=== PATIENT | female | born 1935 | race Caucasian/White ===

== ENCOUNTER → 2017-06-14 11:31 | Outpatient (CLI) | payer MEDICARE, OTHER, SELFPAY ==
[2017-06-14 12:36] LABS: Absolute Lymphocyte Count 1.45 X10^3/ul (0.83-4.51); Basophil# 0.02 X10^3/uL; Basophil% 0.3 % (0-1); Eosinophil# 0.11 X10^3/uL; Eosinophils% 1.7 % (0-5); Hematocrit 37.7 % (37-47); Hemoglobin 11.7 g/dl (12.0-15.0); Lymphocyte # 1.45 X10^3/ul (4.0); Lymphocyte % 22.9 % (19-41); Mean Corpuscular Volume 96.7 fL (81-99); Mean Platelet Vol. 11.6 fl (6.2-12.0); Monocyte# 0.71 X10^3/uL; Monocyte% 11.2 % (0-10); Neutrophil # 4.03 X10^3/uL (2.7-7.7); Neutrophil % 63.7 % (47-70); Platelet Count 213 K/mm3 (150-450); RBC Distribution Width SD 47.2 fl (35.1-43.9); White Blood Count 6.3 K/mm3 (4.4-11.0)
[2017-06-14 12:41] LABS: POSITIVE COUNT NO; POSITIVE DIFFERENTIAL NO; POSITIVE MORPHOLOGY NO
[2017-06-14 13:00] LABS: ALB/GLOB Ratio 1.2 RATIO (0.9-2.4); AST(SGOT) 12 U/L (15-37); Alanine Aminotransfer ALT/SGPT 14 U/L (13-56); Albumin, Serum 3.8 g/dL (3.2-5.0); Alkaline Phosphatase 102 U/L (45-117); Anion Gap 8 (5-15); BUN 27 mg/dL (7-18); BUN/Creat Ratio 27.4 RATIO (10-20); Calcium,Total 9.1 mg/dL (8.5-10.1); Chloride 104 mmol/L (98-107); Creatinine, Serum 0.98 mg/dL (0.55-1.02); EST Glomerular Filtration Rate 58 mL/min (>60); Est Glom Filt Rate - Afr Amer 70 mL/min (>60); Globulin 3.3 g/dL (2.2-4.2); Glucose 85 mg/dL (70-110); Potassium 4.3 mmol/L (3.5-5.1); Protein, Total 7.1 g/dL (6.4-8.2); Sodium Level 140 mmol/L (136-145); Thyroid Stim Hormone (TSH) 0.76 uIU/mL (0.358-3.74)
== END ==
PROVIDERS: Family Provider Family Medicine Geriatric Medicine; PCP Family Medicine Geriatric Medicine; Visit Provider Family Medicine Geriatric Medicine
DX: E55.9 Vitamin D deficiency, unspecified (principal); R53.83 Other fatigue
CPT/HCPCS: 36415; 80053; 82306; 84443; 85025

== ENCOUNTER → 2017-10-13 16:01 | Outpatient (CLI) | payer MEDICARE, OTHER, SELFPAY ==
[2017-10-28 10:00] LABS: Lyme IgG P18 Ab Absent (.); Lyme IgG P23 Ab Absent (.); Lyme IgG P28 Ab Absent (.); Lyme IgG P30 Ab Absent (.); Lyme IgG P39 Ab Absent (.); Lyme IgG P41 Ab Absent (.); Lyme IgG P45 Ab Absent (.); Lyme IgG P58 Ab Absent (.); Lyme IgG P66 Ab Absent (.); Lyme IgG P93 Ab Absent (.); Lyme IgM P23 Ab Absent (.); Lyme IgM P39 Ab Absent (.); Lyme IgM P41 Ab Absent (.)
[2017-10-28 11:01] LABS: Lyme IgG WB Interpretation Negative (.); Lyme IgM WB Interpretation Negative (.)
== END ==
PROVIDERS: Family Provider Family Medicine Geriatric Medicine; PCP Family Medicine Geriatric Medicine; Visit Provider Family Medicine Geriatric Medicine
DX: A69.20 Lyme disease, unspecified (principal)
CPT/HCPCS: 36415; 86617

== ENCOUNTER → 2017-12-07 11:55 | Outpatient (CLI) | payer MEDICARE, OTHER, SELFPAY ==
[2017-12-07 12:46] LABS: Absolute Lymphocyte Count 1.49 X10^3/ul (0.83-4.51); Absolute Neutrophil Count 4.9 X10^3/uL (2.0-7.7); Basophil# 0.04 X10^3/uL; Basophil% 0.5 % (0-1); Eosinophils% 1.4 % (0-5); Hematocrit 37.3 % (37-47); Hemoglobin 11.7 g/dl (12.0-15.0); Lymphocyte # 1.49 X10^3/ul (4.0); Lymphocyte % 20.3 % (19-41); Mean Corp Hgb Conc 31.4 g/gl (32-36); Mean Corpuscular Volume 98.7 fL (81-99); Mean Platelet Vol. 11.5 fl (6.2-12.0); Monocyte# 0.78 X10^3/uL; Monocyte% 10.6 % (0-10); Neutrophil # 4.93 X10^3/uL (2.7-7.7); Neutrophil % 67.2 % (47-70); Platelet Count 212 K/mm3 (150-450); RBC Distribution Width CV 13.8 % (11.6-14.6); RBC Distribution Width SD 48.2 fl (35.1-43.9); Red Blood Count 3.78 M/mm3 (4.2-5.4); White Blood Count 7.3 K/mm3 (4.4-11.0)
[2017-12-07 12:47] LABS: POSITIVE COUNT NO; POSITIVE DIFFERENTIAL NO; POSITIVE MORPHOLOGY NO
[2017-12-07 13:07] LABS: ALB/GLOB Ratio 1.1 RATIO (0.9-2.4); AST(SGOT) 16 U/L (15-37); Alanine Aminotransfer ALT/SGPT 15 U/L (13-56); Albumin, Serum 3.8 g/dL (3.2-5.0); Alkaline Phosphatase 84 U/L (45-117); Anion Gap 6 (5-15); BUN 26 mg/dL (7-18); BUN/Creat Ratio 26.7 RATIO (10-20); Calcium,Total 9.4 mg/dL (8.5-10.1); Chloride 104 mmol/L (98-107); Creatinine, Serum 0.98 mg/dL (0.55-1.02); EST Glomerular Filtration Rate 58 mL/min (>60); Est Glom Filt Rate - Afr Amer 71 mL/min (>60); Globulin 3.5 g/dL (2.2-4.2); Glucose 89 mg/dL (74-106); Potassium 3.8 mmol/L (3.5-5.1); Protein, Total 7.3 g/dL (6.4-8.2); Sodium Level 140 mmol/L (136-145); Thyroid Stim Hormone (TSH) 0.78 uIU/mL (0.358-3.74)
[2017-12-08 08:29] LABS: Vitamin D,25 Hydroxy 28.2 ng/mL (29.95-100.01)
== END ==
PROVIDERS: Family Provider Family Medicine Geriatric Medicine; PCP Family Medicine Geriatric Medicine; Visit Provider Family Medicine Geriatric Medicine
DX: E55.9 Vitamin D deficiency, unspecified (principal); I10 Essential (primary) hypertension
CPT/HCPCS: 36415; 80053; 82306; 84443; 85025

== ENCOUNTER → 2017-12-21 13:14 | Outpatient (CLI) | payer MEDICARE, OTHER, SELFPAY ==
--- NOTE | 2017-12-21 13:25 | RAD_ITS ---
STUDY: X-RAY - THORACIC SPINE REASON FOR EXAM: Female, 82 years old. back pain TECHNIQUE: 2 view(s) of the thoracic spine were obtained. COMPARISON: None. FINDINGS: There is an increase in the normal thoracic kyphosis. There is multi-level endplate spondylosis. There is multi-level degenerative disc disease with multilevel disc space narrowing. The soft tissue structures are unremarkable. RAD/Thoracic Spine 2 Views IMPRESSION: No demonstrated fractures. Moderate degenerative changes. Electronically Signed: Luigi Hines MD at 11:09 EDT Tel , Service support ,
== END ==
PROVIDERS: Family Provider Family Medicine Geriatric Medicine; PCP Family Medicine Geriatric Medicine; Visit Provider Anesthesiology Pain Medicine
DX: M47.894 Other spondylosis, thoracic region (principal); M51.34 Other intervertebral disc degeneration, thoracic region; M48.04 Spinal stenosis, thoracic region
CPT/HCPCS: 72070

== ENCOUNTER → 2018-03-10 11:52 | Outpatient (CLI) | payer MEDICARE, OTHER, SELFPAY ==
[2018-03-10 13:53] LABS: Absolute Lymphocyte Count 1.33 X10^3/ul (0.83-4.51); Absolute Neutrophil Count 3.8 X10^3/uL (2.0-7.7); Basophil# 0.01 X10^3/uL; Basophil% 0.2 % (0-1); Eosinophils% 1.7 % (0-5); Hematocrit 35.9 % (37-47); Lymphocyte # 1.33 X10^3/ul (4.0); Lymphocyte % 22.6 % (19-41); Mean Corp Hgb Conc 30.6 g/gl (32-36); Mean Corpuscular Volume 97.8 fL (81-99); Monocyte# 0.66 X10^3/uL; Monocyte% 11.2 % (0-10); Neutrophil # 3.78 X10^3/uL (2.7-7.7); Neutrophil % 64.3 % (47-70); Platelet Count 225 K/mm3 (150-450); RBC Distribution Width CV 13.8 % (11.6-14.6); RBC Distribution Width SD 49.3 fl (35.1-43.9); Red Blood Count 3.67 M/mm3 (4.2-5.4); White Blood Count 5.9 K/mm3 (4.4-11.0)
[2018-03-10 13:54] LABS: POSITIVE COUNT NO; POSITIVE DIFFERENTIAL NO; POSITIVE MORPHOLOGY NO
[2018-03-10 14:12] LABS: Vitamin D,25 Hydroxy 33.8 ng/mL (29.95-100.01)
[2018-03-10 14:17] LABS: ALB/GLOB Ratio 1.1 RATIO (0.9-2.4); AST(SGOT) 13 U/L (15-37); Alanine Aminotransfer ALT/SGPT 11 U/L (13-56); Albumin, Serum 3.5 g/dL (3.2-5.0); Alkaline Phosphatase 85 U/L (45-117); Anion Gap 10 (5-15); BUN 16 mg/dL (7-18); BUN/Creat Ratio 17.8 RATIO (10-20); Calcium,Total 9.1 mg/dL (8.5-10.1); Chloride 104 mmol/L (98-107); EST Glomerular Filtration Rate 64 mL/min (>60); Est Glom Filt Rate - Afr Amer 77 mL/min (>60); Globulin 3.2 g/dL (2.2-4.2); Glucose 89 mg/dL (74-106); Potassium 4.2 mmol/L (3.5-5.1); Protein, Total 6.7 g/dL (6.4-8.2); Sodium Level 141 mmol/L (136-145); Thyroid Stim Hormone (TSH) 0.76 uIU/mL (0.358-3.74)
== END ==
PROVIDERS: Family Provider Family Medicine Geriatric Medicine; PCP Family Medicine Geriatric Medicine; Visit Provider Family Medicine Geriatric Medicine
DX: E55.9 Vitamin D deficiency, unspecified (principal); I10 Essential (primary) hypertension; N39.0 Urinary tract infection, site not specified
CPT/HCPCS: 36415; 80053; 82306; 84443; 85025; 87086; 87088

== ENCOUNTER → 2018-04-28 14:24 | Outpatient (CLI) | payer MEDICARE, OTHER, SELFPAY ==
[2018-05-04 12:08] LABS: Lyme IgG P18 Ab Absent (.); Lyme IgG P23 Ab Absent (.); Lyme IgG P28 Ab Absent (.); Lyme IgG P30 Ab Absent (.); Lyme IgG P39 Ab Absent (.); Lyme IgG P41 Ab Absent (.); Lyme IgG P45 Ab Absent (.); Lyme IgG P58 Ab Absent (.); Lyme IgG P66 Ab Absent (.); Lyme IgG P93 Ab Absent (.); Lyme IgM P23 Ab Absent (.); Lyme IgM P39 Ab Absent (.); Lyme IgM P41 Ab Absent (.)
[2018-05-04 13:05] LABS: Lyme IgG WB Interpretation Negative (.); Lyme IgM WB Interpretation Negative (.)
--- OUTSIDE RECORDS SUMMARY | 2018-06-14 11:38 | XMS RPT_ITS ---
:1935 Author Organization OHIP Care Team Providers Name Role Phone JONAH GIBBS Attending Unavailable JANIE CARVALHO (NS) Attending Unavailable JONAH GIBBS Attending Unavailable JONAH GIBBS Referring Unavailable SAMIRA BARRIENTOS Attending Unavailable JANIE CARVALHO HEEL SEAT FILLER Admitting Unavailable JANIE CARVALHO HEEL SEAT FILLER Attending Unavailable JANIE CARVALHO HEEL SEAT FILLER Primary Care Unavailable GURMEET MAIN MD Consulting Unavailable PROVIDER, UNKNOWN Consulting Unavailable PROVIDER, UNKNOWN Consulting Unavailable Stevie, Gurmeet Chi Attending Unavailable Stevie, Gurmeet Chi Primary Care Unavailable Trisha Kumar Attending Unavailable Trisha Kumar Referring Unavailable Stevie, Gurmeet Chi Primary Care Unavailable Stevie, Gurmeet Chi Attending Unavailable Stevie, Gurmeet Chi Primary Care Unavailable Stevie, Gurmeet Chi Attending Unavailable Stevie, Gurmeet Chi Primary Care Unavailable Stevie, Gurmeet Chi Attending Unavailable Stevie, Gurmeet Chi Primary Care Unavailable Basali, Ayman Attending Unavailable Basali, Ayman Referring Unavailable Stevie, Gurmeet Chi Primary Care Unavailable Basali, Ayman Attending Unavailable Basali, Ayman Referring Unavailable Stevie, Gurmeet Chi Primary Care Unavailable Stevie, Gurmete Chi Attending Unavailable Stevie, Gurmeet Chi Primary Care Unavailable PROBLEMS PROBLEMS DATE TYPE CONDITION / CODE ATTENDING STATUS SOURCE 03/10/2018 Unknown E55.9 - Vitamin D Stevie, Gurmeet Chi Active [place] deficiency, Community unspecified / Hospital E55.9(ICD-10) Repository 03/10/2018 Unknown I10 - Essential Stevie, Gurmeet Chi Active [place] (primary) Community hypertension / Hospital I10(ICD-10) Repository 02/08/2018 Admitting Parkinson's disease JANIE CARVALHO Active [facility] Diagnosis / G20(ICD-10) [facility] Repository 02/08/2018 Principle Parkinson's disease JANIE CARVALHO Active [facility] Diagnosis / G20(ICD-10) [facility] Repository 02/08/2018 Secondary Unspecified WADEJANIE Active [facility] Diagnosis abnormalities of [facility] gait and mobility / Hospital R269(ICD-10) Repository 06/14/2017 Unknown R53.83 - Other Stevie, Gurmeet Chi Active [place] fatigue / Community R53.83(ICD-10) Hospital Repository PROCEDURES PROCEDURES No Procedure Records FoundRESULTS RESULTS CNCO Observed: 06/07/2018 Status: COMPLETED Source: [place] 12:00 AM [facility] REPOSITORY Letter Text Samira Barrientos MD [facility] [address] [place] [address] Tiffanie Moody June 07, 2018 Tiffanie Moody [id number] [id number] Dear Tiffanie Moody: Due to a change in your provider's schedule, it has become necessary to cancel the following appointment: Samira Barrientos MD Date: 12/05/18 Time: 4:10pm We apologize for any inconvenience to you, however your provider would still like to see you. Please call us at [phone] to reschedule your appointment. 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 Noting tremors for more than 5 years that are present with rest, action, posture. Also elements of parkinsonism with hyposmia, hypophonia, mild rigidity, freezing and hesitation on tests of upper extremity agility. Gait is parkinsonian. She notes improvement with Sinemet. Discussed diagnosis of ET/PD is clinical. Most bothersome symptoms today are constipation and insomnia. - constipation: already tried multiple remedies. Discussed increased water intake. Gave prune juice cocktail recipe. Advised to avoid daily use of laxatives. Consider referral to GI specialist if constipation does not improve. - insomnia: has failed trazodone and melatonin. Side effects with Ambien. Recommend trial of Remeron. - continue current Sinemet regimen. Continue Requip for RLS. In the future consider increasing Sinemet dose, trial of primidone. ---> Follow-up: 6 months Last Visit: 01/31/2018 with Kavitha Monroy Hx: Tremors for at least 3 years. Diagnosed with ET in [place] almost 5 years ago. Handwriting is shaky and smaller. Tremors at rest, action, posture. Dexterity is limited. Doesn't have the strength. Can still knit and dangelo. Leg tremors when reading or knitting. Mother had tremors as well, never told she had PD. Started in her head. Tremors with action in hands. Speech a little slurred. Primidone sounds familiar. +anosmia. voice has been soft. No hypomimia noticed. Most bothersome symptoms: constipation and not sleeping. Current PD meds: Sinemet 25/100 1 tab BID AM and 2PM Sinemet CR 50/200 1 tab QHS Thinks Sinemet helps her. Time to onset of action after taking medication: no Wearing off: no Dyskinesia: no Other side effects: Nausea,vomiting: no Hallucination: no Falls/Imbalance: feet stick to the floor. Few falls. Lives in [facility] house.gait is slower. Did PT and worked on walking big. Stooped posture and shuffling. Sometimes runs into wall to stop herself. Sleep problems/RBD/RLS: never slept well. Takes Requip and drinks quinine for RLS. Happy with RLS control generally but still not sleeping. Sometimes trouble sleeping due to RLS, worry. Moans in her sleep. No moving. Not fallen out of bed. Melatonin didn't work at 20 mg. Multiple family members don't sleep. RLS is long-standing. Takes MOM daily. Tried trazodone and didn't help. Impaired memory/Cognition/Driving: no. Memory is good. Per daughter she is sharp. No driving for 2 years. Not sure if she was safe. Nothing happened. Issues with mobility once she gets out of the car. Bowel/Bladder: UTI currently. Normally she is fine with no incontinence. Constipation. Takes MOM. Miralax didn't help. High fiber, prunes, prune juice. Orthostasis: little. Has to stand and get her bearings- more balance than dizzy. Sialorrhea: yes Swallowing difficulty: no Depress mood/Anxiety: up and down like always. Rehab/exercise: Last PT session 12 weeks in March PMH: PAST MEDICAL HISTORY Diagnosis Date - Hypertension - Hypothyroidism New Health Issues: No SOC: Social History Marital status: Spouse name: Years of education: Number of children: Social History Main Topics Smoking status: Former Smoker Packs/day: 0.00 Years: 0.00 Smokeless tobacco: Never Used FMH: FAMILY HISTORY Problem Relation Age of Onset - other (tremors) Mother - other (PD paternal uncle) Other MEDS: Current Outpatient Prescriptions: cephALEXin (KEFLEX) 250 mg capsule Take 250 mg by mouth four times daily. rOPINIRole (REQUIP) 0.5 mg tablet Take 0.5 mg by mouth daily at bedtime. Fosinopril Sodium (MONOPRIL) 20 mg tablet Take 20 mg by mouth once daily. hydroCHLOROthiazide (HYDRODIURIL, ESIDRIX) 12.5 mg tablet Take 12.5 mg by mouth once daily. carbidopa-levodopa (SINEMET 25-100) 25-100 mg per tablet Take 1 tablet by mouth three times daily. aspirin, enteric coated (ASPIRIN, ENTERIC COATED) 81 mg EC tablet Take 81 mg by mouth once daily. Levothyroxine 75 mcg cap Take by mouth. MAGNESIUM HYDROXIDE (MILK OF MAGNESIA ORAL) Take by mouth. DOCUSATE CALCIUM (STOOL SOFTENER ORAL) Take by mouth. carbidopa-levodopa CR (SINEMET CR) 50-200 mg per tablet Take 1 tablet by mouth daily at bedtime. clonazePAM (KLONOPIN) 0.5 mg tablet Take one-half at bedtime for 2 weeks, if needed increase to a full tablet (Patient not taking: Reported on 06/06/2018 ) atorvastatin (LIPITOR) 40 mg tablet Take 40 mg by mouth once daily. traZODone (DESYREL) 50 mg tablet Take 1 tablet by mouth daily at bedtime. (Patient not taking: Reported on 06/06/2018 ) indapamide (LOZOL) 1.25 mg tablet Take 1.25 mg by mouth once daily. CALCIUM CARBONATE/VITAMIN D3 (VITAMIN D-3 ORAL) Take by mouth. lutein 20 mg tab Take by mouth. cyanocobalamin (VITAMIN B-12) 1,000 mcg tab Take 1,000 mcg by mouth once daily. No current facility-administered medications for this visit. REVIEW OF SYSTEMS: Review of system : unchanged from the previous visit or as per HPI (sleep patterns, mood, energy, appetite, stress, exercising). Physical Examination: Pulse 79 Ht 162.6 cm (5' 4) Wt 86.2 kg (190 lb) SpO2 99% BMI 32.61 kg/m? unable to measure BP due to tremors GEN: Alert. NAD. Normal affect. Cooperative. HEENT: No rhinorrhea, lacrimation or conjunctival injection. Normal mucosa. NECK/BACK: Supple EXT: No cyanosis. No edema. No erythema. NEUROLOGICAL: MENTAL STATUS: A+O x 3. Attentive. Thought process and content unremarkable. Follows commands appropriately. Speech fluent. CN: II: PERRLA. III, IV, : EOMI. No ptosis present. VII: Face symmetric. VIII:No nystagmus. XI: Symmetric shoulder shrug. MOTOR: Movement disorders examination: To quantify parkinsonism, Part III of the MDS-Unified Parkinson?s Disease Rating Scale was performed and detailed in the succeeding sections in this report. Please see the neurological health status section or the next paragraph for details. Each item is scored from 0 to 4. In general, a score of 0 means normal; 1 means mild; 2 means moderate; 3 means moderate to severe; 4 means severe. Motor UPDRS SPEECH ON 2 FACIAL EXPRESSION ON 0 REST TREMOR - CRANIAL ON 1 REST TREMOR - HANDS RT ON 2 REST TREMOR - HANDS LT ON 2 REST TREMOR - FEET RT ON 1 REST TREMOR - FEET LT ON 1 ACTION TREMOR - RT ON 2 ACTION TREMOR - LT ON 2 RIGIDITY - NECK ON 0 RIGIDITY - UE - RT ON 1 RIGIDITY - UE - LT ON 1 RIGIDITY - LE - RT ON 0 RIGIDITY - LE - LT ON 0 FINGER TAPS - RT ON 1 FINGER TAPS - LT ON 2 HAND SEARCH LEAD - RT ON 2 HAND SEARCH LEAD - LT ON 2 PRONATE/SUPINATE - RT ON 2 PRONATE/SUPINATE - LT ON 1 LEG AGILITY - RT ON 1 LEG AGILITY - LT ON 1 ARISE FROM CHAIR ON 0 POSTURE ON 2 GAIT ON 1 BODY BRADYKINESIA ON 1 CEREBELLAR: No ataxia or nystagmus. GAIT: Stable primary gait. Samira Barrientos M.D. [facility] [place] Department [facility] Total time in minutes spent with patient: 45 with more than 50% of the time spent in patient education/counselling/coordinating care with the patient and /or family. 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 Noting tremors for more than 5 years that are present with rest, action, posture. Also elements of parkinsonism with hyposmia, hypophonia, mild rigidity, freezing and hesitation on tests of upper extremity agility. Gait is parkinsonian. She notes improvement with Sinemet. Discussed diagnosis of ET/PD is clinical. Most bothersome symptoms today are constipation and insomnia. - constipation: already tried multiple remedies. Discussed increased water intake. Gave prune juice cocktail recipe. Advised to avoid daily use of laxatives. Consider referral to GI specialist if constipation does not improve. - insomnia: has failed trazodone and melatonin. Side effects with Ambien. Recommend trial of Remeron. - continue current Sinemet regimen. Continue Requip for RLS. In the future consider increasing Sinemet dose, trial of primidone. ---> Follow-up: 6 months Last Visit: 01/31/2018 with Kavitha Monroy Hx: Tremors for at least 3 years. Diagnosed with ET in [place] almost 5 years ago. Handwriting is shaky and smaller. Tremors at rest, action, posture. Dexterity is limited. Doesn't have the strength. Can still knit and dangelo. Leg tremors when reading or knitting. Mother had tremors as well, never told she had PD. Started in her head. Tremors with action in hands. Speech a little slurred. Primidone sounds familiar. +anosmia. voice has been soft. No hypomimia noticed. Most bothersome symptoms: constipation and not sleeping. Current PD meds: Sinemet 25/100 1 tab BID AM and 2PM Sinemet CR 50/200 1 tab QHS Thinks Sinemet helps her. Time to onset of action after taking medication: no Wearing off: no Dyskinesia: no Other side effects: Nausea,vomiting: no Hallucination: no Falls/Imbalance: feet stick to the floor. Few falls. Lives in house.gait is slower. Did PT and worked on walking big. Stooped posture and shuffling. Sometimes runs into wall to stop herself. Sleep problems/RBD/RLS: never slept well. Takes Requip and drinks quinine for RLS. Happy with RLS control generally but still not sleeping. Sometimes trouble sleeping due to RLS, worry. Moans in her sleep. No moving. Not fallen out of bed. Melatonin didn't work at 20 mg. Multiple family members don't sleep. RLS is long-standing. Takes MOM daily. Tried trazodone and didn't help. Impaired memory/Cognition/Driving: no. Memory is good. Per daughter she is sharp. No driving for 2 years. Not sure if she was safe. Nothing happened. Issues with mobility once she gets out of the car. Bowel/Bladder: UTI currently. Normally she is fine with no incontinence. Constipation. Takes MOM. Miralax didn't help. High fiber, prunes, prune juice. Orthostasis: little. Has to stand and get her bearings- more balance than dizzy. Sialorrhea: yes Swallowing difficulty: no Depress mood/Anxiety: up and down like always. Rehab/exercise: Last PT session 12 weeks in March PMH: PAST MEDICAL HISTORY Diagnosis Date - Hypertension - Hypothyroidism New Health Issues: No SOC: Social History Marital status: Spouse name: Years of education: Number of children: Social History Main Topics Smoking status: Former Smoker Packs/day: 0.00 Years: 0.00 Smokeless tobacco: Never Used FMH: FAMILY HISTORY Problem Relation Age of Onset - other (tremors) Mother - other (PD paternal uncle) Other MEDS: Current Outpatient Prescriptions: cephALEXin (KEFLEX) 250 mg capsule Take 250 mg by mouth four times daily. rOPINIRole (REQUIP) 0.5 mg tablet Take 0.5 mg by mouth daily at bedtime. Fosinopril Sodium (MONOPRIL) 20 mg tablet Take 20 mg by mouth once daily. hydroCHLOROthiazide (HYDRODIURIL, ESIDRIX) 12.5 mg tablet Take 12.5 mg by mouth once daily. carbidopa-levodopa (SINEMET 25-100) 25-100 mg per tablet Take 1 tablet by mouth three times daily. aspirin, enteric coated (ASPIRIN, ENTERIC COATED) 81 mg EC tablet Take 81 mg by mouth once daily. Levothyroxine 75 mcg cap Take by mouth. MAGNESIUM HYDROXIDE (MILK OF MAGNESIA ORAL) Take by mouth. DOCUSATE CALCIUM (STOOL SOFTENER ORAL) Take by mouth. carbidopa-levodopa CR (SINEMET CR) 50-200 mg per tablet Take 1 tablet by mouth daily at bedtime. clonazePAM (KLONOPIN) 0.5 mg tablet Take one-half at bedtime for 2 weeks, if needed increase to a full tablet (Patient not taking: Reported on 06/06/2018 ) atorvastatin (LIPITOR) 40 mg tablet Take 40 mg by mouth once daily. traZODone (DESYREL) 50 mg tablet Take 1 tablet by mouth daily at bedtime. (Patient not taking: Reported on 06/06/2018 ) indapamide (LOZOL) 1.25 mg tablet Take 1.25 mg by mouth once daily. CALCIUM CARBONATE/VITAMIN D3 (VITAMIN D-3 ORAL) Take by mouth. lutein 20 mg tab Take by mouth. cyanocobalamin (VITAMIN B-12) 1,000 mcg tab Take 1,000 mcg by mouth once daily. No current facility-administered medications for this visit. REVIEW OF SYSTEMS: Review of system : unchanged from the previous visit or as per HPI (sleep patterns, mood, energy, appetite, stress, exercising). Physical Examination: Pulse 79 Ht 162.6 cm (5' 4) Wt 86.2 kg (190 lb) SpO2 99% BMI 32.61 kg/m? unable to measure BP due to tremors GEN: Alert. NAD. Normal affect. Cooperative. HEENT: No rhinorrhea, lacrimation or conjunctival injection. Normal mucosa. NECK/BACK: Supple EXT: No cyanosis. No edema. No erythema. NEUROLOGICAL: MENTAL STATUS: A+O x 3. Attentive. Thought process and content unremarkable. Follows commands appropriately. Speech fluent. CN: II: PERRLA. III, IV, : EOMI. No ptosis present. VII: Face symmetric. VIII:No nystagmus. XI: Symmetric shoulder shrug. MOTOR: Movement disorders examination: To quantify parkinsonism, Part III of the MDS-Unified Parkinson?s Disease Rating Scale was performed and detailed in the succeeding sections in this report. Please see the neurological health status section or the next paragraph for details. Each item is scored from 0 to 4. In general, a score of 0 means normal; 1 means mild; 2 means moderate; 3 means moderate to severe; 4 means severe. Motor UPDRS SPEECH ON 2 FACIAL EXPRESSION ON 0 REST TREMOR - CRANIAL ON 1 REST TREMOR - HANDS RT ON 2 REST TREMOR - HANDS LT ON 2 REST TREMOR - FEET RT ON 1 REST TREMOR - FEET LT ON 1 ACTION TREMOR - RT ON 2 ACTION TREMOR - LT ON 2 RIGIDITY - NECK ON 0 RIGIDITY - UE - RT ON 1 RIGIDITY - UE - LT ON 1 RIGIDITY - LE - RT ON 0 RIGIDITY - LE - LT ON 0 FINGER TAPS - RT ON 1 FINGER TAPS - LT ON 2 HAND SEARCH LEAD - RT ON 2 HAND SEARCH LEAD - LT ON 2 PRONATE/SUPINATE - RT ON 2 PRONATE/SUPINATE - LT ON 1 LEG AGILITY - RT ON 1 LEG AGILITY - LT ON 1 ARISE FROM CHAIR ON 0 POSTURE ON 2 GAIT ON 1 BODY BRADYKINESIA ON 1 CEREBELLAR: No ataxia or nystagmus. GAIT: Stable primary gait. Samira Barrientos M.D. [facility] [place] Department of [facility] Total time in minutes spent with patient: 45 with more than 50% of the time spent in patient education/counselling/coordinating care with the patient and /or family. cc: SELF Gurmeet Main MD [id number] [address] Samira Barrientos MD 06/06/2018 10:03 AM Signed Prune Juice Cocktail for constipation: Mix together: 1/2 cup applesauce 2 tablespoons wheat bran (patricio's bran) 4-6 oz prune juice Store in refrigerator. Take a tablespoonful per day at first, gradually increasing until you find the amount that works best. Try to increase your water intake to at least 40 ounces per day Try not take laxatives every. 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 LEVOTHYROXINE 75 MCG CAPSULE Take by mouth. MILK OF MAGNESIA ORAL Take by mouth. STOOL SOFTENER ORAL Take by mouth. MIRTAZAPINE 15 MG TABLET Take 0.5 tablets by mouth demi* CARBIDOPA ER 50 MG-LEVODOPA 2* Take 1 tablet by mouth daily * INDAPAMIDE 1.25 MG TABLET Take 1.25 mg by mouth once da* Problem List As Of Date 06/06/2018 Noted Resolved Chronic midline low back pain with left-sided s*INVALID FOR* Parkinson's disease (HCC) [G20] INVALID FOR* Essential tremor [G25.0] INVALID FOR* Memory loss [R41.3] INVALID FOR* Other instructions from your clinician: Prune Juice Cocktail for constipation: Mix together: 1/2 cup applesauce 2 tablespoons wheat bran (patricio's bran) 4-6 oz prune juice Store in refrigerator. Take a tablespoonful per day at first, gradually increasing until you find the amount that works best. Try to increase your water intake to at least 40 ounces per day Try not take laxatives every. Prescriptions ordered this encounter Disp Refills Start End MIRTAZAPINE 15 MG TABLET 15 t* 11 06/06/2018 06/06/2019 Route: ORAL Sig: Take 0.5 tablets by mouth daily at bedtime. Medications Discontinued During This Encounter atorvastatin (LIPITOR) 40 mg tablet 06/06/2018 Class: Historical Med Route: ORAL Sig: Take 40 mg by mouth once daily. Disc: Reason for discontinue is not on file. clonazePAM (KLONOPIN) 0.5 mg tablet 30 t* 1 01/31/2018 06/06/2018 Class: Print RX Sig: Take one-half at bedtime for 2 weeks, if needed increase to a full tablet Patient not taking: Reported on 06/06/2018 Disc: Reason for discontinue is not on file. cyanocobalamin (VITAMIN B-12) 1,000 * 06/06/2018 Class: Historical Med Route: ORAL Sig: Take 1,000 mcg by mouth once daily. Disc: Reason for discontinue is not on file. lutein 20 mg tab 06/06/2018 Class: Historical Med Route: ORAL Sig: Take by mouth. Disc: Reason for discontinue is not on file. traZODone (DESYREL) 50 mg tablet 90 t* 0 12/29/2016 06/06/2018 Route: ORAL Sig: Take 1 tablet by mouth daily at bedtime. Patient not taking: Reported on 06/06/2018 Disc: Reason for discontinue is not on file. Disposition: Return in about 3 months (around 09/04/2018). Follow-up and Disposition History Recorded Questionnaire: UPDRS - MOTOR EXAMINATION ON SPEECH ON -> 2 FACIAL EXPRESSION ON -> 0 REST TREMOR - CRANIAL ON -> 1 REST TREMOR - HANDS RT ON -> 2 REST TREMOR - HANDS LT ON -> 2 REST TREMOR - FEET RT ON -> 1 REST TREMOR - FEET LT ON -> 1 ACTION TREMOR - RT ON -> 2 ACTION TREMOR - LT ON -> 2 RIGIDITY - NECK ON -> 0 RIGIDITY - UE - RT ON -> 1 RIGIDITY - UE - LT ON -> 1 RIGIDITY - LE - RT ON -> 0 RIGIDITY - LE - LT ON -> 0 FINGER TAPS - RT ON -> 1 FINGER TAPS - LT ON -> 2 HAND SEARCH LEAD - RT ON -> 2 HAND SEARCH LEAD - LT ON -> 2 PRONATE/SUPINATE - RT ON -> 2 PRONATE/SUPINATE - LT ON -> 1 LEG AGILITY - RT ON -> 1 LEG AGILITY - LT ON -> 1 ARISE FROM CHAIR ON -> 0 POSTURE ON -> 2 GAIT ON -> 1 BODY BRADYKINESIA ON -> 1 Encounter Status:Closed by SAMIRA BARRIENTOS MD on 06/06/18 PROGRESS Observed: 06/02/2018 Status: COMPLETED Source: [place] 11:55 AM [facility] [place] REPOSITORY HNO ID: [id number] Author: Jonah Gibbs Service: (none) Author Type: Physician Type: Progress Notes Filed: 06/02/2018 11:58 AM Note Text: Subjective: Patient presents to clinic c/o painful toenails. They state that the nails are especially painful with shoe gear and pressure. Patient states that nails 1-5 b/l are painful. Patient admits to painful callus of b/l feet. Patient denies being diabetic. No other pedal complaints at this time. Patient states no change in medications or medical history since last visit. Objective: Patient presents to clinic ambulating in [facility] Vasc: DP and PT pulses are palpable bilateral. CFT is less than 5 seconds bilateral. Skin temperature is warm to cool proximal to distal bilateral. There is mild edema or varicosities noted. Neuro: Protective sensation is intact to the foot and toes when tested with the 5.07 SWM bilateral. The hallux is downgoing bilateral. Derm: Nails 1-5 b/l are thick with minimal elongation. Skin is dry b/l. . There are callus to b/l 1st metatarsal. No ulcerations, scars, verruca or other lesions noted. Ortho: Muscle strength is 5/5 for all pedal groups tested. Ankle joint DF is full with the knee extended with no pain or crepitus noted. 1st MPJ ROM is decreased bilateral. There are hammertoes to b/l feet Assessment: (B35.1) Onychomycosis (primary encounter diagnosis) (M79.675) Pain in toe of left foot (M79.674) Pain in toe of right foot (L85.9) Hyperkeratosis (M20.41, M20.42) Hammer toes of both feet Plan: Patient was seen and evaluated. Toenails were reduced in thickness with dremmel. They were not very long so will perform this as courtesy. Callus reduced with sanding disk and 15 blade. Recommend use of lotion to feet daily. Continue with wider shoes for hammertoes F/u in 3 months Jonah Gibbs DPM PROGRESS Observed: 06/02/2018 Status: COMPLETED Source: [place] 10:52 AM [facility] REPOSITORY HNO ID: [id number] Author: Brittny Ralph Ma Service: (none) Author Type: (none) Type: Progress Notes Filed: 06/02/2018 11:58 AM Note Text: AMB ROOMING INTAKE FLOWSHEET DATA Risk Screening Do you have concerns about personal safety or safety in the home?: No Pain Pain Score: 2/10 (2-10/10) Pain Location: Foot-Right (Left Foot) Description: Stabbing Duration Amount of Time: 15 Duration Units: Years Frequency: Continuous Intervention: Relaxation, Heat Patient here for nail care. States she has a pain in her foot that's been lasting 15 years. CNOV Observed: 06/02/2018 Status: COMPLETED Source: [place] 10:40 AM [facility] REPOSITORY Office Visit (PODIWS) TIFFANIE MOODY ([id number]) 1935 F Date Time Provider Department 06/02/18 10:40 AM JONAH GIBBS PODIWS During your visit today, we recorded the following information about you: Brittny Ralph Ma 06/02/2018 11:58 AM Signed AMB ROOMING INTAKE FLOWSHEET DATA Risk Screening Do you have concerns about personal safety or safety in the home?: No Pain Pain Score: 2/10 (2-10/10) Pain Location: Foot-Right (Left Foot) Description: Stabbing Duration Amount of Time: 15 Duration Units: Years Frequency: Continuous Intervention: Relaxation, Heat Patient here for nail care. States she has a pain in her foot that's been lasting 15 years. Jonah Gibbs DPM 06/02/2018 11:58 AM Signed Subjective: Patient presents to clinic c/o painful toenails. They state that the nails are especially painful with shoe gear and pressure. Patient states that nails 1-5 b/l are painful. Patient admits to painful callus of b/l feet. Patient denies being diabetic. No other pedal complaints at this time. Patient states no change in medications or medical history since last visit. Objective: Patient presents to clinic ambulating in [facility] Vasc: DP and PT pulses are palpable bilateral. CFT is less than 5 seconds bilateral. Skin temperature is warm to cool proximal to distal bilateral. There is mild edema or varicosities noted. Neuro: Protective sensation is intact to the foot and toes when tested with the 5.07 SWM bilateral. The hallux is downgoing bilateral. Derm: Nails 1-5 b/l are thick with minimal elongation. Skin is dry b/l. . There are callus to b/l 1st metatarsal. No ulcerations, scars, verruca or other lesions noted. Ortho: Muscle strength is 5/5 for all pedal groups tested. Ankle joint DF is full with the knee extended with no pain or crepitus noted. 1st MPJ ROM is decreased bilateral. There are hammertoes to b/l feet Assessment: (B35.1) Onychomycosis (primary encounter diagnosis) (M79.675) Pain in toe of left foot (M79.674) Pain in toe of right foot (L85.9) Hyperkeratosis (M20.41, M20.42) Hammer toes of both feet Plan: Patient was seen and evaluated. Toenails were reduced in thickness with dremmel. They were not very long so will perform this as courtesy. Callus reduced with sanding disk and 15 blade. Recommend use of lotion to feet daily. Continue with wider shoes for hammertoes F/u in 3 months Jonah Gibbs DPM Referring Provider: JONAH GIBBS [[id number]] Allergies As of Date: 06/02/2018 Noted Allergy Reaction MORPHINE 08/25/2016 1 - Mental Status Change PENICILLINS 06/02/2016 2 - Rash SULFA (SULFONAMIDE ANTIBIOTICS) 06/02/2016 2 - Rash Date Reviewed: 06/02/2018 Reviewed by: Brittny Ralph Ma - Fully Assessed Reason for Visit: Established Patient [175] Primary Visit Diagnosis:Onychomycosis [B35.1] Other Visit Diagnoses:Pain in toe of left foot [M79.675] Pain in toe of right foot [M79.674] Hyperkeratosis [L85.9] Hammer toes of both feet [M20.41, M20.42] Prescriptions as of 06/02/2018 Sig: CARBIDOPA ER 50 MG-LEVODOPA 2* Take 1 tablet by mouth daily * ROPINIROLE 0.5 MG TABLET Take 0.5 mg by mouth daily at* HYDROCHLOROTHIAZIDE 12.5 MG T* Take 12.5 mg by mouth once da* CARBIDOPA 25 MG-LEVODOPA 100 * Take 1 tablet by mouth three * ASPIRIN 81 MG TABLET,DELAYED * Take 81 mg by mouth once kenzie* VITAMIN D-3 ORAL Take by mouth. LEVOTHYROXINE 75 MCG CAPSULE Take by mouth. MILK OF MAGNESIA ORAL Take by mouth. STOOL SOFTENER ORAL Take by mouth. FOSINOPRIL 20 MG TABLET Take 20 mg by mouth once kenzie* CLONAZEPAM 0.5 MG TABLET Take one-half at bedtime for * ATORVASTATIN 40 MG TABLET Take 40 mg by mouth once kenzie* TRAZODONE 50 MG TABLET Take 1 tablet by mouth daily * Patient not taking: Reported on 06/02/2018 INDAPAMIDE 1.25 MG TABLET Take 1.25 mg by mouth once da* LUTEIN 20 MG TABLET Take by mouth. CYANOCOBALAMIN (VIT B-12) 1,0* Take 1,000 mcg by mouth once * Problem List As Of Date 06/02/2018 Noted Resolved Chronic midline low back pain with left-sided s*INVALID FOR* Parkinson's disease (HCC) [G20] INVALID FOR* Essential tremor [G25.0] INVALID FOR* Memory loss [R41.3] INVALID FOR* Disposition: Return in about 3 months (around 08/31/2018) for nail care. Follow-up and Disposition History Recorded Encounter Status:Closed by JONAH GIBBS DPM on 06/02/18 HIP, UNI W/ PELVIS Observed: 05/25/2018 Status: F Source: [place] 2-3 VIEWS [facility] PM [facility] Imaging Services [address] [place] [address] HIP, UNI W/ Pelvis 2-3 Views MR#: [id number] Acct: [id number] Name: TIFFANIE MOODY Rep #: [id number] : 1935 F 82 From: Sandeep Patel MD PCP: Stevie KELLY,Gurmeet Prieto Status: REG CLI Study: HIP, UNI W/ Pelvis 2-3 Views Date of Exam: 05/25/18 Exam# [id number] Ordering Dr: Jenny Matthews MD STUDY: X-RAY - LEFT HIP REASON FOR EXAM: Female, 82 years old. Chronic left hip pain TECHNIQUE: Frontal pelvis, frontal and frog-leg lateral left hip. COMPARISON: None. FINDINGS: Low lumbar degenerative disc disease L3-L4, L4-L5, L5-S1. Moderate degenerative features of the right SI joint. Mild degenerative features of the right hip joint, mild joint margin osteophytic lipping. Mild degenerative features of the left hip joint, mild joint margin osteophytic lipping, no significant joint space narrowing, normal appearance of the articular surfaces. Particular soft tissues unremarkable. Pubic rami, iliac crests unremarkable. No acute intrapelvic process is evident. 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 No acute abnormality. Electronically Signed: Sandeep Patel MD at 16:07 EST Tel , Service support , CC: Jenny Matthews MD; Gurmeet Main MD Senior Nuclear Medicine Technologist: Signed KIDNEY AND BLADDER Observed: 05/20/2018 Status: F Source: [place] 2:12 PM [facility] REPOSITORY [facility] Imaging Services [address] [place] [address] Kidney and Bladder MR#: [id number] Acct: [id number] Name: TIFFANIE MOODY Rep #: [id number] : 1935 F 82 From: Osvaldo Hamm DO PCP: Stevie KELLY,[employer] Status: REG CLI Study: Kidney and Bladder Date of Exam: 05/20/18 Exam# [id number] Ordering Dr: Trisha Kumar MD STUDY: RENAL ULTRASOUND - COMPLETE REASON FOR EXAM: Female, 82 years old. Recurrent UTI. TECHNIQUE: Ultrasound evaluation of the kidneys was performed with real-time and static gutierres-scale imaging. COMPARISON: None. FINDINGS: RIGHT KIDNEY: Normal location of the right kidney, which is normal in size. The right kidney measures 11.1 cm. There is a normal cortex of the right kidney. The renal cortex measures 1.4 cm. There is a 1.6 x 2.9 x 2.8 cm parapelvic cyst versus dilated calyx in the mid right kidney. There are no right renal calculi. DISTAL RIGHT URETER: There is non-visualization of the distal right ureter. There is no demonstrated right ureterovesical junction calculus. There is a visualized right ureteral jet. LEFT KIDNEY: Normal location of the left kidney, which is normal in size. The left kidney measures 10.6 cm. There is a normal cortex of the left kidney. The renal cortex measures 1.6 cm. There is no left renal mass or cyst. There are no left renal calculi. There is no left hydronephrosis. DISTAL LEFT URETER: There is non-visualization of the distal left ureter. There is no demonstrated left ureterovesical junction calculus. There is a visualized left ureteral jet. BLADDER: The distended urinary bladder has a volume of 47 ml. There is a normal wall thickness of the distended urinary bladder. There is no demonstrated mass within the urinary bladder. There are no demonstrated bladder calculi. US/Kidney and Bladder IMPRESSION: Right parapelvic cyst versus dilated calyx. The study is otherwise unremarkable. Electronically Signed: Osvaldo Hamm DO at 16:08 EST Tel [phone], Service support , CC: Trisha Kumar MD; Gurmeet Main MD Senior Nuclear Medicine Technologist: Signed LYME ANTIBODIES,W BLOT Collected: 04/28/2018 Status: F Source: [place] 2:26 PM [facility] REPOSITORY TYPE CODE TESTS RESULT OUT OF RANGE REFERENCE UNITS LAB L7000.5920 . Normal P93 Ab Absent LAB L7000.5940 . Normal P66 Ab Absent LAB L7000.5960 . Normal P58 Ab Absent LAB L7000.5980 . Normal P45 Ab Absent LAB L7000.6000 . Normal P41 Ab Absent LAB L7000.6020 . Normal P39 Ab Absent LAB L7000.6040 . Normal P30 Ab Absent LAB L7000.6060 . Normal P28 Ab Absent LAB L7000.6080 . Normal P23 Ab Absent LAB L7000.6100 . Normal P18 Ab Absent LAB L7000.6200 . Normal LYME IgG Negative INTERP Result Comment: Positive: 5 of the following Borrelia-specific bands: 18,23,28,30,39,41,45,58, 66, and 93. Negative: No bands or banding patterns which do not meet positive criteria. LAB L7000.6320 . Normal P41 Ab Absent LAB L7000.6340 . Normal P39 Ab Absent LAB L7000.6360 . Normal P23 Ab Absent LAB L7000.6400 . Normal LYME IgM Negative INTERP Result Comment: Note: An equivocal or positive EIA result followed by a negative Western Blot result is considered NEGATIVE. An equivocal or positive EIA result followed by a positive Western Blot is considered POSITIVE by the CDC. Positive: 2 of the following bands: 23,39 or 41 Negative: No bands or banding patterns which do not meet positive criteria. Criteria for positivity are those recommended by CDC/ASTPHLD. p23=Osp C, v67=erjpedqbx Note: Sera from individuals with the following may cross react in the Lyme Western Blot assays: other spirochetal diseases (periodontal disease, leptospirosis, relapsing fever, yaws, and pinta); connective autoimmune (Rheumatoid Arthritis and Systemic Lupus Erythematosus and also individuals with Antinuclear Antibody); other infections (Kemp Spotted Fever; Monica-Owens Virus, and Cytomegalovirus). Performed at: - [facility] [address] [id number] Entrepreneurial Finance Professor: Deirdre Cervantes MD, Phone: [phone] Performed By: #### L7000.5800 #### [facility] (refer to report for specific site) refer to report for address and phone number CBC W/DIFF, AUTOMATED Collected: 03/10/2018 Status: F Source: [place] 11:54 AM [facility] REPOSITORY TYPE CODE TESTS RESULT OUT OF RANGE REFERENCE UNITS LAB L100.1000 4.4-11.0 K/mm3 Normal WBC 5.9 LAB L100.1200 4.2-5.4 M/mm3 Low RBC 3.67 LAB L100.1300 12.0-15.0 g/dl Low HGB 11.0 LAB L100.1400 37-47 % Low HCT 35.9 LAB L100.1500 81-99 fL Normal MCV 97.8 LAB L100.1600 27.0-32.0 pg Normal MCH 30.0 LAB L100.1700 32-36 g/gl Low MCHC 30.6 LAB L100.1810 11.6-14.6 % Normal RDW CV 13.8 LAB L100.1820 35.1-43.9 fl High RDW SD 49.3 LAB L100.1900 150-450 K/mm3 Normal PLT 225 LAB L100.2000 6.2-12.0 fl Normal MPV 11.0 LAB L100.2100 47-70 % Normal NEUT% 64.3 LAB L100.2200 19-41 % Normal LY% 22.6 LAB L100.2300 0-10 % High MONO% 11.2 LAB L100.2400 0-5 % Normal EO% 1.7 LAB L100.2500 0-1 % Normal BASO% 0.2 LAB L100.2550 0.0-0.9 % Normal IM GRAN % 0.000 Result Comment: IG% - Immature Granulocytes (promyelocytes, myelocytes and metamyelocytes) > 1% indicates that a LEFT SHIFT is Present. LAB L100.2620 2.0-7.7 X10 3/uL Normal Absolute Neut 3.8 LAB L100.2720 0.83-4.51 X10 3/ul Normal Absolute Lymph 1.33 Performed By: #### L100.0100 #### [facility] [address] [place], [address] VITAMIN D,25 HYDROXY Collected: 03/10/2018 Status: F Source: [place] 11:54 AM [facility] REPOSITORY TYPE CODE TESTS RESULT OUT OF RANGE REFERENCE UNITS LAB L506.1000 29.95-100.01 ng/mL Normal Vitamin D 33.8 25-OH Result Comment: Vitamin D 25(OH) Status Range Deficiency <20 ng/mL (50nmol/L) Insuffciency 20 - 30 ng/mL (50 - 75 nmol/L) Sufficiency 30 - 100 ng/mL (75 - 250 nmol/L) Toxicity >100 ng/mL (>250 nmol/L) Performed By: #### L506.1000 #### [facility] [address] [place], [address] COMPREHENSIVE METABOLIC Collected: 03/10/2018 Status: F Source: [facility] 11:54 AM [facility] REPOSITORY TYPE CODE TESTS RESULT OUT OF RANGE REFERENCE UNITS LAB L501.0100 74-106 mg/dL Normal GLU 89 Result Comment: Please note revised GLUCOSE reference range effective 2017. LAB L501.1000 7-18 mg/dL Normal BUN 16 LAB L501.1100 0.55-1.02 mg/dL Normal CREAT,SERUM 0.90 Result Comment: The validity of the calculated GFR AND GFRAA in patients over 70 years has not been determined. Clinical correlation is essential. LAB L501.1110 >60 mL/min Normal EST GFR 64 Result Comment: Non- GFR Calc LAB L501.1115 >60 mL/min Normal EST GFR - AA 77 Result Comment: GFR Calc LAB L501.1300 10-20 RATIO Normal BUN/CRE 17.8 LAB L501.1500 6.4-8.2 g/dL T Normal PROT 6.7 LAB L501.1800 3.2-5.0 g/dL Normal ALB 3.5 LAB L501.1950 2.2-4.2 g/dL Normal GLOB 3.2 LAB L501.2000 0.9-2.4 RATIO Normal A/G 1.1 LAB L501.2200 8.5-10.1 mg/dL CA Normal 9.1 LAB L501.4100 15-37 U/L Low AST 13 LAB L501.4305 45-117 U/L Normal ALK P 85 LAB L501.4405 13-56 U/L Low ALT 11 LAB L501.4600 0.20-1.00 mg/dL T Normal BILI 0.40 LAB L501.5300 136-145 mmol/L NA Normal 141 LAB L501.5600 3.5-5.1 mmol/L K Normal 4.2 LAB L501.5900 98-107 mmol/L CL Normal 104 LAB L501.6100 21.0-32.0 mmol/L Normal CO2 27.0 LAB L501.6200 5-15 Normal GAP 10 Performed By: #### L500.4050, L501.9520 #### [facility] [address] [place], [address] THYROID STIM HORMONE Collected: 03/10/2018 Status: F Source: [place] ([place]) 11:54 AM [facility] REPOSITORY TYPE CODE TESTS RESULT OUT OF RANGE REFERENCE UNITS LAB L501.9520 0.358-3.74 uIU/mL Normal TSH 0.76 Performed By: #### L500.4050, L501.9520 #### [facility] [address] [place], [address] Observed: 03/10/2018 Status: F Source: [place] CULTURE, URINE 11:54 AM [facility] REPOSITORY Urine Culture Below infection level. ORGANISM 1: Mixed Gram Positive Organisms Forest Count 1000-10,000 Performed By: #### M100.0650 #### [facility] [address] [place], [address] PROGRESS Observed: 01/31/2018 Status: COMPLETED Source: [place] 3:17 PM [facility] REPOSITORY HNO ID: [id number] Author: Janie Carvalho (Ns) Service: (none) Author Type: Nurse Specialist Type: Progress Notes Filed: 02/02/2018 12:56 PM Note Text: January 31, 2018 Gurmeet Main MD [address] [place] [address] SELF Phone: N/A Fax: RE: Tiffanie Moody : 1935 MEDICAL NOTE: History of Present Illness: Tiffanie Moody is a 82 year old year old right-handed woman who returns today for evaluation of tremors. The patient is seen along with Her significant other, Don.. HPI: She comes for evaluation and diagnosis of tremors. She noticed tremors first three years ago. Her mother had tremors. She was not diagnosed with anything. Patient's tremors started in her hands, 3 years ago, in last 6 months the legs started to tremor. So the tremors are worse at rest. But there is tremor when she is doing things. She has gait freezing. She has slowness and imbalance, she feels as though she will fall forward. She thinks she has some difficulty with her memory. Two doctors have prescribed meds for her: Requip 0.5 mg is at bedtimes for RLS Carbidopa/Levodopa 25/100, 1 twice during the day Carbidopa/Levodopa 50/200 CR at bedtime Review of Symptoms: Sleep problems/RBD/RLS: yes, does not sleep at all. Falls asleep at 930P or a little later and awakens at 12AM and then is awake for the rest of the night. She has tried Ambien CR, balance worsened. She has tried Melatonin 20 mg, She did not try it for at least 2 weeks. She tried other prescriptions but nothing worked. Impaired memory/Cognition/Driving: yes and she quit driving Bowels/Constipation: yes Urinary problems: yes freezing Sialorrhea: yes Swallowing difficulty: yes now uses a straw to drink liquids with due to difficulty swallowing liquids Depress mood/Anxiety: yes depression Rehab/exercise: yes walking and stretching She thinks she has RLS, she takes Quinine In addition, the following symptoms typically related to PD were asked: Cognitive difficulties - No Hallucinations - Yes, saw a mountain lion, saw her son doing a jig at her house but he was not at her house Impulse control disorder - No weight management issues Apathy - No Weight loss: No [place]/oily scalp: No Loss of taste/appetite: Yes loss of appetite Nausea/vomiting: No Loss of smell: Yes Leg edema/rash: No Excessive sweating: No General symptoms: Fever: No Visual Problems: yes Hearing problems: No Shortness of breath: No Back pain: Yes Motor Symptoms: Unsure how long med kicks in Does not notice improvement in symptoms about an hour after the C/L is taken + tremors at rest and action 0 N/V + L/D + slowness + Gait freezing + occasional falls, no serious injuries Past Medical History: PAST MEDICAL HISTORY Diagnosis Date - Hypertension - Hypothyroidism Past Family History: Mother had tremors, no diagnosis, but Sinemet Paternal uncle with tremors and Parkinson's disease Allergies: ALLERGIES Allergen Reactions - Morphine Mental Status Change - Penicillins Rash - Sulfa (Sulfonamide * Rash Current Medications: Current Outpatient Prescriptions: carbidopa-levodopa CR (SINEMET CR) 50-200 mg per tablet Take 1 tablet by mouth daily at bedtime. Disp: Rfl: rOPINIRole (REQUIP) 0.5 mg tablet Take 0.5 mg by mouth daily at bedtime. Disp: Rfl: Fosinopril Sodium (MONOPRIL) 20 mg tablet Take 20 mg by mouth once daily. Disp: Rfl: hydroCHLOROthiazide (HYDRODIURIL, ESIDRIX) 12.5 mg tablet Take 12.5 mg by mouth once daily. Disp: Rfl: carbidopa-levodopa (SINEMET 25-100) 25-100 mg per tablet Take 1 tablet by mouth three times daily. Disp: Rfl: aspirin, enteric coated (ASPIRIN, ENTERIC COATED) 81 mg EC tablet Take 81 mg by mouth once daily. Disp: Rfl: indapamide (LOZOL) 1.25 mg tablet Take 1.25 mg by mouth once daily. Disp: Rfl: CALCIUM CARBONATE/VITAMIN D3 (VITAMIN D-3 ORAL) Take by mouth. Disp: Rfl: Levothyroxine 75 mcg cap Take by mouth. Disp: Rfl: MAGNESIUM HYDROXIDE (MILK OF MAGNESIA ORAL) Take by mouth. Disp: Rfl: DOCUSATE CALCIUM (STOOL SOFTENER ORAL) Take by mouth. Disp: Rfl: atorvastatin (LIPITOR) 40 mg tablet Take 40 mg by mouth once daily. Disp: Rfl: traZODone (DESYREL) 50 mg tablet Take 1 tablet by mouth daily at bedtime. (Patient not taking: Reported on 01/10/2018 ) Disp: 90 tablet Rfl: 0 lutein 20 mg tab Take by mouth. Disp: Rfl: cyanocobalamin (VITAMIN B-12) 1,000 mcg tab Take 1,000 mcg by mouth once daily. Disp: Rfl: No current facility-administered medications for this visit. PHYSICAL EXAMINATION: BP 122/74 Pulse 80 Ht 162.6 cm (5' 4) Wt 85.5 kg (188 lb 9.6 oz) SpO2 96% BMI 32.37 kg/m? General Description of Patient: Well appearing, comfortable Head: NCAT Extremities: Leg edema absent FOCUSED NEUROLOGIC EXAMINATION: Mental Status: Alert and Oriented to person, place, and date, Normal attention and concentration, Normal memory, Normal fund of knowledge, Normal Language function Pleasant, cooperative Well-nourished Exam Rt Lt Resting tremor 2 3 Postural tremor (straight) 1 2 Postural tremor (wing position) 1 1 Finger to nose 1 2 Drink from a cup Not tested Not tested UPDRS Motor (Meds/Stimulation): Last dose: 9:30A, exam at 3:52 PM See below 50/108 Assessment: Tiffanie Moody is a 82 year old year old woman with idiopathic Parkinson's disease and essential tremor who presents today for diagnosis and treatment Of tremors. 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 Concerns: Impaired gait Imbalance Poor sleep and RLS continues despite low dose Requip Plan: 1. Start exercising routinely 2. Increase the Carbidopa/Levodopa 25/100, 1 at 6A, 10A, 2P and the CR 50/100 at 10P 3. Start Physical Therapy as soon as possible 4. Take Clonazepam 0.5 mg, 1/2 tab at bedtime for 2 weeks and then 1 full tab if still needed for RLS and sleep 5. Drink plenty of fluids, 1/2 gallon per day 6. Try to lose weight Counseling: Re the diagnosis, symptoms, progression, rationale for and plan , answered multiple questions. Follow Up: Tiffanie Moody will follow up in 3 months for an office visit. Medical decision making was high complexity due to patient's high complexity due to patient's, multiple symptoms, newly diagnosed Neurologic disease and counseling about prison implications, complex treatment regimen, multiple medications and risk of side effects Time: 3:15 PM to 4:15 PM with greater than 50% spent in counseling. Janie Carvalho RN EXTRA GANG SUPERVISOR.[facility] CNOV Observed: 01/31/2018 Status: COMPLETED Source: [place] 2:10 PM [facility] REPOSITORY Office Visit (NEURMM) TIFFANIE MOODY ([id number]) 1935 F Date Time Provider Department 01/31/18 2:10 PM JANIE CARVALHO (EFRAIN) NEURMM During your visit today, we recorded the following information about you: Pulse Blood pressure Weight Height 80/minute 122/74 85.5 kg 1.626 m Janie Carvalho RN EXTRA GANG SUPERVISOR.HEEL SEAT FILLER 02/02/2018 12:56 PM Signed January 31, 2018 Gurmeet Main MD [id number] [address] SELF Phone: N/A Fax: RE: Tiffanie Moody : 1935 MEDICAL NOTE: History of Present Illness: Tiffanie Moody is a 82 year old year old right-handed woman who returns today for evaluation of tremors. The patient is seen along with Her significant other, Izabela.. HPI: She comes for evaluation and diagnosis of tremors. She noticed tremors first three years ago. Her mother had tremors. She was not diagnosed with anything. Patient's tremors started in her hands, 3 years ago, in last 6 months the legs started to tremor. So the tremors are worse at rest. But there is tremor when she is doing things. She has gait freezing. She has slowness and imbalance, she feels as though she will fall forward. She thinks she has some difficulty with her memory. Two doctors have prescribed meds for her: Requip 0.5 mg is at bedtimes for RLS Carbidopa/Levodopa 25/100, 1 twice during the day Carbidopa/Levodopa 50/200 CR at bedtime Review of Symptoms: Sleep problems/RBD/RLS: yes, does not sleep at all. Falls asleep at 930P or a little later and awakens at 12AM and then is awake for the rest of the night. She has tried Ambien CR, balance worsened. She has tried Melatonin 20 mg, She did not try it for at least 2 weeks. She tried other prescriptions but nothing worked. Impaired memory/Cognition/Driving: yes and she quit driving Bowels/Constipation: yes Urinary problems: yes freezing Sialorrhea: yes Swallowing difficulty: yes now uses a straw to drink liquids with due to difficulty swallowing liquids Depress mood/Anxiety: yes depression Rehab/exercise: yes walking and stretching She thinks she has RLS, she takes Quinine In addition, the following symptoms typically related to PD were asked: Cognitive difficulties - No Hallucinations - Yes, saw a mountain lion, saw her son doing a jig at her house but he was not at her house Impulse control disorder - No weight management issues Apathy - No Weight loss: No [place]/oily scalp: No Loss of taste/appetite: Yes loss of appetite Nausea/vomiting: No Loss of smell: Yes Leg edema/rash: No Excessive sweating: No General symptoms: Fever: No Visual Problems: yes Hearing problems: No Shortness of breath: No Back pain: Yes Motor Symptoms: Unsure how long med kicks in Does not notice improvement in symptoms about an hour after the C/L is taken + tremors at rest and action 0 N/V + L/D + slowness + Gait freezing + occasional falls, no serious injuries Past Medical History: PAST MEDICAL HISTORY Diagnosis Date - Hypertension - Hypothyroidism Past Family History: Mother had tremors, no diagnosis, but Sinemet Paternal uncle with tremors and Parkinson's disease Allergies: ALLERGIES Allergen Reactions - Morphine Mental Status Change - Penicillins Rash - Sulfa (Sulfonamide * Rash Current Medications: Current Outpatient Prescriptions: carbidopa-levodopa CR (SINEMET CR) 50-200 mg per tablet Take 1 tablet by mouth daily at bedtime. Disp: Rfl: rOPINIRole (REQUIP) 0.5 mg tablet Take 0.5 mg by mouth daily at bedtime. Disp: Rfl: Fosinopril Sodium (MONOPRIL) 20 mg tablet Take 20 mg by mouth once daily. Disp: Rfl: hydroCHLOROthiazide (HYDRODIURIL, ESIDRIX) 12.5 mg tablet Take 12.5 mg by mouth once daily. Disp: Rfl: carbidopa-levodopa (SINEMET 25-100) 25-100 mg per tablet Take 1 tablet by mouth three times daily. Disp: Rfl: aspirin, enteric coated (ASPIRIN, ENTERIC COATED) 81 mg EC tablet Take 81 mg by mouth once daily. Disp: Rfl: indapamide (LOZOL) 1.25 mg tablet Take 1.25 mg by mouth once daily. Disp: Rfl: CALCIUM CARBONATE/VITAMIN D3 (VITAMIN D-3 ORAL) Take by mouth. Disp: Rfl: Levothyroxine 75 mcg cap Take by mouth. Disp: Rfl: MAGNESIUM HYDROXIDE (MILK OF MAGNESIA ORAL) Take by mouth. Disp: Rfl: DOCUSATE CALCIUM (STOOL SOFTENER ORAL) Take by mouth. Disp: Rfl: atorvastatin (LIPITOR) 40 mg tablet Take 40 mg by mouth once daily. Disp: Rfl: traZODone (DESYREL) 50 mg tablet Take 1 tablet by mouth daily at bedtime. (Patient not taking: Reported on 01/10/2018 ) Disp: 90 tablet Rfl: 0 lutein 20 mg tab Take by mouth. Disp: Rfl: cyanocobalamin (VITAMIN B-12) 1,000 mcg tab Take 1,000 mcg by mouth once daily. Disp: Rfl: No current facility-administered medications for this visit. PHYSICAL EXAMINATION: BP 122/74 Pulse 80 Ht 162.6 cm (5' 4) Wt 85.5 kg (188 lb 9.6 oz) SpO2 96% BMI 32.37 kg/m? General Description of Patient: Well appearing, comfortable Head: NCAT Extremities: Leg edema absent FOCUSED NEUROLOGIC EXAMINATION: Mental Status: Alert and Oriented to person, place, and date, Normal attention and concentration, Normal memory, Normal fund of knowledge, Normal Language function Pleasant, cooperative Well-nourished Exam Rt Lt Resting tremor 2 3 Postural tremor (straight) 1 2 Postural tremor (wing position) 1 1 Finger to nose 1 2 Drink from a cup Not tested Not tested UPDRS Motor (Meds/Stimulation): Last dose: 9:30A, exam at 3:52 PM See below 50/108 Assessment: Tiffanie Moody is a 82 year old year old woman with idiopathic Parkinson's disease and essential tremor who presents today for diagnosis and treatment Of tremors. 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 Concerns: Impaired gait Imbalance Poor sleep and RLS continues despite low dose Requip Plan: 1. Start exercising routinely 2. Increase the Carbidopa/Levodopa 25/100, 1 at 6A, 10A, 2P and the CR 50/100 at 10P 3. Start Physical Therapy as soon as possible 4. Take Clonazepam 0.5 mg, 1/2 tab at bedtime for 2 weeks and then 1 full tab if still needed for RLS and sleep 5. Drink plenty of fluids, 1/2 gallon per day 6. Try to lose weight Counseling: Re the diagnosis, symptoms, progression, rationale for and plan , answered multiple questions. Follow Up: Tiffanie Moody will follow up in 3 months for an office visit. Medical decision making was high complexity due to patient's high complexity due to patient's, multiple symptoms, newly diagnosed Neurologic disease and counseling about prison implications, complex treatment regimen, multiple medications and risk of side effects Time: 3:15 PM to 4:15 PM with greater than 50% spent in counseling. Janie aCrvalho RN EXTRA GANG SUPERVISOR.HEEL SEAT FILLER [facility] Janie Carvalho RN EXTRA GANG SUPERVISOR.HEEL SEAT FILLER 01/31/2018 4:18 PM Signed 1. Start exercising routinely 2. Increase the Carbidopa/Levodopa 25/100, 1 at 6A, 10A, 2P and the CR 50/100 at 10P 3. Start Physical Therapy as soon as possible 4. Take Clonazepam 0.5 mg, 1/2 tab at bedtime for 2 weeks and then 1 full tab if still needed for RLS and sleep 5. Drink plenty of fluids, 1/2 gallon per day 6. Try to lose weight Referring Provider: SELF [200] Allergies As of Date: 01/31/2018 Noted Allergy Reaction MORPHINE 08/25/2016 1 - Mental Status Change PENICILLINS 06/02/2016 2 - Rash SULFA (SULFONAMIDE ANTIBIOTICS) 06/02/2016 2 - Rash Date Reviewed: 01/31/2018 Reviewed by: Janae Arteaga - Fully Assessed Reason for Visit: New Patient Evaluation [154] Primary Visit Diagnosis:Parkinson's disease (HCC) [G20] Other Visit Diagnoses:Abnormality of gait [R26.9] Memory loss [R41.3] RLS (restless legs syndrome) [G25.81] Sleep disturbance [G47.9] Essential tremor [G25.0] Order(s):CONSULT TO PHYSICAL THERAPY [3043] Order #: [id number]: 1 clonazePAM (KLONOPIN) 0.5 mg tabletTake one-half at bedtime for 2 weeks, if needed increase to a full tabletDisp: 30 tabletRfl: 1 Prescriptions as of 01/31/2018 Sig: CARBIDOPA ER 50 MG-LEVODOPA 2* Take 1 tablet by mouth daily * ROPINIROLE 0.5 MG TABLET Take 0.5 mg by mouth daily at* FOSINOPRIL 20 MG TABLET Take 20 mg by mouth once kenzie* HYDROCHLOROTHIAZIDE 12.5 MG T* Take 12.5 mg by mouth once da* ATORVASTATIN 40 MG TABLET Take 40 mg by mouth once kenzie* CARBIDOPA 25 MG-LEVODOPA 100 * Take 1 tablet by mouth three * TRAZODONE 50 MG TABLET Take 1 tablet by mouth daily * ASPIRIN 81 MG TABLET,DELAYED * Take 81 mg by mouth once kenzie* INDAPAMIDE 1.25 MG TABLET Take 1.25 mg by mouth once da* VITAMIN D-3 ORAL Take by mouth. LUTEIN 20 MG TABLET Take by mouth. LEVOTHYROXINE 75 MCG CAPSULE Take by mouth. MILK OF MAGNESIA ORAL Take by mouth. STOOL SOFTENER ORAL Take by mouth. CYANOCOBALAMIN (VIT B-12) 1,0* Take 1,000 mcg by mouth once * CLONAZEPAM 0.5 MG TABLET Take one-half at bedtime for * Problem List As Of Date 01/31/2018 Noted Resolved Chronic midline low back pain with left-sided s*INVALID FOR* Other instructions from your clinician: 1. Start exercising routinely 2. Increase the Carbidopa/Levodopa 25/100, 1 at 6A, 10A, 2P and the CR 50/100 at 10P 3. Start Physical Therapy as soon as possible 4. Take Clonazepam 0.5 mg, 1/2 tab at bedtime for 2 weeks and then 1 full tab if still needed for RLS and sleep 5. Drink plenty of fluids, 1/2 gallon per day 6. Try to lose weight Prescriptions ordered this encounter Disp Refills Start End CLONAZEPAM 0.5 MG TABLET 30 t* 1 01/31/2018 04/02/2018 Class: Print RX Sig: Take one-half at bedtime for 2 weeks, if needed increase to a full tablet Questionnaire: MDS UPDRS MEDICATION OFF/ON -> OFF Time UPDRS -> 3:52 PM Time of Last Medication -> 0930 SPEECH -> 1 SLIGHT Loss modulation/diction/volume, all words easy to understand FACIAL EXPRESSION -> 2 MILD <eye-blink, masked facies lower face, fewer movements mouth, less smiling, lips not parted RIGIDITY NECK -> 0 NORMAL No rigidity RIGIDITY RUE -> 0 NORMAL No rigidity RIGIDITY LUE -> 2 MILD Rigid w/o activation maneuver, full ROM easy RIGIDITY RLE -> 0 NORMAL No rigidity RIGIDITY LLE -> 2.5 FINGER TAPS RT -> 1 SLIGHT Reg rhythm broken w 1-2 hesitations of tapping/sl slow/<amp near end 10 taps FINGER TAPS LT -> 2 MILD 3-5 interruptions during tapping/mild slowing/<amp midway 10 taps sequence HAND MOVES RT -> 1 SLIGHT Reg rhythm broken w 1-2 hesitations of movement/sl slow/<amp near task end HAND MOVES LT -> 2 MILD 3-5 interruptions during movement/mild slowing/<amp midway task PRONATE/SUPINATE RT -> 2 MILD 3-5 interruptions during movement/mild slowing/<amp midway sequence PRONATE/SUPINATE LT -> 1 SLIGHT Reg rhythm broken w 1-2 hesitations of movement/sl slow/<amp near sequence end TOE TAPS RT -> 2 MILD 3-5 interruptions during tapping/mild slowing/<amp midway 10 taps TOE TAPS LT -> 2 MILD 3-5 interruptions during tapping/mild slowing/<amp midway 10 taps LEG AGILITY RT -> 1 SLIGHT Reg rhythm broken w 1-2 hesitations of movement/sl slow/<amp near task end LEG AGILITY LT -> 1.5 ARISE FR CHAIR -> 0 NORMAL No problems. Able to arise quickly wo hesitation GAIT -> 3 MODERATE Needs assistive device for safe walking but not person GAIT FREEZE -> 0 NORMAL No freezes POSTURE STABILITY -> 3 MODERATE Stand safely, no posture response, falls wo aid from examiner POSTURE -> 0 NORMAL No problems BODY BRADYKINESIA -> 2 MILD Global slowness + poverty of spontaneous movements POSTURAL TREMOR HAND RT -> 1 SLIGHT Tremor present < 1 cm amp POSTURAL TREMOR HAND LT -> 1 SLIGHT Tremor present < 1 cm amp KINETIC TREMOR RT -> 1 SLIGHT Tremor present < 1cm amp KINETIC TREMOR LT -> 2 MILD Tremor at least 1- <3cm amp REST TREMOR AMP RUE -> 2 MILD >1 <3 cm maximal amp REST TREMOR AMP LUE -> 3 MODERATE 3-10 cm maximal amp REST TREMOR AMP RLE -> 1 SLIGHT <1 cm maximal amp REST TREMOR AMP LLE -> 2 MILD >1 <3 cm maximal amp REST TREMOR AMP LIP/JAW -> 2 MILD >1 <3 cm maximal amp Cmt: with activation REST TREMOR CONSTANT -> 4 SEVERE >75% entire exam period Encounter Status:Closed by JANIE STARKEY on 02/02/18 PROGRESS Observed: 01/10/2018 Status: COMPLETED Source: [place] 10:19 AM [facility] REPOSITORY O ID: [id number] Author: Jonah Gibbs Service: (none) Author Type: Physician Type: Progress Notes Filed: 01/10/2018 12:08 PM Note Text: ? Jonah Gibbs DPM Department of Podiatry [facility] [address] [facility] [address] Dept: [phone] Dept 01/10/2018 Initial Podiatric Office Visit: HPI: Tiffanie Moody is a 82 year old female. Patient presents with:left foot pain for the past several years. Patient states it feels like there is a marble on the bottom of her foot when she walks. Pain is rated at 8/10. She is wearing a metatarsal pad on the bottom of her sandal and she states it helps with her pain. She also c/o fungal toenails. She states she has tried different topical treatments and nothing has helped. She complains of pain. PCP: Gurmeet Main MD PAST MEDICAL HISTORY Diagnosis Date - Hypertension - Hypothyroidism Current Outpatient Prescriptions: atorvastatin (LIPITOR) 40 mg tablet Take 40 mg by mouth once daily. carbidopa-levodopa (SINEMET 25-100) 25-100 mg per tablet Take 1 tablet by mouth three times daily. aspirin, enteric coated (ASPIRIN, ENTERIC COATED) 81 mg EC tablet Take 81 mg by mouth once daily. CALCIUM CARBONATE/VITAMIN D3 (VITAMIN D-3 ORAL) Take by mouth. lutein 20 mg tab Take by mouth. Levothyroxine 75 mcg cap Take by mouth. MAGNESIUM HYDROXIDE (MILK OF MAGNESIA ORAL) Take by mouth. DOCUSATE CALCIUM (STOOL SOFTENER ORAL) Take by mouth. cyanocobalamin (VITAMIN B-12) 1,000 mcg tab Take 1,000 mcg by mouth once daily. traZODone (DESYREL) 50 mg tablet Take 1 tablet by mouth daily at bedtime. (Patient not taking: Reported on 01/10/2018 ) indapamide (LOZOL) 1.25 mg tablet Take 1.25 mg by mouth once daily. No current facility-administered medications for this visit. ALLERGIES Allergen Reactions - Morphine Mental Status Change - Penicillins Rash - Sulfa (Sulfonamide * Rash PAST SURGICAL HISTORY Procedure Laterality Date - HYSTERECTOMY HX - TOTAL KNEE REPLACEMENT No family history on file. Social History Marital status: Spouse name: Years of education: Number of children: Social History Main Topics Smoking status: Former Smoker Packs/day: 0.00 Years: 0.00 Smokeless tobacco: Never Used REVIEW OF SYSTEMS: CONSTITUTIONAL: No fevers, chills, nightsweats, unintended weight loss HEENT: Denies frequent or severe heaches, nasal congestion/sinus symptoms, problematic allergy problems. EYES: No diplopia or blurry vision. CARDIOVASCULAR: No chest pain, dyspnea, palpitations, orthopnea, PND, ankle edema. PULM: No dyspnea, unexplained cough. GI: No dysphagia/odynophagia, problematic reflux, constipation, diarrhea, changes in stool habits, hematochezia, melena. : No new urinary complaints, including dysuria, gross hematuria or pyuria. NEURO: No new balance problems, peripheral weakness/paresthesias or numbness of concern. MUSC-SKEL: Positive foot pain, left foot PSY: No concerns regarding depression, anxiety or panic. INTEGUMENTARY: No new skin changes (rash, new or changing mole, new growth) Physical Exam: Constitutional: Pt is a well developed 82 year old female who is alert, oriented and cooperative Eyes: Following during examination. No redness or drainage. Respiratory: RR normal and nonlabored. Even breathing. No evidence of distress or shortness of breath. Psychology: Patient is engaged during conversation. Normal affect and mood. Does not appear depressed or anxious during encounter. Vascular: Dorsalis pedis and posterior tibial pulses palpable as b/l Capillary Fill time < 5 seconds to digits 1-5 b/l Skin temperature warm to warm proximal to distal b/l Hair growth present to digits Neurological: intact light touch/epicritic sensation Dermatological: Nails 1-5 b/l appear thick, discolored, painful. Webspaces clean and dry 1-4 b/l. Skin appears well hydrated and supple. good color, texture, turgor. Callosities present to distal aspect of 2nd and 3rd toe left foot and to left hallux. Open lesions absent. Wound: Not present. Musculoskeletal/Orthopaedic: Patient has pain to palpation of left 2nd interspace Foot type is neutral structurally AJ ROM is full with knee extended and flexed 1st MPJ is ful when loaded and no pain or crepitus are noted with ROM. MTJ, STJ are full and free of pain and crepitus. +5/5 muscle strength dorsiflexion, plantarflexion, inversion, eversion b/l Moderate bunion of left foot is noted. 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 History and physical examination performed. 2. Discussed pain of left foot. Discussed pain related to neuroma vs hammertoe. Discussed continued use of metatarsal padding. Offered steroid injection of left 2nd interspace but she declined. Offered xray of left foot but she declined. 3. Callus of left foot filed with sanding disk as courtesy 4. Toenails 1-5 b/l debrided in length and thickness 5. F/u in 3 months for nail care. CNOV Observed: 01/10/2018 Status: COMPLETED Source: [place] 10:10 AM [facility] Office Visit (PODIWS) TIFFANIE MOODY ([id number]) 1935 F Date Time Provider Department 01/10/18 10:10 AM JONAH GIBBS During your visit today, we recorded the following information about you: Jonah Gibbs DPM 01/10/2018 12:08 PM Signed ? Jonah Gibbs DPM Department of Podiatry [address] [facility] [address] Dept: [phone] Dept 01/10/2018 Initial Podiatric Office Visit: HPI: Tiffanie Moody is a 82 year old female. Patient presents with:left foot pain for the past several years. Patient states it feels like there is a marble on the bottom of her foot when she walks. Pain is rated at 8/10. She is wearing a metatarsal pad on the bottom of her sandal and she states it helps with her pain. She also c/o fungal toenails. She states she has tried different topical treatments and nothing has helped. She complains of pain. PCP: Gurmeet Main MD PAST MEDICAL HISTORY Diagnosis Date - Hypertension - Hypothyroidism Current Outpatient Prescriptions: atorvastatin (LIPITOR) 40 mg tablet Take 40 mg by mouth once daily. carbidopa-levodopa (SINEMET 25-100) 25-100 mg per tablet Take 1 tablet by mouth three times daily. aspirin, enteric coated (ASPIRIN, ENTERIC COATED) 81 mg EC tablet Take 81 mg by mouth once daily. CALCIUM CARBONATE/VITAMIN D3 (VITAMIN D-3 ORAL) Take by mouth. lutein 20 mg tab Take by mouth. Levothyroxine 75 mcg cap Take by mouth. MAGNESIUM HYDROXIDE (MILK OF MAGNESIA ORAL) Take by mouth. DOCUSATE CALCIUM (STOOL SOFTENER ORAL) Take by mouth. cyanocobalamin (VITAMIN B-12) 1,000 mcg tab Take 1,000 mcg by mouth once daily. traZODone (DESYREL) 50 mg tablet Take 1 tablet by mouth daily at bedtime. (Patient not taking: Reported on 01/10/2018 ) indapamide (LOZOL) 1.25 mg tablet Take 1.25 mg by mouth once daily. No current facility-administered medications for this visit. ALLERGIES Allergen Reactions - Morphine Mental Status Change - Penicillins Rash - Sulfa (Sulfonamide * Rash PAST SURGICAL HISTORY Procedure Laterality Date - HYSTERECTOMY HX - TOTAL KNEE REPLACEMENT No family history on file. Social History Marital status: Spouse name: Years of education: Number of children: Social History Main Topics Smoking status: Former Smoker Packs/day: 0.00 Years: 0.00 Smokeless tobacco: Never Used REVIEW OF SYSTEMS: CONSTITUTIONAL: No fevers, chills, nightsweats, unintended weight loss HEENT: Denies frequent or severe heaches, nasal congestion/sinus symptoms, problematic allergy problems. EYES: No diplopia or blurry vision. CARDIOVASCULAR: No chest pain, dyspnea, palpitations, orthopnea, PND, ankle edema. PULM: No dyspnea, unexplained cough. GI: No dysphagia/odynophagia, problematic reflux, constipation, diarrhea, changes in stool habits, hematochezia, melena. : No new urinary complaints, including dysuria, gross hematuria or pyuria. NEURO: No new balance problems, peripheral weakness/paresthesias or numbness of concern. MUSC-SKEL: Positive foot pain, left foot PSY: No concerns regarding depression, anxiety or panic. INTEGUMENTARY: No new skin changes (rash, new or changing mole, new growth) Physical Exam: Constitutional: Pt is a well developed 82 year old female who is alert, oriented and cooperative Eyes: Following during examination. No redness or drainage. Respiratory: RR normal and nonlabored. Even breathing. No evidence of distress or shortness of breath. Psychology: Patient is engaged during conversation. Normal affect and mood. Does not appear depressed or anxious during encounter. Vascular: Dorsalis pedis and posterior tibial pulses palpable as b/l Capillary Fill time < 5 seconds to digits 1-5 b/l Skin temperature warm to warm proximal to distal b/l Hair growth present to digits Neurological: intact light touch/epicritic sensation Dermatological: Nails 1-5 b/l appear thick, discolored, painful. Webspaces clean and dry 1-4 b/l. Skin appears well hydrated and supple. good color, texture, turgor. Callosities present to distal aspect of 2nd and 3rd toe left foot and to left hallux. Open lesions absent. Wound: Not present. Musculoskeletal/Orthopaedic: Patient has pain to palpation of left 2nd interspace Foot type is neutral structurally AJ ROM is full with knee extended and flexed 1st MPJ is ful when loaded and no pain or crepitus are noted with ROM. MTJ, STJ are full and free of pain and crepitus. +5/5 muscle strength dorsiflexion, plantarflexion, inversion, eversion b/l Moderate bunion of left foot is noted. 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 History and physical examination performed. 2. Discussed pain of left foot. Discussed pain related to neuroma vs hammertoe. Discussed continued use of metatarsal padding. Offered steroid injection of left 2nd interspace but she declined. Offered xray of left foot but she declined. 3. Callus of left foot filed with sanding disk as courtesy 4. Toenails 1-5 b/l debrided in length and thickness 5. F/u in 3 months for nail care. Referring Provider: SELF [200] Allergies As of Date: 01/10/2018 Noted Allergy Reaction MORPHINE 08/25/2016 1 - Mental Status Change PENICILLINS 06/02/2016 2 - Rash SULFA (SULFONAMIDE ANTIBIOTICS) 06/02/2016 2 - Rash Date Reviewed: 01/10/2018 Reviewed by: Homa Steve RN - Fully Assessed Reason for Visit: New Patient [172] Primary Visit Diagnosis:Neuroma [D36.10] Other Visit Diagnoses:Onychomycosis [B35.1] Pain in toe of left foot [M79.675] Pain in toe of right foot [M79.674] Hammer toes of both feet [M20.41, M20.42] Hyperkeratosis [L85.9] Prescriptions as of 01/10/2018 Sig: ATORVASTATIN 40 MG TABLET Take 40 mg by mouth once kenzie* CARBIDOPA 25 MG-LEVODOPA 100 * Take 1 tablet by mouth three * ASPIRIN 81 MG TABLET,DELAYED * Take 81 mg by mouth once kenzie* VITAMIN D-3 ORAL Take by mouth. LUTEIN 20 MG TABLET Take by mouth. LEVOTHYROXINE 75 MCG CAPSULE Take by mouth. MILK OF MAGNESIA ORAL Take by mouth. STOOL SOFTENER ORAL Take by mouth. CYANOCOBALAMIN (VIT B-12) 1,0* Take 1,000 mcg by mouth once * TRAZODONE 50 MG TABLET Take 1 tablet by mouth daily * Patient not taking: Reported on 01/10/2018 INDAPAMIDE 1.25 MG TABLET Take 1.25 mg by mouth once da* Problem List As Of Date 01/10/2018 Noted Resolved Chronic midline low back pain with left-sided s*INVALID FOR* Disposition: Return in about 3 months (around 04/12/2018) for nail care. Follow-up and Disposition History Recorded Encounter Status:Closed by JONAH GIBBS DPM on 01/10/18 THORACIC SPINE 2 Observed: 12/21/2017 Status: F Source: [place] VIEWS 1:19 PM [facility] REPOSITORY [facility] Imaging Services [address] [place] [address] Thoracic Spine 2 Views MR#: [id number] Acct: [id number] Name: TIFFANIE MOODY Rep #: [id number] : 1935 F 82 From: Luigi Hines PCP: Stevie KELLY,[facility] Status: REG CLI Study: Thoracic Spine 2 Views Date of Exam: 12/21/17 Exam# [id number] Ordering Dr: Jenny Matthews MD STUDY: X-RAY - THORACIC SPINE REASON FOR EXAM: Female, 82 years old. back pain TECHNIQUE: 2 view(s) of the thoracic spine were obtained. COMPARISON: None. FINDINGS: There is an increase in the normal thoracic kyphosis. There is multi-level endplate spondylosis. There is multi-level degenerative disc disease with multilevel disc space narrowing. The soft tissue structures are unremarkable. RAD/Thoracic Spine 2 Views IMPRESSION: No demonstrated fractures. Moderate degenerative changes. Electronically Signed: Luigi Hines MD at 11:09 EDT Tel , Service support , CC: Jenny Matthews MD; Gurmeet Main MD Senior Nuclear Medicine Technologist: Signed CBC W/DIFF, AUTOMATED Collected: 12/07/2017 Status: F Source: [place] 11:57 AM [facility] REPOSITORY TYPE CODE TESTS RESULT OUT OF RANGE REFERENCE UNITS LAB L100.1000 4.4-11.0 K/mm3 Normal WBC 7.3 LAB L100.1200 4.2-5.4 M/mm3 Low RBC 3.78 LAB L100.1300 12.0-15.0 g/dl Low HGB 11.7 LAB L100.1400 37-47 % Normal HCT 37.3 LAB L100.1500 81-99 fL Normal MCV 98.7 LAB L100.1600 27.0-32.0 pg Normal MCH 31.0 LAB L100.1700 32-36 g/gl Low MCHC 31.4 LAB L100.1810 11.6-14.6 % Normal RDW CV 13.8 LAB L100.1820 35.1-43.9 fl High RDW SD 48.2 LAB L100.1900 150-450 K/mm3 Normal PLT 212 LAB L100.2000 6.2-12.0 fl Normal MPV 11.5 LAB L100.2100 47-70 % Normal NEUT% 67.2 LAB L100.2200 19-41 % Normal LY% 20.3 LAB L100.2300 0-10 % High MONO% 10.6 LAB L100.2400 0-5 % Normal EO% 1.4 LAB L100.2500 0-1 % Normal BASO% 0.5 LAB L100.2550 0.0-0.9 % Normal IM GRAN % 0.000 Result Comment: IG% - Immature Granulocytes (promyelocytes, myelocytes and metamyelocytes) > 1% indicates that a LEFT SHIFT is Present. LAB L100.2620 2.0-7.7 X10 3/uL Normal Absolute Neut 4.9 LAB L100.2720 0.83-4.51 X10 3/ul Normal Absolute Lymph 1.49 Performed By: #### L100.0100 #### [facility] [address] [place], [address] COMPREHENSIVE METABOLIC Collected: 12/07/2017 Status: F Source: [place] 11:57 AM [facility] REPOSITORY TYPE CODE TESTS RESULT OUT OF RANGE REFERENCE UNITS LAB L501.0100 74-106 mg/dL Normal GLU 89 Result Comment: Please note revised GLUCOSE reference range effective 2017. LAB L501.1000 7-18 mg/dL High BUN 26 LAB L501.1100 0.55-1.02 mg/dL Normal CREAT,SERUM 0.98 Result Comment: The validity of the calculated GFR AND GFRAA in patients over 70 years has not been determined. Clinical correlation is essential. LAB L501.1110 >60 mL/min Low EST GFR 58 Result Comment: Non- GFR Calc LAB L501.1115 >60 mL/min Normal EST GFR - AA 71 Result Comment: GFR Calc LAB L501.1300 10-20 RATIO High BUN/CRE 26.7 LAB L501.1500 6.4-8.2 g/dL T Normal PROT 7.3 LAB L501.1800 3.2-5.0 g/dL Normal ALB 3.8 LAB L501.1950 2.2-4.2 g/dL Normal GLOB 3.5 LAB L501.2000 0.9-2.4 RATIO Normal A/G 1.1 LAB L501.2200 8.5-10.1 mg/dL CA Normal 9.4 LAB L501.4100 15-37 U/L Normal AST 16 LAB L501.4305 45-117 U/L Normal ALK P 84 LAB L501.4405 13-56 U/L Normal ALT 15 LAB L501.4600 0.20-1.00 mg/dL T Normal BILI 0.40 LAB L501.5300 136-145 mmol/L NA Normal 140 LAB L501.5600 3.5-5.1 mmol/L K Normal 3.8 LAB L501.5900 98-107 mmol/L CL Normal 104 LAB L501.6100 21.0-32.0 mmol/L Normal CO2 30.0 LAB L501.6200 5-15 Normal GAP 6 Performed By: #### L500.4050, L501.9520 #### [facility] [address] [facility], [address] THYROID STIM HORMONE Collected: 12/07/2017 Status: F Source: [place] (TSH) 11:57 AM [facility] REPOSITORY TYPE CODE TESTS RESULT OUT OF RANGE REFERENCE UNITS LAB L501.9520 0.358-3.74 uIU/mL Normal TSH 0.78 Performed By: #### L500.4050, L501.9520 #### [facility] [address] [facility] [place] [place], [address] VITAMIN D,25 HYDROXY Collected: 12/07/2017 Status: F Source: [place]AT[place] 11:57 AM [facility] REPOSITORY TYPE CODE TESTS RESULT OUT OF REFERENCE UNITS RANGE LAB L506.1000 29.95-100.01 ng/mL Low Vitamin D 28.2 25-OH Result Comment: Vitamin D 25(OH) Status Range Deficiency <20 ng/mL (50nmol/L) Insuffciency 20 - 30 ng/mL (50 - 75 nmol/L) Sufficiency 30 - 100 ng/mL (75 - 250 nmol/L) Toxicity >100 ng/mL (>250 nmol/L) Performed By: #### L506.1000 #### [facility] [facility] [place], [address] LYME ANTIBODIES,W BLOT Collected: 10/13/2017 Status: F Source: [place]AT[place] 4:02 PM [facility] REPOSITORY TYPE CODE TESTS RESULT OUT OF RANGE REFERENCE UNITS LAB L7000.5920 . Normal P93 Ab Absent LAB L7000.5940 . Normal P66 Ab Absent LAB L7000.5960 . Normal P58 Ab Absent LAB L7000.5980 . Normal P45 Ab Absent LAB L7000.6000 . Normal P41 Ab Absent LAB L7000.6020 . Normal P39 Ab Absent LAB L7000.6040 . Normal P30 Ab Absent LAB L7000.6060 . Normal P28 Ab Absent LAB L7000.6080 . Normal P23 Ab Absent LAB L7000.6100 . Normal P18 Ab Absent LAB L7000.6200 . Normal LYME IgG Negative INTERP Result Comment: Positive: 5 of the following Borrelia-specific bands: 18,23,28,30,39,41,45,58, 66, and 93. Negative: No bands or banding patterns which do not meet positive criteria. LAB L7000.6320 . Normal P41 Ab Absent LAB L7000.6340 . Normal P39 Ab Absent LAB L7000.6360 . Normal P23 Ab Absent LAB L7000.6400 . Normal LYME IgM Negative INTERP Result Comment: Note: An equivocal or positive EIA result followed by a negative Western Blot result is considered NEGATIVE. An equivocal or positive EIA result followed by a positive Western Blot is considered POSITIVE by the CDC. Positive: 2 of the following bands: 23,39 or 41 Negative: No bands or banding patterns which do not meet positive criteria. Criteria for positivity are those recommended by CDC/ASTPHLD. p23=Osp C, b66=qgwjganem Note: Sera from individuals with the following may cross react in the Lyme Western Blot assays: other spirochetal diseases (periodontal disease, leptospirosis, relapsing fever, yaws, and pinta); connective autoimmune (Rheumatoid Arthritis and Systemic Lupus Erythematosus and also individuals with Antinuclear Antibody); other infections (Kemp Spotted Fever; Monica-Owens Virus, and Cytomegalovirus). Performed at: [address] [id number] Entrepreneurial Finance Professor: Tyler Barfield MD, Phone: [phone] Performed By: #### L7000.5800 #### [facility] (refer to report for specific site) refer to report for address and phone number CBC W/DIFF, AUTOMATED Collected: 06/14/2017 Status: F Source: CHATO 11:34 AM [facility] REPOSITORY TYPE CODE TESTS RESULT OUT OF RANGE REFERENCE UNITS LAB L100.1000 4.4-11.0 K/mm3 Normal WBC 6.3 LAB L100.1200 4.2-5.4 M/mm3 Low RBC 3.90 LAB L100.1300 12.0-15.0 g/dl Low HGB 11.7 LAB L100.1400 37-47 % Normal HCT 37.7 LAB L100.1500 81-99 fL Normal MCV 96.7 LAB L100.1600 27.0-32.0 pg Normal MCH 30.0 LAB L100.1700 32-36 g/gl Low MCHC 31.0 LAB L100.1810 11.6-14.6 % Normal RDW CV 14.0 LAB L100.1820 35.1-43.9 fl High RDW SD 47.2 LAB L100.1900 150-450 K/mm3 Normal PLT 213 LAB L100.2000 6.2-12.0 fl Normal MPV 11.6 LAB L100.2100 47-70 % Normal NEUT% 63.7 LAB L100.2200 19-41 % Normal LY% 22.9 LAB L100.2300 0-10 % High MONO% 11.2 LAB L100.2400 0-5 % Normal EO% 1.7 LAB L100.2500 0-1 % Normal BASO% 0.3 LAB L100.2550 0.0-0.9 % Normal IM GRAN % 0.200 Result Comment: IG% - Immature Granulocytes (promyelocytes, myelocytes and metamyelocytes) > 1% indicates that a LEFT SHIFT is Present. LAB L100.2620 2.0-7.7 X10 3/uL Normal Absolute Neut 4.0 LAB L100.2720 0.83-4.51 X10 3/ul Normal Absolute Lymph 1.45 Performed By: #### L100.0100 #### [facility] [address] [place], [address] VITAMIN D,25 HYDROXY Collected: 06/14/2017 Status: F Source: CHATO 11:34 AM [facility] REPOSITORY TYPE CODE TESTS RESULT OUT OF RANGE REFERENCE UNITS LAB L506.1000 19.95-100.01 ng/mL Normal Vitamin D 24.0 25-OH Result Comment: Vitamin D 25(OH) Status Range Deficiency <20 ng/mL (50nmol/L) Insuffciency 20 - 30 ng/mL (50 - 75 nmol/L) Sufficiency 30 - 100 ng/mL (75 - 250 nmol/L) Toxicity >100 ng/mL (>250 nmol/L) Performed By: #### L506.1000 #### [facility] [address] [place], [address] COMPREHENSIVE METABOLIC Collected: 06/14/2017 Status: F Source: CHATO [place] 11:34 AM [facility] REPOSITORY TYPE CODE TESTS RESULT OUT OF RANGE REFERENCE UNITS LAB L501.0100 70-110 mg/dL Normal GLU 85 LAB L501.1000 7-18 mg/dL High BUN 27 LAB L501.1100 0.55-1.02 mg/dL Normal 0.98 CREAT,SERUM Result Comment: The validity of the calculated GFR AND GFRAA in patients over 70 years has not been determined. Clinical correlation is essential. LAB L501.1110 >60 mL/min Low EST GFR 58 Result Comment: Non- GFR Calc LAB L501.1115 >60 mL/min Normal EST GFR - AA 70 Result Comment: GFR Calc LAB L501.1300 10-20 RATIO High BUN/CRE 27.4 LAB L501.1500 6.4-8.2 g/dL T Normal PROT 7.1 LAB L501.1800 3.2-5.0 g/dL Normal ALB 3.8 LAB L501.1950 2.2-4.2 g/dL Normal GLOB 3.3 LAB L501.2000 0.9-2.4 RATIO Normal A/G 1.2 LAB L501.2200 8.5-10.1 mg/dL CA Normal 9.1 LAB L501.4100 15-37 U/L Low AST 12 LAB L501.4305 45-117 U/L Normal ALK P 102 LAB L501.4405 13-56 U/L Normal ALT 14 Result Comment: Please note revised ALT reference range effective 2017. LAB L501.4600 0.20-1.00 mg/dL Normal T BILI 0.40 LAB L501.5300 136-145 mmol/L Normal NA 140 LAB L501.5600 3.5-5.1 mmol/L Normal K 4.3 LAB L501.5900 98-107 mmol/L Normal CL 104 LAB L501.6100 21.0-32.0 mmol/L Normal CO2 28.0 LAB L501.6200 5-15 Normal GAP 8 Performed By: #### L500.4050, L501.9520 #### [facility] [address] [place], [address] THYROID STIM HORMONE Collected: 06/14/2017 Status: F Source: CHATO (TSH) 11:34 AM [facility] REPOSITORY TYPE CODE TESTS RESULT OUT OF RANGE REFERENCE UNITS LAB L501.9520 0.358-3.74 uIU/mL Normal TSH 0.76 Performed By: #### L500.4050, L501.9520 #### [facility] [address] [place], [address] ALLERGIES ALLERGIES DATE TYPE / CODE NAME / CODE REACTION SEVERITY SOURCE 08/25/2016 DRUG MORPHINE Mental Chg [facility] INGREDI/[address] [place] 320294(SNOM Repository ED CT) 06/02/2016 Drug PENICILLINS RASH [facility] Class/89375 [place] 1003(SNOMED Repository CT) 06/02/2016 Drug SULFA (SULFONAMIDE RASH [facility] Class/81273 ANTIBIOTICS) [place] 1003(SNOMED Repository CT) ENCOUNTERS ENCOUNTERS ADMIT/DISCHARGE ACCOUNT ADMITTING ENCOUNTER LOCATION SOURCE NUMBER CLASS 06/06/2018/06/06/19 [id number] Ambulatory [address] [place] Repository 06/02/2018/06/02/19 [id number] Ambulatory [address] Repository 05/25/2018 [id number] [facility] ing:RAD Repository 05/20/2018 [id number] [facility] ing: Repository 04/28/2018 [id number] [facility] ing:POLAB3 Repository 03/10/2018 [id number] [facility] ing:POLAB3 Repository 02/08/2018/04/11/[id number] Repository 01/31/2018/02/04/20 [id number] Ambulatory [address] Repository 01/10/2018/01/14/[id number] Repository 12/21/2017 [id number] [facility] ing:RAD Repository 12/07/2017 [id number] [facility] ing:POLAB3 Repository 10/13/2017 [id number] [facility] ing:POLAB3 Repository 06/14/2017 [id number] [facility] ing:POLAB3 Repository PAYERS PAYERS ENCOUNTER GUARANTOR PAYER SUBSCRIBER SOURCE 05/25/2018 TIFFANIE R Primary TIFFANIE R [place] [id number] TR Insurance:MEDICARE LITTENDOB: [address] PART A [facility] [id number] Hospital [address]Vgg: ([phone]) Number: Repository [phone] (HP) [id number] Date:2018-05-25 05/25/2018 Secondary TIFFANIE R [place] Insurance:MUTUAL OF LITTENDOB: Count includes the [facility] Number: [id number] Hospital [id number] Repository Date:9376-19-04ELFACN [place], [place] [address]TJ: 05/25/2018 Tertiary NOT GIVENUNK [place] Insurance:SELF PAY [facility] [place] Number: Effective Repository Date:2018-05-25 05/20/2018 TIFFANIE R Primary TIFFANIE R [place] [id number] TR Insurance:MEDICARE LITTENDOB: [address] PART A [facility] [id number] Hospital [address]Ihi: (234) Number: Repository [phone] () [id number] Date:2018-05-18 05/20/2018 Secondary TIFFANIE R [place] Insurance:MUTUAL OF LITTENDOB: Count includes the [facility] Number: [id number] Hospital [id number] Repository Date:7480-84-91QLWFUO [place], [place] [address]VO: 05/20/2018 Tertiary NOT GIVENUNK [place] Insurance:SELF PAY [facility] [place] Number: Effective Repository Date:2018-05-18 04/28/2018 Tiffanie Primary TIFFANIE R [place] [id number] Tr Insurance:MEDICARE LITTENDOB: [address] PART [facility] [id number] Hospital [address]Kro: (234) Number: Repository [phone] () [id number] Date:2018-04-28 04/28/2018 Secondary Tiffanie [place] Insurance:MUTUAL OF LittenDOB: Count includes the [facility] Number: [id number] Hospital [id number] Repository Date:4139-71-08CSDUYK [place], [place] [address]OJ: 04/28/2018 Tertiary NOT GIVENUNK [place] Insurance:SELF PAY [facility] [place] Number: Effective Repository Date:2018-04-28 03/10/2018 Tiffanie Primary TIFFANIE R [place] [id number] Tr Insurance:MEDICARE LITTENDOB: [address] PART A [facility] [id number] Hospital [address]Ose: (234) Number: Repository [phone] () [id number] Date:2018-03-10 03/10/2018 Secondary Tiffanie [place] Insurance:MUTUAL OF LittenDOB: Count includes the [facility] Number: [id number] Hospital [id number] Repository Date:7907-55-67FBVXXH OF [place], [place] [address]FG: 03/10/2018 Tertiary NOT GIVENUNK [place] Insurance:SELF PAY [facility] [place] Number: Effective Repository Date:2018-03-10 02/08/2018 TIFFANIE Primary TIFFANIE Cory Pome[place] LITTENDOB: Insurance:MEDICARE LITTENDOB: [facility] [id number] [facility] [id number] Hospital TR [address] [place] [address] Number: 57 [place]ository [place] [address]Zqf: [id number] [address] [place] [address] Date:Plan Name: [id number] () 02/08/2018 Secondary TIFFANIE [place] Insurance:MUTUAL OF LITTENDOB: [facility] [id number] [facility] RECURRINGPolicy 57 TR Repository Number: [address] [place] [address] [id number] Date: 12/21/2017 Tiffanie Primary TIFFANIE R [place] [id number] Tr Insurance:MEDICARE LITTENDOB: [address] PART A [facility] [id number] Hospital [address]Jpa: (234) Number: Repository [phone] () [id number] Date:2017-12-21 12/21/2017 Secondary Tiffnaie [place] Insurance:MUTUAL OF LittenDOB: Count includes the [facility] Number: [id number] Hospital [id number] Repository Date:6029-29-48NFANIW [place], [place] [address]WJ: 12/21/2017 Tertiary NOT GIVENUNK [place] Insurance:SELF PAY [facility] [place] Number: Effective Repository Date:2017-12-21 12/07/2017 Tiffanie Primary TIFFANIE R [place] [id number] Tr Insurance:MEDICARE LITTENDOB: [address] PART A [facility] [id number] Hospital [address]Jxk: (234) Number: Repository [phone] () [id number] Date:2017-12-07 12/07/2017 Secondary Tiffanie [place] Insurance:MUTUAL OF LittenDOB: Count includes the [facility] Number: [id number] Hospital [id number] Repository Date:2331-64-06LJAQWX OF [place], [place] [address]BZ: 12/07/2017 Tertiary NOT GIVENUNK [place] Insurance:SELF PAY [facility] [place] Number: Effective Repository Date:2017-12-07 10/13/2017 Tiffanie Primary TIFFANIE R [place] [id number] Tr Insurance:MEDICARE LITTENDOB: [address] PART A [facility] [id number] Hospital [address]Eah: (234) Number: Repository [phone] () [id number] Date:2017-10-13 10/13/2017 Secondary Tiffanie [place] Insurance:MUTUAL OF LittenDOB: Count includes the [facility] Number: [id number] Hospital [id number] Repository Date:0031-78-38AHQQPE [place] [address]DT: 10/13/2017 Tertiary NOT GIVENUNK [place] Insurance:SELF PAY [facility] [place] Number: Effective Repository Date:2017-10-13 06/14/2017 Tiffanie Primary TIFFANIE R [place] [id number] Tr Insurance:MEDICARE LITTENDOB: [address] PART A olic [id number] Hospital [address]Wmr: (234) Number: Repository [phone] () [id number] Date:2017-06-14 06/14/2017 Secondary Tiffanie [place] Insurance:MUTUAL OF LittenDOB: Count includes the [facility] Number: [id number] Hospital [id number] Repository Date:6928-63-24YNYPHG OF [place], [place] [address]SR: 06/14/2017 Tertiary NOT GIVENUNK [place] Insurance:SELF PAY [facility] [place] Number: Effective Repository Date:2017-06-14
== END ==
PROVIDERS: Family Provider Family Medicine Geriatric Medicine; PCP Family Medicine Geriatric Medicine; Visit Provider Family Medicine Geriatric Medicine
DX: A69.20 Lyme disease, unspecified (principal)
CPT/HCPCS: 36415; 86617

== ENCOUNTER → 2018-05-20 14:08 | Outpatient (CLI) | payer MEDICARE, OTHER, SELFPAY ==
--- NOTE | 2018-05-20 14:12 | US_ITS ---
STUDY: RENAL ULTRASOUND - COMPLETE REASON FOR EXAM: Female, 82 years old. Recurrent UTI. TECHNIQUE: Ultrasound evaluation of the kidneys was performed with real-time and static gutierres-scale imaging. COMPARISON: None. FINDINGS: RIGHT KIDNEY: Normal location of the right kidney, which is normal in size. The right kidney measures 11.1 cm. There is a normal cortex of the right kidney. The renal cortex measures 1.4 cm. There is a 1.6 x 2.9 x 2.8 cm parapelvic cyst versus dilated calyx in the mid right kidney. There are no right renal calculi. DISTAL RIGHT URETER: There is non-visualization of the distal right ureter. There is no demonstrated right ureterovesical junction calculus. There is a visualized right ureteral jet. LEFT KIDNEY: Normal location of the left kidney, which is normal in size. The left kidney measures 10.6 cm. There is a normal cortex of the left kidney. The renal cortex measures 1.6 cm. There is no left renal mass or cyst. There are no left renal calculi. There is no left hydronephrosis. DISTAL LEFT URETER: There is non-visualization of the distal left ureter. There is no demonstrated left ureterovesical junction calculus. There is a visualized left ureteral jet. BLADDER: The distended urinary bladder has a volume of 47 ml. There is a normal wall thickness of the distended urinary bladder. There is no demonstrated mass within the urinary bladder. There are no demonstrated bladder calculi. US/Kidney and Bladder IMPRESSION: Right parapelvic cyst versus dilated calyx. The study is otherwise unremarkable. Electronically Signed: Osvaldo Hamm DO at 16:08 EST Tel [phone], Service support ,
== END ==
PROVIDERS: Family Provider Family Medicine Geriatric Medicine; PCP Family Medicine Geriatric Medicine; Referring Provider Urology; Visit Provider Urology
DX: N39.0 Urinary tract infection, site not specified (principal)
CPT/HCPCS: 76770

== ENCOUNTER → 2018-05-25 15:19 | Outpatient (CLI) | payer MEDICARE, OTHER, SELFPAY ==
--- NOTE | 2018-05-25 15:25 | RAD_ITS ---
STUDY: X-RAY - LEFT HIP REASON FOR EXAM: Female, 82 years old. Chronic left hip pain TECHNIQUE: Frontal pelvis, frontal and frog-leg lateral left hip. COMPARISON: None. FINDINGS: Low lumbar degenerative disc disease L3-L4, L4-L5, L5-S1. Moderate degenerative features of the right SI joint. Mild degenerative features of the right hip joint, mild joint margin osteophytic lipping. Mild degenerative features of the left hip joint, mild joint margin osteophytic lipping, no significant joint space narrowing, normal appearance of the articular surfaces. Particular soft tissues unremarkable. Pubic rami, iliac crests unremarkable. No acute intrapelvic process is evident. 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 No acute abnormality. Electronically Signed: Sandeep Patel MD at 16:07 EST Tel , Service support ,
== END ==
PROVIDERS: Family Provider Family Medicine Geriatric Medicine; PCP Family Medicine Geriatric Medicine; Referring Provider Anesthesiology Pain Medicine; Visit Provider Anesthesiology Pain Medicine
DX: M16.12 Unilateral primary osteoarthritis, left hip (principal)
CPT/HCPCS: 73502

== ENCOUNTER → 2018-06-16 11:24 | Outpatient (CLI) | payer MEDICARE, OTHER, SELFPAY ==
[2018-06-16 13:19] LABS: Hematocrit 34.9 % (37-47); Hemoglobin 10.7 g/dl (12.0-15.0)
[2018-06-16 13:34] LABS: Potassium 3.9 mmol/L (3.5-5.1)
== END ==
PROVIDERS: Family Provider Family Medicine Geriatric Medicine; PCP Family Medicine Geriatric Medicine
DX: Z01.818 Encounter for other preprocedural examination (principal); I10 Essential (primary) hypertension; Z79.899 Other long term (current) drug therapy
CPT/HCPCS: 36415; 84132; 85014; 85018; 93005

== ENCOUNTER 2018-06-29 09:10 | Inpatient (IN) | payer MEDICARE, OTHER, SELFPAY ==
[2018-06-29] VITALS (9 sets, daily range): BP systolic 118–140; BP diastolic 65–93; PULSE 75–95; RESP 16–19; TEMP 36.5–36.8; O2SAT 94–97; BMI 35.5; BMI 31.8
--- NOTE | 2018-06-29 09:30 | RAD_ITS ---
STUDY: X-RAY CHEST REASON FOR EXAM: Female, 83 years old. Chest pain after fall last evening. TECHNIQUE: AP and lateral views of the chest. COMPARISON: Prior comparison studies are not available for review at this time. FINDINGS: Cardiac monitoring leads are present. The lungs are expanded. There appears to be subsegmental atelectasis at both lung bases. There may also be subsegmental atelectasis in the left upper lobe. There is mild elevation of the right hemidiaphragm. There is no demonstrated pleural abnormality. There is borderline cardiomegaly. Normal mediastinum and igor. Normal visualized pulmonary arteries. There is atherosclerotic calcification of the aortic arch with tortuosity. There is demineralization of the osseous structures. There is increased thoracic kyphosis and multilevel thoracic spondylosis. Normal visualized ribs, clavicles, and shoulders. There is no demonstrated abnormality of the visualized soft tissue structures of the upper abdomen. RAD/Chest PA and Lateral IMPRESSION: Bilateral subsegmental atelectasis. Electronically Signed: Moni Ireland MD at 10:26 EST , Service support ,
--- NOTE | 2018-06-29 09:30 | CT_ITS ---
STUDY: CT BRAIN WITHOUT CONTRAST REASON FOR EXAM: Female, 83 years old. Multiple falls 2 weeks ago with general weakness since last evening. RADIATION DOSAGE (If Supplied By Facility): CTDIvol = ( 44.99 ) mGy, DLP = ( 812.98 ) mGycm TECHNIQUE: Transaxial CT imaging of the brain was performed without administration of intravenous contrast material. Multiplanar reformations are submitted for interpretation. Individualized dose optimization techniques were used for this CT. COMPARISON: None. FINDINGS: Normal soft tissue structures. Normal calvarium. There is mild cerebral atrophy with widening of the extra-axial spaces and ventricular dilatation. There are areas of decreased attenuation within the white matter tracts of the supratentorial brain, consistent with microvascular disease changes. Normal basal ganglia and thalami. Normal brainstem. Normal cerebellum. There is no intracranial hemorrhage. There is mild atherosclerotic calcification of the intracranial arteries. Normal visualized paranasal sinuses. CT/Brain/Head without Contrast IMPRESSION: 1. Chronic involutional changes of the brain. 2. No CT evidence of acute intracranial hemorrhage. Electronically Signed: Moni Ireland MD at 10:43 EST , Service support ,
--- NOTE | 2018-06-29 09:30 | EKG12_ITS ---
Test Reason : FALL Blood Pressure : / mmHG Vent. Rate : 071 BPM Atrial Rate : 071 BPM P-R Int : 188 ms QRS Dur : 110 ms QT Int : 418 ms P-R-T Axes : 012 -35 012 degrees QTc Int : 454 ms Sinus rhythm with marked sinus arrhythmia Left axis deviation Abnormal ECG Confirmed by NICA KELLY, PRAVEEN ([id number]), communications editor GLORIA LUIS ([id number]) on 07/05/2018 11:33:27 AM Referred By: OUT DOCTOR Confirmed By:PRAVEEN YOUSIF MD
[2018-06-29 09:46] LABS: Absolute Lymphocyte Count 0.64 X10^3/ul (0.83-4.51); Absolute Neutrophil Count 4.6 X10^3/uL (2.0-7.7); Basophil# 0.02 X10^3/uL; Basophil% 0.3 % (0-1); Eosinophils% 4.7 % (0-5); Hematocrit 36.2 % (37-47); Hemoglobin 11.2 g/dl (12.0-15.0); Lymphocyte # 0.64 X10^3/ul (4.0); Lymphocyte % 9.9 % (19-41); Mean Corp Hgb Conc 30.9 g/gl (32-36); Mean Corpuscular Hgb 29.7 pg (27.0-32.0); Mean Platelet Vol. 10.2 fl (6.2-12.0); Monocyte# 0.84 X10^3/uL; Neutrophil # 4.62 X10^3/uL (2.7-7.7); Neutrophil % 71.6 % (47-70); Platelet Count 203 K/mm3 (150-450); RBC Distribution Width CV 13.6 % (11.6-14.6); RBC Distribution Width SD 45.9 fl (35.1-43.9); Red Blood Count 3.77 M/mm3 (4.2-5.4); White Blood Count 6.5 K/mm3 (4.4-11.0)
[2018-06-29 09:49] LABS: POSITIVE COUNT NO; POSITIVE DIFFERENTIAL NO; POSITIVE MORPHOLOGY NO
[2018-06-29 10:05] LABS: Anion Gap 8 (5-15); BUN 21 mg/dL (7-18); BUN/Creat Ratio 20.6 RATIO (10-20); Calcium,Total 8.5 mg/dL (8.5-10.1); Chloride 100 mmol/L (98-107); Creatinine, Serum 1.02 mg/dL (0.55-1.02); EST Glomerular Filtration Rate 55 mL/min (>60); Est Glom Filt Rate - Afr Amer 67 mL/min (>60); Estimated Creatinine Clearance 37.35 ml/min; Glucose 105 mg/dL (74-106); Potassium 3.4 mmol/L (3.5-5.1); Sodium Level 136 mmol/L (136-145)
--- NOTE | 2018-06-29 10:08 | ED.VISSUMM ---
- ER Visit Summary Date of Service: 06/29/18 Chief Complaint: Frequent falls and generalized weakness History of Present Illness: The patient is a 83 F presenting for evaluation secondary to frequent falls and generalized weakness. Patient reports that over the course last 2 weeks she has fallen at least 4 times. Patient states that the first 3 times were associated with falls of a mechanical nature. Patient states that in those time she either got tied up in her walker or with the dog and suffered falls. Patient states however last night, she suffered a fall where she was getting ready for bed, and then ended up on her hands and knees and did not know how she had gotten there. She does report that she felt like she hit the right side of her head. No numbness or weakness associated with it. No visual changes. Patient does state that she has had some adjustments in her medications recently, and additionally is getting treated for urinary tract infection. Patient additionally reports that last week she had eyelid surgery which is the cause of the bruising on her face. She is not on any sort of anticoagulants. She has an underlying history of hypertension Parkinson's and hypothyroidism. Physical Examination: Vital signs within normal limits. Well-nourished female no acute distress. Patient has raccoon eyes bilaterally with postsurgical changes of the eyelids. TMs are clear. Neck was nontender with full range of motion. Heart regular rate and rhythm with 2 out of 6 systolic murmur noted. Lung sounds clear. Abdomen soft nontender. Extremities atraumatic with active full range of motion x4. Skin normal color. Patient alert and oriented. NIH stroke scale is 0. Test Results: EKG demonstrates sinus arrhythmia with a rhythm of 71. Inferior Q waves of unknown chronicity are noted. CBC shows mild anemia 11 which is chronic, chemistry unremarkable, urinalysis negative. Troponin negative. Chest x-ray shows atelectasis, CT brain shows chronic changes. Emergency Department Course and Treatment: Patient presented secondary to frequent falls, and a fall today that sounded like a potential syncopal episode as the patient does not remember any of the surrounding events. Patient was worked up as noted above, her workup was ultimately found to be negative. I do believe that given the fact that the patient's falls have been increasing in frequency and especially since this most recent fall seems syncopal that she requires admission. Patient will be discussed with the hospitalist and will be admitted for further workup and coordination of care. Disposition: Admission Impression: 1. Syncope 2. Frequent falls This note was generated with Balzo dictation software. It may contain incorrect words, spelling, and punctuation that were not noted in review of the chart prior to signing ED Disposition - Plan for ED Patient: Referrals: Young Hubbard Chi, MD [Primary Care Provider] -
--- NOTE | 2018-06-29 10:12 | ED.DCSUM_ITS ---
- ER Visit Summary Date of Service: 06/29/18 Chief Complaint: Frequent falls and generalized weakness History of Present Illness: The patient is a 83 F presenting for evaluation secondary to frequent falls and generalized weakness. Patient reports that over the course last 2 weeks she has fallen at least 4 times. Patient states that the first 3 times were associated with falls of a mechanical nature. Patient states that in those time she either got tied up in her walker or with the dog and suffered falls. Patient states however last night, she suffered a fall where she was getting ready for bed, and then ended up on her hands and knees and did not know how she had gotten there. She does report that she felt like she hit the right side of her head. No numbness or weakness associated with it. No visual changes. Patient does state that she has had some adjustments in her medications recently, and additionally is getting treated for urinary tract infection. Patient additionally reports that last week she had eyelid surgery which is the cause of the bruising on her face. She is not on any sort of anticoagulants. She has an underlying history of hypertension Parkinson's and hypothyroidism. Physical Examination: Vital signs within normal limits. Well-nourished female no acute distress. Patient has raccoon eyes bilaterally with postsurgical changes of the eyelids. TMs are clear. Neck was nontender with full range of motion. Heart regular rate and rhythm with 2 out of 6 systolic murmur noted. Lung sounds clear. Abdomen soft nontender. Extremities atraumatic with active full range of motion x4. Skin normal color. Patient alert and oriented. NIH s troke scale is 0. Test Results: EKG demonstrates sinus arrhythmia with a rhythm of 71. Inferior Q waves of unknown chronicity are noted. CBC shows mild anemia 11 which is chron ic, chemistry unremarkable, urinalysis negative. Troponin negative. Chest x- ray shows atelectasis, CT brain shows chronic changes. Emergency Department Course and Treatment: Patient presented secondary to frequent falls, and a fall today that sounded like a potential syncopal episode as the patient does not remember any of the surrounding events. Patient was worked up as noted above, her workup was ultimately found to be negative. I do believe that given the fact that the patient's falls have been increasing in frequency and especially since this most recent fall seems syncopal that she requires admission. Patient will be discussed with the hospitalist and will be admitted for further workup and coordination of care. Disposition: Admission Impression: 1. Syncope 2. Frequent falls This note was generated with Pandorama dictation software. It may contain incorrect words, spelling, and punctuation that were not noted in review of the chart prior to signing ED Disposition - Plan for ED Patient: Referrals: Young Hubbard Chi, MD [Primary Care Provider] -
[2018-06-29 11:16] LABS: Color, Urine Yellow (Yellow); Glucose, Dipstick Normal (Normal); Ketone-Dipstick Negative (Negative); Leukocyte Esterase-Dipstick 25 /ul (Negative); Mucous, Urine 0 SEEN /hpf (<or=2+); Nitrite-Dipstick Negative (Negative); Occult Blood-Urine 10 /ul (Negative); Protein-Dipstick Negative (Negative); Red Blood Cells-Urine 0 SEEN /hpf (0-5); Urine Bilirubin Dipstick Negative (Negative); Urine Clarity Sl. Cloudy (Clear); Urine Urobilinogen Normal (Normal); Urine pH 6.5 (5.0 - 8.0)
[2018-06-29 11:22] LABS: Squamous Epithelial Cells - UA 0-5 SEEN /hpf (5-10); White Blood Cells 0-5 SEEN /hpf (0-5)
[2018-06-29 11:23] LABS: Bacteria RARE /hpf (None Seen)
--- NOTE | 2018-06-29 11:57 | NURSING ---
HOSPITALIST FOR DR WOLF
--- NOTE | 2018-06-29 12:04 | PCM.HP.STD ---
Problem List (1) Recurrent falls Status: Acute (2) Syncope and collapse Status: Acute (3) Essential hypertension Status: Chronic (4) Restless legs syndrome (RLS) Status: Chronic (5) Parkinson disease Status: Chronic History of Present Illness Date of Admission: 06/29/18 Chief Complaint: Falls The patient is a 83 year old F with past medical history significant for Parkinson's disease present with recurrent falls. Patient reports having falling 4 times in the past 2 weeks. On the day of admission she did fall but this time she did not recollect the event leading to her falling. Called the squad and patient was brought to the emergency department. In the ED workup was unremarkable patient was however admitted as a case of suspected syncopal episode in addition to adult failure to thrive. Admitted to monitored bed for subsequent management. Past Medical History Past Medical History (Chronic Problems): Chronic Problems Essential hypertension (Chronic) Restless legs syndrome (RLS) (Chronic) Parkinson disease (Chronic) Allergies morphine Adverse Reaction (Verified 06/29/18 09:11) Other Penicillins [PCN] Adverse Reaction (Verified 06/29/18 09:11) Itching Sulfa (Sulfonamide Antibiotics) Adverse Reaction (Verified 06/29/18 09:11) Itching Home Medications: Ambulatory Orders Medication Instructions Recorded Carbidopa/Levodopa [Carbidopa-Levo 1 each PO QHS 06/29/18 ER 50-200 Tab] Carbidopa/Levodopa 1 each PO TID 06/29/18 [Carbidopa-Levodopa 25-100 Tab] Cephalexin [Keflex] 250 mg PO DAILY 06/29/18 Docusate Sodium 100 mg PO DAILY 06/29/18 Fosinopril Sodium 20 mg PO DAILY 06/29/18 Hydrochlorothiazide 12.5 mg PO DAILY 06/29/18 Hydrocodone Bitart/Apap 5-325 1 tablet PO Q6H PRN PRN 06/29/18 [[place] 5MG-325MG] Levothyroxine Sodium 75 mcg PO DAILY 06/29/18 Mirabegron [Myrbetriq] 25 mg PO DAILY 06/29/18 Mirtazapine 7.5 mg PO QHS 06/29/18 Naproxen Sodium [Aleve] 220 mg PO Q12H PRN PRN 06/29/18 Nitrofurantoin Macrocrystal 100 mg PO BID 06/29/18 [Nitrofurantoin] Ropinirole HCl 0.5 mg PO QHS 06/29/18 Smoking Status: Never smoker - *Family History Maternal History Items: Cancer - of ovarian cancer Review of Systems Constitutional: Reports: Weakness, Fatigue HEENT: Denies: Head Aches, Sinus Congestion, Sinus Drainage Cardiovascular: Reports: Syncope. Denies: Chest Pain, Orthopnea, Palpitations, Paroxysmal Noc. Dyspnea Respiratory: Denies: Cough, Shortness of breath at rest, Shortness of breath upon exertion, Sputum production Gastrointestinal: Denies: Abdominal Pain, Hematemesis, Hematochezia, Nausea, Melena, Vomiting Genitourinary: Denies: Dysuria, Frequency, Hematuria, Urgency Musculoskeletal: Denies: Joint Pain, Joint Tenderness Skin: Denies: Rash Neurological: Reports: Balance problems, Tremor. Denies: Focal weakness, Numbness, Tingling Psychiatric: Denies: Homicidal Ideations, Suicidal Ideations Hematologic/ Lymphatic: Denies: Easy Bruising, Easy Bleeding VTE Information - Inpt Only VTE Present on Admission: No VTE Mechan Device Prophylaxis: Knee High SAKINA Hose VTE Pharm Prophylaxis ordered?: Yes Patient Problems: Active and Suspected Problems Recurrent falls (Acute) Syncope and collapse (Acute) Objective: GENERAL: cooperative HEENT: Atraumatic; EYES; periorbital bruising from recent eyelid surgery NECK; supple, normal thyroid, RESPIRATORY: Diminished to auscultation bilaterally, CARDIOVASCULAR: Regular S1 S2, GI: soft, non-tender, normoactive bowel sounds, : No Renal angle tenderness; EXTREMITIES: No edema, no clubbing, no cyanosis. MUSCULOSKELETAL: No Joint Tenderness; NEURO: Awake; no lateralizing signs. SKIN: No Rash PSYCH; Normal affect - Physical Exam Vital Signs Temp Pulse Resp BP Pulse Ox 98.3 F 79 19 H 119/66 94 06/29/18 09:11 06/29/18 09:11 06/29/18 09:11 06/29/18 09:11 06/29/18 09:11 Oxygen Delivery Method Room Air Weight: 94 kg Body Mass Index (BMI) 35.5 Laboratory Tests Past 24 Hrs 06/29/18 06/29/18 06/29/18 07:40 07:40 11:10 WBC 6.5 RBC 3.77 L Hgb 11.2 L Hct 36.2 L MCV 96.0 MCH 29.7 MCHC 30.9 L RDW 13.6 RDW Differential 45.9 H Plt Count 203 MPV 10.2 Immature Gran % (Auto) 0.500 Neut % (Auto) 71.6 H Lymph % (Auto) 9.9 L Atkinson % (Auto) 13.0 H Eos % (Auto) 4.7 Baso % (Auto) 0.3 Absolute Neuts (auto) 4.6 Absolute Lymphs (auto) 0.64 L Total Counted Not Reportable Sodium 136 Potassium 3.4 L Chloride 100 Carbon Dioxide 28.0 Anion Gap 8 BUN 21 H Creatinine 1.02 Estim Creat Clear Calc 37.35 Est GFR (MDRD) Af Amer 67 Est GFR (MDRD) Non-Af 55 L BUN/Creatinine Ratio 20.6 H Glucose 105 Calcium 8.5 Troponin I < 0.015 Urine Color Yellow Urine Clarity Sl. Cloudy Urine pH 6.5 Ur Specific [place] 1.010 Urine Protein Negative Urine Glucose (UA) Normal Urine Ketones Negative Urine Occult Blood 10 H Urine Nitrite Negative Urine Bilirubin Negative Urine Urobilinogen Normal Ur Leukocyte Esterase 25 H Urine RBC 0 SEEN Urine WBC 0-5 SEEN Ur Squamous Epith Cells 0-5 SEEN Urine Bacteria RARE Urine Mucus 0 SEEN Assessment/Plan All Active Problems Recurrent falls (Acute) Syncope and collapse (Acute) Patient is an 83-year-old lady with history of Parkinson's disease presented with recurrent falls with suspected syncopal episode on the day of her admission 1. Syncopal episode patient has been admitted to a monitored bed for continuous telemetry. Requested for case shift orthostatic checks. As part of his management ordered serial cardiac enzymes and a 2D echo 2. Accelerated hypertension patient blood pressure in the ED was markedly elevated with systolic greater than 190 and diastolic greater than 140. Plan is to reconsult patient home with with resumption of her medication and as needed hydralazine for systolic greater than 160 3. Hypothyroidism-patient is on levothyroxine home dose continued 4. Restless leg syndrome; patient is on ropinirole did continue 5. Parkinson's disease patient is on Sinemet continue 6. Hypokalemia corrected per protocol 7. Adult failure to thrive with recurrent falls: Admitted to monitored bed requested for PT OT eval and social welfare research worker to assist with discharge planning 8. DVT prophylaxis SC Lovenox Code Visit OBSV E&M: 31411 Initial observation care L3
--- NOTE | 2018-06-29 12:37 | CM.ED ---
Social Work Assessment Reason for Referral: Resources, HHC Informant: Olya Arteaga RN Information obtained from: Medical record, pt and pt's spouse, Naeem. Pt is sitting upright in bed and is alert and oriented x4 and able to participate in assessment. Living Arrangements: Reports to live with her spouse in a one story handicap accessible home. There are two ramps for entry into the home. Both bathrooms are equipped with elevated toilets, shower chairs and grab bars. The pt does use a rollator to ambulate and has only had it for approximately 1 week, and her son Hermes also got her a wheelchair today. Spouse asks about a hospital bed, and SW assures him this SW will look into it. Stressors: 4 falls in the last 2 weeks, increased weakness in legs. Supports: Spouse, Naeem, and son, Hermes. ASSESSMENT: Met with pt and spouse in ED. Pt reports having 4 falls in the last 2 weeks with her most recent being last night in her bedroom. States she does not remember falling. Does report and increase in weakness over the last 2 weeks and recently obtained a rollator for use and has been using for approximately 1 week. Spouse inquires about hospital bed, and a DME provider as [facility] has closed. Discuss C services and pt and spouse are in agreement for SN, PT/OT and SW. Also educate and discuss palliative care services, and pt and spouse are agreeable to a referral to palliative care as well. Placed call to Sparkle Jain at [facility] who reports that Parkinson's would qualify someone for a hospital bed. Updated pt and spouse regarding the hospital bed. Will not order at this time as pt is being admitted for observation to PCU, but will send initiated information to the assigned case management team. Intervention(s) [facility] quick script form for hospital bed initiated and sent to PCU case management team. [facility] face to face initiated and sent to PCU case management team. Referral for palliative care faxed to [facility]. PLAN: Home with [facility], hospital bed and palliative care referral at discharge. NATE Lipscomb, RODOLFO
--- NOTE | 2018-06-29 13:55 | ECHOD_ITS ---
Reason For Study: Syncope Procedure This was a 2D Doppler, Color Flow transthoracic echocardiogram. Exam performed portable in patient room. Left Ventricle Normal size and thickness. The estimated ejection fraction is 65 %. Stage 1 diastolic dysfunction. No regional wall motion abnormalities noted. Right Ventricle Normal size and thickness. Normal systolic function. Atria Normal left atrium. Normal right atrium. Normal atrial septum. Mitral Valve The mitral valve is structurally normal. No prolapse or stenosis seen. Mild-Moderate (1-2+) mitral valve insufficiency. Tricuspid Valve Normal tricuspid valve. Mild (1+) tricuspid valve insufficiency. Right ventricular systolic pressure estimated to be 26 mmHg. Aortic Valve Trisinus/trileaflet aortic valve. Mild diffuse aortic valve thickening. Mild (1+) aortic valve insufficiency. Pulmonic Valve Normal pulmonic valve. Great Vessels Normal aortic root. Normal arch. Normal inferior vena cava. Pericardium/Pleural No pericardial effusion. MMode/2D Measurements & Calculations LVIDd: 4.2 cm IVSd: 1.1 cm LA dimension: 4.2 cm LVIDs: 3.1 cm LVPWd: 1.2 cm FS: 27.5 % LAV(MOD-sp4): 52.6 ml LVAd ap4: 28.3 cm2 SV(MOD-sp4): 53.5 ml EDV(MOD-sp4): 89.7 ml EDV(sp4-el): 94.0 ml LVAs ap4: 16.0 cm2 ESV(MOD-sp4): 36.2 ml ESV(sp4-el): 35.5 ml EF(MOD-sp4): 59.6 % EF(sp4-el): 62.2 % SV(sp4-el): 58.5 ml LA A4 area: 18.0 cm2 Time Measurements MV dec time: 0.25 sec Doppler Measurements & Calculations MV E max manuel: 43.0 cm/sec Lat Peak E' Manuel: 10.7 cm/sec Med Peak E' Manuel: 3.7 cm/sec MV A max manuel: 82.7 cm/sec E/E' lat: 4.0 E/E' med: 11.5 MV E/A: 0.52 MV V2 max: 92.2 cm/sec MV P1/2t max manuel: 74.4 cm/sec Ao V2 max: 109.4 cm/sec MV max P.4 mmHg MV P1/2t: 68.1 msec Ao max P.8 mmHg MV V2 mean: 49.9 cm/sec Ao V2 mean: 69.4 cm/sec MV mean P.2 mmHg MV dec slope: 319.9 cm/sec2 Ao mean P.3 mmHg MV V2 VTI: 24.1 cm MVA(P1/2t): 3.2 cm2 Ao V2 VTI: 19.5 cm AI max manuel: 407.9 cm/sec LV V1 max: 97.8 cm/sec PA V2 max: 94.4 cm/sec AI max P.6 mmHg LV V1 max P.8 mmHg AI dec slope: 273.0 cm/sec2 LV V1 mean P.8 mmHg AI P1/2t: 437.7 msec LV V1 mean: 62.3 cm/sec LV V1 VTI: 19.2 cm TR max manuel: 228.9 cm/sec TR max P.0 mmHg Interpretation Summary The estimated ejection fraction is 65 %. Stage 1 diastolic dysfunction. Mild-Moderate (1-2+) mitral valve insufficiency. Mild (1+) tricuspid valve insufficiency. Right ventricular systolic pressure estimated to be 26 mmHg. Mild (1+) aortic valve insufficiency. There is no comparison study available. Ordering Physician: Donis Christopher Referring Physician: Young Hubbard Chi Performed By: Aden Rangel RCS
[2018-06-29 14:40] LABS: Magnesium 2.1 mg/dL (1.6-2.6); Thyroid Stim Hormone (TSH) 0.47 uIU/mL (0.358-3.74)
[2018-06-29] MEDS: Magnesium Hydroxide 30 ML UDC PO (17:36)
[2018-06-29] MEDS: Carbidopa/Levodopa 25/100 Tablet PO (17:36)
[2018-06-29] MEDS: Pramipexole Di-HCl 0.25 MG Tablet PO (22:38)
[2018-06-29] MEDS: Mirtazapine 15 MG Tablet 7.5 MG PO (22:39)
[2018-06-29] MEDS: CARBIDOPA/LEVODOPA CR 50/200 Tablet PO (22:40)
[2018-06-30] VITALS (8 sets, daily range): BP systolic 91–116; BP diastolic 62–69; PULSE 69–99; RESP 16–18; TEMP 36.6–36.8; O2SAT 96
[2018-06-30] MEDS: Levothyroxine 75 MCG Tablet PO (05:35)
[2018-06-30] MEDS: Carbidopa/Levodopa 25/100 Tablet PO ×3 (06:55→16:46)
[2018-06-30 07:23] LABS: ALB/GLOB Ratio 0.9 RATIO (0.9-2.4); AST(SGOT) 14 U/L (15-37); Alanine Aminotransfer ALT/SGPT < 6 U/L (13-56); Albumin, Serum 2.9 g/dL (3.2-5.0); Alkaline Phosphatase 89 U/L (45-117); Anion Gap 6 (5-15); BUN 24 mg/dL (7-18); BUN/Creat Ratio 28.8 RATIO (10-20); Calcium,Total 8.2 mg/dL (8.5-10.1); Chloride 104 mmol/L (98-107); Creatinine, Serum 0.83 mg/dL (0.55-1.02); EST Glomerular Filtration Rate 70 mL/min (>60); Est Glom Filt Rate - Afr Amer 85 mL/min (>60); Globulin 3.2 g/dL (2.2-4.2); Glucose 98 mg/dL (74-106); Potassium 4.2 mmol/L (3.5-5.1); Protein, Total 6.1 g/dL (6.4-8.2); Sodium Level 138 mmol/L (136-145)
[2018-06-30] MEDS: Docusate Sodium 100 MG Capsule PO (10:31)
[2018-06-30] MEDS: Bisacodyl 5 MG Tablet 10 MG PO (10:31)
[2018-06-30] MEDS: Enoxaparin 40 MG/0.4 ML Syringe SC (10:31)
[2018-06-30] MEDS: Lisinopril 20 MG Tablet PO (10:31)
[2018-06-30] MEDS: hydroCHLOROthiazide 12.5mg 12.5 MG PO (10:31)
[2018-06-30] MEDS: Mirabegron 25 MG TAB.ER.24H PO (10:31)
--- NOTE | 2018-06-30 10:41 | PN_ITS ---
Patient Problems: Active and Suspected Problems Recurrent falls (Acute) Syncope and collapse (Acute) Subjective: Patient is an 83-year-old lady with history of Parkinson's disease presented with recurrent falls with suspected syncopal episode on the day of her admission patient has been admitted to monitored bed for continuous telemetry. Patient has so far not experienced any pathological arrhythmias. She is scheduled to be evaluated by PT OT Objective: GENERAL: cooperative HEENT: Atraumatic; EYES; periorbital bruising from recent eyelid surgery NECK; supple, normal thyroid, RESPIRATORY: Diminished to auscultation bilaterally, CARDIOVASCULAR: Regular S1 S2, GI: soft, non-tender, normoactive bowel sounds, : No Renal angle tenderness; EXTREMITIES: No edema, no clubbing, no cyanosis. MUSCULOSKELETAL: No Joint Tenderness; NEURO: Awake; no lateralizing signs. SKIN: No Rash PSYCH; Normal affect Vitals/I&O's: Vital Signs Temp Pulse Resp BP Pulse Ox 98.0 F 86 16 102/69 96 06/30/18 08:16 06/30/18 08:16 06/30/18 08:16 06/30/18 08:16 06/30/18 08:16 Oxygen Delivery Method Room Air Weight: 84.1 kg Body Mass Index (BMI) 31.8 Orthostatic Vital Signs Start: 06/29/18 14:10 Freq: q24h Status: Active Protocol: Activity Type Activity Date Activity User E-Sign Co-Sign Detail Recorded Client Recorded Date Recorded By Document 06/29/18 14:10 [facility] [id number] 06/29/18 14:11 [facility] 06/29/18 14:10 Orthostatic Vitals Standing -Extremity Use Left Arm -Pulse Rate (60-100 beats/min) 95 Sitting -Blood Pressure (90/60-120/80 mm Hg) 131/70 H -Extremity Use Left Arm -Pulse Rate (60-100 beats/min) 80 Lying -Blood Pressure (90/60-120/80 mm Hg) 140/74 H -Extremity Use Left Arm -Pulse Rate (60-100 beats/min) 82 Intake and Output for Last 24 Hours 06/28/18 06/29/18 06/30/18 23:59 23:59 23:59 Intake Total 132 / 132 1347 / 1347 Balance 132 / 132 1347 / 1347 Laboratory Results 06/29/18 07:40: Magnesium 2.1, TSH 0.47 06/29/18 11:10: Urine Color Yellow, Urine Clarity Sl. Cloudy, Urine pH 6.5, Ur Specific [place] 1.010, Urine Protein Negative, Urine Glucose (UA) Normal, Urine Ketones Negative, Urine Occult Blood 10 H, Urine Nitrite Negative, Urine Bilirubin Negative, Urine Urobilinogen Normal, Ur Leukocyte Esterase 25 H, Urine RBC 0 SEEN, Urine WBC 0-5 SEEN, Ur Squamous Epith Cells 0-5 SEEN, Urine Bacteria RARE, Urine Mucus 0 SEEN 06/29/18 15:30: Troponin I < 0.015 06/29/18 18:25: Troponin I < 0.015 06/29/18 21:25: Troponin I < 0.015 06/30/18 06:50: Sodium 138, Potassium 4.2, Chloride 104, Carbon Dioxide 28.0, Anion Gap 6, BUN 24 H, Creatinine 0.83, Estim Creat Clear Calc 45.90, Est GFR (MDRD) Af Amer 85, Est GFR (MDRD) Non-Af 70, BUN/Creatinine Ratio 28.8 H, Glucose 98, Calcium 8.2 L, Total Bilirubin 0.40, AST 14 L, ALT < 6 L, Alkaline Phosphatase 89, Total Protein 6.1 L, Albumin 2.9 L, Globulin 3.2, Albumin/Globulin Ratio 0.9 Current Medications Acetaminophen (Tylenol) 650 mg PO Q6H PRN PRN PRN Reason: Mild Pain (scale 0-3)/T>100.7 Hydrocodone Bitart/Acetaminophen ([place] 5mg-325mg) 1 tablet PO Q6H PRN PRN PRN Reason: PAIN Al Hydroxide/Mg Hydroxide (Mylanta Ii) 30 ml PO Q6H PRN PRN PRN Reason: Gastric Burning Bisacodyl (Dulcolax) 10 mg PO DAILY PRN PRN PRN Reason: Constipation Last Admin: 06/30/18 10:31 Dose: 10 mg Carbidopa/Levodopa (Sinemet) 1 tablet PO TIDAC [facility] Last Admin: 06/30/18 06:55 Dose: 1 tablet Carbidopa/Levodopa (Sinemet Cr) 1 tablet PO QHS [facility] Last Admin: 06/29/18 22:40 Dose: 1 tablet Docusate Sodium (Colace) 100 mg PO DAILY [facility] Last Admin: 06/30/18 10:31 Dose: 100 mg Enoxaparin Sodium (Lovenox) 40 mg SC DAILY@1000 [facility] Last Admin: 06/30/18 10:31 Dose: 40 mg Hydrochlorothiazide () 12.5 mg PO DAILY [facility] Last Admin: 06/30/18 10:31 Dose: 12.5 mg Potassium Chloride/Sodium Chloride (Kcl 20meq In 0.45% Ns 1000ml) 1,000 mls @ 100 mls/hr IV .Q10H [facility] Last Admin: 06/30/18 02:27 Dose: 100 mls/hr Levothyroxine Sodium (Synthroid) 75 mcg PO DAILY@0600 [facility] Last Admin: 06/30/18 05:35 Dose: 75 mcg Lisinopril (Zestril) 20 mg PO DAILY [facility] Last Admin: 06/30/18 10:31 Dose: 20 mg Magnesium Hydroxide (Milk Of Magnesia) 30 ml PO DAILY PRN PRN Reason: Constipation Last Admin: 06/29/18 17:36 Dose: 30 ml Mirtazapine (Remeron) 7.5 mg PO QHS [facility] Last Admin: 06/29/18 22:39 Dose: 7.5 mg Naproxen (Naprosyn) 250 mg PO Q12H PRN PRN PRN Reason: PAIN Ondansetron HCl (Zofran) 4 mg IV Q8H PRN PRN PRN Reason: Nausea Pramipexole Dihydrochloride (Mirapex) 0.25 mg PO QHS [facility] Last Admin: 06/29/18 22:38 Dose: 0.25 mg Sodium Chloride () 5 - 15 ml IV UD PRN PRN Reason: SALINE FLUSH Zolpidem Tartrate (Ambien (Generic)) 5 mg PO QHS PRN PRN PRN Reason: INSOMNIA Medical Necessity - Tobacco Use Smoking Status: Former smoker Assessment/Plan All Active Problems Recurrent falls (Acute) Syncope and collapse (Acute) Patient is an 83-year-old lady with history of Parkinson's disease presented with recurrent falls with suspected syncopal episode on the day of her admission 1. Syncopal episode patient has been admitted to a monitored bed for continuous telemetry. Requested for case shift orthostatic checks. As part of his gilbert eugenio ordered serial cardiac enzymes and a 2D echo. Patient has so far not experienced any pathological arrhythmias. 2. Accelerated hypertension patient blood pressure in the ED was markedly eleva kami with systolic greater than 190 and diastolic greater than 140. Plan is to reconsult patient home with with resumption of her medication and as needed hydralazine for systolic greater than 160 3. Hypothyroidism-patient is on levothyroxine home dose continued 4. Restless leg syndrome; patient is on ropinirole did continue 5. Parkinson's disease patient is on Sinemet continue 6. Hypokalemia corrected per protocol 7. Adult failure to thrive with recurrent falls: Admitted to monitored bed requested for PT OT eval and renal social worker to assist with discharge planning 8. DVT prophylaxis SC Lovenox Code Visit OBSV E&M: 38150 Observ/hosp same date L3
--- NOTE | 2018-06-30 14:46 | CASEMGMT ---
Pt/ states they are not interested in hospital bed at this time, but are interested in w/c. Call to Sparkle at [facility] and if pt is ambulatory then w/c will not be covered by [facility] at this time. Pt/ are still interested in [facility] for RN, PT/OT, and SW for resources at this time. Call to Jazmin at [facility] and she states that they are able to take pt at this time. Order placed for above and Jazmin is aware at this time, voices understanding. Pt/ voice understanding of all at this time and voice no further questions/concerns/needs at this time. CM to follow for any further discharge planning/needs. SStaten RN CM
[2018-06-30] MEDS: CARBIDOPA/LEVODOPA CR 50/200 Tablet PO (22:12)
[2018-06-30] MEDS: Mirtazapine 15 MG Tablet 7.5 MG PO (22:12)
[2018-06-30] MEDS: Pramipexole Di-HCl 0.25 MG Tablet PO (22:12)
[2018-07-01] VITALS (7 sets, daily range): BP systolic 105–123; BP diastolic 60–67; PULSE 65–78; RESP 16; TEMP 36.4–36.8; O2SAT 95–100
[2018-07-01] MEDS: Levothyroxine 75 MCG Tablet PO (05:53)
[2018-07-01] MEDS: Carbidopa/Levodopa 25/100 Tablet PO ×2 (05:53→11:20)
[2018-07-01] MEDS: Mirabegron 25 MG TAB.ER.24H PO (09:24)
[2018-07-01] MEDS: Enoxaparin 40 MG/0.4 ML Syringe SC (09:24)
[2018-07-01] MEDS: Docusate Sodium 100 MG Capsule PO (09:25)
--- NOTE | 2018-07-01 10:49 | DCINST_ITS ---
- Discharge Diagnoses Current Active Problems: Current Active and Chronic Problems Recurrent falls (Acute) Syncope and collapse (Acute) Essential hypertension (Chronic) Restless legs syndrome (RLS) (Chronic) Parkinson disease (Chronic) You will use the following diet at home:: No restrictions Allergies/Adverse Reactions: Allergies morphine Adverse Reaction (Verified 06/29/18 09:11) Other Penicillins [PCN] Adverse Reaction (Verified 06/29/18 09:11) Itching Sulfa (Sulfonamide Antibiotics) Adverse Reaction (Verified 06/29/18 09:11) Itching Medications to take at Discharge Carbidopa/Levodopa [Carbidopa-Levo ER 50-200 Tab] 1 each PO QHS 06/29/18 Carbidopa/Levodopa [Carbidopa-Levodopa 25-100 Tab] 1 each PO TID 06/29/18 Docusate Sodium 100 mg PO DAILY 06/29/18 Fosinopril Sodium 20 mg PO DAILY 06/29/18 Hydrochlorothiazide 12.5 mg PO DAILY 06/29/18 Hydrocodone Bitart/Apap 5-325 [[place] 5/325] 1 tablet PO Q6H PRN PRN 06/29/18 Levothyroxine Sodium 75 mcg PO DAILY 06/29/18 Mirabegron [Myrbetriq] 25 mg PO DAILY 06/29/18 Mirtazapine 7.5 mg PO QHS 06/29/18 Naproxen Sodium [Aleve] 220 mg PO Q12H PRN PRN 06/29/18 Ropinirole HCl 0.5 mg PO QHS 06/29/18 Primary Care Physician: Young Hubbard Chi, MD [Primary Care Provider] - Test Results: Test results from this visit will be discussed in further detail at your follow- up appointment, if applicable. Proposed Discharge Date: 07/01/18
--- NOTE | 2018-07-01 10:49 | PCM.DC.SUM ---
Discharge Date and Diagnosis - Problem List Patient Problems: Active and Suspected Problems Recurrent falls (Acute) Syncope and collapse (Acute) Date of Admission: 06/29/18 Date of Discharge: 07/01/18 - Primary Discharge Diagnosis Active and Suspected Problems Recurrent falls (Acute) Syncope and collapse (Acute) - Secondary Discharge Diagnosis Chronic Problems Essential hypertension (Chronic) Restless legs syndrome (RLS) (Chronic) Parkinson disease (Chronic) Hospital Course and Treatment Imaging Results: Clinical Impression(s) from Imaging Studies Brain CT 06/29/18 09:30 IMPRESSION: 1. Chronic involutional changes of the brain. 2. No CT evidence of acute intracranial hemorrhage. Electronically Signed: Moni Ireland MD at 10:43 EST , Service support , Chest X-Ray 06/29/18 09:30 IMPRESSION: Bilateral subsegmental atelectasis. Electronically Signed: Moni Ireland MD at 10:26 EST , Service support , Summary of Care Provided: Patient is an 83-year-old lady with history of Parkinson's disease presented with recurrent falls with suspected syncopal episode on the day of her admission 1. Syncopal episode patient has been admitted to a monitored bed for continuous telemetry. Requested for case shift orthostatic checks. As part of his management ordered serial cardiac enzymes and a 2D echo. Patient did not experience any pathological arrhythmias. 2. Accelerated hypertension patient blood pressure in the ED was markedly elevated with systolic greater than 190 and diastolic greater than 140. Continue with patient home meds. Blood pressure had stabilized at the time of discharge 3. Hypothyroidism-patient is on levothyroxine home dose continued 4. Restless leg syndrome; patient is on ropinirole did continue 5. Parkinson's disease patient is on Sinemet continue 6. Hypokalemia corrected per protocol 7. Adult failure to thrive with recurrent falls: Admitted to monitored bed requested for PT OT eval and school social worker to assist with discharge planning 8. DVT prophylaxis SC Lovenox Patient Problems: Active and Suspected Problems Recurrent falls (Acute) Syncope and collapse (Acute) - Physical Exam General: Alert HEENT: Atraumatic Neck: No JVD Lungs: Clear to auscultation Cardiovascular: Regular rate, Regular Rhythm Neurological: Neuro grossly intact Psych/Mental Status: Normal Affect Vital Signs Temp Pulse Resp BP Pulse Ox 98.3 F 65 16 116/67 100 07/01/18 05:58 07/01/18 05:58 07/01/18 05:58 07/01/18 05:58 07/01/18 05:58 Oxygen Delivery Method Room Air Weight: 84.1 kg Body Mass Index (BMI) 31.8 Orthostatic Vital Signs Start: 06/29/18 14:10 Freq: q24h Status: Active Protocol: Activity Type Activity Date Activity User E-Sign Co-Sign Detail Recorded Client Recorded Date Recorded By Document 06/29/18 14:10 [facility] [id number] 06/29/18 14:11 [facility] 06/29/18 14:10 Orthostatic Vitals Standing -Extremity Use Left Arm -Pulse Rate (60-100) 95 Sitting -Blood Pressure (90/60-120/80) 131/70 H -Extremity Use Left Arm -Pulse Rate (60-100) 80 Lying -Blood Pressure (90/60-120/80) 140/74 H -Extremity Use Left Arm -Pulse Rate (60-100) 82 Intake and Output for Last 24 Hours 06/29/18 06/30/18 07/01/18 23:59 23:59 23:59 Intake Total 132 / 132 1347 / 1347 794 / 794 Balance 132 / 132 1347 / 1347 794 / 794 Discharge Diet: No Restrictions Discharge Activity: Return to Normal Activity Home Medications: Medications to take at Discharge Carbidopa/Levodopa [Carbidopa-Levo ER 50-200 Tab] 1 each PO QHS 06/29/18 Carbidopa/Levodopa [Carbidopa-Levodopa 25-100 Tab] 1 each PO TID 06/29/18 Docusate Sodium 100 mg PO DAILY 06/29/18 Fosinopril Sodium 20 mg PO DAILY 06/29/18 Hydrochlorothiazide 12.5 mg PO DAILY 06/29/18 Hydrocodone Bitart/Apap 5-325 [[place] 5/325] 1 tablet PO Q6H PRN PRN 06/29/18 Levothyroxine Sodium 75 mcg PO DAILY 06/29/18 Mirabegron [Myrbetriq] 25 mg PO DAILY 06/29/18 Mirtazapine 7.5 mg PO QHS 06/29/18 Naproxen Sodium [Aleve] 220 mg PO Q12H PRN PRN 06/29/18 Ropinirole HCl 0.5 mg PO QHS 06/29/18 Primary Care Physician: Young Hubbard Chi, MD [Primary Care Provider] - Disposition: Home with Home Health Minutes spent on discharge:: 45 Patient Condition:: Stable Medical Necessity - Tobacco Use Smoking Status: Former smoker Meaningful Use Info Meaningful Use Diagnoses (Choose all that apply): None applicable Code Visit Inpatient E&M: 63626 Disch Hosp
--- NOTE | 2018-07-01 10:52 | DS.PCM_ITS ---
Discharge Date and Diagnosis - Problem List Patient Problems: Active and Suspected Problems Recurrent falls (Acute) Syncope and collapse (Acute) Date of Admission: 06/29/18 Date of Discharge: 07/01/18 - Primary Discharge Diagnosis Active and Suspected Problems Recurrent falls (Acute) Syncope and collapse (Acute) - Secondary Discharge Diagnosis Chronic Problems Essential hypertension (Chronic) Restless legs syndrome (RLS) (Chronic) Parkinson disease (Chronic) Hospital Course and Treatment Imaging Results: Clinical Impression(s) from Imaging Studies Brain CT 06/29/18 09:30 IMPRESSION: 1. Chronic involutional changes of the brain. 2. No CT evidence of acute intracranial hemorrhage. Electronically Signed: Moni Ireland MD at 10:43 EST , Service support , Chest X-Ray 06/29/18 09:30 IMPRESSION: Bilateral subsegmental atelectasis. Electronically Signed: Moni Ireland MD at 10:26 EST , Service support , Summary of Care Provided: Patient is an 83-year-old lady with history of Parkinson's disease presented with recurrent falls with suspected syncopal episode on the day of her admission 1. Syncopal episode patient has been admitted to a monitored bed for continuous telemetry. Requested for case shift orthostatic checks. As part of his management ordered serial cardiac enzymes and a 2D echo. Patient did not experience any pathological arrhythmias. 2. Accelerated hypertension patient blood pressure in the ED was markedly elevated with systolic greater than 190 and diastolic greater than 140. Continue with patient home meds. Blood pressure had stabilized at the time of discharge 3. Hypothyroidism-patient is on levothyroxine home dose continued 4. Restless leg syndrome; patient is on ropinirole did continue 5. Parkinson's disease patient is on Sinemet continue 6. Hypokalemia corrected per protocol 7. Adult failure to thrive with recurrent falls: Admitted to monitored bed requested for PT OT eval and social service worker to assist with discharge planning 8. DVT prophylaxis SC Lovenox Patient Problems: Active and Suspected Problems Recurrent falls (Acute) Syncope and collapse (Acute) - Physical Exam General: Alert HEENT: Atraumatic Neck: No JVD Lungs: Clear to auscultation Cardiovascular: Regular rate, Regular Rhythm Neurological: Neuro grossly intact Psych/Mental Status: Normal Affect Vital Signs Temp Pulse Resp BP Pulse Ox 98.3 F 65 16 116/67 100 07/01/18 05:58 07/01/18 05:58 07/01/18 05:58 07/01/18 05:58 07/01/18 05:58 Oxygen Delivery Method Room Air Weight: 84.1 kg Body Mass Index (BMI) 31.8 Orthostatic Vital Signs Start: 06/29/18 14:10 Freq: q24h Status: Active Protocol: Activity Type Activity Date Activity User E-Sign Co-Sign Detail Recorded Client Recorded Date Recorded By Document 06/29/18 14:10 [facility] [id number] 06/29/18 14:11 [facility] 06/29/18 14:10 Orthostatic Vitals Standing -Extremity Use Left Arm -Pulse Rate (60-100) 95 Sitting -Blood Pressure (90/60-120/80) 131/70 H -Extremity Use Left Arm -Pulse Rate (60-100) 80 Lying -Blood Pressure (90/60-120/80) 140/74 H -Extremity Use Left Arm -Pulse Rate (60-100) 82 Intake and Output for Last 24 Hours 06/29/18 06/30/18 07/01/18 23:59 23:59 23:59 Intake Total 132 / 132 1347 / 1347 794 / 794 Balance 132 / 132 1347 / 1347 794 / 794 Discharge Diet: No Restrictions Discharge Activity: Return to Normal Activity Home Medications: Medications to take at Discharge Carbidopa/Levodopa [Carbidopa-Levo ER 50-200 Tab] 1 each PO QHS 06/29/18 Carbidopa/Levodopa [Carbidopa-Levodopa 25-100 Tab] 1 each PO TID 06/29/18 Docusate Sodium 100 mg PO DAILY 06/29/18 Fosinopril Sodium 20 mg PO DAILY 06/29/18 Hydrochlorothiazide 12.5 mg PO DAILY 06/29/18 Hydrocodone Bitart/Apap 5-325 [Epps 5/325] 1 tablet PO Q6H PRN PRN 06/29/18 Levothyroxine Sodium 75 mcg PO DAILY 06/29/18 Mirabegron [Myrbetriq] 25 mg PO DAILY 06/29/18 Mirtazapine 7.5 mg PO QHS 06/29/18 Naproxen Sodium [Aleve] 220 mg PO Q12H PRN PRN 06/29/18 Ropinirole HCl 0.5 mg PO QHS 06/29/18 Primary Care Physician: Young Hubbard Chi, MD [Primary Care Provider] - Disposition: Home with Home Health Minutes spent on discharge:: 45 Patient Condition:: Stable Medical Necessity - Tobacco Use Smoking Status: Former smoker Meaningful Use Info Meaningful Use Diagnoses (Choose all that apply): None applicable Code Visit Inpatient E&M: 46088 Disch Hosp
--- NOTE | 2018-07-01 12:17 | CASEMGMT ---
This RN CM to room to speak with pt regarding resources for used medical equipment near her home, pt voices understanding at this time. Pt voices no further questions/concerns/needs at this time. Jazmin from [facility] aware that pt to be discharged today, voices understanding. Chantale SHANNON CM
== END 2018-07-01 12:43 | disposition home or self-care (01) | DRG 312 ==
LOC: ED 09:35 → PCU 12:47
PROVIDERS: Admitting Provider Internal Medicine; Emergency Provider Emergency Medicine; Family Provider Family Medicine Geriatric Medicine; PCP Family Medicine Geriatric Medicine; Visit Provider Internal Medicine
DX: R55 Syncope and collapse (principal); E03.9 Hypothyroidism, unspecified; I10 Essential (primary) hypertension; G25.81 Restless legs syndrome; G20 Parkinson's disease; E87.6 Hypokalemia; R62.7 Adult failure to thrive; Z66 Do not resuscitate; Z68.31 Body mass index [BMI] 31.0-31.9, adult; R29.6 Repeated falls; Z87.891 Personal history of nicotine dependence; Z79.899 Other long term (current) drug therapy
CPT/HCPCS: 36415; 70450; 71046; 80048; 80053; 81001; 83735; 84443; 84484; 85025; 93005; 93306; 97161; 97165; 99285; Q9957; A4216

== ENCOUNTER → 2018-08-23 | Outpatient (CLI) | payer MEDICARE, OTHER, SELFPAY ==
[2018-06-29 14:01] VITALS: BMI 31.8
--- NOTE | 2018-08-23 09:20 | RAD_ITS ---
STUDY: X-RAY - LEFT TIBIA AND FIBULA REASON FOR EXAM: Female, 83 years old. History of multiple falls. Proximal tibial pain. TECHNIQUE: 2 view(s) of the tibia and fibula were obtained. COMPARISON: None. FINDINGS: Normal visualized tibia. Normal visualized fibula. The patient is status post total knee replacement. There is good alignment. Vascular calcification. RAD/Tibia & Fibula 2 Views IMPRESSION: Status post total knee replacement. No acute abnormality is seen. Electronically Signed: Joe Iglesias, at 9:18 EDT , Service support ,
--- NOTE | 2018-08-23 10:31 | RAD_ITS ---
STUDY: X-RAY - LEFT FEMUR REASON FOR STUDY: Female, 83 years old. Pain after multiple falls TECHNIQUE: 4 view(s) of the femur. COMPARISON: None. FINDINGS: There is diffuse demineralization of the femur. Normal visualized soft tissue structure. Replaced left knee joint demonstrates anatomic alignment. Significant left hip arthrosis. RAD/Femur Min 2 Views IMPRESSION: Demineralization of the osseous structures, no demonstrated fracture. Significant left hip arthrosis Replaced left knee joint demonstrates anatomic alignment. No plain film evidence of hardware complication or failure Electronically Signed: Robert Chavez MD at 11:41 EDT , Service support ,
== END | disposition home or self-care (01) ==
PROVIDERS: Family Provider Family Medicine Geriatric Medicine; PCP Family Medicine Geriatric Medicine; Referring Provider Family Medicine Geriatric Medicine; Visit Provider Family Medicine Geriatric Medicine
DX: M79.605 Pain in left leg (principal); W19.XXXA Unspecified fall, initial encounter
CPT/HCPCS: 73552; 73590

== ENCOUNTER → 2018-09-08 15:13 | Outpatient (CLI) | payer MEDICARE, OTHER, SELFPAY ==
[2018-06-29 14:01] VITALS: BMI 31.8
[2018-09-08 15:57] LABS: Absolute Neutrophil Count 5.5 X10^3/uL (2.0-7.7); Basophil# 0.01 X10^3/uL; Basophil% 0.1 % (0-1); Eosinophil# 0.05 X10^3/uL; Eosinophils% 0.6 % (0-5); Hematocrit 34.2 % (37-47); Hemoglobin 10.7 g/dl (12.0-15.0); Lymphocyte % 18.2 % (19-41); Mean Corp Hgb Conc 31.3 g/gl (32-36); Mean Corpuscular Hgb 29.2 pg (27.0-32.0); Mean Corpuscular Volume 93.2 fL (81-99); Mean Platelet Vol. 10.9 fl (6.2-12.0); Monocyte# 0.74 X10^3/uL; Monocyte% 9.6 % (0-10); Neutrophil % 71.4 % (47-70); Platelet Count 251 K/mm3 (150-450); RBC Distribution Width CV 13.8 % (11.6-14.6); RBC Distribution Width SD 45.7 fl (35.1-43.9); Red Blood Count 3.67 M/mm3 (4.2-5.4); White Blood Count 7.7 K/mm3 (4.4-11.0)
[2018-09-08 15:59] LABS: POSITIVE COUNT NO; POSITIVE DIFFERENTIAL NO; POSITIVE MORPHOLOGY NO
[2018-09-08 16:25] LABS: Vitamin D,25 Hydroxy 18.9 ng/mL (29.95-100.01)
[2018-09-08 16:29] LABS: ALB/GLOB Ratio 1.1 RATIO (0.9-2.4); AST(SGOT) 12 U/L (15-37); Alanine Aminotransfer ALT/SGPT 15 U/L (13-56); Albumin, Serum 3.7 g/dL (3.2-5.0); Alkaline Phosphatase 95 U/L (45-117); Anion Gap 6 (5-15); BUN 18 mg/dL (7-18); BUN/Creat Ratio 24.8 RATIO (10-20); Calcium,Total 8.9 mg/dL (8.5-10.1); Chloride 100 mmol/L (98-107); Creatinine, Serum 0.73 mg/dL (0.55-1.02); EST Glomerular Filtration Rate 82 mL/min (>60); Est Glom Filt Rate - Afr Amer 99 mL/min (>60); Globulin 3.3 g/dL (2.2-4.2); Glucose 100 mg/dL (74-106); Potassium 3.9 mmol/L (3.5-5.1); Sodium Level 136 mmol/L (136-145); Thyroid Stim Hormone (TSH) 0.77 uIU/mL (0.358-3.74)
== END ==
PROVIDERS: Family Provider Family Medicine Geriatric Medicine; PCP Family Medicine Geriatric Medicine; Visit Provider Family Medicine Geriatric Medicine
DX: E55.9 Vitamin D deficiency, unspecified (principal); I10 Essential (primary) hypertension
CPT/HCPCS: 36415; 80053; 82306; 84443; 85025

== ENCOUNTER 2018-10-11 11:11 | Inpatient (IN) | payer MEDICARE, OTHER, SELFPAY ==
[2018-06-29 14:01] VITALS: BMI 31.8
[2018-10-11] VITALS (9 sets, daily range): BP systolic 121–169; BP diastolic 76–105; PULSE 75–105; RESP 18–20; TEMP 36.2–37.1; O2SAT 95–99; BMI 29.2; BMI 29.3
--- NOTE | 2018-10-11 12:11 | EKG12_ITS ---
Test Reason : CONFUSION Blood Pressure : / mmHG Vent. Rate : 080 BPM Atrial Rate : 080 BPM P-R Int : 176 ms QRS Dur : 102 ms QT Int : 380 ms P-R-T Axes : 021 -43 002 degrees QTc Int : 438 ms Normal sinus rhythm with sinus arrhythmia Left axis deviation Cannot rule out Anterior infarct , age undetermined Abnormal ECG LAHB Confirmed by VICK ZUNIGA ([id number]), news video editor CHON CERVANTES ([id number]) on 10/13/2018 8:38:36 AM Referred By: Sindy Bustillos Confirmed By:VICK ZUNIGA
--- NOTE | 2018-10-11 12:11 | CT_ITS ---
STUDY: CTA OF THE BRAIN REASON FOR EXAM: Female, 83 years old. Confusion. Headaches. TIA. RADIATION DOSAGE (If Supplied By Facility): CTDIvol = ( 33.29 ) mGy, DLP = ( 1361.70 ) mGycm TECHNIQUE: CT angiography was performed with a multi-detector CT scanner. Data acquisition was obtained from the skull base through the vertex following intravenous administration of 75ML IV Isovue 370. MIP images were reconstructed from the axial data set. Post-processing of the angiographic images was performed, with multiplanar reformation and 3D reconstruction. Individualized dose optimization techniques were used for this CT. COMPARISON: None. FINDINGS: Normal bilateral petrous carotid arteries. There is calcified plaque formation of the right cavernous carotid artery, without a cross-sectional luminal stenosis. There is calcified plaque formation of the left cavernous carotid artery, without a cross-sectional luminal stenosis. Normal right A1 segments of the anterior cerebral artery. Normal left A1 segments of the anterior cerebral artery. Normal intact anterior communicating artery (ACOM). Normal bilateral A2 segments of the anterior cerebral arteries. Normal right M1 and M2 segments of the middle cerebral arteries, with a normal M1 bifurcation. Normal left M1 and M2 segments of the middle cerebral arteries, with a normal M1 bifurcation. Normal right posterior communicating artery (PCOM). Normal left posterior communicating artery (PCOM). Normal bilateral vertebral arteries. Normal basilar artery with a normal basilar bifurcation. The visualized bilateral superior cerebellar (SCA) arteries are normal. Normal bilateral P1, P2 and visualized P3 segments of the posterior cerebral arteries. There is no demonstrated aneurysm of the [place] of [place]. Atherosclerotic calcification of the vertebral arteries. Mild cerebral atrophy. CT/CTA Head W/WO Contrast IMPRESSION: Normal [place] of [place] without a demonstrated aneurysm or hemodynamically significant stenosis. Electronically Signed: Joe Iglesias, at 13:38 EDT , Service support ,
--- NOTE | 2018-10-11 12:11 | RAD_ITS ---
STUDY: X-RAY CHEST REASON FOR EXAM: Female, 83 years old. Confusion. Shortness of breath. TECHNIQUE: Single AP portable view of the chest. COMPARISON: Comparison is made with prior study dated June 29, 2018. FINDINGS: EKG electrodes are seen. There is elevation of the right hemidiaphragm. There is no demonstrated pleural abnormality. There is borderline cardiomegaly. Calcification of the mitral valve annulus. Normal mediastinum and igor. Normal visualized pulmonary arteries. There is atherosclerotic calcification of the aortic arch with tortuosity. There are diffuse degenerative changes of the visualized thoracic spine. Normal visualized ribs, clavicles, and shoulders. There is no demonstrated abnormality of the visualized soft tissue structures of the upper abdomen. RAD/Chest 1 View IMPRESSION: Elevation of the right hemidiaphragm. Borderline cardiomegaly with calcification of the mitral valve annulus. Electronically Signed: Joe Iglesias, at 13:16 EDT , Service support ,
--- NOTE | 2018-10-11 12:11 | CT_ITS ---
STUDY: CTA NECK WITH CONTRAST REASON FOR EXAM: Female, 83 years old. TIA/confusion/headaches. RADIATION DOSAGE (If Supplied By Facility): CTDIvol = ( 33.29 ) mGy, DLP = ( 1361.70 ) mGycm TECHNIQUE: CT angiography with multi-detector data acquisition was performed from the aortic arch to the skull base following intravenous administration of 75ML IV Isovue 370. MIP images were reconstructed from the axial data set. Post-processing of the angiographic images was performed, with multiplanar reformation and 3D reconstruction. Individualized dose optimization techniques were used for this CT. COMPARISON: None. FINDINGS: 5.9 mm hypodensity in the right lobe of the thyroid. AORTIC ARCH: There is atherosclerotic calcific plaque formation of the aortic arch and great vessels arising from the aortic arch, without a hemodynamically significant stenosis. There is a normal origin of the brachiocephalic, left common carotid, and left subclavian arteries. Atherosclerotic plaque formation at the origin of the left common carotid artery and left subclavian artery. RIGHT CAROTID ARTERIES: There is focal atherosclerotic plaque formation of the common carotid artery, but without a hemodynamically significant stenosis. Normal right common carotid bulb. Normal origin of the right internal carotid (ICA) artery without a hemodynamically significant stenosis. Normal visualized cervical portion of the right internal carotid artery. Normal origin of the right external carotid artery (ECA). LEFT CAROTID ARTERIES: Normal left common carotid artery (CCA). Normal left common carotid bulb. There is mild atherosclerotic plaque formation of the origin of the left internal carotid artery with less than 50% cross sectional diameter stenosis. Normal visualized cervical portion of the left internal carotid artery. Normal origin of the left external carotid artery (ECA). VERTEBRAL ARTERIES: Normal bilateral vertebral arteries. CT/CTA Neck W/WO Contrast IMPRESSION: No significant carotid stenosis is seen. Electronically Signed: Joe Iglesias, at 13:40 EDT , Service support ,
[2018-10-11 12:38] LABS: Absolute Lymphocyte Count 0.89 X10^3/ul (0.83-4.51); Absolute Neutrophil Count 4.4 X10^3/uL (2.0-7.7); Basophil# 0.02 X10^3/uL; Basophil% 0.3 % (0-1); Eosinophil# 0.04 X10^3/uL; Eosinophils% 0.7 % (0-5); Hematocrit 34.3 % (37-47); Hemoglobin 10.9 g/dl (12.0-15.0); Lymphocyte # 0.89 X10^3/ul (4.0); Lymphocyte % 14.7 % (19-41); Mean Corp Hgb Conc 31.8 g/gl (32-36); Mean Corpuscular Hgb 29.5 pg (27.0-32.0); Mean Corpuscular Volume 92.7 fL (81-99); Mean Platelet Vol. 10.6 fl (6.2-12.0); Monocyte# 0.71 X10^3/uL; Monocyte% 11.7 % (0-10); Neutrophil # 4.39 X10^3/uL (2.7-7.7); Neutrophil % 72.4 % (47-70); Platelet Count 199 K/mm3 (150-450); RBC Distribution Width CV 14.4 % (11.6-14.6); RBC Distribution Width SD 48.8 fl (35.1-43.9); White Blood Count 6.1 K/mm3 (4.4-11.0)
[2018-10-11 12:44] LABS: POSITIVE COUNT NO; POSITIVE DIFFERENTIAL NO; POSITIVE MORPHOLOGY NO
[2018-10-11] MEDS: 0.9% Normal Saline 1,000 ML 100 ML IV (12:46)
[2018-10-11 12:48] LABS: Anion Gap 6 (5-15); BUN 20 mg/dL (7-18); BUN/Creat Ratio 19.8 RATIO (10-20); Calcium,Total 8.9 mg/dL (8.5-10.1); Chloride 104 mmol/L (98-107); Creatinine, Serum 1.01 mg/dL (0.55-1.02); EST Glomerular Filtration Rate 56 mL/min (>60); Est Glom Filt Rate - Afr Amer 68 mL/min (>60); Estimated Creatinine Clearance 37.72 ml/min; Glucose 105 mg/dL (74-106); Potassium 4.2 mmol/L (3.5-5.1); Sodium Level 136 mmol/L (136-145)
[2018-10-11 12:57] LABS: Prothrombin Time (Protime)PT. 13.1 SECONDS (11.7-14.9)
[2018-10-11 12:58] LABS: Partial Thromboplast Time 27.4 Seconds (24.1-36.2)
--- NOTE | 2018-10-11 14:26 | PCM.HP.STD ---
Problem List (1) TIA (transient ischemic attack) Status: Acute (2) Recurrent falls Status: Chronic (3) Essential hypertension Status: Chronic (4) Restless legs syndrome (RLS) Status: Chronic (5) Parkinson disease Status: Chronic History of Present Illness Date of Admission: 10/11/18 Chief Complaint: Slurred speech - 1 day The patient is a 83 year old F past medical history of Parkinson's disease, restless leg syndrome, who was going [facility] her physical [facility] when she was noted to have slurred speech which lasted for about an hour and a half. She denied any loss of consciousness, no numbness or tingling or weakness in any of her extre, mity. She was recommended to come to the emergency department. At the time of taking the history, patient denied any slurred speech. Vitals in ED showed temp 97.1F, HR 105, BP 121/77, RR 18, Spo2 95%. WBC 6.1, Hb 10.9, Plt 199, INR is 1.0, APTT is 27.4, BMP is unremarkable, troponins x2 is negative, EKG is unremarkable. X-ray shows elevation of the right hemidiaphragm, borderline cardiomegaly with left significative of the mitral valve annulus, CT of the head and neck is negative, MRI of the brain is negative, MRA of the head and neck are negative. Past Medical History Past Medical History (Chronic Problems): Chronic Problems Recurrent falls (Chronic) Essential hypertension (Chronic) Restless legs syndrome (RLS) (Chronic) Parkinson disease (Chronic) Allergies morphine Adverse Reaction (Verified 10/11/18 11:43) Other Penicillins [PCN] Adverse Reaction (Verified 10/11/18 11:43) Itching Sulfa (Sulfonamide Antibiotics) Adverse Reaction (Verified 10/11/18 11:43) Itching Home Medications: Ambulatory Orders Medication Instructions Recorded Carbidopa/Levodopa [Carbidopa-Levo 1 each PO QHS 06/29/18 ER 50-200 Tab] Carbidopa/Levodopa 1 each PO TID 06/29/18 [Carbidopa-Levodopa 25-100 Tab] Docusate Sodium 100 mg PO DAILY 06/29/18 Fosinopril Sodium 20 mg PO DAILY 06/29/18 Levothyroxine Sodium 75 mcg PO DAILY 06/29/18 Mirabegron [Myrbetriq] 25 mg PO DAILY 06/29/18 Naproxen Sodium [Aleve] 220 mg PO Q12H PRN PRN 06/29/18 Ropinirole HCl 1 mg PO QHS 06/29/18 Surgical History: hysterectomy, total knee arthroplasty - bilateral, - - 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 Psychiatric History: No pertinent psych hx HR CLERK History: No pertinent HR CLERK history Lives: Spouse/ Significant Other Smoking Status: Former smoker Tobacco Use: Non-smoker Alcohol: None Drugs: None - *Family History Maternal History Items: Cancer - of ovarian cancer Paternal History Items: Cancer - pancreatic cancer Review of Systems Constitutional: Denies: Anorexia, Chills, Fever, Night Sweats, Malaise, Weakness, Weight Change Eyes: Denies: Blurred vision, Cataracts, Conjunctivae Inflammation, Double vision, Pain, Redness HEENT: Denies: Head Aches, Hearing Changes, Nasal bleeding, Nasal Congestion, Sinus Congestion, Sinus Drainage Cardiovascular: Denies: Chest Pain, Claudication, Orthopnea, Palpitations, Paroxysmal Noc. Dyspnea Respiratory: Denies: Cough, Shortness of Breath, Shortness of breath at rest, Shortness of breath upon exertion, Sputum production Gastrointestinal: Denies: Abdominal Pain, Constipation, Hematemesis, Hematochezia, Nausea, Vomiting Genitourinary: Denies: Dysuria, Incontinence Gynecological: Denies: Vaginal discharge, Vaginal itching Musculoskeletal: Denies: Joint Pain, Joint stiffness, Joint swelling, Joint Tenderness Skin: Denies: Rash, Wounds Neurological: Denies: Numbness, Tingling, Focal weakness Psychiatric: Denies: Anxiety, Depression, Homicidal Ideations, Suicidal Ideations Hematologic/ Lymphatic: Denies: Easy Bruising, Easy Bleeding VTE Information - Inpt Only VTE Present on Admission: No VTE Pharm Prophylaxis ordered?: Yes Patient Problems: Active and Suspected Problems TIA (transient ischemic attack) (Acute) - Physical Exam General: Alert, Oriented x3, Cooperative, No apparent distress HEENT: Atraumatic, PERRLA, EOMI, Normocephalic Oral: Moist Mucosa Neck: Supple, No JVD, Negative Carotid Bruits Lungs: Clear to auscultation, Normal air movement Cardiovascular: Regular rate, Regular Rhythm, Normal S1, Normal S2, No murmurs Abdomen: Bowel Sounds Present, Soft, Non Tender, Non-Distended, No Hepato-splenomegaly Extremities: No edema Skin: No rashes, No breakdown Musculoskeletal: No Tenderness to Palpation of Joints or Extremities Lymphatic: No Cervical, Supraclavicular, or Inguinal Adenopathy Neurological: Cranial nerves II-XII grossly intact, Neuro grossly intact Psych/Mental Status: Normal Affect, Appropriate Vital Signs Temp Pulse Resp BP Pulse Ox 97.1 F L 76 18 146/99 H 99 10/11/18 11:12 10/11/18 13:48 10/11/18 13:48 10/11/18 13:48 10/11/18 13:48 Oxygen Delivery Method Room Air Weight: 79.379 kg Body Mass Index (BMI) 30.0 Finger Stick Blood Glucose 101 Laboratory Tests Past 24 Hrs 10/11/18 10/11/18 10/11/18 12:25 12:25 12:25 WBC 6.1 RBC 3.70 L Hgb 10.9 L Hct 34.3 L MCV 92.7 MCH 29.5 MCHC 31.8 L RDW 14.4 RDW Differential 48.8 H Plt Count 199 MPV 10.6 Immature Gran % (Auto) 0.200 Neut % (Auto) 72.4 H Lymph % (Auto) 14.7 L [place] % (Auto) 11.7 H Eos % (Auto) 0.7 Baso % (Auto) 0.3 Absolute Neuts (auto) 4.4 Absolute Lymphs (auto) 0.89 Total Counted Not Reportable PT 13.1 INR 1.0 APTT 27.4 Sodium 136 Potassium 4.2 Chloride 104 Carbon Dioxide 26.0 Anion Gap 6 BUN 20 H Creatinine 1.01 Estim Creat Clear Calc 37.72 Est GFR (MDRD) Af Amer 68 Est GFR (MDRD) Non-Af 56 L BUN/Creatinine Ratio 19.8 Glucose 105 Calcium 8.9 Troponin I < 0.015 Assessment/Plan All Active Problems Syncope and collapse (Acute) TIA (transient ischemic attack) (Acute) 83 year old F with past medical history of Parkinson's disease, restless leg syndrome, who was going for her physical therapy at [facility] when she was noted to have slurred speech which lasted for about an hour and a half. 1. Probable TIA, history of CVA, symptoms appear to have resolved at time of exam Initial CT of the head was negative, CTA of the head and neck was negative Plan: Admit to PCU, continue to monitor, and 81 mg p.o. daily, MRI of the head, MRA of the head and neck PT, OT and speech therapy to evaluate and treat 2. Parkinson's disease/restless leg syndrome, continue on Sinemet and pramipexole 3. Hypothyroidism,levothyroxine 4. Hypertension, controlled, on lisinopril, continue to monitor vitals 5. DVT PPx- Heparin SC Code Visit OBSV E&M: 10945 Initial observation care L3
--- NOTE | 2018-10-11 14:32 | ED.DCSUM_ITS ---
- ER Visit Summary Date of Service: 10/11/18 Chief Complaint: [Confusion and slurred speech] History of Present Illness: The patient is a 83 F [presents the emergency department with confusion that started around 10 AM. Patient was had a physical therapy when she began slurring her speech and not making much sense. Patient was with her son who stated that she just could not answer questions appropriately things that she would normally know. Symptoms lasted about an hour. Patient symptoms currently resolved. She does describe a little bit of a headache to the right side of her head that she is had for several weeks. Patient denies any chest pain or shortness of breath. Patient was recently on antibiotics for a right ear infection. Patient does have a history of hypertension, falls, Parkinson's, hypothyroidism, and syncope.] Physical Examination: [HEENT-PERRLA, EOMI. Cranial nerves II through XII grossly intact. TMs clear. Mucous membranes moist. No adenopathy. Cardiovascular-regular rate and rhythm without murmur or ectopy Lungs-clear to auscultation, chest wall stable without crepitus or subcu emphysema Abdomen-normoactive bowel sounds, soft, nontender, no rebound or rigidity, no peritoneal signs. Neuro otlj-cngnfi-jfxk and heel beck testing within normal limits, negative Romberg, negative pronator drift, fundi benign. NIH stroke scale was 0. Extremities-intact ?4, normal range of motion, normal pulses, atraumatic] Test Results: [EKG obtained arrival shows sinus rhythm with a ventricular rate of 80 bpm with occasional PACs. CBC with differential obtained showed a white count of 6.1, hemoglobin 10.9, hematocrit 39, platelets 199. Chemistries unremarkable. Troponin is less than 0.015. CTA of the brain and neck were unremarkable.] Emergency Department Course and Treatment: [Patient was started on normal saline. Patient is not a TPA candidate due to symptoms having resolved and on NIH stroke scale of 0.] Treatment Plan: [Admit for further work-up and evaluation of suspected TIA] Disposition: [Admit] Impression: [TIA] This note was generated with [employer] in [employer] software. It may contain incorrect words, spelling, and punctuation that were not noted in review of the chart prior to signing ED Disposition - Plan for ED Patient: Referrals: Young Hubbard Chi, MD [Primary Care Provider] -
--- NOTE | 2018-10-11 16:00 | MRI_ITS ---
STUDY: MRA OF THE HEAD WITHOUT CONTRAST REASON FOR EXAM: Female, 83 years old. CVA and slurred speech TECHNIQUE: 3-D [id number] (TOF) imaging was performed with MIPs. The study was performed unenhanced. COMPARISON: MRI same day FINDINGS: Normal bilateral petrous carotid arteries. Normal right cavernous carotid artery with a normal supraclinoid bifurcation. Normal left cavernous carotid artery with a normal supraclinoid bifurcation. Normal right A1 segments of the anterior cerebral artery. Normal left A1 segments of the anterior cerebral artery. Normal intact anterior communicating artery (ACOM). Normal bilateral A2 segments of the anterior cerebral arteries. Normal right M1 and M2 segments of the middle cerebral arteries, with a normal M1 bifurcation. Normal left M1 and M2 segments of the middle cerebral arteries, with a normal M1 bifurcation. There is a persistent origin of the right posterior cerebral artery with absence of the P1 segment of the right posterior cerebral artery. Normal left posterior communicating artery (PCOM). Normal bilateral vertebral arteries. Normal basilar artery with a normal basilar bifurcation. The visualized bilateral superior cerebellar (SCA) arteries are normal. Normal bilateral P1, P2 and visualized P3 segments of the posterior cerebral arteries. There is no demonstrated aneurysm of the [place] of [place]. There is no major vessel occlusion or hemodynamically significant stenosis. There is no demonstrated abnormality of the visualized brain. MRI/MRA Head ONLY without Contrast IMPRESSION: No MRA evidence of significant intracranial arterial pathology. Electronically Signed: Tyler Duenas MD at 18:21 EDT Tel , Service support ,
--- NOTE | 2018-10-11 16:00 | MRI_ITS ---
STUDY: MRA NECK WITH AND WITHOUT CONTRAST REASON FOR EXAM: Female, 83 years old. CVA, confusion, slurred speech TECHNIQUE: 3-D rtho-gj-mwmjlp (TOF) imaging was performed in an 1.5 T MRI scanner. 15 IV Dotarem was administered for the contrast enhanced images. COMPARISON: CTA same day FINDINGS: RIGHT CAROTID ARTERIES: Normal right common carotid artery (CCA). Normal right common carotid bulb. Normal origin of the right internal carotid (ICA) artery without a hemodynamically significant stenosis. Normal visualized cervical portion of the right internal carotid artery. Normal origin of the right external carotid artery (ECA). LEFT CAROTID ARTERIES: Normal left common carotid artery (CCA). Normal left common carotid bulb. Normal origin of the left internal carotid (ICA) artery without a hemodynamically significant stenosis. Normal visualized cervical portion of the left internal carotid artery. Normal origin of the left external carotid artery (ECA). VERTEBRAL ARTERIES: Normal antegrade flow within the bilateral vertebral artery without a hemodynamically significant stenosis. MRI/MRA Neck WITH and W/O Contrast IMPRESSION: Normal bilateral cervical carotid and vertebral arteries. Electronically Signed: Tyler Duenas MD at 18:58 EDT Tel , Service support ,
--- NOTE | 2018-10-11 16:00 | MRI_ITS ---
STUDY: MRI BRAIN WITHOUT CONTRAST REASON FOR EXAM: Female, 83 years old. CVA, confusion, slurred speech TECHNIQUE: Standardized multiplanar fat and water weighted pulse sequences were obtained. COMPARISON: CTA 10/11/2018 FINDINGS: Normal size of the ventricles and extra-axial spaces for the patient's age. There are a limited number of small white matter hyperintensities, distributed throughout the deep white matter tracts of the cerebral hemispheres, consistent with mild chronic white matter ischemic changes. Normal bilateral basal ganglia. Normal thalami. There is no extra-axial fluid accumulation. Normal flow voids within the major intracranial circulation suggesting patency by spin echo criteria. Normal sella turcica, pituitary gland, infundibular stalk, optic chiasm and hypothalamus. Normal tectal plate and pineal gland. Normal midbrain, ryan and medulla. Normal cerebellum. Normal basal cisterns. Normal bilateral temporal bones. Normal bilateral internal auditory canals. There are bilateral ocular lens implants with otherwise normal intraorbital contents. Normal visualized paranasal sinuses. Normal calvarium and skull base. Normal visualized soft tissue structures. Normal visualized upper cervical spine. MRI/Brain without Contrast IMPRESSION: No evidence of acute infarct or hemorrhage. Electronically Signed: Tyler Duenas MD at 18:44 EDT Tel , Service support ,
--- NOTE | 2018-10-11 16:48 | CASEMGMT ---
RN CM Assessment Introduced role of RN CM to patient and patient son Hermes at bedside.? Patient is alert, oriented and able?to participate in RN CM Assessment. ?Care providers, pharmacy, and demographics verified. Presentation: At PT this morning: Confusion, SOB, reports recent [place]. Admit Dx: TIA Re-Admit: No, Inpt 06/30-07/01/18 for Fall/Syncope Barriers/Issues: None. H/o Parkinson's which she was initially getting Outpt PT for and continued Outpt PT for Hip pain. States her son Hermes comes over every other day and takes her. PCP: Young Hubbard Chi Specialists: Uro- states Dr Ohara in [place] Preferred Pharmacy: [facility] Insurance: [facility] A[facility]B, [place] [place] Rx Benefit:?Yes LNOK: Don Litten LW/HPOA: Yes LW. Aware not on file at [facility]. Not sure if HPOA and would have to look at home, declines information at this time, aware services offered at [facility]. Living Arrangements: Lives with her in home, states it is handicap accessible. 2 steps to enter but has ramps. ? ADL?s: Ambulates with walker, Son assists with house cleaning and transportation needs. Transportation: Son Hermes and same on DC DME: WC, Walker, Glucometer, Shower Chair, Commode, Grab Bars. HHC: Past SNF: None Goal: Home, does not think will have any needs. Denies questions/concerns at this time. DC PLAN: Home with no anticipated needs identified at this time. Renea Yun RNCM
--- NOTE | 2018-10-11 17:16 | CPS ---
SMI PLACED AT BEDSIDE...PT OUT OF ROOM UNABLE TO INSTRUCT
[2018-10-11] MEDS: Pramipexole Di-HCl 0.5 MG Tablet PO (22:20)
[2018-10-11] MEDS: CARBIDOPA/LEVODOPA CR 50/200 Tablet PO (22:20)
[2018-10-11] MEDS: Aspirin 81 MG TAB.CHEW PO (22:20)
[2018-10-11] MEDS: Heparin Injection (Vial) 5,000 UNIT/ML VIAL 5000 UNIT SC (22:20)
[2018-10-12] MEDS: 0.9% Normal Saline 1,000 ML 75 ML IV (00:08)
[2018-10-12 03:00] VITALS: PULSE 70
[2018-10-12 04:20] VITALS: BP 145/71; PULSE 70; RESP 16; TEMP 36.2; O2SAT 97
[2018-10-12] MEDS: Heparin Injection (Vial) 5,000 UNIT/ML VIAL 5000 UNIT SC (05:42)
[2018-10-12] MEDS: Levothyroxine 75 MCG Tablet PO (05:42)
[2018-10-12] MEDS: Carbidopa/Levodopa 25/100 Tablet PO ×2 (05:42→10:58)
[2018-10-12 06:39] LABS: Absolute Lymphocyte Count 1.38 X10^3/ul (0.83-4.51); Absolute Neutrophil Count 3.7 X10^3/uL (2.0-7.7); Basophil# 0.01 X10^3/uL; Basophil% 0.2 % (0-1); Eosinophil# 0.08 X10^3/uL; Eosinophils% 1.4 % (0-5); Hematocrit 35.1 % (37-47); Hemoglobin 11.1 g/dl (12.0-15.0); Lymphocyte # 1.38 X10^3/ul (4.0); Lymphocyte % 23.9 % (19-41); Mean Corp Hgb Conc 31.6 g/gl (32-36); Mean Corpuscular Hgb 29.4 pg (27.0-32.0); Mean Corpuscular Volume 93.1 fL (81-99); Mean Platelet Vol. 10.6 fl (6.2-12.0); Monocyte# 0.58 X10^3/uL; Neutrophil # 3.72 X10^3/uL (2.7-7.7); Neutrophil % 64.3 % (47-70); Platelet Count 193 K/mm3 (150-450); RBC Distribution Width CV 14.2 % (11.6-14.6); RBC Distribution Width SD 46.5 fl (35.1-43.9); Red Blood Count 3.77 M/mm3 (4.2-5.4); White Blood Count 5.8 K/mm3 (4.4-11.0)
[2018-10-12 06:51] LABS: POSITIVE COUNT NO; POSITIVE DIFFERENTIAL NO; POSITIVE MORPHOLOGY NO
[2018-10-12 07:00] VITALS: PULSE 76
[2018-10-12 07:04] LABS: ALB/GLOB Ratio 1.1 RATIO (0.9-2.4); AST(SGOT) 9 U/L (15-37); Alanine Aminotransfer ALT/SGPT < 6 U/L (13-56); Albumin, Serum 3.5 g/dL (3.2-5.0); Alkaline Phosphatase 78 U/L (45-117); Anion Gap 7 (5-15); BUN 14 mg/dL (7-18); BUN/Creat Ratio 20.5 RATIO (10-20); Calcium,Total 8.6 mg/dL (8.5-10.1); Chloride 106 mmol/L (98-107); Cholesterol 222 mg/dL (200); Creatinine, Serum 0.68 mg/dL (0.55-1.02); EST Glomerular Filtration Rate 88 mL/min (>60); Est Glom Filt Rate - Afr Amer 106 mL/min (>60); Globulin 3.2 g/dL (2.2-4.2); Glucose 90 mg/dL (74-106); High Density Lipoprotein 41 mg/dL; Potassium 3.7 mmol/L (3.5-5.1); Protein, Total 6.7 g/dL (6.4-8.2); Sodium Level 138 mmol/L (136-145); Triglycerides 187 mg/dL; Very Low Density Lipoprotein 37 mg/dL (5-40)
[2018-10-12 08:26] LABS: Bedside Glucose 101 mg/dL (70-110)
[2018-10-12 08:47] VITALS: BP 164/98; PULSE 78; RESP 18; TEMP 36.6; O2SAT 98
[2018-10-12] MEDS: Mirabegron 25 MG TAB.ER.24H PO (08:59)
[2018-10-12] MEDS: Docusate Sodium 100 MG Capsule PO (08:59)
[2018-10-12] MEDS: Lisinopril 20 MG Tablet PO (08:59)
[2018-10-12] MEDS: Aspirin 81 MG TAB.CHEW PO (08:59)
[2018-10-12 09:07] VITALS: BMI 29.2
--- NOTE | 2018-10-12 10:27 | DCINST_ITS ---
- Discharge Diagnoses Current Active Problems: Current Active and Chronic Problems TIA (transient ischemic attack) (Acute) You will use the following diet at home:: Cardiac Your food should be the consistency of: Regular Your liquids should be the consistency of: Regular/Thin Discharge Activity: Return to Normal Activity, No Restrictions Call your doctor if you observe: Fever of 101 or Higher, Shortness of breath, D izziness, Fainting spells, Swelling in the ankles, Chest pain, Increased palpitations (irregular heartbeat) Allergies/Adverse Reactions: Allergies morphine Adverse Reaction (Verified 10/11/18 11:43) Other Penicillins [PCN] Adverse Reaction (Verified 10/11/18 11:43) Itching Sulfa (Sulfonamide Antibiotics) Adverse Reaction (Verified 10/11/18 11:43) Itching Medications to take at Discharge Carbidopa/Levodopa [Carbidopa-Levo ER 50-200 Tab] 1 each PO QHS 06/29/18 Carbidopa/Levodopa [Carbidopa-Levodopa 25-100 Tab] 1 each PO TID 06/29/18 Docusate Sodium 100 mg PO DAILY 06/29/18 Fosinopril Sodium 20 mg PO DAILY 06/29/18 Levothyroxine Sodium 75 mcg PO DAILY 06/29/18 Mirabegron [Myrbetriq] 25 mg PO DAILY 06/29/18 Naproxen Sodium [Aleve] 220 mg PO Q12H PRN PRN 06/29/18 Ropinirole HCl 1 mg PO QHS 06/29/18 Aspirin [Aspirin, Baby] 81 mg PO DAILY@0800 #30 tab.chew 10/12/18 Atorvastatin Calcium [Lipitor] 40 mg PO QHS #30 tablet 10/12/18 The following prescriptions were given: Aspirin [Aspirin, Baby] 81 mg PO DAILY@0800 #30 tab.chew Atorvastatin Calcium [Lipitor] 40 mg PO QHS #30 tablet Primary Care Physician: Young Hubbard Chi, MD [Primary Care Provider] - Please follow up with your Primary Care Physician in: 3-5 days Test Results: Test results from this visit will be discussed in further detail at your follow- up appointment, if applicable.
--- NOTE | 2018-10-12 10:27 | PCM.DC.SUM ---
Discharge Date and Diagnosis - Problem List Patient Problems: Active and Suspected Problems TIA (transient ischemic attack) (Acute) Date of Admission: 10/11/18 Date of Discharge: 10/12/18 - Primary Discharge Diagnosis Active and Suspected Problems TIA (transient ischemic attack) (Acute) - Secondary Discharge Diagnosis Chronic Problems Recurrent falls (Chronic) Essential hypertension (Chronic) Restless legs syndrome (RLS) (Chronic) Parkinson disease (Chronic) Hospital Course and Treatment Imaging Results: CXR: IMPRESSION: Elevation of the right hemidiaphragm. Borderline cardiomegaly with calcification of the mitral valve annulus. CTA Head: IMPRESSION: Normal [place] without a demonstrated aneurysm or hemodynamically significant stenosis. CTA Neck: IMPRESSION: No significant carotid stenosis is seen. MRI Brain: IMPRESSION: No evidence of acute infarct or hemorrhage. MRA Head: IMPRESSION: No MRA evidence of significant intracranial arterial pathology. MRA Neck: IMPRESSION: Normal bilateral cervical carotid and vertebral arteries Consults: None Operations: None Procedures: None Summary of Care Provided: Per HPI: The patient is a 83 year old F past medical history of Parkinson's disease, restless leg syndrome, who was going for her physical [facility] when she was noted to have slurred speech which lasted for about an hour and a half. She denied any loss of consciousness, no numbness or tingling or weakness in any of her extre, mity. She was recommended to come to the emergency department. At the time of taking the history, patient denied any slurred speech. Vitals in ED showed temp 97.1F, HR 105, BP 121/77, RR 18, Spo2 95%. WBC 6.1, Hb 10.9, Plt 199, INR is 1.0, APTT is 27.4, BMP is unremarkable, troponins x2 is negative, EKG is unremarkable. X-ray shows elevation of the right hemidiaphragm, borderline cardiomegaly with left significative of the mitral valve annulus, CT of the head and neck is negative, MRI of the brain is negative, MRA of the head and neck are negative. Hospital Course: 1. QIC-40-npmc-old female with a history of Parkinson's disease and restless leg syndrome presented to the ER with a transient episode of slurred speech. Its started on the way to her physical therapist and when she got there she felt she could not get out when she was trying to stay. They recommended that she present to the ER where she had CTAs of the head and neck as well as an MRA of the head and neck MRI of the brain which were all negative. She was not on aspirin when she came in and she was started on aspirin and her lipid panel came back with an elevated LDL and therefore was started on 40 mg of Lipitor on the day of discharge. I do recommend that she follow-up with her primary care doctor in 3 to 5 days and would also recommend a follow-up MRI as there can be a delay in observation of the stroke on MRI. She should continue with physical therapy but at the moment she has no further deficits. She is able to eat and speak plainly and states that she does not have any upper extremity or lower extremity weakness and her only deficit prior to admission was the slurred speech. She improved much faster than anticipated and therefore was discharged home. This plan was discussed with her and she expressed understanding and agreement. 2. HTN-she her blood pressure has been in the 140s however today she had a blood pressure systolics in the 160s, this was prior to her blood pressure medication being given. I recommend that she follow-up with her primary care doctor to see if we can get any better control on her blood pressure without bottoming her out. 3. Her other medical diagnoses were evaluated in her home medications were continued where appropriate. Patient Problems: Active and Suspected Problems TIA (transient ischemic attack) (Acute) - Physical Exam General: Alert, Oriented x3, Cooperative, No apparent distress HEENT: Atraumatic, PERRLA, EOMI, Normocephalic Oral: Moist Mucosa Neck: Supple, No JVD Lungs: Clear to auscultation, Normal air movement, No rhonchi, No wheeze, No rales Cardiovascular: Regular rate, Regular Rhythm, Normal S1, Normal S2, No murmurs Abdomen: Soft, Non Tender, Non-Distended, No Hepato-splenomegaly Skin: No rashes, No breakdown Neurological: Cranial nerves II-XII grossly intact, Deep Tendon Reflexes 2+/4 and Symmetrical, Neuro grossly intact, Motor Exam 5/5 strength throughout, Sensory exam intact to light touch and pain, - - No slurred speech Psych/Mental Status: Normal Affect, Appropriate Vital Signs Temp Pulse Resp BP Pulse Ox 97.8 F 78 18 164/98 H 98 10/12/18 08:47 10/12/18 08:47 10/12/18 08:47 10/12/18 08:47 10/12/18 08:47 Oxygen Delivery Method Room Air Weight: 170 lb 10.205 oz Body Mass Index (BMI) 29.2 Finger Stick Blood Glucose 101 Intake and Output for Last 24 Hours 10/10/18 10/11/18 10/12/18 23:59 23:59 23:59 Intake Total 486 / 486 437 / 437 Balance 486 / 486 437 / 437 Laboratory Tests Past 24 Hrs 10/11/18 10/11/18 10/11/18 12:25 12:25 12:25 WBC 6.1 RBC 3.70 L Hgb 10.9 L Hct 34.3 L MCV 92.7 MCH 29.5 MCHC 31.8 L RDW 14.4 RDW Differential 48.8 H Plt Count 199 MPV 10.6 Immature Gran % (Auto) 0.200 Neut % (Auto) 72.4 H Lymph % (Auto) 14.7 L Burke % (Auto) 11.7 H Eos % (Auto) 0.7 Baso % (Auto) 0.3 Absolute Neuts (auto) 4.4 Absolute Lymphs (auto) 0.89 Total Counted Not Reportable PT 13.1 INR 1.0 APTT 27.4 Sodium 136 Potassium 4.2 Chloride 104 Carbon Dioxide 26.0 Anion Gap 6 BUN 20 H Creatinine 1.01 Estim Creat Clear Calc 37.72 Est GFR (MDRD) Af Amer 68 Est GFR (MDRD) Non-Af 56 L BUN/Creatinine Ratio 19.8 Glucose 105 Calcium 8.9 Total Bilirubin AST ALT Alkaline Phosphatase Troponin I < 0.015 Total Protein Albumin Globulin Albumin/Globulin Ratio Triglycerides Cholesterol LDL Cholesterol VLDL Cholesterol HDL Cholesterol 10/11/18 10/11/18 10/12/18 16:35 19:05 06:05 WBC 5.8 RBC 3.77 L Hgb 11.1 L Hct 35.1 L MCV 93.1 MCH 29.4 MCHC 31.6 L RDW 14.2 RDW Differential 46.5 H Plt Count 193 MPV 10.6 Immature Gran % (Auto) 0.200 Neut % (Auto) 64.3 Lymph % (Auto) 23.9 Burke % (Auto) 10.0 Eos % (Auto) 1.4 Baso % (Auto) 0.2 Absolute Neuts (auto) 3.7 Absolute Lymphs (auto) 1.38 Total Counted Not Reportable PT INR APTT Sodium Potassium Chloride Carbon Dioxide Anion Gap BUN Creatinine Estim Creat Clear Calc Est GFR (MDRD) Af Amer Est GFR (MDRD) Non-Af BUN/Creatinine Ratio Glucose Calcium Total Bilirubin AST ALT Alkaline Phosphatase Troponin I < 0.015 < 0.015 Total Protein Albumin Globulin Albumin/Globulin Ratio Triglycerides Cholesterol LDL Cholesterol VLDL Cholesterol HDL Cholesterol 10/12/18 06:05 WBC RBC Hgb Hct MCV MCH MCHC RDW RDW Differential Plt Count MPV Immature Gran % (Auto) Neut % (Auto) Lymph % (Auto) Burke % (Auto) Eos % (Auto) Baso % (Auto) Absolute Neuts (auto) Absolute Lymphs (auto) Total Counted PT INR APTT Sodium 138 Potassium 3.7 Chloride 106 Carbon Dioxide 25.0 Anion Gap 7 BUN 14 Creatinine 0.68 Estim Creat Clear Calc 38.10 Est GFR (MDRD) Af Amer 106 Est GFR (MDRD) Non-Af 88 BUN/Creatinine Ratio 20.5 H Glucose 90 Calcium 8.6 Total Bilirubin 0.40 AST 9 L ALT < 6 L Alkaline Phosphatase 78 Troponin I Total Protein 6.7 Albumin 3.5 Globulin 3.2 Albumin/Globulin Ratio 1.1 Triglycerides 187 Cholesterol 222 H LDL Cholesterol 144 H VLDL Cholesterol 37 HDL Cholesterol 41 POC Glucose 10/11/18 12:36 POC Glucose 101 Discharge Activity: Return to Normal Activity, No Restrictions Call your doctor if you observe: Fever of 101 or Higher, Shortness of breath, Dizziness, Fainting spells, Swelling in the ankles, Chest pain, Increased palpitations (irregular heartbeat) Home Medications: Medications to take at Discharge Carbidopa/Levodopa [Carbidopa-Levo ER 50-200 Tab] 1 each PO QHS 06/29/18 Carbidopa/Levodopa [Carbidopa-Levodopa 25-100 Tab] 1 each PO TID 06/29/18 Docusate Sodium 100 mg PO DAILY 06/29/18 Fosinopril Sodium 20 mg PO DAILY 06/29/18 Levothyroxine Sodium 75 mcg PO DAILY 06/29/18 Mirabegron [Myrbetriq] 25 mg PO DAILY 06/29/18 Naproxen Sodium [Aleve] 220 mg PO Q12H PRN PRN 06/29/18 Ropinirole HCl 1 mg PO QHS 06/29/18 Aspirin [Aspirin, Baby] 81 mg PO DAILY@0800 #30 tab.chew 10/12/18 Atorvastatin Calcium [Lipitor] 40 mg PO QHS #30 tablet 10/12/18 Following Prescrptions Were Given to Patient: Aspirin [Aspirin, Baby] 81 mg PO DAILY@0800 #30 tab.chew Atorvastatin Calcium [Lipitor] 40 mg PO QHS #30 tablet Primary Care Physician: Young Hubbard Chi, MD [Primary Care Provider] - Please follow up with your Primary Care Physician in: 3-5 days Disposition: Home Minutes spent on discharge:: 35 Patient Condition:: Stable Medical Necessity - Tobacco Use Smoking Status: Former smoker Tobacco Use: Non-smoker Meaningful Use Info Meaningful Use Diagnoses (Choose all that apply): None applicable Code Visit Inpatient E&M: 65557 Disch Hosp
--- NOTE | 2018-10-12 11:23 | PHA.DC.MC ---
Pharmacy Service has performed discharge medication reconciliation and counseling for this patient. The patient's discharge medication list was reviewed for discrepancies and discrepancies were resolved. The patient was counseled on the following discharge medications and changes in medications for homegoing were reviewed. 1. ATORVASTATIN 40MT PO QHS 2. ASPIRIN 81MT PO DAILYCM The Reason for Use, instructions for use, and potential side effects were reviewed for all new medications. The patient's questions regarding all of their medications were answered. The patient was able to verbally demonstrate an understanding of their discharge medications. Home Medications Carbidopa/Levodopa [Carbidopa-Levo ER 50-200 Tab] 1 each PO QHS 06/29/18 Carbidopa/Levodopa [Carbidopa-Levodopa 25-100 Tab] 1 each PO TID 06/29/18 Docusate Sodium 100 mg PO DAILY 06/29/18 Fosinopril Sodium 20 mg PO DAILY 06/29/18 Levothyroxine Sodium 75 mcg PO DAILY 06/29/18 Mirabegron [Myrbetriq] 25 mg PO DAILY 06/29/18 Naproxen Sodium [Aleve] 220 mg PO Q12H PRN PRN 06/29/18 Ropinirole HCl 1 mg PO QHS 06/29/18 Aspirin [Aspirin, Baby] 81 mg PO DAILY@0800 #30 tab.chew 10/12/18 Atorvastatin Calcium [Lipitor] 40 mg PO QHS #30 tablet 10/12/18
[2018-10-12 11:30] VITALS: BP 132/77
== END 2018-10-12 11:44 | disposition home or self-care (01) | DRG 69 ==
LOC: ED 12:40 → PCU 14:43
PROVIDERS: Admitting Provider Internal Medicine; Emergency Provider Emergency Medicine; Family Provider Family Medicine Geriatric Medicine; PCP Family Medicine Geriatric Medicine; Referring Provider Internal Medicine; Visit Provider Family Medicine
DX: G45.9 Transient cerebral ischemic attack, unspecified (principal); R47.81 Slurred speech; R29.700 NIHSS score 0; I10 Essential (primary) hypertension; G20 Parkinson's disease; G25.81 Restless legs syndrome; R29.6 Repeated falls; E03.9 Hypothyroidism, unspecified; Z87.891 Personal history of nicotine dependence; Z79.899 Other long term (current) drug therapy; Z86.73 Personal history of transient ischemic attack (TIA), and cerebral infarction without residual deficits
CPT/HCPCS: 36415; 70496; 70498; 70544; 70549; 70551; 71045; 80048; 80053; 80061; 82962; 84484; 85025; 85610; 85730; 92610; 93005; 99285; A9575; J7030; Q9967; A4216

== ENCOUNTER → 2018-11-14 11:33 | Outpatient (CLI) | payer MEDICARE, OTHER, SELFPAY ==
[2018-11-14 11:23] VITALS: BMI 29.2
--- NOTE | 2018-11-14 11:42 | RAD_ITS ---
STUDY: X-RAY - PELVIS AND RIGHT HIP REASON FOR EXAM: Female, 83 years old. Pain TECHNIQUE: 3 views of the pelvis and hip. COMPARISON: None. FINDINGS: There is a non-specific bowel gas pattern. Normal visualized soft tissue structures. There is diffuse demineralization of the osseous structures. There is narrowing with cortical sclerosis and osteophyte formation of the sacroiliac joint consistent with degenerative osteoarthritic changes. Normal bilateral superior and inferior pubic rami. Normal pubic symphysis. Normal bilateral ischial tuberosities. Normal visualized femoral head. Normal acetabulum. There is moderate articular joint space narrowing of the hip. Severe left hip arthrosis noted with obliteration of the joint space, flattening of the superior aspect of the femoral head and subchondral cyst formation in both the femoral head and acetabulum. These changes are consistent with AVN. 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 Electronically Signed: Robert Chavez MD at 13:19 EDT , Service support ,
[2019-05-01 09:47] VITALS: BMI 26.0
== END ==
PROVIDERS: Family Provider Family Medicine Geriatric Medicine; PCP Family Medicine Geriatric Medicine; Referring Provider Physician Assistant; Visit Provider Physician Assistant
DX: M16.0 Bilateral primary osteoarthritis of hip (principal); G89.29 Other chronic pain; R29.6 Repeated falls
CPT/HCPCS: 73502

== ENCOUNTER → 2019-02-09 12:13 | Outpatient (CLI) | payer MEDICARE, OTHER, SELFPAY ==
[2019-01-23 13:06] VITALS: BMI 29.2
--- NOTE | 2019-02-09 12:16 | RAD_ITS ---
STUDY: X-RAY - LEFT ELBOW REASON FOR EXAM: Female, 83 years old. Pain, no known injury TECHNIQUE: 3 view(s) of the elbow. COMPARISON: None. FINDINGS: There is a tiny enthesophyte in the region of the triceps tendon insertion on the olecranon process. Normal radiocapitellar and ulnotrochlear articulations. The soft tissue structures are unremarkable. RAD/Elbow min 3 Views IMPRESSION: Tiny olecranon process enthesophyte. The study is otherwise unremarkable. Electronically Signed: Guero Dee MD at 17:15 EDT , Service support ,
--- NOTE | 2019-02-09 12:16 | RAD_ITS ---
STUDY: X-RAY - LEFT SHOULDER REASON FOR EXAM: Female, 83 years old. Left shoulder pain. TECHNIQUE: 4 view(s) of the shoulder. COMPARISON: None. FINDINGS: Minimal spur in the left inferior glenoid rim. No abnormal narrowing of the glenohumeral articulation. Normal acromioclavicular joint. Normal acromion. Minimal spur in the left superior lateral humeral head. Normal proximal humerus. The soft tissue structures are unremarkable. Normal visualized pulmonary apex. 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 Electronically Signed: Jayce Acuna MD at 13:14 EDT , Service support ,
== END ==
PROVIDERS: Family Provider Family Medicine Geriatric Medicine; PCP Family Medicine Geriatric Medicine; Referring Provider Family Medicine Geriatric Medicine; Visit Provider Family Medicine Geriatric Medicine
DX: M19.012 Primary osteoarthritis, left shoulder (principal); M25.522 Pain in left elbow
CPT/HCPCS: 73030; 73080

== ENCOUNTER → 2019-03-13 | Outpatient (CLI) | payer MEDICARE, OTHER, SELFPAY ==
[2019-01-23 13:06] VITALS: BMI 29.2
[2019-03-13 12:42] LABS: Absolute Lymphocyte Count 1.18 X10^3/uL (0.83-4.51); Absolute Neutrophil Count 4.8 X10^3/uL (2.0-7.7); Basophil# 0.03 X10^3/uL; Basophil% 0.4 % (0-1); Eosinophil# 0.06 X10^3/uL; Eosinophils% 0.9 % (0-5); Hematocrit 35.2 % (37-47); Lymphocyte # 1.18 X10^3/ul (4.0); Lymphocyte % 17.5 % (19-41); Mean Corp Hgb Conc 31.3 g/dL (32-36); Mean Corpuscular Hgb 31.5 pg (27.0-32.0); Mean Corpuscular Volume 100.9 fL (81-99); Mean Platelet Vol. 11.3 fl (6.2-12.0); Monocyte# 0.68 X10^3/uL; Monocyte% 10.1 % (0-10); NRBC Flagged by Analyzer 0 % (0-5); Neutrophil # 4.77 X10^3/uL (2.7-7.7); Neutrophil % 70.8 % (47-70); Platelet Count 210 K/mm3 (150-450); RBC Distribution Width CV 13.4 % (11.6-14.6); RBC Distribution Width SD 49.7 fl (35.1-43.9); Red Blood Count 3.49 M/mm3 (4.2-5.4); White Blood Count 6.7 K/mm3 (4.4-11.0)
[2019-03-13 13:02] LABS: BUN 17 mg/dL (7-18); Creatinine, Serum 0.66 mg/dL (0.55-1.02); Glucose 102 mg/dL (74-106); Vitamin D,25 Hydroxy 30.7 ng/mL (29.95-100.01)
[2019-03-13 13:03] LABS: ALB/GLOB Ratio 1.2 RATIO (0.9-2.4); AST(SGOT) 12 U/L (15-37); Alanine Aminotransfer ALT/SGPT 10 U/L (13-56); Albumin, Serum 3.5 g/dL (3.2-5.0); Alkaline Phosphatase 112 U/L (45-117); Anion Gap 5 (5-15); BUN/Creat Ratio 25.8 RATIO (10-20); Calcium,Total 9.1 mg/dL (8.5-10.1); Chloride 106 mmol/L (98-107); EST Glomerular Filtration Rate 91 mL/min (>60); Est Glom Filt Rate - Afr Amer 110 mL/min (>60); Globulin 2.9 g/dL (2.2-4.2); Potassium 3.8 mmol/L (3.5-5.1); Protein, Total 6.4 g/dL (6.4-8.2); Sodium Level 140 mmol/L (136-145)
== END | disposition home or self-care (01) ==
LOC: POLAB3 12:14
PROVIDERS: Family Provider Family Medicine Geriatric Medicine; PCP Family Medicine Geriatric Medicine; Visit Provider Family Medicine Geriatric Medicine
DX: E55.9 Vitamin D deficiency, unspecified (principal); I10 Essential (primary) hypertension
CPT/HCPCS: 36415; 80053; 82306; 84443; 85025

== ENCOUNTER 2019-03-24 13:00 | Outpatient (RCR) | payer MEDICARE, OTHER, SELFPAY ==
[2019-01-23 13:06] VITALS: BMI 29.2
--- NOTE | 2019-02-10 13:57 | HP.PTEVAL_ITS ---
Patient's Visit Information TIFFANIE MOODY is a 83 year old F referred to Physical Therapy by Jenny Matthews MD with a diagnosis of BACK PAIN,GAIT AND MOBILITY ABDNORMALITY,LIMP PAIN. Date of Evaluation: 02/10/19 Physical Therapist: Rajiv Dupree, PT, Cert MDT, OCS - Visit Plan Frequency: 2x /Week Duration: 4 Weeks Plan: PLAN FOR THR LEFT IN MARCH. PT INTERVENTION PROGRESSIVE BALANCE AND GAIT PROGRAM WITH FWW,STRENGTHENING BLE ,CORE STRENGTHENING ENDURANCE PROGRAM - Subjective Findings: This 83 y/o female presents to physical therapy with back ,leg and limb pain. Patient has had pain many years in back and leg. Patient major c/o is that unable to ambulate due to weakness and has been falling at home.Patient has difficultly with walking due to falling. Patient has left hip pain that needs replacement of hip,planned in March.. Patient can't have THR due to recent injection. Patient has symmtrical back pain and global shoulder pain . Patient had x-rays of left shoulder whick was -.Denies parathesai/tinglinh. Bowel /bladder -.Coughing /sneezing -.Patient has w/c demetris home and fww. Patient spouse does cooking cleaning. Patient is able to dress and shower. Patient has ramp entrance in house. Patient pain affects ADLS' and housework tasks. Patient had epdidural injection in back. Patient condition affects QOL.COMORBITIES: parkinsons,poliio. SOCIAL: . VOCATION; retired - Pain Left Hip Pain Intensity (Out of 10): 5 Pain Intensity Range: 10 Bilateral Back Pain Intensity (Out of 10): 3 Pain Intensity Range: 10 Left Shoulder Pain Intensity (Out of 10): 5 Pain Intensity Range: 10 - Objective POSTURE: decrease lordosis,foward posture,hips/knees flexed. PALAPTION: unremarkable. GAIT: Ambulated with fww CGA with hip knees /knees flexed 80 x2. BALANCE: fair with fww. NEURO: denies parthesaia/tingling ,reflexes 1/3 L3-4,L4-5,L5-S1,tremors. AROM: shoulder flexion 150 degrees,[id number] degrres,,ER 98. HIP ROM FLEXION 100 degrres,abd 40 degrees IR 5 degrees , ER 15 degrrees with crepitus. MMT: quads/hams 4-/5,hip flexion 4-/5,abd 3+/5 ankle 4/5. LUMBAR ROM: flexion mod loss,extension severe loss. FLEXABLITY: HAMS min/mod TIGHT - Special Tests L/S Slump test left side: Negative L/S Slump test right side: Negative L/S Left Straight Leg Raise: Negative L/S Right Straight Leg Raise: Negative L Hip Scour: Positive L Shoulder Drop Sign - IS Test: Negative L Shoulder Empty Can - SS: Negative L Shoulder Neer - Impingement: Negative L Shoulder Falk Harpal - Impingement: Negative - Balance Scores CATSIB Score (Max score 120 seconds): 20 - Goals Goal 1:: Patient to be Independant with HEP. Goal Time Frame: 4-6 Weeks Goal 2:: Ambulate with fww 150 ' x2 or> with supervsion Goal Time Frame: 4-6 Weeks Goal 3:: Patient to inprove CARSIB by 5 points to decrease risk of falls Goal Time Frame: 4-6 Weeks Goal 4:: Patient to decrease hip left and back pain by 50% or > to inmprove function. Goal Time Frame: 4-6 Weeks Goal 5:: Patient balance fair+ with fww to decrease risk of falls. Goal Time Frame: 4-6 Weeks Goal 6:: Patient to increase LFES score by 5-10 points > to improve QOL and decrease risk of falls Goal Time Frame: 4-6 Weeks - Rehabilitation Potential Physical Therapy Diagnosis: Patient has multiple comorbities to include parkinsons,and left DJD will need THR in Nov. Along with balance deficits with falling,decrease gait pain ,hip and back and decrease strength thus benifit from skilled PT. Rehabilitation Potential: Good - Anticipated Interventions Patient/Client Instruction: Educate patient on: Condition, Plan of Care For the Purpose of:: To decrease pain, To increase ROM, To improve muscle performance and motor function, To improve ability to perform ADL's, To increase tolerance to activity/condition/position, To improve ability of physical actions for home/community/work/leisure, To improve gait and locomotor functions, To increase flexibility/ROM, To improve endurance, To improve balance, To assume or resume ADL's Therapeutic Exercise to Include: Strength training, Endurance training, Balance training, Flexibilty training, Gait and locomotor training, Dynamic Lumbar Stabilization For the Purpose of:: To decrease pain, To increase ROM, To improve muscle performance and motor function, To improve ability to perform ADL's, To improve performance and independence with ADL's, To improve ability of physical actions for home/community/work/leisure, To improve gait and locomotor functions, To improve health of tissue, To decrease soft tissue restriction, To increase flexibility/ROM, To improve endurance, To improve balance, To improve safety wi th gait, To assume or resume ADL's Functional Training to Include: Gait training For the Purpose of:: To improve muscle performance and motor function, To improve gait and locomotor functions, To improve safety with gait Thank you for the opportunity to evaluate your patient. For Medicare and Medicare HMO plans, please review the plan of care and approve it. It will need to be FAXED BACK to us at [phone] for Medicare purposes. For Medicare only, by signing this I certify the plan of care. Please let me know if there are questions or concerns regarding this plan of care. Physician Signature: Date:
--- NOTE | 2019-03-24 13:27 | HP.PTDCSUM ---
HP - PT D/C Summary It has been my pleasure to treat TIFFANIE MOODY under orders from Jenny Matthews MD, for the diagnosis of BACK PAIN,GAIT AND MOBILITY ABDNORMALITY,LIMP PAIN for a total of 9 visit(s). Discharge Date: 03/24/19 Please see the following information for a summary of their discharge status. - Subjective Subjective: Scheduled for hip surgery - Pain Left Hip Pain Intensity (Out of 10): 5 Bilateral Back Pain Intensity (Out of 10): 5 Left Shoulder Pain Intensity (Out of 10): 2 - Overall Improvement % Improvement: 40 - Objective Objective/Function: POSTURE: MILD FOWARD POSTURE. GAIT: 100 FT WITH FWW WITH SBA. MMT: QUADS /HAMS 4/5,HIP FLEXION 4-/5,HIP ABD 3+/5. TRANSFERS : MOD I SIT-STAND/SUPERVSION ,SBA AT NIGHT. BALANCE: FAIR WITH FWW - Goals Goal 1:: Patient to be Independant with HEP. Goal Progress: Goal Met Goal 2:: Ambulate with fww 150 ' x2 or> with supervsion Goal Progress: Progressing Goal 3:: Patient to inprove CARSIB by 5 points to decrease risk of falls Goal Progress: Progressing Goal 4:: Patient to decrease hip left and back pain by 50% or > to inmprove function. Goal Progress: Progressing Goal 5:: Patient balance fair+ with fww to decrease risk of falls. Goal Progress: Progressing Goal 6:: Patient to increase LFES score by 5-10 points > to improve QOL and decrease risk of falls - Plan Plan: D/C - D/C Information Discharge Comments: SCEDULED FOR HIP SURGERY If there are questions or concerns regarding this patient's physical therapy, please feel free to call me at [phone]. Thank you for the referral of this patient. Sincerely, Rajiv Dupree, PT, Cert MDT, OCS
== END 2019-03-24 19:00 | disposition home or self-care (01) ==
LOC: PT 13:00
PROVIDERS: Family Provider Family Medicine Geriatric Medicine; PCP Family Medicine Geriatric Medicine; Referring Provider Anesthesiology Pain Medicine; Visit Provider Anesthesiology Pain Medicine
DX: R26.89 Other abnormalities of gait and mobility (principal); M54.9 Dorsalgia, unspecified; M25.559 Pain in unspecified hip
CPT/HCPCS: 97110; 97162

== ENCOUNTER → 2019-03-24 14:04 | Outpatient (CLI) | payer MEDICARE, OTHER, SELFPAY ==
[2019-03-15 13:13] VITALS: BMI 23.6
--- NOTE | 2019-03-24 14:09 | EKG12_ITS ---
Test Reason : ROUTINE Blood Pressure : / mmHG Vent. Rate : 094 BPM Atrial Rate : 094 BPM P-R Int : 160 ms QRS Dur : 094 ms QT Int : 386 ms P-R-T Axes : -21 -43 -17 degrees QTc Int : 482 ms Normal sinus rhythm Left axis deviation Cannot rule out Inferior infarct , age undetermined Anterolateral infarct (cited on or before 11-OCT-2018) Abnormal ECG Confirmed by NICA KELLY, PRAVEEN ([id number]), medical transcription editor RASHEL FERNANDEZ ([id number]) on 03/28/2019 2:43:24 PM Referred By: Young Hubbard Confirmed By:PRAVEEN YOUSIF MD
== END ==
PROVIDERS: Family Provider Family Medicine Geriatric Medicine; PCP Family Medicine Geriatric Medicine; Referring Provider Family Medicine Geriatric Medicine; Visit Provider Family Medicine Geriatric Medicine
DX: Z01.810 Encounter for preprocedural cardiovascular examination (principal)
CPT/HCPCS: 93005

== ENCOUNTER 2019-04-04 11:50 | Inpatient (IN) | payer MEDICARE, OTHER, SELFPAY ==
[2019-01-23 13:06] VITALS: BMI 29.2
[2019-03-28 15:50] VITALS: BP 147/84; PULSE 82; RESP 18; TEMP 37.1; O2SAT 99; BMI 23.8
[2019-03-28 17:35] LABS: Prothrombin Time (Protime)PT. 13.2 SECONDS (11.7-14.9)
[2019-03-28 17:36] LABS: Partial Thromboplast Time 30.3 Seconds (24.1-36.2)
[2019-03-30 09:25] VITALS: BMI 23.6
--- NOTE | 2019-04-03 13:31 | PCM.HP.BLA ---
History and Physical Date of Admission: 04/04/19 Intake Vital Signs 03/15/19 Height 5 ft 4 in 03/15/19 Weight: 138 lb 03/15/19 Body Mass Index (BMI) 23.6 Intake Visit Reasons: LEFT HIP Is patient in pain?: Yes Allergies morphine Adverse Reaction (Verified 03/15/19 13:15) Other Penicillins [PCN] Adverse Reaction (Verified 03/15/19 13:15) Itching Sulfa (Sulfonamide Antibiotics) Adverse Reaction (Verified 03/15/19 13:15) Itching Medications Carbidopa/Levodopa [Carbidopa-Levo ER 50-200 Tab] 1 ea PO QHS 06/29/18 [History Confirmed 03/15/19] Carbidopa/Levodopa [Carbidopa-Levodopa 25-100 Tab] 1 ea PO TID 06/29/18 [History Confirmed 03/15/19] Docusate Sodium 100 mg PO DAILY 06/29/18 [History Confirmed 03/15/19] Levothyroxine Sodium 75 mcg PO DAILY 06/29/18 [History Confirmed 03/15/19] Naproxen Sodium [Aleve] 220 mg PO Q12H PRN PRN 06/29/18 [History Confirmed 03/15/19] Ropinirole HCl 1 mg PO QHS 06/29/18 [History Confirmed 03/15/19] Aspirin [Aspirin, Baby] 81 mg PO DAILY@0800 #30 tab.chew 10/12/18 [Rx Confirmed 03/15/19] Atorvastatin Calcium [Lipitor] 40 mg PO QHS #30 tab 10/12/18 [Rx Confirmed 03/15/19] acetaminophen 325 mg tablet 325 mg PO Q6H PRN 01/23/19 [History Confirmed 03/15/19] PFSH Social History (Updated 03/15/19 @ 14:52 by Ghulam Villagomez DO) Smoking Status: Former smoker HPI LEFT HIP: Details: Parts of this documentation were recorded by a scribe, this documentation accurately reflects the service provided and the decisions made by me, Ghulam Villagomez DO 03/15/19 0805. TIFFANIE MOODY is a 83 year old F here today for left hip pain. She complains of pain over her entire hip. She has increased pain with ambulation. Patient has popping and clicking with ambulation. Patient notes that she has had injections into her hip which are not painful. Patient had xrays which are here for review. ROS Musc Reports joint pain, Reports limited joint movement, Reports muscle weakness Skin/Breast Reports system reviewed and no additional complaints, except as docu Neuro Yes system reviewed and no additional complaints, except as docu Ortho Exam Left Hip Skin/Wound: No Ecchymosis, No Erythema Hip: Absent eccymosis or erythema Homans Sign: No HIP: External rotation 80 degrees internal rotation 10 degrees with groin pain Neurovascularly intact no gross motor or sensory deficits palpable pedal pulses resting tremor Assessment & Plan Problems 1. Primary osteoarthritis of left hip M16.12 Plan Spoke with the patient about the surgery procedure and recovery. Explained her different options for physical therapy following surgery. Patient will be on blood thinners for 3 weeks following surgery. Spoke with her about hip precautions following surgery. Patient should stop taking her aspirin 1 week prior to surgery. Risks, benefits and alternatives of surgery reviewed including but not limited to bleeding, infection, nerve, artery and/or tissue damage, fracture, VTE, leg length discrepancy, dislocation, need for hip precautions, continued pain and expected post-operative course. Follow up for 2 week post op or sooner if pain, swelling, numbness or associated symptoms, or concerns develop. All questions answered. Patient in agreement of plan. Coding Level of Care Code Off vis,est,level 3 Diagnoses Primary osteoarthritis of left hip M16.12 ??Osteoarthritis type: primary I have re-examined the patient. There are no clinical changes since date of exam
[2019-04-04] VITALS (14 sets, daily range): BP systolic 105–151; BP diastolic 64–110; PULSE 60–78; RESP 14–18; TEMP 35.6–36.9; O2SAT 95–100; BMI 23.8
[2019-04-04] MEDS: Lactated Ringers 1,000 ML 100 ML IV (13:19)
[2019-04-04 13:26] LABS: Bedside Glucose 147 mg/dL (70-110)
[2019-04-04] MEDS: Celecoxib 200 MG Capsule 400 MG PO (13:32)
[2019-04-04] MEDS: Acetaminophen 500 MG Tablet 1000 MG PO ×2 (13:32→22:48)
[2019-04-04] MEDS: Gabapentin 600 MG Tablet PO (13:33)
[2019-04-04] MEDS: Scopolamine 1mg/72hr Patch 1 PATCH TRANSDERM. (13:33)
[2019-04-04] MEDS: Magnesium Sulfate 4gm/100mL 4 GM/100 ML IV.SOLN. IV (13:34)
[2019-04-04] MEDS: Cefazolin 2 GM in 0.9% Normal Saline 100 ML IV (14:03)
[2019-04-04] MEDS: dexAMETHasone 10 MG/ML Vial IV (14:22)
--- NOTE | 2019-04-04 16:01 | RAD_ITS ---
STUDY: X-RAY - PELVIS AND LEFT HIP REASON FOR EXAM: Female, 83 years old. Postop hip replacement TECHNIQUE: 2 views of the pelvis and hip. COMPARISON: 11/14/2018. FINDINGS: Left hip arthroplasty is in normal expected position with no evidence for complications. Normal bilateral iliac wings, sacroiliac joints and visualized sacrum. Normal bilateral superior and inferior pubic rami. Normal pubic symphysis. Normal bilateral ischial tuberosities. RAD/Hip Min 2 Views (Portable) IMPRESSION: Satisfactory appearance of left hip arthroplasty. Electronically Signed: Sonny Aragon MD at 16:49 EST , Service support ,
--- NOTE | 2019-04-04 16:07 | PCM.OPRPT ---
Report of Operation Date of Procedure: 04/04/19 Description of Surgical Findings:: Preoperative diagnosis: DJD left hip Postoperative diagnosis: Same Procedure: Left total hip arthroplasty Implants: Marisela Accolade II stem size 4 132 degree neck angle +5 neck length 54 mm cup with 40 mm cancellous screw 36 mm ceramic head Anesthesia: Spinal EBL: 300 cc Complications: None Condition: Stable to PACU Indication for procedure: This is a 83-year-old female patient who has had long-standing arthrosis of the hip who has failed conservative treatment and wished to undergo total hip arthroplasty. We did discuss operative versus nonoperative intervention including risks of bleeding, infection , nerve artery tissue damage, need for further surgery, fracture, leg length discrepancy dislocation blood clot and need for postoperative physical therapy and postoperative expectations. An informed consent was signed. Procedure: Patient was met in the preoperative holding area once again the operative extremity was identified by both patient and physician and was marked. Patient was met by anesthesia and a spinal was placed. A Field catheter was placed patient was then positioned in the lateral decubitus position on a well-padded pegboard with an axillary roll. All bony prominences were checked and padded. The patient was prepped and draped in the usual sterile fashion. A timeout was called to ensure the proper patient procedure and extremity were being contemplated. Anatomic landmarks were palpated and marked for a standard posterior lateral approach. A 10 blade scalpel was used to make a posterior incision through the skin and subcutaneous tissue. In retractors were used and electrocautery was used to maintain meticulous hemostasis and dissect full-thickness flaps until the gluteal fascia was reached. The gluteal fascia was incised in line with the gluteal fibers. The bursal tissue was then freed from the underside and a Charnley retractor was placed. The fat pad was elevated off of the external rotators with electrocautery and the external rotators were dissected off of the greater trochanter including the piriformis and were tagged with #1 Ethibond for later repair. The joint capsule opened with posterior trapdoor technique. The hip was surgically dislocated. Hohmann was placed around the lesser trochanter. A neck cutting guide was used to paige the neck with a Bovie and an oscillating saw was used complete the femoral neck cut. The femoral head was then removed and sized. We then turned our attention to the acetabulum. A Bovie was used to make a perforation in the anterior joint capsule and a pointed Hohmann was placed this was repeated in the 6 o'clock position a wide mian was placed there. With a long handled knife the labral and pulvinar tissue were removed. We then began sequential reaming until the appropriate size was achieved. We then fit the acetabular shell in place with good stroke program coordinator to the acetabulum. We then proceeded to place a posterior superior screw by drilling first measuring and inserting the screw. We then inserted a trial liner. And turned our attention back to the femur at this point a femoral elevator was used. As well as a pointed wide Hohmann around the lesser trochanter and a Hohmann to help retract the gluteus medius. A box chisel was used to remove excess lateral neck followed by a canal finder and a lateralizing reamer. This was followed by sequential broaches. Attention was made of the version within the canal. Once the final broach was seated we then trialed reduced the hip it was determined that a 132 degree neck angle with a 5 neck length was the appropriate size. We then checked ability with shuck testing as well as flexion and internal rotation. then proceeded with hip extension and checked leg lengths at the knees and heels. At this point trials were removed. A posterior lipped liner was inserted to the cup. The femoral stem was inserted. We re-trialed and then proceeded to impact the femoral head onto the Rudolph taper. We then surgically reduce the hip check stability again and leg lengths and were satisfied. Betadine rinse was allowed to sit for 5 minutes while everyone changed their gloves. Thorough irrigation was performed. Followed by closure of the external rotators with #2 FiberWire followed by closure of gluteal fascia with #1 Ethibond. 0 Vicryl fat stitches and 2-0 Vicryl subcutaneous stitches and delaney in the skin. Dressing was applied Mepilex Ag and an abduction pillow was placed. Patient tolerated the procedure well there was no intraoperative complications all counts were correct and the patient was brought back to the PACU in stable condition
[2019-04-04] MEDS: Cefazolin 1 GM/50 ML BAG IV (16:58)
[2019-04-04] MEDS: Carbidopa/Levodopa 25/100 Tablet PO (16:59)
[2019-04-04] MEDS: Lactated Ringers 1,000 ML 125 ML IV ×2 (16:59→22:53)
[2019-04-04] MEDS: CARBIDOPA/LEVODOPA CR 50/200 Tablet PO (22:48)
[2019-04-04] MEDS: Senna/Docusate Sodium 1 Tablet 2 TABLET PO (22:48)
[2019-04-04] MEDS: Pramipexole Di-HCl 0.5 MG Tablet PO (22:48)
[2019-04-04] MEDS: Atorvastatin Calcium 40 MG Tablet PO (22:48)
[2019-04-05] VITALS (10 sets, daily range): BP systolic 87–152; BP diastolic 50–82; PULSE 76–91; RESP 16–18; TEMP 36.3–36.6; O2SAT 93–99
[2019-04-05] MEDS: oxyCODONE 5 MG Tablet PO ×3 (00:44→22:33)
[2019-04-05] MEDS: Cefazolin 1 GM/50 ML BAG IV ×2 (00:45→08:35)
--- NOTE | 2019-04-05 01:19 | NURSING ---
0118 report given to Kimmy SHANNON from [facility] at this time. made RN aware pt will medicate pt for pain and nausea medication.
[2019-04-05 06:02] LABS: Hematocrit 28.5 % (37-47); Mean Corp Hgb Conc 31.6 g/dL (32-36); Mean Corpuscular Hgb 31.5 pg (27.0-32.0); Mean Corpuscular Volume 99.7 fL (81-99); Mean Platelet Vol. 11.2 fl (6.2-12.0); Platelet Count 195 K/mm3 (150-450); RBC Distribution Width CV 13.3 % (11.6-14.6); RBC Distribution Width SD 49.3 fl (35.1-43.9); Red Blood Count 2.86 M/mm3 (4.2-5.4); White Blood Count 10.3 K/mm3 (4.4-11.0)
[2019-04-05 06:15] LABS: Anion Gap 7 (5-15); BUN 19 mg/dL (7-18); BUN/Creat Ratio 33.3 RATIO (10-20); Calcium,Total 8.3 mg/dL (8.5-10.1); Chloride 107 mmol/L (98-107); Creatinine, Serum 0.57 mg/dL (0.55-1.02); EST Glomerular Filtration Rate 108 mL/min (>60); Est Glom Filt Rate - Afr Amer 130 mL/min (>60); Glucose 122 mg/dL (74-106); Potassium 3.7 mmol/L (3.5-5.1); Sodium Level 140 mmol/L (136-145)
[2019-04-05] MEDS: Acetaminophen 500 MG Tablet 1000 MG PO ×3 (06:16→22:29)
[2019-04-05] MEDS: Carbidopa/Levodopa 25/100 Tablet PO ×3 (06:18→16:44)
[2019-04-05] MEDS: APIXABAN 2.5 MG TABLET PO ×2 (06:21→22:29)
[2019-04-05] MEDS: Lactated Ringers 1,000 ML 125 ML IV (08:30)
[2019-04-05] MEDS: Senna/Docusate Sodium 1 Tablet 2 TABLET PO ×2 (09:34→22:29)
--- NOTE | 2019-04-05 11:30 | CASEMGMT ---
Addendum entered by Debra Luciano 04/05/19 13:58: SW received call from Pinky with [facility] stating [facility] is able to accept pt tomorrow. RN DONAVAN Travis to update pt's family. Plan: [facility] Tomorrow Original Note: Social Work Note Physician updated this worker that pt and pt's family are requesting [facility] at discharge. SW placed a call to referral line and provided referral for [facility]. SW waiting for call back. Plan: [facility] pending acceptance Debra Luciano MANAGER [employer], [employer] OFFICE MANAGER
--- NOTE | 2019-04-05 11:50 | DCINST_ITS ---
Discharge Diet: No Restrictions Discharge Activity: Return to Normal Activity Weight Bearing Status: Weight bearing as tolerated Call your doctor if you observe: Fever of 101 or Higher, Shortness of breath, Chest pain, Increased palpitations (irregular heartbeat) Additional Instructions: Begin daily showering warm water antibacterial soap postop day #3( 72hrs Post- operatively) and then daily. Leave the dressing on for 72 hours postoperatively then may remove prior to first shower and change dressing daily after this until no drainage for 2 consecutive days then may leave open to air. Follow hip precautions as reviewed by hospital physical therapist. Wear compression stockings, may remove at night. Call with any concerns Allergies/Adverse Reactions: Allergies Penicillins [PCN] Allergy (Verified 04/04/19 13:29) Itching Sulfa (Sulfonamide Antibiotics) Allergy (Verified 04/04/19 13:29) Itching morphine Adverse Reaction (Verified 03/15/19 13:15) Other Medications to take at Discharge Carbidopa/Levodopa [Carbidopa-Levo ER 50-200 Tab] 1 ea PO QHS 06/29/18 Carbidopa/Levodopa [Carbidopa-Levodopa 25-100 Tab] 1 ea PO TID 06/29/18 Docusate Sodium 100 mg PO DAILY PRN 06/29/18 Levothyroxine Sodium 75 mcg PO DAILY 06/29/18 Ropinirole HCl 1 mg PO QHS 06/29/18 Aspirin [Aspirin, Baby] 81 mg PO QHS 03/28/19 Atorvastatin Calcium [Lipitor] 40 mg PO QHS 03/28/19 Acetaminophen [Tylenol] 1,000 mg PO Q8 #100 tab 04/05/19 Apixaban [Eliquis] 2.5 mg PO BID #42 tab 04/05/19 Oxycodone [Oxyir] 5 - 10 mg PO Q4H PRN PRN #50 tab 04/05/19 The following prescriptions were given: Apixaban [Eliquis] 2.5 mg PO BID #42 tab Prescription Printed Oxycodone [Oxyir] 5 - 10 mg PO Q4H PRN PRN #50 tab PRN Reason: Pain Score 4-10/10 Prescription Printed Acetaminophen [Tylenol] 1,000 mg PO Q8 #100 tab Prescription Printed Primary Care Physician: Yonug Hubbard Chi, MD [Primary Care Provider] - Test Results: Test results from this visit will be discussed in further detail at your follow- up appointment, if applicable.
--- NOTE | 2019-04-05 11:58 | PCM.PN.ORT ---
Patient Problems: Active and Suspected Problems (Last Reviewed 11/14/18 @ 11:28 by Queenie Hartman) S/P total hip arthroplasty (Acute) Subjective: Doing well pain controlled no fevers chills nausea vomiting shortness of breath or chest pain. Denies lightheadedness or dizziness with standing or sitting - Physical Exam Vitals/I&O's: Vital Signs Temp Pulse Resp BP Pulse Ox 97.6 F L 84 18 101/64 97 04/05/19 08:38 04/05/19 11:38 04/05/19 08:38 04/05/19 11:38 04/05/19 08:38 Oxygen Flow Rate (L/min) 6 Oxygen Delivery Method Room Air Weight: 138 lb 10.732 oz Body Mass Index (BMI) 23.8 Finger Stick Blood Glucose 101 Intake and Output for Last 24 Hours 04/03/19 04/04/19 04/05/19 23:59 23:59 23:59 Intake Total 2012.33 / 1525.0 / 1525.0 Output Total 825 / 1075 1200 / 1200 Balance 1188.33 / 938.33 325.0 / 325.0 General: Alert, Oriented x3, Cooperative, No apparent distress Extremities: - - Dressing clean dry and intact compartment soft neurovascular intact EHL tibialis anterior gastrocsoleus intact sensation to light touch palpable pedal pulses. Laboratory Results 04/04/19 13:10: POC Glucose 147 H 04/05/19 05:36: WBC 10.3, RBC 2.86 L, Hgb 9.0 L, Hct 28.5 L, MCV 99.7 H, MCH 31.5, MCHC 31.6 L, RDW Std Deviation 49.3 H, RDW Coeff of Candy 13.3, Plt Count 195, MPV 11.2 04/05/19 05:36: Sodium 140, Potassium 3.7, Chloride 107, Carbon Dioxide 26.0, Anion Gap 7, BUN 19 H, Creatinine 0.57, Estim Creat Clear Calc 38.10, Est GFR (MDRD) Af Amer 130, Est GFR (MDRD) Non-Af 108, BUN/Creatinine Ratio 33.3 H, Glucose 122 H, Calcium 8.3 L Current Medications Acetaminophen (Tylenol) 1,000 mg PO Q8 [facility] Last Admin: 04/05/19 06:16 Dose: 1,000 mg Documented by: Apixaban (Eliquis) 2.5 mg PO BID [facility] Last Admin: 04/05/19 06:21 Dose: 2.5 mg Documented by: Atorvastatin Calcium (Lipitor) 40 mg PO QHS [facility] Last Admin: 04/04/19 22:48 Dose: 40 mg Documented by: Carbidopa/Levodopa (Sinemet Cr) 1 tablet PO QHS [facility] Last Admin: 04/04/19 22:48 Dose: 1 tablet Documented by: Carbidopa/Levodopa (Sinemet) 1 tablet PO TIDAC [facility] Last Admin: 04/05/19 11:37 Dose: 1 tablet Documented by: Hydromorphone HCl (Dilaudid Inj) 0.5 mg IV Q2H PRN PRN PRN Reason: Pain Score 6-10/10 Lactated Ringer's () 1,000 mls @ 100 mls/hr IV .Q10H [facility] Last Admin: 04/05/19 00:13 Dose: Not Given Documented by: Lactated Ringer's () 1,000 mls @ 125 mls/hr IV .Q8H [facility] Last Admin: 04/05/19 07:06 Dose: Not Given Documented by: Lactated Ringer's () 1,000 mls @ 125 mls/hr IV .Q8H [facility] Last Infusion: 04/05/19 09:05 Dose: 125 mls/hr Documented by: Sodium Chloride () 250 mls @ 15 mls/hr IV .[id number] PRN PRN Reason: Saline Flush Ketorolac Tromethamine (Toradol) 15 mg IV Q6H PRN PRN PRN Reason: Pain Score 1-5/10 Stop: 04/06/19 16:02 Levothyroxine Sodium (Synthroid) 75 mcg PO DAILY@0600 [facility] Last Admin: 04/05/19 06:19 Dose: Not Given Documented by: Ondansetron HCl (Zofran) 4 mg IV Q6H PRN PRN PRN Reason: NAUSEA Oxycodone HCl (Oxyir) 5 - 10 mg PO Q4H PRN PRN PRN Reason: Pain Score 4-10/10 Last Admin: 04/05/19 00:44 Dose: 10 mg Documented by: Pramipexole Dihydrochloride (Mirapex) 0.5 mg PO QHS [facility] Last Admin: 04/04/19 22:48 Dose: 0.5 mg Documented by: Senna/Docusate Sodium (Senokot-S, Holly-Colace) 2 tablet PO BID [facility] Last Admin: 04/05/19 09:34 Dose: 2 tablet Documented by: Sodium Chloride () 10 - 40 ml IV UD PRN PRN Reason: SALINE FLUSH Medical Necessity - Tobacco Use Smoking Status: Former smoker Assessment/Plan All Active Problems (Last Reviewed 11/14/18 @ 11:28 by Queenie Hartman) Syncope and collapse (Acute) TIA (transient ischemic attack) (Acute) S/P total hip arthroplasty (Acute) Postop day #1 left total hip arthroplasty And well pain controlled with minimal narcotic usage Progressing with PT however unsteady secondary to Parkinson's and advanced age DVT prophylaxis SCDs SAKINA Irving Low blood pressure postop asymptomatic we will continue fluids and continue to monitor DC planning for rehab tomorrow. patient has elderly spouse and dogs in house with Parkinson's would benefit from rehab
--- NOTE | 2019-04-05 14:15 | CASEMGMT ---
MIRTHA GO and SEN were updated by Dr. Villagomez that patient is requesting Rehab Unit at discharge. SW called and place referral and they will have a bed available tomorrow for patient. MIRTHA GO Face to Face with patient for initial transition planning/care coordination assessment. MIRTHA GO introduced self and role at [facility]. Patient lying in bed, alert and oriented, at bedside. Patient willing to participate in assessment and is able to answer all questions appropriately. Care providers, pharmacy, and demographics verified. MIRTHA GO confirmed with patient and that their plans is for rehab unit. Patient states she wants to go to Rehab Unit. MIRTHA GO updated patient and that bed is available with discharge planned for tomorrow. Patient states she has no further needs or concerns at this time. PCP: Stevie Specialists: Sy ENT; magdy Villagomez; Cassie, pain. Preferred Pharmacy: [facility] Insurance: [facility] Prescription Benefit: yes Living Will/HPOA: yes, son Hermes Lucas LNOK: Living Arrangements: Patient lives with in single story home with no steps to enter the home. Transportation: DME/HHC: Patient states she has shower chair, raised toilet, cane, walker, rollator, grab bars, and wheelchair at home. Disposition Plan: Patient to discharge to rehab unit Debra PARK, MIRTHA, CM
[2019-04-05] MEDS: Atorvastatin Calcium 40 MG Tablet PO (22:29)
[2019-04-05] MEDS: CARBIDOPA/LEVODOPA CR 50/200 Tablet PO (22:30)
[2019-04-05] MEDS: Pramipexole Di-HCl 0.5 MG Tablet PO (22:33)
[2019-04-06 04:50] VITALS: BP 122/67; PULSE 98; RESP 16; TEMP 36.8; O2SAT 98
[2019-04-06] MEDS: Carbidopa/Levodopa 25/100 Tablet PO ×2 (05:02→10:45)
[2019-04-06] MEDS: Levothyroxine 75 MCG Tablet PO (05:03)
[2019-04-06] MEDS: Acetaminophen 500 MG Tablet 1000 MG PO ×2 (05:03→13:45)
[2019-04-06 07:59] LABS: Hematocrit 26.8 % (37-47); Hemoglobin 8.3 g/dL (12.0-15.0); Mean Platelet Vol. 11.8 fl (6.2-12.0); Platelet Count 167 K/mm3 (150-450); RBC Distribution Width CV 13.3 % (11.6-14.6); RBC Distribution Width SD 49.3 fl (35.1-43.9); Red Blood Count 2.68 M/mm3 (4.2-5.4); White Blood Count 7.4 K/mm3 (4.4-11.0)
[2019-04-06 09:06] VITALS: BP 95/42; PULSE 77; RESP 16; TEMP 36.6; O2SAT 98
--- NOTE | 2019-04-06 10:04 | CASEMGMT ---
Social Work Note SEN spoke with Pinky with [facility] and updated her that pt should be discharged to [facility] today. Pinky states she is able to accept pt on [facility] today. Plan: [facility] today Debra Luciano MSW, PAVER INSTALLER
[2019-04-06] MEDS: Senna/Docusate Sodium 1 Tablet 2 TABLET PO (10:44)
[2019-04-06] MEDS: APIXABAN 2.5 MG TABLET PO (10:44)
[2019-04-06] MEDS: Ketorolac 15 MG/ML Vial IV (10:49)
[2019-04-06] MEDS: 0.9% Saline Lock 10 ML Syringe IV (10:50)
--- NOTE | 2019-04-06 12:26 | PCM.DC.SUM ---
Discharge Date and Diagnosis Date of Admission: 04/04/19 Date of Discharge: 04/06/19 - Primary Discharge Diagnosis Active and Suspected Problems (Last Reviewed 11/14/18 @ 11:28 by Queenie Hartman) S/P total hip arthroplasty (Acute) - Secondary Discharge Diagnosis Chronic Problems (Last Reviewed 11/14/18 @ 11:28 by Queenie Hartman) Recurrent falls (Chronic) Essential hypertension (Chronic) Restless legs syndrome (RLS) (Chronic) Parkinson disease (Chronic) Hospital Course and Treatment Operations: None, total hip replacement Summary of Care Provided: The patient is a 83 year old F with a long history of left hip osteoarthritis who has failed conservative treatments and has elected to undergo left total hip arthroplasty. Patient proceeded with the above surgery on 04-04-19 without any intra-operative complications. Patient received pre- and post-operative antibiotics which were discontinued within 23 hours post-operatively. Patient did receive spinal anesthesia successfully in the operating room. Patient received tranexemic acid and had minimal blood loss intraoperatively. PAtient was initially controlled with IV pain medications and was transitioned to oral medications as tolerated/able. Her HGB and HCT showed some decreased during her time at the same time she did not require any blood transfusions during inpatient time and will continue to monitor numbers while in rehabilitation unit. PAtient did have some lower blood pressure readings 1 day post-op which were overall much improved today (one slightly lower during second vital check of the day). She denies any dizziness, headaches, or visual changes at this time. She was given DVT prophylactic measures that included SCDs, SAKINA hose and anticoagulation therapy with eliquis (2.5mg twice daily) to be continued for 3 weeks post hospital discharge. Patient will follow-up in our office for 2 week post-op check for wound check and staple remove. These can be removed in the hospital at 2 weeks if she is still in rehab here at the hospital Subjective: PAtient states that her pain is very minor at this time and is well controlled. She denies any shortness of breath, chest pain, nausea, vomiting, diarrhea, constipation, calf pains/discomort, or numbness/tingling in the left lower extremity. - Physical Exam Vitals/I&O's: Vital Signs Temp Pulse Resp BP Pulse Ox 97.9 F 77 16 95/42 L 98 04/06/19 09:06 04/06/19 09:06 04/06/19 09:06 04/06/19 09:06 04/06/19 09:06 Oxygen Flow Rate (L/min) 6 Oxygen Delivery Method Room Air Weight: 138 lb 10.732 oz Body Mass Index (BMI) 23.8 Finger Stick Blood Glucose 101 Intake and Output for Last 24 Hours 04/04/19 04/05/19 04/06/19 23:59 23:59 23:59 Intake Total / 2939.58 / 3139.58 725 / 725 Output Total 825 / 1075 2400 / 2600 500 / 500 Balance 1188.33 / 938.33 539.58 / 539.58 225 / 225 General: Alert, Oriented x3, Cooperative Oral: Moist Mucosa Lungs: Normal air movement, No rhonchi Extremities: No cyanosis, No edema, Capillary Refill Less than 3 Seconds, No Calf Tenderness Skin: No rashes, Incision - Occlusive post-op dressing still in place at this time. No surrounding erythema, inflammation, warmth, or other signs of infection. Musculoskeletal: No Tenderness to Palpation of Joints or Extremities - no pain over the incision site Laboratory Results 04/06/19 06:33: WBC 7.4, RBC 2.68 L, Hgb 8.3 L, Hct 26.8 L, MCV 100.0 H, MCH 31.0, MCHC 31.0 L, RDW Std Deviation 49.3 H, RDW Coeff of Candy 13.3, Plt Count 167, MPV 11.8 Current Medications Acetaminophen (Tylenol) 1,000 mg PO Q8 REPLACED BY [facility] Last Admin: 04/06/19 05:03 Dose: 1,000 mg Documented by: Apixaban (Eliquis) 2.5 mg PO BID REPLACED BY [facility] Last Admin: 04/06/19 10:44 Dose: 2.5 mg Documented by: Atorvastatin Calcium (Lipitor) 40 mg PO QHS REPLACED BY [facility] Last Admin: 04/05/19 22:29 Dose: 40 mg Documented by: Carbidopa/Levodopa (Sinemet Cr) 1 tablet PO QHS REPLACED BY [facility] Last Admin: 04/05/19 22:30 Dose: 1 tablet Documented by: Carbidopa/Levodopa (Sinemet) 1 tablet PO TIDAC REPLACED BY [facility] Last Admin: 04/06/19 10:45 Dose: 1 tablet Documented by: Hydromorphone HCl (Dilaudid Inj) 0.5 mg IV Q2H PRN PRN PRN Reason: Pain Score 6-10/10 Sodium Chloride () 250 mls @ 15 mls/hr IV .[id number] PRN PRN Reason: Saline Flush Ketorolac Tromethamine (Toradol) 15 mg IV Q6H PRN PRN PRN Reason: Pain Score 1-5/10 Stop: 04/06/19 16:02 Last Admin: 04/06/19 10:49 Dose: 15 mg Documented by: Levothyroxine Sodium (Synthroid) 75 mcg PO DAILY@0600 REPLACED BY [facility] Last Admin: 04/06/19 05:03 Dose: 75 mcg Documented by: Ondansetron HCl (Zofran) 4 mg IV Q6H PRN PRN PRN Reason: NAUSEA Oxycodone HCl (Oxyir) 5 - 10 mg PO Q4H PRN PRN PRN Reason: Pain Score 4-10/10 Last Admin: 04/05/19 22:33 Dose: 5 mg Documented by: Pramipexole Dihydrochloride (Mirapex) 0.5 mg PO QHS REPLACED BY [facility] Last Admin: 04/05/19 22:33 Dose: 0.5 mg Documented by: Senna/Docusate Sodium (Senokot-S, Holly-Colace) 2 tablet PO BID REPLACED BY [facility] Last Admin: 04/06/19 10:44 Dose: 2 tablet Documented by: Sodium Chloride () 10 - 40 ml IV UD PRN PRN Reason: SALINE FLUSH Last Admin: 04/06/19 10:50 Dose: 10 ml Documented by: Discharge Diet: No Restrictions Discharge Activity: Return to Normal Activity Weight Bearing Status: Weight bearing as tolerated Call your doctor if you observe: Fever of 101 or Higher, Inability to urinate, Inability to have a bowel movement, Shortness of breath, Chest pain, Increased palpitations (irregular heartbeat) Remove Dressing in (days):: 3 - remove post-operative dressing and can cleanse at that time. Change dressing daily thereafter Cleanse incision/area with: Soap & Water Home Medications: Medications to take at Discharge Carbidopa/Levodopa [Carbidopa-Levo ER 50-200 Tab] 1 ea PO QHS 06/29/18 Carbidopa/Levodopa [Carbidopa-Levodopa 25-100 Tab] 1 ea PO TID 06/29/18 Levothyroxine Sodium 75 mcg PO DAILY 06/29/18 Ropinirole HCl 1 mg PO QHS 06/29/18 Aspirin [Aspirin, Baby] 81 mg PO QHS 03/28/19 Atorvastatin Calcium [Lipitor] 40 mg PO QHS 03/28/19 Oxycodone [Oxyir] 5 - 10 mg PO Q4H PRN PRN #50 tab 04/05/19 Apixaban [Eliquis] 2.5 mg PO BID 04/06/19 Following Prescrptions Were Given to Patient: Oxycodone [Oxyir] 5 - 10 mg PO Q4H PRN PRN #50 tab PRN Reason: Pain Score 4-1010 Prescription Printed Primary Care Physician: Young Hubbard Chi, MD [Primary Care Provider] - Please Follow Up With: Ghulam iVllagomez DO When: 2 weeks Additional Instructions: Begin daily showering warm water antibacterial soap postop day #3( 72hrs Post-operatively) and then daily. Leave the dressing on for 72 hours postoperatively then may remove prior to first shower and change dressing daily after this until no drainage for 2 consecutive days then may leave open to air. Follow hip precautions as reviewed by hospital physical therapist. Wear compression stockings, may remove at night. Call with any concerns Disposition: Inpt Rehab Unit/Facility Minutes spent on discharge:: 15 Patient Condition:: Good Medical Necessity - Tobacco Use Smoking Status: Former smoker Meaningful Use Info Meaningful Use Diagnoses (Choose all that apply): None applicable
--- NOTE | 2019-04-06 13:04 | PCM.HP.STD ---
Problem List (1) S/P total hip arthroplasty Status: Acute (2) Essential hypertension Status: Chronic (3) Restless legs syndrome (RLS) Status: Chronic (4) Parkinson disease Status: Chronic (5) TIA (transient ischemic attack) Status: Chronic History of Present Illness Date of Admission: 04/06/19 Chief Complaint: Debility status post left total hip arthroplasty The patient is a 83 year old F with PMH HTN, HLD, history of TIA, Parkinson's disease, RLS admitted to [facility] on 04/06/2019 for debility secondary to left total hip arthroplasty, for greater than 3 hours of therapy daily with a goal of returning home at or near her prior level of independence. Patient admitted with left hip pain to [facility] on 04/03/2019, and since she had failed conservative treatments, underwent left total hip arthroplasty by Dr. Villagomez on 04/04/2019 without any postprocedural complications. Per patient she was diagnosed with Parkinson's disease few years ago, does not remember the name of the neurologist who diagnosed her, per patient she does have resting tremors which started up in the right upper extremities initially, does walk with small shuffling gait and also had complains of visual hallucinations. At present follows with Dr. Huang, is on Sinemet 25/100 mg p.o. 3 times daily and Sinemet CR 50/200 mg p.o. nightly. At present patient denies any headache, dizziness, focal motor weakness, sensory loss, speech disturbances, visual disturbances, pain, fever. Per patient she lives with her , had intermittent falls, used cane and walker to ambulate, does not drive, lives in a ranch style house, has ramp in front of the house and back of the house. Past Medical History Past Medical History (Chronic Problems): Chronic Problems (Last Reviewed 11/14/18 @ 11:28 by Queenie Hartman) Recurrent falls (Chronic) Essential hypertension (Chronic) Restless legs syndrome (RLS) (Chronic) Parkinson disease (Chronic) TIA (transient ischemic attack) (Chronic) Allergies Penicillins [PCN] Allergy (Verified 04/04/19 13:29) Itching Sulfa (Sulfonamide Antibiotics) Allergy (Verified 04/04/19 13:29) Itching morphine Adverse Reaction (Verified 03/15/19 13:15) Other Home Medications: Ambulatory Orders Medication Instructions Recorded Carbidopa/Levodopa [Carbidopa-Levo 1 ea PO QHS 06/29/18 ER 50-200 Tab] Carbidopa/Levodopa 1 ea PO TID 06/29/18 [Carbidopa-Levodopa 25-100 Tab] Docusate Sodium 100 mg PO DAILY PRN 06/29/18 Levothyroxine Sodium 75 mcg PO DAILY 06/29/18 Ropinirole HCl 1 mg PO QHS 06/29/18 Aspirin [Aspirin, Baby] 81 mg PO QHS 03/28/19 Atorvastatin Calcium [Lipitor] 40 mg PO QHS 03/28/19 Acetaminophen [Tylenol] 1,000 mg PO Q8 #100 tab 04/05/19 Apixaban [Eliquis] 2.5 mg PO BID #42 tab 04/05/19 Oxycodone [Oxyir] 5 - 10 mg PO Q4H PRN PRN #50 tab 04/05/19 Surgical History: hysterectomy, total knee arthroplasty - bilateral, - - 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 Psychiatric History: No pertinent psych hx 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 Lives: Spouse/ Significant Other Smoking Status: Former smoker Tobacco Use: Non-smoker Alcohol: None Drugs: None - *Family History Maternal History Items: Cancer - of ovarian cancer Paternal History Items: Cancer - pancreatic cancer Review of Systems Constitutional: Reports: - - Complete ROS negative except as documented in HPI VTE Information - Inpt Only VTE Present on Admission: No VTE Mechan Device Prophylaxis: SCD's, Knee High SAKINA Hose VTE Pharm Prophylaxis ordered?: Yes Patient Problems: Active and Suspected Problems (Last Reviewed 11/14/18 @ 11:28 by Queenie Hartman) S/P total hip arthroplasty (Acute) - Physical Exam Vitals/I&O's: Vital Signs Temp Pulse Resp BP Pulse Ox 97.9 F 77 16 95/42 L 98 04/06/19 09:06 04/06/19 09:06 04/06/19 09:06 04/06/19 09:06 04/06/19 09:06 Oxygen Flow Rate (L/min) 6 Oxygen Delivery Method Room Air Weight: 62.9 kg Body Mass Index (BMI) 23.8 Finger Stick Blood Glucose 101 Intake and Output for Last 24 Hours 04/04/19 04/05/19 04/06/19 23:59 23:59 23:59 Intake Total / 2939.58 / 3139.58 725 / 725 Output Total 825 / 1075 2400 / 2600 500 / 500 Balance 1188.33 / 938.33 539.58 / 539.58 225 / 225 General: Alert HEENT: Normocephalic Neck: Supple Lungs: Normal air movement Cardiovascular: Normal S1, Normal S2 Abdomen: Bowel Sounds Present Extremities: No cyanosis Neurological: Cranial nerves II-XII grossly intact, Deep Tendon Reflexes 2+/4 and Symmetrical, Neuro grossly intact, Motor Exam 5/5 strength throughout, Muscle tone normal, Sensory exam intact to light touch and pain, Coordination normal Psych/Mental Status: Normal Affect Laboratory Results 04/06/19 06:33: WBC 7.4, RBC 2.68 L, Hgb 8.3 L, Hct 26.8 L, MCV 100.0 H, MCH 31.0, MCHC 31.0 L, RDW Std Deviation 49.3 H, RDW Coeff of Candy 13.3, Plt Count 167, MPV 11.8 Current Medications Acetaminophen (Tylenol) 1,000 mg PO Q8 [facility] Last Admin: 04/06/19 05:03 Dose: 1,000 mg Documented by: Apixaban (Eliquis) 2.5 mg PO BID [facility] Last Admin: 04/06/19 10:44 Dose: 2.5 mg Documented by: Atorvastatin Calcium (Lipitor) 40 mg PO QHS [facility] Last Admin: 04/05/19 22:29 Dose: 40 mg Documented by: Carbidopa/Levodopa (Sinemet Cr) 1 tablet PO QHS [facility] Last Admin: 04/05/19 22:30 Dose: 1 tablet Documented by: Carbidopa/Levodopa (Sinemet) 1 tablet PO TIDAC [facility] Last Admin: 04/06/19 10:45 Dose: 1 tablet Documented by: Hydromorphone HCl (Dilaudid Inj) 0.5 mg IV Q2H PRN PRN PRN Reason: Pain Score 6-10/10 Sodium Chloride () 250 mls @ 15 mls/hr IV .[id number] PRN PRN Reason: Saline Flush Ketorolac Tromethamine (Toradol) 15 mg IV Q6H PRN PRN PRN Reason: Pain Score 1-5/10 Stop: 04/06/19 16:02 Last Admin: 04/06/19 10:49 Dose: 15 mg Documented by: Levothyroxine Sodium (Synthroid) 75 mcg PO DAILY@0600 [facility] Last Admin: 04/06/19 05:03 Dose: 75 mcg Documented by: Ondansetron HCl (Zofran) 4 mg IV Q6H PRN PRN PRN Reason: NAUSEA Oxycodone HCl (Oxyir) 5 - 10 mg PO Q4H PRN PRN PRN Reason: Pain Score 4-10/10 Last Admin: 04/05/19 22:33 Dose: 5 mg Documented by: Pramipexole Dihydrochloride (Mirapex) 0.5 mg PO QHS [facility] Last Admin: 04/05/19 22:33 Dose: 0.5 mg Documented by: Senna/Docusate Sodium (Senokot-S, Holly-Colace) 2 tablet PO BID [facility] Last Admin: 04/06/19 10:44 Dose: 2 tablet Documented by: Sodium Chloride () 10 - 40 ml IV UD PRN PRN Reason: SALINE FLUSH Last Admin: 04/06/19 10:50 Dose: 10 ml Documented by: Assessment/Plan All Active Problems (Last Reviewed 11/14/18 @ 11:28 by Queenie Hartman) S/P total hip arthroplasty (Acute) Syncope and collapse (Acute) The patient is a 83 year old F with PMH HTN, HLD, history of TIA, Parkinson's disease, RLS admitted to [facility] on 04/06/2019 for debility secondary to left total hip arthroplasty, for greater than 3 hours of therapy daily with a goal of returning home at or near her prior level of independence. Patient admitted with left hip pain to [facility] on 04/03/2019, and since she had failed conservative treatments, underwent left total hip arthroplasty by Dr. iVllagomez on 04/04/2019 without any postprocedural complications. Per patient she was diagnosed with Parkinson's disease few years ago, does not remember the name of the neurologist who diagnosed her, per patient she does have resting tremors which started up in the right upper extremities initially, does walk with small shuffling gait and also had complains of visual hallucinations. At present follows with Dr. Huang, is on Sinemet 25/100 mg p.o. 3 times daily and Sinemet CR 50/200 mg p.o. nightly. At present patient denies any headache, dizziness, focal motor weakness, sensory loss, speech disturbances, visual disturbances, pain, fever. Per patient she lives with her , had intermittent falls, used cane and walker to ambulate, does not drive, lives in a ranch style house, has ramp in front of the house and back of the house. Plan -PT for gait stability -OT for ADLs -ST -Analgesics as needed -Bowel protocol -Left total hip arthroplasty-by Dr. Villagomez on 04/04/2019. Further management per orthopedic recommendations. Per orthopedic recommendations weightbearing as tolerated, daily showering with warm water antibacterial soap begin postop day 3 (72 hours postoperatively), and then daily. Leave the dressing on for 72 hours postoperatively then may remove prior to first shower and change dressing daily after this until no drainage for 2 consecutive days then may leave open to air. Follow hip precautions. Wear compression stockings, may remove at night. -HTN-Per patient had hypertension in the past but then lost weight and since then has been normotensive, monitor blood pressure with a goal less than 130/80 mmHg -HLD?on Lipitor 40 mg p.o. nightly -TIA?on aspirin and Lipitor -PD on Sinemet ER 50/200 mg p.o. nightly and Sinemet 25/100 mg p.o. 3 times daily -RLS on ropinirole -GI/DVT prophylaxis-Pepcid/Eliquis 2.5 mg p.o. twice daily, SCDs, SAKINA dawn. Per orthopedic recommendation Eliquis 2.5 mg p.o. twice daily for 21 days following inpatient hospital discharge -Fall precautions -Further medical management per hospitalist team -Follow-up with PCP, neurology Dr. Huang, orthopedic Dr. Villagomez following discharge. This note has been generated using [employer] dictation software. It may contain incorrect words, spellings and punctuation that were not noted in the review of the note prior to signing Code Visit Inpatient E&M: 86634 Init Hosp L3
[2019-04-06 13:47] VITALS: BP 123/85; PULSE 83; RESP 18; TEMP 36.6; O2SAT 98
== END 2019-04-06 15:11 | DRG 470 ==
LOC: ACINP 11:52 → MS3 16:10
PROVIDERS: Anesthesiology; Admitting Provider Orthopaedic Surgery; Family Provider Family Medicine Geriatric Medicine; PCP Family Medicine Geriatric Medicine; Referring Provider Orthopaedic Surgery; Visit Provider Orthopaedic Surgery
PROC: 0SRB0JZ Replacement of Left Hip Joint with Synthetic Substitute, Open Approach (ICD-10-PCS; CPT 27130; principal; 2019-04-04 13:45)
DX: M16.12 Unilateral primary osteoarthritis, left hip (principal); R29.6 Repeated falls; G25.81 Restless legs syndrome; G20 Parkinson's disease; I10 Essential (primary) hypertension; Z87.891 Personal history of nicotine dependence
CPT/HCPCS: 36415; 73502; 80048; 82962; 85027; 85610; 85730; 87081; 97110; 97116; 97163; 97166; 97530; 97802; 99251; C1713; C1776; J7120; A4216; G0463

== ENCOUNTER 2019-04-06 15:30 | Inpatient (IN) | payer MEDICARE, OTHER, SELFPAY ==
[2019-04-04 18:25] VITALS: BMI 23.8
[2019-04-06 15:51] VITALS: BP 127/71; PULSE 89; RESP 18; TEMP 36.7; O2SAT 98; BMI 23.8
[2019-04-06] MEDS: Carbidopa/Levodopa 25/100 Tablet PO (17:06)
--- NOTE | 2019-04-06 18:00 | NURSING ---
Aware of being a fall risk and must ask for staff assist for transfers and help.
[2019-04-06 20:37] VITALS: BP 117/66; PULSE 81; RESP 18; TEMP 36.8; O2SAT 97
--- NOTE | 2019-04-06 21:03 | PCM.PN.HOSP ---
Subjective: Patient with no acute complaints or events since transition from inpatient to acute rehab. She does note that currently her left hip is painful, 9 out of 10 in severity although she does not appear severely uncomfortable and is getting pain medications currently. She does have ongoing right greater than left restless legs and is being dosed with her Requip now. She notes that she was hopeful that she would be able to go home but understands why she needs to be in acute rehab for ongoing therapies. Patient states that she does have a tendency to be constipated and discussed with nurse present need to closely monitor bowel function. Patient denies fevers, chills, nausea, emesis, abdominal pain, chest pain or dyspnea. Objective: Physical Examination: General: awake, alert, oriented x 3 and cooperative, seated upright in the acute rehab bed in no apparent distress. Skin: normal color, turgor, no icterus, cyanosis, status post recent left total hip replacement, dressing in place, clean/dry/intact. HEENT: AT/NC, EOMI, PERRLA, MMM, no carotid bruits or JVD noted. Lungs: CTA bilaterally, moderate effort, moderate decrease BL bases, no rales, ronchi or wheezing. Heart: Regular rate and rhythm; no gallop, rub audible. Abdomen: soft, NTTP, ND, mildly hypoactive BS, no HSM. Extremities: no cyanosis, clubbing, or edema. Status post recent left total hip replacement, dressing in place, clean/dry/intact. Neurological: patient awake, alert, oriented x 3; cognitive function intact; pupils equally reactive to light and accomodation; cranial nerves II-XII grossly normal, moving all 4 extremities although some limitation with left lower extremity, strength moderately global decrease secondary to recent operative intervention. Psychiatric: affect appears fatigued, no acute evidence of depressive or anxiety feelings. Vitals/I&O's: Vital Signs Temp Pulse Resp BP Pulse Ox 98.2 F 81 18 117/66 97 04/06/19 20:37 04/06/19 20:37 04/06/19 20:37 04/06/19 20:37 04/06/19 20:37 Oxygen Delivery Method Room Air Weight: 138 lb 10.732 oz Body Mass Index (BMI) 23.8 Finger Stick Blood Glucose 101 Current Medications Acetaminophen (Tylenol) 1,000 mg PO Q8H PRN PRN PRN Reason: Pain or Fever Apixaban (Eliquis) 2.5 mg PO BID [facility] Stop: 04/27/19 10:01 Aspirin (Aspirin, Baby) 81 mg PO QHS [facility] Atorvastatin Calcium (Lipitor) 40 mg PO QHS [facility] Bisacodyl (Dulcolax) 10 mg RECTAL .PRN X 1 PRN PRN Reason: Constipation Carbidopa/Levodopa (Sinemet) 1 tablet PO TIDAC [facility] Last Admin: 04/06/19 17:06 Dose: 1 tablet Documented by: Carbidopa/Levodopa (Sinemet Cr) 1 tablet PO QHS [facility] Famotidine (Pepcid) 20 mg PO BID [facility] Levothyroxine Sodium (Synthroid) 75 mcg PO DAILY@0600 [facility] Magnesium Hydroxide (Milk Of Magnesia) 30 ml PO .PRN X 1 PRN PRN Reason: Constipation Oxycodone HCl (Oxyir) 5 - 10 mg PO Q4H PRN PRN PRN Reason: Pain Score 1-10/10 Pramipexole Dihydrochloride (Mirapex) 0.5 mg PO QHS [facility] Senna/Docusate Sodium (Senokot-S, Holly-Colace) 2 tablet PO BID [facility] STROKE Vital Signs/Narrative: Vital Signs Temp Pulse Resp BP Pulse Ox 04/06/19 20:37 98.2 F 81 18 117/66 97 Medical Necessity - Tobacco Use Smoking Status: Former smoker Assessment/Plan All Active Problems (Last Reviewed 11/14/18 @ 11:28 by Queenie Hartman) S/P total hip arthroplasty (Acute) Syncope and collapse (Acute) The patient is an 83 y/o F w/ PMHx: Parkinson's Disease, HTN, Former Tobacco use, RLS, Hx TIA, DEDE not using CPAP, Hypothyroidism, OA s/p recent L THR on 04/04/[address] Villagomez who presents to the [facility] for ongoing PT/OT evaluations and care. 1. Severe osteoarthritis, status post recent left total hip replacement: 04/04/2019 left total hip replacement, admitted to Acute Rehabilitation on 04/06/19 for planned therapy evaluations, post-operative pain management, bowel regimen, maintained on Eliquis DVT Prophylaxis per orthopedic surgery discretion, PT/OT/CM ongoing. 2. Hypertension: Noted history, BP low normal and patient has been off regimen for some time, continue to monitor and add if necessary. 3. Hyperlipidemia: Continue home statin regimen. 4. History of TIA: Maintained on aspirin and also has current prophylaxis with low-dose Eliquis, statin, not on BP regimen is BP now low normal range. 5. Parkinson's disease: We will continue patient home levodopa, fall precautions, continued rehab physician evaluation and additions as felt appropriate. 6. ROS: We will continue home Requip regimen. 7. GERD: Maintained on famotidine. 8. Hypothyroidism: Continue home synthroid regimen. 9. DEDE: Does not use CPAP. 10. DVT prophylaxis: SCDs, Eliquis. 11. CODE status: Patient's and son are healthcare power of insurance attorney's. She does note that living will and plans have been previously discussed and are in place. Discussed CODE status at length including difference between FULL code, DNR-CCA and DNR-CC status. Following discussions about the differences in these status, requested DNR-CCA, no intubation status. Advanced Care Planning Face to Face Time: 16 minutes. Code Visit Inpatient E&M: 82630 Subs Hosp L3 Procedures: 97182 Advncd Care Plan 30 Min
[2019-04-06] MEDS: oxyCODONE 5 MG Tablet PO (21:11)
[2019-04-06] MEDS: Famotidine 20 MG Tablet PO (21:13)
[2019-04-06] MEDS: CARBIDOPA/LEVODOPA CR 50/200 Tablet PO (21:13)
[2019-04-06] MEDS: Pramipexole Di-HCl 0.5 MG Tablet PO (21:13)
[2019-04-06] MEDS: Senna/Docusate Sodium 1 Tablet 2 TABLET PO (21:13)
[2019-04-06] MEDS: Aspirin 81 MG TAB.CHEW PO (21:14)
[2019-04-06] MEDS: APIXABAN 2.5 MG TABLET PO (21:14)
[2019-04-06] MEDS: Atorvastatin Calcium 40 MG Tablet PO (21:51)
[2019-04-07] MEDS: Acetaminophen 500 MG Tablet 1000 MG PO ×2 (05:06→14:44)
[2019-04-07] MEDS: Carbidopa/Levodopa 25/100 Tablet PO ×3 (05:34→16:52)
[2019-04-07] MEDS: Levothyroxine 75 MCG Tablet PO (05:34)
[2019-04-07 05:49] LABS: Hematocrit 25.7 % (37-47); Hemoglobin 7.9 g/dL (12.0-15.0); Mean Corp Hgb Conc 30.7 g/dL (32-36); Mean Corpuscular Hgb 31.3 pg (27.0-32.0); Mean Platelet Vol. 11.3 fl (6.2-12.0); Platelet Count 179 K/mm3 (150-450); RBC Distribution Width CV 13.4 % (11.6-14.6); RBC Distribution Width SD 50.1 fl (35.1-43.9); Red Blood Count 2.52 M/mm3 (4.2-5.4); White Blood Count 6.4 K/mm3 (4.4-11.0)
[2019-04-07 06:11] LABS: Anion Gap 6 (5-15); BUN 21 mg/dL (7-18); BUN/Creat Ratio 45.2 RATIO (10-20); Calcium,Total 8.2 mg/dL (8.5-10.1); Chloride 107 mmol/L (98-107); Creatinine, Serum 0.46 mg/dL (0.55-1.02); EST Glomerular Filtration Rate 137 mL/min (>60); Est Glom Filt Rate - Afr Amer 165 mL/min (>60); Glucose 88 mg/dL (74-106); Potassium 3.5 mmol/L (3.5-5.1); Sodium Level 141 mmol/L (136-145)
[2019-04-07 07:12] VITALS: BP 110/62; PULSE 77; RESP 16; TEMP 36.7; O2SAT 95
[2019-04-07 07:18] VITALS: O2SAT 95
[2019-04-07] MEDS: APIXABAN 2.5 MG TABLET PO ×2 (08:13→20:05)
[2019-04-07] MEDS: Famotidine 20 MG Tablet PO ×2 (08:13→20:05)
[2019-04-07] MEDS: Senna/Docusate Sodium 1 Tablet 2 TABLET PO ×2 (08:13→20:04)
--- NOTE | 2019-04-07 12:00 | NURSING ---
Dr. Novoa aware of labs. Asymptomatic for low hgb. Denies dizziness or fatigue, in good spirits.
--- NOTE | 2019-04-07 12:13 | PN_ITS ---
Subjective: The patient is an 83-year-old female admitted to the inpatient rehab unit at [facility] on 04/06/2019 for debility secondary to an elective left hip replacement. Past medical history is significant for hypertension, hyperlipidemia, Parkinson's disease, restless leg syndrome, osteoarthritis, hypothyroidism, polio in the distant past, GERD, tobacco dependence in remission (quit at age 30), chronic constipation and obstructive sleep apnea (not using CPAP). She has lost 46 lbs since June 2018. She is not trying to lose weight but is happy with weight loss. Tells me that her appetite is not good. She denies nausea, vomiting, abdominal pain, hematochezia, melena, emesis, nonsteroidal anti-inflammatory use, shortness of breath, lightheadedness. She does admit to insomnia and states that she has problems falling asleep. She admits to feeling depressed but is not on an antidepressant agent. She has not had a MMG or a colonoscopy in > 5 years. There is a FH of ovarian CA in her mother and her daughter. No FH of colon CA. son of lung CA 3 years ago and she is still very tearful about this. She lives at home with her . Her son checks on them 3 X's a week and lives near. All lab was personally reviewed. Hemoglobin is low at 7.9 with an MCV of 102 and an increased RDW standard deviation of 50.1. BMP shows an elevated BUN at 21 with a creatinine of 0.46 and a BUN/creatinine ratio of 45. Calcium is low at 8.2. TSH in February 2019 was 0.7(it has never been high). No T4 in the EMR in the past 3 years. LDL cholesterol in September 2018 was 144. Pt has been stopping medications that she feels she does not need and she has stopped the statin. She still takes thyroid supplement, Sinemet, ropinirole. Started on Eliquis for DVT prophylaxis. She is also on ASA 81 mg daily. Chest x-ray in September 2018 showed elevation of the right hemidiaphragm with borderline cardiomegaly and calcification of the mitral valve annulus. Echocardiogram in June 2018 showed a 65% ejection fraction with stage I diastolic dysfunction, mild to moderate MR, mild TR and mild AI. The right ventricular systolic pressure was estimated at 26. She was admitted to the hospital in September of 2018 for slurred speech lasting 90 minutes. MRI was negative and she was diagnosed with a TIA. She was discharged on ASA 81 mg daily and a statin. A DEXA scan in 2017 showed osteopenia of both the left and right femoral necks. - Physical Exam Vitals/I&O's: Vital Signs Temp Pulse Resp BP Pulse Ox 98.1 F 77 16 110/62 95 04/07/19 07:12 04/07/19 07:12 04/07/19 07:12 04/07/19 07:12 04/07/19 07:18 Oxygen Delivery Method Room Air Weight: 138 lb 10.732 oz Body Mass Index (BMI) 23.8 Finger Stick Blood Glucose 101 Intake and Output for Last 24 Hours 04/05/19 04/06/19 04/07/19 23:59 23:59 23:59 Output Total 200 / 200 200 / 200 Balance -200 / -200 -200 / -200 General: Alert, Cooperative, No apparent distress, - - Lying in bed in no apparent discomfort. HEENT: Atraumatic, PERRLA, EOMI, Normocephalic, - - Palpebral conjunctiva is very pale. Oral: No Gingival or Mucosal Lesions/ Ulcerations, Dry Mucosa Neck: Supple, Negative Carotid Bruits, No Nodes, No Nuchal Rigidity, Trachea Midline Lungs: Clear to auscultation, Diminished, - - Breast exam revealed no masses no nipple discharge. There was no axillary adenopathy present. Cardiovascular: Regular rate, Regular Rhythm, Normal S1, Normal S2, No Ectopic Activity, Murmur - She has a 2/6 systolic murmur heard at the second right intercostal space with radiation to the left ventricular outflow tract, lower left sternal border and apex. She also has a somewhat milder systolic murmur in the left axillary area and is known to have mild to moderate MR. There is calcification of the mitral valve annulus on echocardiogram within the past year., No rub noted, No Gallop Abdomen: Bowel Sounds Present, Soft, Non Tender, Non-Distended, - - No hepatosplenomegaly, no masses. Rectal exam reveals good sphincter tone and there is soft brown stool in the rectal vault. A sample of stool was sent to the lab for Hemoccult. Skin: No rashes, No breakdown, - - She has some ecchymosis of the left upper lateral thigh secondary to recent left THR Neurological: Cranial nerves II-XII grossly intact, Neuro grossly intact Psych/Mental Status: Normal Affect, Appropriate Laboratory Results 04/07/19 05:30: WBC 6.4, RBC 2.52 L, Hgb 7.9 L, Hct 25.7 L, MCV 102.0 H, MCH 31.3, MCHC 30.7 L, RDW Std Deviation 50.1 H, RDW Coeff of Candy 13.4, Plt Count 179, MPV 11.3 04/07/19 05:30: Sodium 141, Potassium 3.5, Chloride 107, Carbon Dioxide 28.0, Anion Gap 6, BUN 21 H, Creatinine 0.46 L, Estim Creat Clear Calc 38.10, Est GFR (MDRD) Af Amer 165, Est GFR (MDRD) Non-Af 137, BUN/Creatinine Ratio 45.2 H, Glucose 88, Calcium 8.2 L Current Medications Acetaminophen (Tylenol) 1,000 mg PO Q8H PRN PRN PRN Reason: Pain or Fever Last Admin: 04/07/19 05:06 Dose: 1,000 mg Documented by: Apixaban (Eliquis) 2.5 mg PO BID [facility] Stop: 04/27/19 10:01 Last Admin: 04/07/19 08:13 Dose: 2.5 mg Documented by: Aspirin (Aspirin, Baby) 81 mg PO QHS [facility] Last Admin: 04/06/19 21:14 Dose: 81 mg Documented by: Atorvastatin Calcium (Lipitor) 40 mg PO QHS [facility] Last Admin: 04/06/19 21:51 Dose: 40 mg Documented by: Bisacodyl (Dulcolax) 10 mg RECTAL .PRN X 1 PRN PRN Reason: Constipation Calcium/Vitamin D (Os-Elan 500mg + D) [facility] Carbidopa/Levodopa (Sinemet) 1 tablet PO TIDAC [facility] Last Admin: 04/07/19 11:56 Dose: 1 tablet Documented by: Carbidopa/Levodopa (Sinemet Cr) 1 tablet PO QHS [facility] Last Admin: 04/06/19 21:13 Dose: 1 tablet Documented by: Famotidine (Pepcid) 20 mg PO BID [facility] Last Admin: 04/07/19 08:13 Dose: 20 mg Documented by: Levothyroxine Sodium (Synthroid) 75 mcg PO DAILY@0600 [facility] Last Admin: 04/07/19 05:34 Dose: 75 mcg Documented by: Magnesium Hydroxide (Milk Of Magnesia) 30 ml PO .PRN X 1 PRN PRN Reason: Constipation Oxycodone HCl (Oxyir) 5 - 10 mg PO Q4H PRN PRN PRN Reason: Pain Score 1-10/10 Last Admin: 04/06/19 21:11 Dose: 10 mg Documented by: Polyethylene Glycol (Miralax) 17 gm PO DAILY [facility] Pramipexole Dihydrochloride (Mirapex) 0.125 mg PO TID [facility] Senna/Docusate Sodium (Senokot-S, Holly-Colace) 2 tablet PO BID [facility] Last Admin: 04/07/19 08:13 Dose: 2 tablet Documented by: Medical Necessity - Tobacco Use Smoking Status: Former smoker Assessment/Plan All Active Problems (Last Reviewed 11/14/18 @ 11:28 by Queenie Hartman) S/P total hip arthroplasty (Acute) Syncope and collapse (Acute) Impressions 1. Debility secondary to recent left total hip arthroplasty secondary to severe osteoarthritis. 2. Macrocytic anemia-etiology? Will check T4, folate and B12. Recheck H&H in the a.m. Transfusion was discussed with the patient but she is reticent at this point but will think about it. 3. Elevated BUN/creatinine -suspicious for either GI blood loss, dehydration. A stool sample was sent to the lab for Hemoccult 4. Parkinson's disease-continue Sinemet 5. ? Restless leg syndrome. The patient tells me that the ropinirole only works if she takes it 3 times a day and I suspect this is treating Parkinson's disease and not restless leg. The hospital only has Mirapex on formulary and she will be started on 0.125 mg 3 times daily. Will need to monitor closely for any signs of bradycardia or orthostatic hypotension. 6. Chronic constipation-MiraLAX added to her drug regimen 7. Unintentional weight loss of 46 pounds since June 2018. She admits to a decreased appetite and intake and she is happy with her weight loss although she was not trying to lose weight. No obvious signs of malignancy on physical examination. Weight loss may be secondary to poor intake related to untreated depression 8. Depression/insomnia-untreated. Will start Remeron 7.5 mg p.o. nightly 9. History of TIA and September 2018. Patient has discontinued aspirin and statin on her own as an outpatient and these have been restarted in the hospital. Will reinforce with her the importance of taking a statin and aspirin to prevent further TIAs and/or CVAs. 10. Hypertension 11. Hyperlipidemia 12. Obstructive sleep apnea-untreated 13. Osteopenia of the right and left femoral neck in 2016 with a low calcium on BMP. Vitamin D level in February 2019 was borderline low. She has been started on calcium/vitamin D twice daily. Code Visit Inpatient E&M: 14437 Subs Hosp L2
[2019-04-07 12:40] LABS: Albumin, Serum 2.4 g/dL (3.2-5.0)
[2019-04-07 12:54] LABS: Ferritin 145 ng/mL (8-252); T4 Total, Thyroxin 7.1 ug/dL (4.8-13.9)
[2019-04-07 12:55] LABS: Vitamin B12 258 pg/mL (211-911)
--- NOTE | 2019-04-07 13:27 | PN.NEURO_ITS ---
Subjective: No issues overnight. Care discussed with the nursing staff. - Physical Exam Vitals/I&O's: Vital Signs Temp Pulse Resp BP Pulse Ox 98.1 F 77 16 110/62 95 04/07/19 07:12 04/07/19 07:12 04/07/19 07:12 04/07/19 07:12 04/07/19 07:18 Oxygen Delivery Method Room Air Weight: 62.9 kg Body Mass Index (BMI) 23.8 Finger Stick Blood Glucose 101 Intake and Output for Last 24 Hours 04/05/19 04/06/19 04/07/19 23:59 23:59 23:59 Output Total 200 / 200 200 / 200 Balance -200 / -200 -200 / -200 General: Alert HEENT: Normocephalic Neck: Supple Lungs: Normal air movement Cardiovascular: Normal S1, Normal S2 Abdomen: Bowel Sounds Present Extremities: No cyanosis Neurological: Cranial nerves II-XII grossly intact, Deep Tendon Reflexes 2+/4 and Symmetrical, Neuro grossly intact, Motor Exam 5/5 strength throughout, Muscle tone normal, Sensory exam intact to light touch and pain, Coordination normal Psych/Mental Status: Normal Affect Microbiology Past 72 Hours 04/07/19 12:00 Stool Stool Occult Blood (DONALD) - Final Laboratory Results 04/07/19 05:30: WBC 6.4, RBC 2.52 L, Hgb 7.9 L, Hct 25.7 L, MCV 102.0 H, MCH 31.3, MCHC 30.7 L, RDW Std Deviation 50.1 H, RDW Coeff of Candy 13.4, Plt Count 179, MPV 11.3 04/07/19 05:30: Sodium 141, Potassium 3.5, Chloride 107, Carbon Dioxide 28.0, Anion Gap 6, BUN 21 H, Creatinine 0.46 L, Estim Creat Clear Calc 38.10, Est GFR (MDRD) Af Amer 165, Est GFR (MDRD) Non-Af 137, BUN/Creatinine Ratio 45.2 H, Glucose 88, Calcium 8.2 L 04/07/19 05:30: Ferritin 145, Folate 3.40, Thyroxine (T4) 7.1 04/07/19 05:30: Vitamin B12 258 04/07/19 05:30: Albumin 2.4 L Current Medications Acetaminophen (Tylenol) 1,000 mg PO Q8H PRN PRN PRN Reason: Pain or Fever Last Admin: 04/07/19 05:06 Dose: 1,000 mg Documented by: Apixaban (Eliquis) 2.5 mg PO BID [facility] Stop: 04/27/19 10:01 Last Admin: 04/07/19 08:13 Dose: 2.5 mg Documented by: Aspirin (Aspirin, Baby) 81 mg PO QHS [facility] Last Admin: 04/06/19 21:14 Dose: 81 mg Documented by: Atorvastatin Calcium (Lipitor) 40 mg PO QHS [facility] Last Admin: 04/06/19 21:51 Dose: 40 mg Documented by: Bisacodyl (Dulcolax) 10 mg RECTAL .PRN X 1 PRN PRN Reason: Constipation Calcium/Vitamin D (Os-Elan 500mg + D) [facility] Carbidopa/Levodopa (Sinemet) 1 tablet PO TIDAC [facility] Last Admin: 04/07/19 11:56 Dose: 1 tablet Documented by: Carbidopa/Levodopa (Sinemet Cr) 1 tablet PO QHS [facility] Last Admin: 04/06/19 21:13 Dose: 1 tablet Documented by: Famotidine (Pepcid) 20 mg PO BID [facility] Last Admin: 04/07/19 08:13 Dose: 20 mg Documented by: Levothyroxine Sodium (Synthroid) 75 mcg PO DAILY@0600 [facility] Last Admin: 04/07/19 05:34 Dose: 75 mcg Documented by: Magnesium Hydroxide (Milk Of Magnesia) 30 ml PO .PRN X 1 PRN PRN Reason: Constipation Mirtazapine (Remeron) 7.5 mg PO QHS [facility] Oxycodone HCl (Oxyir) 5 - 10 mg PO Q4H PRN PRN PRN Reason: Pain Score 1-10/10 Last Admin: 04/06/19 21:11 Dose: 10 mg Documented by: Polyethylene Glycol (Miralax) 17 gm PO DAILY [facility] Pramipexole Dihydrochloride (Mirapex) 0.125 mg PO TID [facility] Senna/Docusate Sodium (Senokot-S, Holly-Colace) 2 tablet PO BID [facility] Last Admin: 04/07/19 08:13 Dose: 2 tablet Documented by: Medical Necessity - Tobacco Use Smoking Status: Former smoker Assessment/Plan All Active Problems (Last Reviewed 11/14/18 @ 11:28 by Queenie Hartman) S/P total hip arthroplasty (Acute) Syncope and collapse (Acute) The patient is a 83 year old F with PMH HTN, HLD, history of TIA, Parkinson's disease, RLS and depression admitted to [facility] on 04/06/2019 for debility secondary to left total hip arthroplasty, for greater than 3 hours of therapy daily with a goal of returning home at or near her prior level of independence. Patient admitted with left hip pain to [facility] on 04/03/2019, and since she had failed conservative treatments, underwent left total hip arthroplasty by Dr. Villagomez on 04/04/2019 without any postprocedural complications. Per patient she was diagnosed with Parkinson's disease few years ago, does not remember the name of the neurologist who diagnosed her, per patient she does have resting tremors which started up in the right upper extremities initially, does walk with small shuffling gait and also had complains of visual hallucinations. At present follows with Dr. Huang, is on Sinemet 25/100 mg p.o. 3 times daily and Sinemet CR 50/200 mg p.o. nightly. At present patient denies any headache, dizziness, focal motor weakness, sensory loss, speech disturbances, visual disturbances, pain, fever. Per patient she lives with her , had intermittent falls, used cane and walker to ambulate, does not drive, lives in a ranch style house, has ramp in front of the house and back of the house. Plan -PT for gait stability -OT for ADLs -ST -Analgesics as needed -Bowel protocol -Left total hip arthroplasty-by Dr. Villagomez on 04/04/2019. Further management per orthopedic recommendations. Per orthopedic recommendations weightbearing as tolerated, daily showering with warm water antibacterial soap begin postop day 3 (72 hours postoperatively), and then daily. Leave the dressing on for 72 hours postoperatively then may remove prior to first shower and change dressing daily after this until no drainage for 2 consecutive days then may leave open to air. Follow hip precautions. Wear compression stockings, may remove at night. -HTN-Per patient had hypertension in the past but then lost weight and since then has been normotensive, monitor blood pressure with a goal less than 130/80 mmHg -HLD?on Lipitor 40 mg p.o. nightly -TIA?on aspirin and Lipitor -PD on Sinemet ER 50/200 mg p.o. nightly and Sinemet 25/100 mg p.o. 3 times daily -RLS on Pramipexole -Depression- on Remeron -GI/DVT prophylaxis-Pepcid/Eliquis 2.5 mg p.o. twice daily, SCDs, SAKINA lópez. Per orthopedic recommendation Eliquis 2.5 mg p.o. twice daily for 21 days following inpatient hospital discharge -Fall precautions -Further medical management per hospitalist team -Follow-up with PCP, neurology Dr. Huang, orthopedic Dr. Villagomez following discharge.
[2019-04-07] MEDS: Pramipexole Di-HCl 0.125 MG Tablet PO ×2 (15:15→20:05)
[2019-04-07] MEDS: Polyethylene Glycol 3350 17 GM PACKET PO (15:17)
[2019-04-07] MEDS: Calcium Carb/Vitamin D 1 TABLET Tablet PO (16:52)
[2019-04-07] MEDS: oxyCODONE 5 MG Tablet PO (20:00)
[2019-04-07] MEDS: Atorvastatin Calcium 40 MG Tablet PO (20:04)
[2019-04-07] MEDS: Mirtazapine 15 MG Tablet 7.5 MG PO (20:04)
[2019-04-07] MEDS: Aspirin 81 MG TAB.CHEW PO (20:05)
[2019-04-07] MEDS: CARBIDOPA/LEVODOPA CR 50/200 Tablet PO (20:07)
[2019-04-07 20:12] VITALS: BP 133/74; PULSE 77; RESP 18; TEMP 36.8; O2SAT 97
--- NOTE | 2019-04-07 21:46 | NURSING ---
Bed alarms going off, found pt with legs over side of bed, attempting to get oob. States I've called numerous times to go to bathroom and now I'm going. Call light was beside pt, no call light went off at nurses station, verified by two staff. Reinstructed on use of call light. Also instructed pt that call light on bed rail does not work. Assisted pt to bathroom. Informed pt to call for all transfers. Pt appears somewhat confused, does not know where she is. Oriented to person.
[2019-04-08] MEDS: Levothyroxine 75 MCG Tablet PO (05:46)
[2019-04-08] MEDS: Carbidopa/Levodopa 25/100 Tablet PO ×3 (05:46→16:25)
[2019-04-08] MEDS: Pramipexole Di-HCl 0.125 MG Tablet PO ×3 (05:47→21:09)
[2019-04-08] MEDS: Acetaminophen 500 MG Tablet 1000 MG PO ×2 (05:47→23:54)
[2019-04-08 05:51] VITALS: BP 117/69; BP 118/44; BP 121/68; PULSE 84; PULSE 89
[2019-04-08 07:26] LABS: Hematocrit 25.9 % (37-47)
[2019-04-08 08:01] VITALS: BP 117/69; PULSE 89; RESP 16; TEMP 36.7; O2SAT 99
[2019-04-08] MEDS: Senna/Docusate Sodium 1 Tablet 2 TABLET PO ×2 (08:18→21:10)
[2019-04-08] MEDS: Polyethylene Glycol 3350 17 GM PACKET PO (08:18)
[2019-04-08] MEDS: Calcium Carb/Vitamin D 1 TABLET Tablet PO ×2 (08:19→16:24)
[2019-04-08] MEDS: Famotidine 20 MG Tablet PO ×2 (08:19→21:09)
[2019-04-08] MEDS: APIXABAN 2.5 MG TABLET PO ×2 (08:19→21:10)
[2019-04-08 12:08] VITALS: O2SAT 91
[2019-04-08] MEDS: Magnesium Hydroxide 30 ML UDC PO (12:16)
[2019-04-08] MEDS: oxyCODONE 5 MG Tablet PO ×2 (12:46→18:02)
--- NOTE | 2019-04-08 12:52 | PCM.PN.HOSP ---
Subjective: Patient was seen and examined. She denied any new complains. Therapy is going well. Objective: Physical exam: General: Alert, Cooperative, No apparent distress HEENT: Atraumatic, PERRLA, EOMI, Normocephalic Oral: No Gingival or Mucosal Lesions/ Ulcerations, moist mucosa Neck: Supple, Negative Carotid Bruits, No Nodes, No Nuchal Rigidity, Trachea Midline Lungs: Clear to auscultation, Diminished Cardiovascular: Regular rate, Regular Rhythm, Normal S1, Normal S2, 2/6 holosystolic murmur heard at the second right intercostal space with radiation to the left ventricular outflow tract, lower left sternal border and apex. She also has a somewhat milder systolic murmur in the left axillary area and is known to have mild to moderate MR. There is calcification of the mitral valve annulus on echocardiogram within the past year., No rub noted, No Gallop Abdomen: Bowel Sounds Present, Soft, Non Tender, Non-Distended, - - No hepatosplenomegaly, no masses. Skin: No rashes, No breakdown, Neurological: Cranial nerves II-XII grossly intact, Neuro grossly intact Psych/Mental Status: Normal Affect, Appropriate Vitals/I&O's: Vital Signs Temp Pulse Resp BP Pulse Ox 98.1 F 89 16 117/69 91 04/08/19 08:01 04/08/19 08:01 04/08/19 08:01 04/08/19 08:01 04/08/19 12:08 Oxygen Delivery Method Room Air Weight: 62.9 kg Body Mass Index (BMI) 23.8 Finger Stick Blood Glucose 101 Orthostatic Vital Signs Start: 04/08/19 05:51 Freq: q24h Status: Active Protocol: Activity Type Activity Date Activity User E-Sign Co-Sign Detail Recorded Client Recorded Date Recorded By Document 04/08/19 05:51 [facility] [id number] 04/08/19 05:56 IAW 04/08/19 05:51 Orthostatic Vitals Standing -Blood Pressure (90/60-120/80) 121/68 H -Extremity Use Right Arm -Pulse Rate (60-100) 84 Sitting -Blood Pressure (90/60-120/80) 118/44 L -Extremity Use Right Arm -Pulse Rate (60-100) 84 Lying -Blood Pressure (90/60-120/80) 117/69 -Extremity Use Right Arm -Pulse Rate (60-100) 89 Intake and Output for Last 24 Hours 04/06/19 04/07/19 04/08/19 23:59 23:59 23:59 Intake Total 600 / 600 Output Total 200 / 200 200 / 200 Balance -200 / -200 -200 / -200 600 / 600 Microbiology Past 72 Hours 04/07/19 12:00 Stool Stool Occult Blood (DONALD) - Final Laboratory Results 04/07/19 05:30: Ferritin 145, Folate 3.40, Thyroxine (T4) 7.1 04/07/19 05:30: Vitamin B12 258 04/08/19 06:40: Hgb 8.0 L, Hct 25.9 L Current Medications Acetaminophen (Tylenol) 1,000 mg PO Q8H PRN PRN PRN Reason: Pain or Fever Last Admin: 04/08/19 05:47 Dose: 1,000 mg Documented by: Apixaban (Eliquis) 2.5 mg PO BID [facility] Stop: 04/27/19 10:01 Last Admin: 04/08/19 08:19 Dose: 2.5 mg Documented by: Aspirin (Aspirin, Baby) 81 mg PO QHS [facility] Last Admin: 04/07/19 20:05 Dose: 81 mg Documented by: Atorvastatin Calcium (Lipitor) 40 mg PO QHS [facility] Last Admin: 04/07/19 20:04 Dose: 40 mg Documented by: Bisacodyl (Dulcolax) 10 mg RECTAL .PRN X 1 PRN PRN Reason: Constipation Calcium/Vitamin D (Os-Elan 500mg + D) 1 tablet PO BIDCM [facility] Last Admin: 04/08/19 08:19 Dose: 1 tablet Documented by: Carbidopa/Levodopa (Sinemet) 1 tablet PO TIDAC [facility] Last Admin: 04/08/19 11:32 Dose: 1 tablet Documented by: Carbidopa/Levodopa (Sinemet Cr) 1 tablet PO QHS [facility] Last Admin: 04/07/19 20:07 Dose: 1 tablet Documented by: Famotidine (Pepcid) 20 mg PO BID [facility] Last Admin: 04/08/19 08:19 Dose: 20 mg Documented by: Levothyroxine Sodium (Synthroid) 75 mcg PO DAILY@0600 [facility] Last Admin: 04/08/19 05:46 Dose: 75 mcg Documented by: Magnesium Hydroxide (Milk Of Magnesia) 30 ml PO .PRN X 1 PRN PRN Reason: Constipation Last Admin: 04/08/19 12:16 Dose: 30 ml Documented by: Mirtazapine (Remeron) 7.5 mg PO QHS [facility] Last Admin: 04/07/19 20:04 Dose: 7.5 mg Documented by: Oxycodone HCl (Oxyir) 5 - 10 mg PO Q4H PRN PRN PRN Reason: Pain Score 1-10/10 Last Admin: 04/08/19 12:46 Dose: 10 mg Documented by: Polyethylene Glycol (Miralax) 17 gm PO DAILY [facility] Last Admin: 04/08/19 08:18 Dose: 17 gm Documented by: Pramipexole Dihydrochloride (Mirapex) 0.125 mg PO TID [facility] Last Admin: 04/08/19 05:47 Dose: 0.125 mg Documented by: Senna/Docusate Sodium (Senokot-S, Holly-Colace) 2 tablet PO BID [facility] Last Admin: 04/08/19 08:18 Dose: 2 tablet Documented by: STROKE Vital Signs/Narrative: Vital Signs Pulse Ox 04/08/19 12:08 91 Medical Necessity - Tobacco Use Smoking Status: Former smoker Assessment/Plan All Active Problems (Last Reviewed 11/14/18 @ 11:28 by Queenie Hartman) S/P total hip arthroplasty (Acute) Syncope and collapse (Acute) 1. Debility secondary to status post recent left total hip replacement, 04/04/2019 Pain is controlled. Will continue on post-operative pain management, bowel regimen 2. Hypertension, not on medications, will continue to monitor. 3. Hyperlipidemia, continue with statin. 4. History of TIA, on aspirin, statin. 5. Parkinson's disease, on levodopa, fall precautions. 6. Restless leg syndrome, on requip. 7. GERD, on famotine. 8. Hypothyroidism, continue on synthroid 9. DEDE not on CPAP. 10. DVT prophylaxis on Eliquis. Code Visit Inpatient E&M: 67148 Subs Hosp L2
[2019-04-08 18:34] VITALS: BP 105/63; PULSE 79; RESP 14; TEMP 36.8; O2SAT 99
[2019-04-08] MEDS: Atorvastatin Calcium 40 MG Tablet PO (21:09)
[2019-04-08] MEDS: Mirtazapine 15 MG Tablet 7.5 MG PO (21:09)
[2019-04-08] MEDS: CARBIDOPA/LEVODOPA CR 50/200 Tablet PO (21:09)
[2019-04-08] MEDS: Aspirin 81 MG TAB.CHEW PO (21:10)
[2019-04-09 05:51] VITALS: BP 115/59; BP 123/64; BP 123/69; PULSE 74; PULSE 85; PULSE 91
[2019-04-09] MEDS: Pramipexole Di-HCl 0.125 MG Tablet PO ×3 (06:02→20:57)
[2019-04-09] MEDS: Levothyroxine 75 MCG Tablet PO (06:02)
[2019-04-09] MEDS: Carbidopa/Levodopa 25/100 Tablet PO ×3 (06:02→16:20)
[2019-04-09] MEDS: Bisacodyl 10 MG Suppository RECTAL (06:06)
[2019-04-09 07:33] VITALS: BP 123/69; PULSE 74; RESP 18; TEMP 36.5; O2SAT 97
[2019-04-09] MEDS: Famotidine 20 MG Tablet PO ×2 (07:51→20:57)
[2019-04-09] MEDS: APIXABAN 2.5 MG TABLET PO ×2 (07:52→20:57)
[2019-04-09] MEDS: Calcium Carb/Vitamin D 1 TABLET Tablet PO ×2 (07:52→16:20)
[2019-04-09] MEDS: oxyCODONE 5 MG Tablet PO ×2 (07:52→16:20)
--- NOTE | 2019-04-09 11:19 | NURSING ---
pt ambulated around unit x1 at this time. pt tolerated well. pt walking well with minimal cues to take larger steps. will offer to ambulate at a later time also.
[2019-04-09 20:00] VITALS: BP 113/71; PULSE 86; RESP 18; TEMP 36.8; O2SAT 96
[2019-04-09] MEDS: CARBIDOPA/LEVODOPA CR 50/200 Tablet PO (20:57)
[2019-04-09] MEDS: Aspirin 81 MG TAB.CHEW PO (20:57)
[2019-04-09] MEDS: Atorvastatin Calcium 40 MG Tablet PO (20:57)
[2019-04-09] MEDS: Mirtazapine 15 MG Tablet 7.5 MG PO (20:57)
[2019-04-09] MEDS: Acetaminophen 500 MG Tablet 1000 MG PO (21:04)
[2019-04-10] MEDS: Levothyroxine 75 MCG Tablet PO (04:57)
[2019-04-10] MEDS: Pramipexole Di-HCl 0.125 MG Tablet PO ×3 (04:57→20:52)
[2019-04-10] MEDS: Carbidopa/Levodopa 25/100 Tablet PO ×3 (04:57→16:30)
[2019-04-10] MEDS: Acetaminophen 500 MG Tablet 1000 MG PO ×2 (04:57→13:00)
[2019-04-10 05:00] VITALS: BP 102/59; BP 113/73; BP 127/79; PULSE 75; PULSE 82; PULSE 90
[2019-04-10 07:36] VITALS: BP 127/79; PULSE 75; RESP 17; TEMP 36.6; O2SAT 97
[2019-04-10] MEDS: Senna/Docusate Sodium 1 Tablet 2 TABLET PO ×2 (08:58→20:51)
[2019-04-10] MEDS: Calcium Carb/Vitamin D 1 TABLET Tablet PO ×2 (08:58→16:30)
[2019-04-10] MEDS: APIXABAN 2.5 MG TABLET PO ×2 (08:58→20:51)
[2019-04-10] MEDS: Famotidine 20 MG Tablet PO ×2 (08:59→20:53)
[2019-04-10] MEDS: Polyethylene Glycol 3350 17 GM PACKET PO (08:59)
[2019-04-10] MEDS: oxyCODONE 5 MG Tablet PO (09:08)
--- NOTE | 2019-04-10 11:03 | PCM.PROGNOTE ---
Subjective: Hospitalist note: Afebrile since admission She has mild orthostatic hypotension however she is asymptomatic. She is maintaining appropriate oxygen saturation on room air. Oral intake is less than 1000 cc/day Good bowel function Stool for occult blood was negative. T4 is normal. Calcium corrected for hypoalbuminemia Complains of feeling somewhat depressed. This is a chronic problem with her and she thinks it is somewhat worse at this time. Feeling tired and does not want to move around. Anxious to get home. No CP, no SOB, no cough, pain is adequately controlled. - Physical Exam Vitals/I&O's: Vital Signs Temp Pulse Resp BP Pulse Ox 97.8 F 75 17 127/79 H 97 04/10/19 07:36 04/10/19 07:36 04/10/19 07:36 04/10/19 07:36 04/10/19 07:36 Oxygen Delivery Method Room Air Weight: 138 lb 10.732 oz Body Mass Index (BMI) 23.8 Finger Stick Blood Glucose 101 Orthostatic Vital Signs Start: 04/08/19 05:51 Freq: q24h Status: Active Protocol: Activity Type Activity Date Activity User E-Sign Co-Sign Detail Recorded Client Recorded Date Recorded By Document 04/10/19 05:00 [facility] [place], [place] [id number] 04/10/19 06:41 [facility] [place] [place] 04/10/19 05:00 Orthostatic Vitals Standing -Blood Pressure (90/60-120/80 mm Hg) 102/59 L -Extremity Use Left Arm -Pulse Rate (60-100 beats/min) 90 Sitting -Blood Pressure (90/60-120/80 mm Hg) 113/73 -Extremity Use Left Arm -Pulse Rate (60-100 beats/min) 82 Lying -Blood Pressure (90/60-120/80 mm Hg) 127/79 H -Extremity Use Left Arm -Pulse Rate (60-100 beats/min) 75 Intake and Output for Last 24 Hours 04/08/19 04/09/19 04/10/19 23:59 23:59 23:59 Intake Total 600 / 600 680 / 680 400 / 400 Balance 600 / 600 680 / 680 400 / 400 General: Alert, Oriented x3, Cooperative, - - lying in bed....does not even want to sit up to take the Miralax on the bedside table HEENT: Atraumatic, PERRLA, EOMI Oral: No Gingival or Mucosal Lesions/ Ulcerations, Dry Mucosa, - - many missing teeth Neck: No JVD Lungs: Clear to auscultation, Diminished Cardiovascular: Regular rate, Regular Rhythm, Normal S1, Normal S2, Murmur Abdomen: Bowel Sounds Present, Soft, Non Tender, Non-Distended Extremities: No cyanosis, No edema, No Calf Tenderness Skin: No rashes Neurological: Cranial nerves II-XII grossly intact, Neuro grossly intact Psych/Mental Status: Depressed Microbiology Past 72 Hours 04/07/19 12:00 Stool Stool Occult Blood (DONALD) - Final Current Medications Acetaminophen (Tylenol) 1,000 mg PO Q8H PRN PRN PRN Reason: Pain or Fever Last Admin: 04/10/19 04:57 Dose: 1,000 mg Documented by: Apixaban (Eliquis) 2.5 mg PO BID [facility] Stop: 04/27/19 10:01 Last Admin: 04/10/19 08:58 Dose: 2.5 mg Documented by: Aspirin (Aspirin, Baby) 81 mg PO QHS [facility] Last Admin: 04/09/19 20:57 Dose: 81 mg Documented by: Atorvastatin Calcium (Lipitor) 40 mg PO QHS [facility] Last Admin: 04/09/19 20:57 Dose: 40 mg Documented by: Bisacodyl (Dulcolax) 10 mg RECTAL .PRN X 1 PRN PRN Reason: Constipation Last Admin: 04/09/19 06:06 Dose: 10 mg Documented by: Calcium/Vitamin D (Os-Elan 500mg + D) [facility] Last Admin: 04/10/19 08:58 Dose: 1 tablet Documented by: Carbidopa/Levodopa (Sinemet) 1 tablet PO TIDAC [facility] Last Admin: 04/10/19 04:57 Dose: 1 tablet Documented by: Carbidopa/Levodopa (Sinemet Cr) 1 tablet PO QHS [facility] Last Admin: 04/09/19 20:57 Dose: 1 tablet Documented by: Famotidine (Pepcid) 20 mg PO BID [facility] Last Admin: 04/10/19 08:59 Dose: 20 mg Documented by: Levothyroxine Sodium (Synthroid) 75 mcg PO DAILY@0600 [facility] Last Admin: 04/10/19 04:57 Dose: 75 mcg Documented by: Magnesium Hydroxide (Milk Of Magnesia) 30 ml PO .PRN X 1 PRN PRN Reason: Constipation Last Admin: 04/08/19 12:16 Dose: 30 ml Documented by: Mirtazapine (Remeron) 7.5 mg PO QHS [facility] Last Admin: 04/09/19 20:57 Dose: 7.5 mg Documented by: Oxycodone HCl (Oxyir) 5 - 10 mg PO Q4H PRN PRN PRN Reason: Pain Score 1-10/10 Last Admin: 04/10/19 09:08 Dose: 10 mg Documented by: Polyethylene Glycol (Miralax) 17 gm PO DAILY [facility] Last Admin: 04/10/19 08:59 Dose: 17 gm Documented by: Pramipexole Dihydrochloride (Mirapex) 0.125 mg PO TID [facility] Last Admin: 04/10/19 04:57 Dose: 0.125 mg Documented by: Senna/Docusate Sodium (Senokot-S, Holly-Colace) 2 tablet PO BID [facility] Last Admin: 04/10/19 08:58 Dose: 2 tablet Documented by: Medical Necessity - Tobacco Use Smoking Status: Former smoker Assessment/Plan All Active Problems (Last Reviewed 11/14/18 @ 11:28 by Queenie Hartman) S/P total hip arthroplasty (Acute) Syncope and collapse (Acute) Impressions 1. Debility secondary to recent left total hip arthroplasty secondary to severe osteoarthritis. 2. Macrocytic anemia-etiology? T4, B12 and folate are all within normal limits. 3. Elevated BUN/creatinine - likely due to dehydration. Intake is not very good. She also has orthostatic hypotension. @ L NS today and recheck BMP, CBC in the AM. 4. Parkinson's disease-continue Sinemet 5. ? Restless leg syndrome. The patient tells me that the ropinirole only works if she takes it 3 times a day and I suspect this is treating Parkinson's disease and not restless leg. The hospital only has Mirapex on formulary and she will be started on 0.125 mg 3 times daily. She is not bradycardic. I think the orthostatic hypotension is due to dehydration and not the Mirapex. Will hydrate and recheck the orthostatics in the AM 6. Chronic constipation-MiraLAX added to her drug regimen and she is no longer constipated. She had multiple BM's on 04/09 and the stool softener was held. 7. Unintentional weight loss of 46 pounds since June 2018. She admits to a decreased appetite and intake and she is happy with her weight loss although she was not trying to lose weight. No obvious signs of malignancy on physical examination. Weight loss may be secondary to poor intake related to untreated depression 8. Depression/insomnia-untreated. She is sleeping better with Remeron and she is tolerating the medication with no adverse side effects. Will increase to a more therapeutic dose of 15 mg q HS 9. History of TIA in September 2018. Patient has discontinued aspirin and statin on her own as an outpatient and these have been restarted in the hospital. Will reinforce with her the importance of taking a statin and aspirin to prevent further TIAs and/or CVAs. She will need to have a lipid panel and a liver profile in 4-6 weeks 10. Hypertension - controlled 11. Hyperlipidemia 12. Obstructive sleep apnea-untreated....this may be contributing to the depression....will discuss tx with her 13. Osteopenia of the right and left femoral neck in 2016 with a low calcium on BMP. Vitamin D level in February 2019 was borderline low. She has been started on calcium/vitamin D twice daily. continue PT/OT/ST. I reviewed the notes and agree with their assessments. Code Visit Inpatient E&M: 98400 Subs Hosp L2
--- NOTE | 2019-04-10 12:31 | PCM.PN.NEU ---
Subjective: No issues overnight. Care discussed with the nursing staff. - Physical Exam Vitals/I&O's: Vital Signs Temp Pulse Resp BP Pulse Ox 97.8 F 75 17 127/79 H 97 04/10/19 07:36 04/10/19 07:36 04/10/19 07:36 04/10/19 07:36 04/10/19 07:36 Oxygen Delivery Method Room Air Weight: 62.9 kg Body Mass Index (BMI) 23.8 Finger Stick Blood Glucose 101 Orthostatic Vital Signs Start: 04/08/19 05:51 Freq: q24h Status: Active Protocol: Activity Type Activity Date Activity User E-Sign Co-Sign Detail Recorded Client Recorded Date Recorded By Document 04/10/19 05:00 [facility] [id number] 04/10/19 06:41 [facility] 04/10/19 05:00 Orthostatic Vitals Standing -Blood Pressure (90/60-120/80) 102/59 L -Extremity Use Left Arm -Pulse Rate (60-100) 90 Sitting -Blood Pressure (90/60-120/80) 113/73 -Extremity Use Left Arm -Pulse Rate (60-100) 82 Lying -Blood Pressure (90/60-120/80) 127/79 H -Extremity Use Left Arm -Pulse Rate (60-100) 75 Intake and Output for Last 24 Hours 04/08/19 04/09/19 04/10/19 23:59 23:59 23:59 Intake Total 600 / 600 680 / 680 400 / 400 Balance 600 / 600 680 / 680 400 / 400 General: Alert HEENT: Normocephalic Neck: Supple Lungs: Normal air movement Cardiovascular: Normal S1, Normal S2 Abdomen: Bowel Sounds Present Extremities: No cyanosis Neurological: Cranial nerves II-XII grossly intact, Deep Tendon Reflexes 2+/4 and Symmetrical, Neuro grossly intact, Motor Exam 5/5 strength throughout, Muscle tone normal, Sensory exam intact to light touch and pain, Coordination normal Psych/Mental Status: Normal Affect Microbiology Past 72 Hours 04/07/19 12:00 Stool Stool Occult Blood (DONALD) - Final Current Medications Acetaminophen (Tylenol) 1,000 mg PO Q8H PRN PRN PRN Reason: Pain or Fever Last Admin: 04/10/19 04:57 Dose: 1,000 mg Documented by: Apixaban (Eliquis) 2.5 mg PO BID [facility] Stop: 12/12/19 10:01 Last Admin: 04/10/19 08:58 Dose: 2.5 mg Documented by: Aspirin (Aspirin, Baby) 81 mg PO QHS [facility] Last Admin: 04/09/19 20:57 Dose: 81 mg Documented by: Atorvastatin Calcium (Lipitor) 40 mg PO QHS [facility] Last Admin: 04/09/19 20:57 Dose: 40 mg Documented by: Bisacodyl (Dulcolax) 10 mg RECTAL .PRN X 1 PRN PRN Reason: Constipation Last Admin: 04/09/19 06:06 Dose: 10 mg Documented by: Calcium/Vitamin D (Os-Elan 500mg + D) [facility] Last Admin: 04/10/19 08:58 Dose: 1 tablet Documented by: Carbidopa/Levodopa (Sinemet) 1 tablet PO TIDAC [facility] Last Admin: 04/10/19 11:17 Dose: 1 tablet Documented by: Carbidopa/Levodopa (Sinemet Cr) 1 tablet PO QHS [facility] Last Admin: 04/09/19 20:57 Dose: 1 tablet Documented by: Famotidine (Pepcid) 20 mg PO BID [facility] Last Admin: 04/10/19 08:59 Dose: 20 mg Documented by: Levothyroxine Sodium (Synthroid) 75 mcg PO DAILY@0600 [facility] Last Admin: 04/10/19 04:57 Dose: 75 mcg Documented by: Magnesium Hydroxide (Milk Of Magnesia) 30 ml PO .PRN X 1 PRN PRN Reason: Constipation Last Admin: 04/08/19 12:16 Dose: 30 ml Documented by: Mirtazapine (Remeron) 7.5 mg PO QHS [facility] Last Admin: 04/09/19 20:57 Dose: 7.5 mg Documented by: Oxycodone HCl (Oxyir) 5 - 10 mg PO Q4H PRN PRN PRN Reason: Pain Score 1-10/10 Last Admin: 04/10/19 09:08 Dose: 10 mg Documented by: Polyethylene Glycol (Miralax) 17 gm PO DAILY [facility] Last Admin: 04/10/19 08:59 Dose: 17 gm Documented by: Pramipexole Dihydrochloride (Mirapex) 0.125 mg PO TID [facility] Last Admin: 04/10/19 04:57 Dose: 0.125 mg Documented by: Senna/Docusate Sodium (Senokot-S, Holly-Colace) 2 tablet PO BID [facility] Last Admin: 04/10/19 08:58 Dose: 2 tablet Documented by: Medical Necessity - Tobacco Use Smoking Status: Former smoker Assessment/Plan All Active Problems (Last Reviewed 11/14/18 @ 11:28 by Queenie Hartman) S/P total hip arthroplasty (Acute) Syncope and collapse (Acute) The patient is a 83 year old F with PMH HTN, HLD, history of TIA, Parkinson's disease, RLS and depression admitted to [facility] on 04/06/2019 for debility secondary to left total hip arthroplasty, for greater than 3 hours of therapy daily with a goal of returning home at or near her prior level of independence. Patient admitted with left hip pain to [facility] on 04/03/2019, and since she had failed conservative treatments, underwent left total hip arthroplasty by Dr. Villagomez on 04/04/2019 without any postprocedural complications. Per patient she was diagnosed with Parkinson's disease few years ago, does not remember the name of the neurologist who diagnosed her, per patient she does have resting tremors which started up in the right upper extremities initially, does walk with small shuffling gait and also had complains of visual hallucinations. At present follows with Dr. Huang, is on Sinemet 25/100 mg p.o. 3 times daily and Sinemet CR 50/200 mg p.o. nightly. At present patient denies any headache, dizziness, focal motor weakness, sensory loss, speech disturbances, visual disturbances, pain, fever. Per patient she lives with her , had intermittent falls, used cane and walker to ambulate, does not drive, lives in a ranch style house, has ramp in front of the house and back of the house. Plan -PT for gait stability -OT for ADLs -ST -Analgesics as needed -Bowel protocol -Left total hip arthroplasty-by Dr. Villagomez on 04/04/2019. Further management per orthopedic recommendations. Per orthopedic recommendations weightbearing as tolerated, daily showering with warm water antibacterial soap begin postop day 3 (72 hours postoperatively), and then daily. Leave the dressing on for 72 hours postoperatively then may remove prior to first shower and change dressing daily after this until no drainage for 2 consecutive days then may leave open to air. Follow hip precautions. Wear compression stockings, may remove at night. -HTN-Per patient had hypertension in the past but then lost weight and since then has been normotensive, monitor blood pressure with a goal less than 130/80 mmHg -HLD?on Lipitor 40 mg p.o. nightly -TIA?on aspirin and Lipitor -PD on Sinemet ER 50/200 mg p.o. nightly and Sinemet 25/100 mg p.o. 3 times daily -RLS on Pramipexole -Depression- on Remeron -GI/DVT prophylaxis-Pepcid/Eliquis 2.5 mg p.o. twice daily, SCDs, SAKINA dawn. Per orthopedic recommendation Eliquis 2.5 mg p.o. twice daily for 21 days following inpatient hospital discharge -Fall precautions -Further medical management per hospitalist team -Follow-up with PCP, neurology Dr. Huang, orthopedic Dr. Villagmoez following discharge.
[2019-04-10] MEDS: 0.9% Normal Saline 1,000 ML 100 ML IV ×2 (13:17→23:05)
[2019-04-10 20:28] VITALS: BP 111/62; PULSE 74; RESP 16; TEMP 36.7; O2SAT 97
[2019-04-10] MEDS: Capsaicin 0.025% 1 APPLIC Tube TOPICAL (20:50)
[2019-04-10] MEDS: CARBIDOPA/LEVODOPA CR 50/200 Tablet PO (20:51)
[2019-04-10] MEDS: Atorvastatin Calcium 40 MG Tablet PO (20:52)
[2019-04-10] MEDS: Aspirin 81 MG TAB.CHEW PO (20:52)
[2019-04-10] MEDS: Mirtazapine 15 MG Tablet 7.5 MG PO (20:53)
[2019-04-10 22:00] VITALS: PULSE 74; RESP 16; O2SAT 97
[2019-04-11] VITALS (9 sets, daily range): BP systolic 111–147; BP diastolic 50–86; PULSE 77–99; RESP 16–18; TEMP 36.6–37.2; O2SAT 94–97
[2019-04-11] MEDS: Acetaminophen 500 MG Tablet 1000 MG PO (02:08)
[2019-04-11] MEDS: oxyCODONE 5 MG Tablet PO ×2 (04:19→23:05)
[2019-04-11] MEDS: Levothyroxine 75 MCG Tablet PO (04:20)
[2019-04-11] MEDS: Pramipexole Di-HCl 0.125 MG Tablet PO ×3 (04:20→20:53)
[2019-04-11] MEDS: Carbidopa/Levodopa 25/100 Tablet PO ×3 (06:36→16:13)
[2019-04-11] MEDS: Capsaicin 0.025% 1 APPLIC Tube TOPICAL ×2 (08:16→21:07)
[2019-04-11] MEDS: Famotidine 20 MG Tablet PO ×2 (08:19→20:54)
[2019-04-11] MEDS: Polyethylene Glycol 3350 17 GM PACKET PO (08:19)
[2019-04-11] MEDS: APIXABAN 2.5 MG TABLET PO ×2 (08:19→20:54)
[2019-04-11] MEDS: Senna/Docusate Sodium 1 Tablet 2 TABLET PO ×2 (08:19→20:53)
[2019-04-11] MEDS: Calcium Carb/Vitamin D 1 TABLET Tablet PO ×2 (08:19→16:14)
--- NOTE | 2019-04-11 10:10 | PCM.PN.NEU ---
Subjective: No issues overnight. Care discussed with the nursing staff. Has some issues with visual hallucinations, started on Seroquel. - Physical Exam Vitals/I&O's: Vital Signs Temp Pulse Resp BP Pulse Ox 97.9 F 78 16 111/63 94 04/11/19 07:28 04/11/19 09:35 04/11/19 07:28 04/11/19 09:35 04/11/19 07:28 Oxygen Delivery Method Room Air Weight: 62.9 kg Body Mass Index (BMI) 23.8 Finger Stick Blood Glucose 101 Orthostatic Vital Signs Start: 04/08/19 05:51 Freq: Status: Active Protocol: Activity Type Activity Date Activity User E-Sign Co-Sign Detail Recorded Client Recorded Date Recorded By Document 04/11/19 09:35 [facility] [id number] 04/11/19 09:40 [facility] 04/11/19 09:35 Orthostatic Vitals Standing -Blood Pressure (90/60-120/80) 129/50 H -Extremity Use Left Arm -Pulse Rate (60-100) 99 Sitting -Blood Pressure (90/60-120/80) 119/66 -Extremity Use Left Arm -Pulse Rate (60-100) 77 Lying -Blood Pressure (90/60-120/80) 111/63 -Extremity Use Left Arm -Pulse Rate (60-100) 78 Intake and Output for Last 24 Hours 04/09/19 04/10/19 04/11/19 23:59 23:59 23:59 Intake Total 680 / 680 1620 / 1620 1000 / 1000 Output Total 200 / 200 Balance 680 / 680 1620 / 1620 800 / 800 General: Alert HEENT: Normocephalic Neck: Supple Lungs: Normal air movement Cardiovascular: Normal S1, Normal S2 Abdomen: Bowel Sounds Present Extremities: No cyanosis Neurological: Cranial nerves II-XII grossly intact, Deep Tendon Reflexes 2+/4 and Symmetrical, Neuro grossly intact, Motor Exam 5/5 strength throughout, Muscle tone normal, Sensory exam intact to light touch and pain, Coordination normal Psych/Mental Status: Normal Affect Current Medications Acetaminophen (Tylenol) 1,000 mg PO Q8H PRN PRN PRN Reason: Pain or Fever Last Admin: 04/11/19 02:08 Dose: 1,000 mg Documented by: Apixaban (Eliquis) 2.5 mg PO BID [facility] Stop: 04/27/19 10:01 Last Admin: 04/11/19 08:19 Dose: 2.5 mg Documented by: Aspirin (Aspirin, Baby) 81 mg PO QHS [facility] Last Admin: 04/10/19 20:52 Dose: 81 mg Documented by: Atorvastatin Calcium (Lipitor) 40 mg PO QHS [facility] Last Admin: 04/10/19 20:52 Dose: 40 mg Documented by: Bisacodyl (Dulcolax) 10 mg RECTAL .PRN X 1 PRN PRN Reason: Constipation Last Admin: 04/09/19 06:06 Dose: 10 mg Documented by: Calcium/Vitamin D (Os-Elan 500mg + D) [facility] Last Admin: 04/11/19 08:19 Dose: 1 tablet Documented by: Capsaicin (Zostrix) 1 applic TOPICAL BID [facility]; Protocol Last Admin: 04/11/19 08:16 Dose: 1 applicatio Documented by: Carbidopa/Levodopa (Sinemet) 1 tablet PO TIDAC [facility] Last Admin: 04/11/19 06:36 Dose: 1 tablet Documented by: Carbidopa/Levodopa (Sinemet Cr) 1 tablet PO QHS [facility] Last Admin: 04/10/19 20:51 Dose: 1 tablet Documented by: Famotidine (Pepcid) 20 mg PO BID [facility] Last Admin: 04/11/19 08:19 Dose: 20 mg Documented by: Levothyroxine Sodium (Synthroid) 75 mcg PO DAILY@0600 [facility] Last Admin: 04/11/19 04:20 Dose: 75 mcg Documented by: Magnesium Hydroxide (Milk Of Magnesia) 30 ml PO .PRN X 1 PRN PRN Reason: Constipation Last Admin: 04/08/19 12:16 Dose: 30 ml Documented by: Mirtazapine (Remeron) 7.5 mg PO QHS [facility] Last Admin: 04/10/19 20:53 Dose: 7.5 mg Documented by: Oxycodone HCl (Oxyir) 5 - 10 mg PO Q4H PRN PRN PRN Reason: Pain Score 1-10/10 Last Admin: 04/11/19 04:19 Dose: 5 mg Documented by: Polyethylene Glycol (Miralax) 17 gm PO DAILY [facility] Last Admin: 04/11/19 08:19 Dose: 17 gm Documented by: Pramipexole Dihydrochloride (Mirapex) 0.125 mg PO TID [facility] Last Admin: 04/11/19 04:20 Dose: 0.125 mg Documented by: Senna/Docusate Sodium (Senokot-S, Holly-Colace) 2 tablet PO BID [facility] Last Admin: 04/11/19 08:19 Dose: 2 tablet Documented by: STROKE Vital Signs/Narrative: Vital Signs Temp Pulse Pulse Pulse Pulse Resp BP 04/11/19 09:35 78 77 99 04/11/19 07:28 97.9 F 82 16 142/86 H BP BP BP Pulse Ox 04/11/19 09:35 111/63 119/66 129/50 H 04/11/19 07:28 94 Medical Necessity - Tobacco Use Smoking Status: Former smoker Assessment/Plan All Active Problems (Last Reviewed 11/14/18 @ 11:28 by Queenie Hartman) S/P total hip arthroplasty (Acute) Syncope and collapse (Acute) The patient is a 83 year old F with PMH HTN, HLD, history of TIA, Parkinson's disease, RLS, hypothyroidism and depression admitted to [facility] on 04/06/2019 for debility secondary to left total hip arthroplasty, for greater than 3 hours of therapy daily with a goal of returning home at or near her prior level of independence. Patient admitted with left hip pain to [facility] on 04/03/2019, and since she had failed conservative treatments, underwent left total hip arthroplasty by Dr. Villagomez on 04/04/2019 without any postprocedural complications. Per patient she was diagnosed with Parkinson's disease few years ago, does not remember the name of the neurologist who diagnosed her, per patient she does have resting tremors which started up in the right upper extremities initially, does walk with small shuffling gait and also had complains of visual hallucinations. At present follows with Dr. Huang, is on Sinemet 25/100 mg p.o. 3 times daily and Sinemet CR 50/200 mg p.o. nightly. At present patient denies any headache, dizziness, focal motor weakness, sensory loss, speech disturbances, visual disturbances, pain, fever. Per patient she lives with her , had intermittent falls, used cane and walker to ambulate, does not drive, lives in a ranch style house, has ramp in front of the house and back of the house. Plan -PT for gait stability -OT for ADLs -ST -Analgesics as needed -Bowel protocol -Left total hip arthroplasty-by Dr. Villagomez on 04/04/2019. Further management per orthopedic recommendations. Per orthopedic recommendations weightbearing as tolerated, daily showering with warm water antibacterial soap begin postop day 3 (72 hours postoperatively), and then daily. Leave the dressing on for 72 hours postoperatively then may remove prior to first shower and change dressing daily after this until no drainage for 2 consecutive days then may leave open to air. Follow hip precautions. Wear compression stockings, may remove at night. -HTN-Per patient had hypertension in the past but then lost weight and since then has been normotensive, monitor blood pressure with a goal less than 130/80 mmHg -HLD?on Lipitor 40 mg p.o. nightly -TIA?on aspirin and Lipitor -PD on Sinemet ER 50/200 mg p.o. nightly and Sinemet 25/100 mg p.o. 3 times daily -RLS on Pramipexole -Depression- on Remeron -Started on Seroquel for visual hallucinations -Hypothyroidism-on Synthroid -GI/DVT prophylaxis-Pepcid/Eliquis 2.5 mg p.o. twice daily, SCDs, SAKINA dawn. Per orthopedic recommendation Eliquis 2.5 mg p.o. twice daily for 21 days following inpatient hospital discharge -Fall precautions -Further medical management per hospitalist team -Follow-up with PCP, neurology Dr. Huang, orthopedic Dr. Villagomez following discharge.
[2019-04-11 10:23] LABS: Absolute Lymphocyte Count 0.95 X10^3/uL (0.83-4.51); Absolute Neutrophil Count 4.6 X10^3/uL (2.0-7.7); Basophil# 0.02 X10^3/uL; Basophil% 0.3 % (0-1); Eosinophil# 0.09 X10^3/uL; Eosinophils% 1.4 % (0-5); Hematocrit 25.4 % (37-47); Hemoglobin 7.8 g/dL (12.0-15.0); Lymphocyte # 0.95 X10^3/ul (4.0); Lymphocyte % 14.6 % (19-41); Mean Corp Hgb Conc 30.7 g/dL (32-36); Mean Corpuscular Hgb 31.6 pg (27.0-32.0); Mean Corpuscular Volume 102.8 fL (81-99); Mean Platelet Vol. 10.1 fl (6.2-12.0); Monocyte# 0.88 X10^3/uL; Monocyte% 13.5 % (0-10); NRBC Flagged by Analyzer 0 % (0-5); Neutrophil # 4.56 X10^3/uL (2.7-7.7); Neutrophil % 69.9 % (47-70); Platelet Count 268 K/mm3 (150-450); RBC Distribution Width CV 13.4 % (11.6-14.6); RBC Distribution Width SD 50.3 fl (35.1-43.9); Red Blood Count 2.47 M/mm3 (4.2-5.4); White Blood Count 6.5 K/mm3 (4.4-11.0)
[2019-04-11 10:47] LABS: Anion Gap 5 (5-15); BUN 14 mg/dL (7-18); BUN/Creat Ratio 32.9 RATIO (10-20); Calcium,Total 8.5 mg/dL (8.5-10.1); Chloride 111 mmol/L (98-107); Creatinine, Serum 0.43 mg/dL (0.55-1.02); EST Glomerular Filtration Rate 151 mL/min (>60); Est Glom Filt Rate - Afr Amer 183 mL/min (>60); Glucose 114 mg/dL (74-106); Potassium 3.9 mmol/L (3.5-5.1); Sodium Level 143 mmol/L (136-145)
--- NOTE | 2019-04-11 12:45 | PCM.PN.BLA ---
Progress Note Hospitalist note: Orthostatic vital signs today were positive. Pulse rate increased by 21 bpm when going from lying down to standing. Blood pressure did not significantly change. She is complaining of some shortness of breath with exertion. She has lightheadedness with standing but not while sitting in the chair. All lab was personally reviewed. Hemoglobin is 7.8 today with macrocytic indices. The BUN/creatinine has improved with hydration and the BUN today is 14 with a creatinine of 0.43. The BUN/creatinine ratio is decreased from 45-32.9. She is having some hallucinations.....saw a fly go down the hole into her coffee and she sees mail lying on the floor and there is no mail lying on the floor. She is upset because she can not get out of the chair and walk around the room. She accepts that this is for her safety and we do not want her to fall but, she does not like it. Mild increase in the resting RR when I am monitoring her. Lungs are CTA. Heart - RRR at rest sitting in the chair no peripheral edema She keeps trying to get out of the chair. Impressions 1. symptomatic anemia in an 83 YO female with fatigue, LOVE, orthostatic hypotension and lightheadedness with standing. 2. Depression - Remeron increased yesterday 3, Visual hallucinations 4. PD 5. RLS - having resting tremors of the RUE and the R leg today. Transfuse 1 unit of PRBC's today and recheck HH in AM. Encouraged her to keep her fluid intake up. Increase the Remeron to 15 mg Q HS D/W Dr. Stafford the hallucinations STROKE Vital Signs/Narrative: Vital Signs Pulse Pulse Pulse BP BP BP 04/11/19 09:35 78 77 99 111/63 119/66 129/50 H Code Visit Inpatient E&M: [id number] Subs Hosp L2
[2019-04-11] MEDS: CARBIDOPA/LEVODOPA CR 50/200 Tablet PO (20:53)
[2019-04-11] MEDS: Atorvastatin Calcium 40 MG Tablet PO (20:53)
[2019-04-11] MEDS: QUEtiapine 25 MG Tablet 12.5 MG PO (20:54)
[2019-04-11] MEDS: Aspirin 81 MG TAB.CHEW PO (20:57)
[2019-04-11] MEDS: Mirtazapine 15 MG Tablet 7.5 MG PO (20:59)
--- NOTE | 2019-04-11 23:09 | NURSING ---
pt extremely restless and getting out of bed per self setting off alarms. pt hearing and having hallucinations. pt up frequently to urinate. pt states that she is having pain, rubbing left knee and thigh. then states that she is tired and wishes that she could sleep. reorientation to time and place ineffective. family came in earlier and pt agitation increased. pt place in recliner and brought up to the nurses station for pt safety.
--- NOTE | 2019-04-12 03:42 | NURSING ---
Reviewed and agree with thinner sprayer documentation and charting.
[2019-04-12] MEDS: Pramipexole Di-HCl 0.125 MG Tablet PO (06:09)
[2019-04-12] MEDS: Levothyroxine 75 MCG Tablet PO (06:09)
[2019-04-12] MEDS: Carbidopa/Levodopa 25/100 Tablet PO ×2 (06:10→11:00)
[2019-04-12 06:18] LABS: Hematocrit 26.6 % (37-47); Hemoglobin 8.2 g/dL (12.0-15.0)
--- NOTE | 2019-04-12 06:18 | PN_ITS ---
Vitals/I&O's: Vital Signs Temp Pulse Resp BP Pulse Ox 98.2 F 86 18 141/75 H 96 04/11/19 19:46 04/11/19 22:00 04/11/19 22:00 04/11/19 19:46 04/11/19 22:00 Oxygen Delivery Method Room Air Weight: 62.9 kg Body Mass Index (BMI) 23.8 Finger Stick Blood Glucose 101 Orthostatic Vital Signs Start: 04/08/19 05:51 Freq: Status: Active Protocol: Activity Type Activity Date Activity User E-Sign Co-Sign Detail Recorded Client Recorded Date Recorded By Document 04/11/19 09:35 RMB [id number] 04/11/19 09:40 RMB 04/11/19 09:35 Orthostatic Vitals Standing -Blood Pressure (90/60-120/80) 129/50 H -Extremity Use Left Arm -Pulse Rate (60-100) 99 Sitting -Blood Pressure (90/60-120/80) 119/66 -Extremity Use Left Arm -Pulse Rate (60-100) 77 Lying -Blood Pressure (90/60-120/80) 111/63 -Extremity Use Left Arm -Pulse Rate (60-100) 78 Intake and Output for Last 24 Hours 04/10/19 04/11/19 04/12/19 23:59 23:59 23:59 Intake Total 1620 / 1620 1000 / 1000 Output Total 200 / 200 Balance 1620 / 1620 800 / 800 Laboratory Results 04/11/19 10:00: WBC 6.5, RBC 2.47 L, Hgb 7.8 L, Hct 25.4 L, MCV 102.8 H, MCH 31.6, MCHC 30.7 L, RDW Std Deviation 50.3 H, RDW Coeff of Candy 13.4, Plt Count 268, MPV 10.1, Immature Gran % (Auto) 0.300, Neut % (Auto) 69.9, Lymph % (Auto) 14.6 L, [place] % (Auto) 13.5 H, Eos % (Auto) 1.4, Baso % (Auto) 0.3, Absolute Neuts (auto) 4.6, Absolute Lymphs (auto) 0.95, Nucleated RBC % 0 04/11/19 10:00: Sodium 143, Potassium 3.9, Chloride 111 H, Carbon Dioxide 27.0, Anion Gap 5, BUN 14, Creatinine 0.43 L, Estim Creat Clear Calc 38.10, Est GFR (MDRD) Af Amer 183, Est GFR (MDRD) Non-Af 151, BUN/Creatinine Ratio 32.9 H, Glucose 114 H, Calcium 8.5 04/11/19 13:00: Blood Type A POSITIVE, Antibody Screen NEGATIVE, Crossmatch See Detail 04/12/19 05:50: Hgb 8.2 L, Hct 26.6 L Current Medications Acetaminophen (Tylenol) 1,000 mg PO Q8H PRN PRN PRN Reason: Pain or Fever Last Admin: 04/11/19 02:08 Dose: 1,000 mg Documented by: Apixaban (Eliquis) 2.5 mg PO BID [facility] Stop: 04/27/19 10:01 Last Admin: 04/11/19 20:54 Dose: 2.5 mg Documented by: Aspirin (Aspirin, Baby) 81 mg PO QHS [facility] Last Admin: 04/11/19 20:57 Dose: 81 mg Documented by: Atorvastatin Calcium (Lipitor) 40 mg PO QHS [facility] Last Admin: 04/11/19 20:53 Dose: 40 mg Documented by: Bisacodyl (Dulcolax) 10 mg RECTAL .PRN X 1 PRN PRN Reason: Constipation Last Admin: 04/09/19 06:06 Dose: 10 mg Documented by: Calcium/Vitamin D (Os-Elan 500mg + D) [facility] Last Admin: 04/11/19 16:14 Dose: 1 tablet Documented by: Capsaicin (Zostrix) 1 applic TOPICAL BID [facility]; Protocol Last Admin: 04/11/19 21:07 Dose: 1 applicatio Documented by: Carbidopa/Levodopa (Sinemet) 1 tablet PO TIDAC [facility] Last Admin: 04/12/19 06:10 Dose: 1 tablet Documented by: Carbidopa/Levodopa (Sinemet Cr) 1 tablet PO QHS [facility] Last Admin: 04/11/19 20:53 Dose: 1 tablet Documented by: Famotidine (Pepcid) 20 mg PO BID [facility] Last Admin: 04/11/19 20:54 Dose: 20 mg Documented by: Sodium Chloride () 500 mls @ 15 mls/hr IV PRN PRN PRN Reason: Blood Transfusion Levothyroxine Sodium (Synthroid) 75 mcg PO DAILY@0600 [facility] Last Admin: 04/12/19 06:09 Dose: 75 mcg Documented by: Magnesium Hydroxide (Milk Of Magnesia) 30 ml PO .PRN X 1 PRN PRN Reason: Constipation Last Admin: 04/08/19 12:16 Dose: 30 ml Documented by: Mirtazapine (Remeron) 7.5 mg PO QHS [facility] Last Admin: 04/11/19 20:59 Dose: 7.5 mg Documented by: Oxycodone HCl (Oxyir) 5 - 10 mg PO Q4H PRN PRN PRN Reason: Pain Score 1-1010 Last Admin: 04/11/19 23:05 Dose: 10 mg Documented by: Polyethylene Glycol (Miralax) 17 gm PO DAILY [facility] Last Admin: 04/11/19 08:19 Dose: 17 gm Documented by: Pramipexole Dihydrochloride (Mirapex) 0.125 mg PO TID [facility] Last Admin: 04/12/19 06:09 Dose: 0.125 mg Documented by: Quetiapine Fumarate (Seroquel) 12.5 mg PO QHS [facility] Last Admin: 04/11/19 20:54 Dose: 12.5 mg Documented by: Senna/Docusate Sodium (Senokot-S, Holly-Colace) 2 tablet PO BID [facility] Last Admin: 04/11/19 20:53 Dose: 2 tablet Documented by: Medical Necessity - Tobacco Use Smoking Status: Former smoker Assessment/Plan All Active Problems (Last Reviewed 11/14/18 @ 11:28 by Queenie Hartman) S/P total hip arthroplasty (Acute) Syncope and collapse (Acute)
--- NOTE | 2019-04-12 06:30 | NURSING ---
pt returned to room at approximately 0200 and was assisted to br then returned to bed . pt reports her pain is better and had been dozing off in the chair. pt has since slept quietly and has been cooperative with staff .
[2019-04-12] MEDS: Calcium Carb/Vitamin D 1 TABLET Tablet PO (07:53)
[2019-04-12] MEDS: Famotidine 20 MG Tablet PO (07:54)
[2019-04-12] MEDS: Capsaicin 0.025% 1 APPLIC Tube TOPICAL (07:58)
[2019-04-12] MEDS: Senna/Docusate Sodium 1 Tablet 2 TABLET PO (07:59)
[2019-04-12] MEDS: APIXABAN 2.5 MG TABLET PO (08:00)
[2019-04-12] MEDS: Polyethylene Glycol 3350 17 GM PACKET PO (08:00)
[2019-04-12] MEDS: oxyCODONE 5 MG Tablet PO (08:05)
--- NOTE | 2019-04-12 08:08 | PCM.PN.NEU ---
Subjective: No issues overnight. Care discussed with nursing staff. Staffed in team meeting. All questions were answered. Further therapy details per PT/OT/ST notes. Patient continues to be emotional. On Remeron and started on Seroquel for visual hallucinations. Will check UA. - Physical Exam Vitals/I&O's: Vital Signs Temp Pulse Resp BP Pulse Ox 98.2 F 86 18 141/75 H 96 04/11/19 19:46 04/11/19 22:00 04/11/19 22:00 04/11/19 19:46 04/11/19 22:00 Oxygen Delivery Method Room Air Weight: 62.9 kg Body Mass Index (BMI) 23.8 Finger Stick Blood Glucose 101 Orthostatic Vital Signs Start: 04/08/19 05:51 Freq: Status: Active Protocol: Activity Type Activity Date Activity User E-Sign Co-Sign Detail Recorded Client Recorded Date Recorded By Document 04/11/19 09:35 RMB [id number] 04/11/19 09:40 RMB 04/11/19 09:35 Orthostatic Vitals Standing -Blood Pressure (90/60-120/80) 129/50 H -Extremity Use Left Arm -Pulse Rate (60-100) 99 Sitting -Blood Pressure (90/60-120/80) 119/66 -Extremity Use Left Arm -Pulse Rate (60-100) 77 Lying -Blood Pressure (90/60-120/80) 111/63 -Extremity Use Left Arm -Pulse Rate (60-100) 78 Intake and Output for Last 24 Hours 04/10/19 04/11/19 04/12/19 23:59 23:59 23:59 Intake Total 1620 / 1620 1000 / 1000 Output Total 200 / 200 Balance 1620 / 1620 800 / 800 General: Alert HEENT: Normocephalic Neck: Supple Lungs: Normal air movement Cardiovascular: Normal S1, Normal S2 Abdomen: Bowel Sounds Present Extremities: No cyanosis Neurological: - - Cranial nerves II-XII grossly intact, Deep Tendon Reflexes 2+/4 and Symmetrical, Neuro grossly intact, Motor Exam 5/5 strength throughout, Muscle tone normal, mild resting tremors both UE, Sensory exam intact to light touch and pain, Coordination normal Psych/Mental Status: Normal Affect Laboratory Results 04/11/19 10:00: WBC 6.5, RBC 2.47 L, Hgb 7.8 L, Hct 25.4 L, MCV 102.8 H, MCH 31.6, MCHC 30.7 L, RDW Std Deviation 50.3 H, RDW Coeff of Candy 13.4, Plt Count 268, MPV 10.1, Immature Gran % (Auto) 0.300, Neut % (Auto) 69.9, Lymph % (Auto) 14.6 L, [place] % (Auto) 13.5 H, Eos % (Auto) 1.4, Baso % (Auto) 0.3, Absolute Neuts (auto) 4.6, Absolute Lymphs (auto) 0.95, Nucleated RBC % 0 04/11/19 10:00: Sodium 143, Potassium 3.9, Chloride 111 H, Carbon Dioxide 27.0, Anion Gap 5, BUN 14, Creatinine 0.43 L, Estim Creat Clear Calc 38.10, Est GFR (MDRD) Af Amer 183, Est GFR (MDRD) Non-Af 151, BUN/Creatinine Ratio 32.9 H, Glucose 114 H, Calcium 8.5 04/11/19 13:00: Blood Type A POSITIVE, Antibody Screen NEGATIVE, Crossmatch See Detail 04/12/19 05:50: Hgb 8.2 L, Hct 26.6 L Current Medications Acetaminophen (Tylenol) 1,000 mg PO Q8H PRN PRN PRN Reason: Pain or Fever Last Admin: 04/11/19 02:08 Dose: 1,000 mg Documented by: Apixaban (Eliquis) 2.5 mg PO BID [facility] Stop: 04/27/19 10:01 Last Admin: 04/12/19 08:00 Dose: 2.5 mg Documented by: Aspirin (Aspirin, Baby) 81 mg PO QHS [facility] Last Admin: 04/11/19 20:57 Dose: 81 mg Documented by: Atorvastatin Calcium (Lipitor) 40 mg PO QHS [facility] Last Admin: 04/11/19 20:53 Dose: 40 mg Documented by: Bisacodyl (Dulcolax) 10 mg RECTAL .PRN X 1 PRN PRN Reason: Constipation Last Admin: 04/09/19 06:06 Dose: 10 mg Documented by: Calcium/Vitamin D (Os-Elan 500mg + D) [facility] Last Admin: 04/12/19 07:53 Dose: 1 tablet Documented by: Capsaicin (Zostrix) 1 applic TOPICAL BID [facility]; Protocol Last Admin: 04/12/19 07:58 Dose: 1 applicatio Documented by: Carbidopa/Levodopa (Sinemet) 1 tablet PO TIDAC [facility] Last Admin: 04/12/19 06:10 Dose: 1 tablet Documented by: Carbidopa/Levodopa (Sinemet Cr) 1 tablet PO QHS [facility] Last Admin: 04/11/19 20:53 Dose: 1 tablet Documented by: Famotidine (Pepcid) 20 mg PO BID [facility] Last Admin: 04/12/19 07:54 Dose: 20 mg Documented by: Sodium Chloride () 500 mls @ 15 mls/hr IV PRN PRN PRN Reason: Blood Transfusion Levothyroxine Sodium (Synthroid) 75 mcg PO DAILY@0600 [facility] Last Admin: 04/12/19 06:09 Dose: 75 mcg Documented by: Magnesium Hydroxide (Milk Of Magnesia) 30 ml PO .PRN X 1 PRN PRN Reason: Constipation Last Admin: 04/08/19 12:16 Dose: 30 ml Documented by: Mirtazapine (Remeron) 15 mg PO QHS [facility] Oxycodone HCl (Oxyir) 5 - 10 mg PO Q4H PRN PRN PRN Reason: Pain Score 1-10/10 Last Admin: 04/12/19 08:05 Dose: 10 mg Documented by: Polyethylene Glycol (Miralax) 17 gm PO DAILY [facility] Last Admin: 04/12/19 08:00 Dose: 17 gm Documented by: Pramipexole Dihydrochloride (Mirapex) 0.125 mg PO TID [facility] Last Admin: 04/12/19 06:09 Dose: 0.125 mg Documented by: Quetiapine Fumarate (Seroquel) 12.5 mg PO QHS [facility] Last Admin: 04/11/19 20:54 Dose: 12.5 mg Documented by: Senna/Docusate Sodium (Senokot-S, Holly-Colace) 2 tablet PO BID [facility] Last Admin: 04/12/19 07:59 Dose: 2 tablet Documented by: Medical Necessity - Tobacco Use Smoking Status: Former smoker Assessment/Plan All Active Problems (Last Reviewed 11/14/18 @ 11:28 by Queenie Hartman) S/P total hip arthroplasty (Acute) Syncope and collapse (Acute) The patient is a 83 year old F with PMH HTN, HLD, history of TIA, Parkinson's disease, RLS, hypothyroidism and depression admitted to [facility] on 04/06/2019 for debility secondary to left total hip arthroplasty, for greater than 3 hours of therapy daily with a goal of returning home at or near her prior level of independence. Patient admitted with left hip pain to [facility] on 04/03/2019, and since she had failed conservative treatments, underwent left total hip arthroplasty by Dr. Villagomez on 04/04/2019 without any postprocedural complications. Per patient she was diagnosed with Parkinson's disease few years ago, does not remember the name of the neurologist who diagnosed her, per patient she does have resting tremors which started up in the right upper extremities initially, does walk with small shuffling gait and also had complains of visual hallucinations. At present follows with Dr. Huang, is on Sinemet 25/100 mg p.o. 3 times daily and Sinemet CR 50/200 mg p.o. nightly. At present patient denies any headache, dizziness, focal motor weakness, sensory loss, speech disturbances, visual disturbances, pain, fever. Per patient she lives with her , had intermittent falls, used cane and walker to ambulate, does not drive, lives in a ranch style house, has ramp in front of the house and back of the house. Plan -PT for gait stability -OT for ADLs -ST -Analgesics as needed -Bowel protocol -Left total hip arthroplasty-by Dr. Villagomez on 04/04/2019. Further management per orthopedic recommendations. Per orthopedic recommendations weightbearing as tolerated, daily showering with warm water antibacterial soap begin postop day 3 (72 hours postoperatively), and then daily. Leave the dressing on for 72 hours postoperatively then may remove prior to first shower and change dressing daily after this until no drainage for 2 consecutive days then may leave open to air. Follow hip precautions. Wear compression stockings, may remove at night. -HTN-Per patient had hypertension in the past but then lost weight and since then has been normotensive, monitor blood pressure with a goal less than 130/80 mmHg -HLD?on Lipitor 40 mg p.o. nightly -TIA?on aspirin and Lipitor -PD on Sinemet ER 50/200 mg p.o. nightly and Sinemet 25/100 mg p.o. 3 times daily -RLS on Pramipexole -Depression- on Remeron -Started on Seroquel for visual hallucinations -Hypothyroidism-on Synthroid -GI/DVT prophylaxis-Pepcid/Eliquis 2.5 mg p.o. twice daily, SCDs, SAKINA dawn. Per orthopedic recommendation Eliquis 2.5 mg p.o. twice daily for 21 days following inpatient hospital discharge -Fall precautions -Further medical management per hospitalist team -Follow-up with PCP, neurology Dr. Huang, orthopedic Dr. Villagomez following discharge.
[2019-04-12 08:47] VITALS: BP 117/67; PULSE 77; RESP 16; TEMP 36.8; O2SAT 98
--- NOTE | 2019-04-12 09:42 | DCINST_ITS ---
- Discharge Diagnoses Reason(s) for Visit for Discharge Instructions: debility secondary to left total hip arthroplasty You will use the following diet at home:: Regular Your food should be the consistency of: Regular Discharge Activity: May Not Drive Weight Bearing Status: Weight bearing as tolerated Call your doctor if your incision/area has: Continuous Slow Oozing, Sudden Increased Bleeding, Increased Pain/ Swelling, Increased Redness, Foul Smelling Discharge, Swelling at the incision site Call your doctor if you observe: Fever of 101 or Higher, Coldness, Increased Pain, Numbness or Tingling, Change in Color, Inability to urinate, Inability to have a bowel movement, Using more than one pad per hour, Shortness of breath, Dizziness, Fainting spells, Swelling in the ankles, Chest pain, Prolonged hiccoughing, Increased palpitations (irregular heartbeat), Calf discomfort, Uncontrolled pain Allergies/Adverse Reactions: Allergies Penicillins [PCN] Allergy (Verified 04/04/19 13:29) Itching Sulfa (Sulfonamide Antibiotics) Allergy (Verified 04/04/19 13:29) Itching morphine Adverse Reaction (Verified 03/15/19 13:15) Other Medications to take at Discharge Carbidopa/Levodopa [Carbidopa-Levo ER 50-200 Tab] 1 ea PO QHS 06/29/18 Carbidopa/Levodopa [Carbidopa-Levodopa 25-100 Tab] 1 ea PO TID 06/29/18 Levothyroxine Sodium 75 mcg PO DAILY 06/29/18 Ropinirole HCl 1 mg PO QHS 06/29/18 Aspirin [Aspirin, Baby] 81 mg PO QHS 03/28/19 Atorvastatin Calcium [Lipitor] 40 mg PO QHS 03/28/19 Apixaban [Eliquis] 2.5 mg PO BID #27 04/12/19 Calcium Carb/Vitamin D [Os-Elan 500MG + D] 1 tab PO BIDCM tab 04/12/19 Famotidine [Pepcid] 20 mg PO BID tablet 04/12/19 Mirtazapine [Remeron] 15 mg PO QHS tablet 04/12/19 Oxycodone [Oxyir] 5 - 10 mg PO Q4H PRN PRN #20 tab 04/12/19 Quetiapine Fumarate [Seroquel] 12.5 mg PO QHS tablet 04/12/19 Primary Care Physician: Young Hubbard Chi, MD [Primary Care Provider] - Please follow up with your Primary Care Physician in: Follow up with PCP in 1-2 weeks Test Results: Test results from this visit will be discussed in further detail at your follow- up appointment, if applicable. When: Follow up with Dr. Villagomez orthopedics [facility] after discharge within 1 week When: Follow up with Dr. Huang Neurology in 1-2 weeks
--- NOTE | 2019-04-12 09:46 | PCM.RU.DC ---
Rehab Discharge Summary DATE OF ADMISSION: 04/06/19 DATE OF DISCHARGE: 04/12/19 - Rehab Diagnosis debility secondary to left total hip arthroplasty Subjective: No issues overnight. Case discussed with the nursing staff. Staffed in the team meeting today. All questions were answered. Further therapy details per PT/OT/ST notes Patient had visual hallucinations for which Seroquel was started yesterday 04/11/2019. Per family they want patient to be discharged soon, PT/OT cleared patient for discharge today. Will check UA before patient leaves as patient is having visual hallucinations. to call patient and family with UA results tomorrow to decide whether she would need antibiotics are not. Patient was on Mirapex here following admission as Requip is not formulary but patient will be changed to her home dose of Requip 1 mg nightly on discharge. - Physical Exam Vitals/I&O's: Vital Signs Temp Pulse Resp BP Pulse Ox 98.2 F 77 16 117/67 98 04/12/19 08:47 04/12/19 08:47 04/12/19 08:47 04/12/19 08:47 04/12/19 08:47 Oxygen Delivery Method Room Air Weight: 62.9 kg Body Mass Index (BMI) 23.8 Finger Stick Blood Glucose 101 Orthostatic Vital Signs Start: 04/08/19 05:51 Freq: Status: Active Protocol: Activity Type Activity Date Activity User E-Sign Co-Sign Detail Recorded Client Recorded Date Recorded By Document 04/11/19 09:35 RMB [id number] 04/11/19 09:40 RMB 04/11/19 09:35 Orthostatic Vitals Standing -Blood Pressure (90/60-120/80) 129/50 H -Extremity Use Left Arm -Pulse Rate (60-100) 99 Sitting -Blood Pressure (90/60-120/80) 119/66 -Extremity Use Left Arm -Pulse Rate (60-100) 77 Lying -Blood Pressure (90/60-120/80) 111/63 -Extremity Use Left Arm -Pulse Rate (60-100) 78 Intake and Output for Last 24 Hours 04/10/19 04/11/19 04/12/19 23:59 23:59 23:59 Intake Total 1620 / 1620 1000 / 1000 Output Total 200 / 200 Balance 1620 / 1620 800 / 800 General: Alert HEENT: Normocephalic Neck: Supple Lungs: Normal air movement Cardiovascular: Normal S1, Normal S2 Abdomen: Bowel Sounds Present Extremities: No cyanosis Neurological: - - Cranial nerves II-XII grossly intact, Deep Tendon Reflexes 2+/4 and Symmetrical, Neuro grossly intact, Motor Exam 5/5 strength throughout, Muscle tone normal, mild resting tremors both UE, Sensory exam intact to light touch and pain, Coordination normal Psych/Mental Status: Normal Affect Laboratory Results 04/11/19 10:00: WBC 6.5, RBC 2.47 L, Hgb 7.8 L, Hct 25.4 L, MCV 102.8 H, MCH 31.6, MCHC 30.7 L, RDW Std Deviation 50.3 H, RDW Coeff of Candy 13.4, Plt Count 268, MPV 10.1, Immature Gran % (Auto) 0.300, Neut % (Auto) 69.9, Lymph % (Auto) 14.6 L, Garfield % (Auto) 13.5 H, Eos % (Auto) 1.4, Baso % (Auto) 0.3, Absolute Neuts (auto) 4.6, Absolute Lymphs (auto) 0.95, Nucleated RBC % 0 04/11/19 10:00: Sodium 143, Potassium 3.9, Chloride 111 H, Carbon Dioxide 27.0, Anion Gap 5, BUN 14, Creatinine 0.43 L, Estim Creat Clear Calc 38.10, Est GFR (MDRD) Af Amer 183, Est GFR (MDRD) Non-Af 151, BUN/Creatinine Ratio 32.9 H, Glucose 114 H, Calcium 8.5 04/11/19 13:00: Blood Type A POSITIVE, Antibody Screen NEGATIVE, Crossmatch See Detail 04/12/19 05:50: Hgb 8.2 L, Hct 26.6 L Current Medications Acetaminophen (Tylenol) 1,000 mg PO Q8H PRN PRN PRN Reason: Pain or Fever Last Admin: 04/11/19 02:08 Dose: 1,000 mg Documented by: Apixaban (Eliquis) 2.5 mg PO BID [facility] Stop: 04/27/19 10:01 Last Admin: 04/12/19 08:00 Dose: 2.5 mg Documented by: Aspirin (Aspirin, Baby) 81 mg PO QHS [facility] Last Admin: 04/11/19 20:57 Dose: 81 mg Documented by: Atorvastatin Calcium (Lipitor) 40 mg PO QHS [facility] Last Admin: 04/11/19 20:53 Dose: 40 mg Documented by: Bisacodyl (Dulcolax) 10 mg RECTAL .PRN X 1 PRN PRN Reason: Constipation Last Admin: 04/09/19 06:06 Dose: 10 mg Documented by: Calcium/Vitamin D (Os-Elan 500mg + D) [facility] Last Admin: 04/12/19 07:53 Dose: 1 tablet Documented by: Capsaicin (Zostrix) 1 applic TOPICAL BID [facility]; Protocol Last Admin: 04/12/19 07:58 Dose: 1 applicatio Documented by: Carbidopa/Levodopa (Sinemet) 1 tablet PO TIDAC [facility] Last Admin: 04/12/19 06:10 Dose: 1 tablet Documented by: Carbidopa/Levodopa (Sinemet Cr) 1 tablet PO QHS [facility] Last Admin: 04/11/19 20:53 Dose: 1 tablet Documented by: Famotidine (Pepcid) 20 mg PO BID [facility] Last Admin: 04/12/19 07:54 Dose: 20 mg Documented by: Sodium Chloride () 500 mls @ 15 mls/hr IV PRN PRN PRN Reason: Blood Transfusion Levothyroxine Sodium (Synthroid) 75 mcg PO DAILY@0600 [facility] Last Admin: 04/12/19 06:09 Dose: 75 mcg Documented by: Magnesium Hydroxide (Milk Of Magnesia) 30 ml PO .PRN X 1 PRN PRN Reason: Constipation Last Admin: 04/08/19 12:16 Dose: 30 ml Documented by: Mirtazapine (Remeron) 15 mg PO QHS [facility] Oxycodone HCl (Oxyir) 5 - 10 mg PO Q4H PRN PRN PRN Reason: Pain Score 1-10/10 Last Admin: 04/12/19 08:05 Dose: 10 mg Documented by: Polyethylene Glycol (Miralax) 17 gm PO DAILY [facility] Last Admin: 04/12/19 08:00 Dose: 17 gm Documented by: Pramipexole Dihydrochloride (Mirapex) 0.125 mg PO TID [facility] Last Admin: 04/12/19 06:09 Dose: 0.125 mg Documented by: Quetiapine Fumarate (Seroquel) 12.5 mg PO QHS [facility] Last Admin: 04/11/19 20:54 Dose: 12.5 mg Documented by: Senna/Docusate Sodium (Senokot-S, Holly-Colace) 2 tablet PO BID [facility] Last Admin: 04/12/19 07:59 Dose: 2 tablet Documented by: Discharge Diet: - - Regular diet Discharge Activity: May Not Drive Weight Bearing Status: Weight bearing as tolerated Call your doctor if your incision/area has: Continuous Slow Oozing, Sudden Increased Bleeding, Increased Pain/ Swelling, Increased Redness, Foul Smelling Discharge, Swelling at the incision site Call your doctor if you observe: Fever of 101 or Higher, Coldness, Increased Pain, Numbness or Tingling, Change in Color, Inability to urinate, Inability to have a bowel movement, Using more than one pad per hour, Shortness of breath, Dizziness, Fainting spells, Swelling in the ankles, Chest pain, Prolonged hiccoughing, Increased palpitations (irregular heartbeat), Calf discomfort, Uncontrolled pain Home Medications: Medications to take at Discharge Carbidopa/Levodopa [Carbidopa-Levo ER 50-200 Tab] 1 ea PO QHS 06/29/18 Carbidopa/Levodopa [Carbidopa-Levodopa 25-100 Tab] 1 ea PO TID 06/29/18 Levothyroxine Sodium 75 mcg PO DAILY 06/29/18 Ropinirole HCl 1 mg PO QHS 06/29/18 Aspirin [Aspirin, Baby] 81 mg PO QHS 03/28/19 Atorvastatin Calcium [Lipitor] 40 mg PO QHS 03/28/19 Apixaban [Eliquis] 2.5 mg PO BID #27 04/12/19 Calcium Carb/Vitamin D [Os-Elan 500MG + D] 1 tab PO BIDCM tab 04/12/19 Famotidine [Pepcid] 20 mg PO BID tab 04/12/19 Mirtazapine [Remeron] 15 mg PO QHS tab 04/12/19 Oxycodone [Oxyir] 5 - 10 mg PO Q4H PRN PRN #20 tab 04/12/19 Quetiapine Fumarate [Seroquel] 12.5 mg PO QHS tab 04/12/19 Primary Care Physician: Young Hubbard Chi, MD [Primary Care Provider] - Please follow up with your Primary Care Physician in: Follow up with PCP in 1-2 weeks When: Follow up with Dr. Villagomez orthopedics [facility] after discharge within 1 week When: Follow up with Dr. Huang Neurology in 1-2 weeks Rehab Course The patient is a 83 year old F with PMH HTN, HLD, history of TIA, Parkinson's disease, RLS, hypothyroidism and depression admitted to [facility] on 04/06/2019 for debility secondary to left total hip arthroplasty, for greater than 3 hours of therapy daily with a goal of returning home at or near her prior level of independence. Patient admitted with left hip pain to [facility] on 04/03/2019, and since she had failed conservative treatments, underwent left total hip arthroplasty by Dr. Villagomez on 04/04/2019 without any postprocedural complications. Per patient she was diagnosed with Parkinson's disease few years ago, does not remember the name of the neurologist who diagnosed her, per patient she does have resting tremors which started up in the right upper extremities initially, does walk with small shuffling gait and also had complains of visual hallucinations. At present follows with Dr. Huang, is on Sinemet 25/100 mg p.o. 3 times daily and Sinemet CR 50/200 mg p.o. nightly. At present patient denies any headache, dizziness, focal motor weakness, sensory loss, speech disturbances, visual disturbances, pain, fever. Per patient she lives with her , had intermittent falls, used cane and walker to ambulate, does not drive, lives in a ranch style house, has ramp in front of the house and back of the house. While in the rehab patient did develop visual hallucinations for which Seroquel was added, UA was sent to evaluation, report pending, discussed in staff meeting on 04/12/2019 but family and patient wanted to be discharged home, she was cleared for discharge by PT/OT with outpatient PT/OT and Dr. Novoa to call with UA results once available and decide about if she may would need antibiotics. During the stay she was found to have symptomatic anemia with positive orthostatics and was transfused 1 unit PRBC. Had further uncomplicated rehab course. She is being discharged on her home dose of Requip. Weightbearing as tolerated and left hip precautions per orthopedic recommendations. Follow-up with PCP in 1-2 weeks, neurology Dr. Huang in 1-2 weeks, orthopedic Dr. Hernando JOINER following discharge. Meaningful Use Info Meaningful Use Diagnoses (Choose all that apply): None applicable
[2019-04-12 10:46] LABS: Bacteria 0 SEEN /hpf (None Seen); Mucous, Urine 0 SEEN /hpf (<or=2+); Red Blood Cells-Urine 0 SEEN /hpf (0-5); Squamous Epithelial Cells - UA 0 SEEN /hpf (5-10); White Blood Cells 0 SEEN /hpf (0-5)
[2019-04-12 11:16] LABS: Color, Urine Yellow (Yellow); Glucose, Dipstick Normal (Normal); Ketone-Dipstick Negative (Negative); Leukocyte Esterase-Dipstick 25 /ul (Negative); Nitrite-Dipstick Positive (Negative); Occult Blood-Urine 25 /ul (Negative); Protein-Dipstick Negative (Negative); Specific Gravity, Urine 1.005 (1.002-1.030); Urine Bilirubin Dipstick Negative (Negative); Urine Clarity Clear (Clear); Urine Urobilinogen Normal (Normal)
[2019-04-12 11:50] VITALS: BP 117/67; PULSE 77; RESP 16; TEMP 36.8; O2SAT 98
--- NOTE | 2019-04-12 11:56 | NURSING ---
discharged home with family. discharge instructions, medications and follow up appointments reviewed with pt and family. denies questions and concerns
--- NOTE | 2019-04-12 12:46 | CASEMGMT ---
Social Work IDT met with patient, and son for Team Meeting. Discussed patient's progress in therapy. Pt is SBA for transfers, completing 5 steps with two handrails at SBA, SBA for toileting and UE ADLs, CGA with cues to follow precautions for LE ADLs. Pt has hip precautions. Pt is having increased confusion and hallucinations, climbing out of bed at night. Pt and requesting to DC home this day as pt is physically capable to be at home. IDT agreeable as pt is in new environment and causing more confusion to pt. Pt will follow up with [facility] outpatient PT/OT as pt went there prior. No DME needs. Plan: DC home with and son 04/12 with outpatient PT/OT NATE HardingW
== END 2019-04-12 11:50 | disposition home or self-care (01) | DRG 561 ==
PROVIDERS: Internal Medicine; Admitting Provider Psychiatry & Neurology Neurology; Family Provider Family Medicine Geriatric Medicine; PCP Family Medicine Geriatric Medicine; Referring Provider Psychiatry & Neurology Neurology; Visit Provider Internal Medicine
DX: Z47.1 Aftercare following joint replacement surgery (principal); Z96.642 Presence of left artificial hip joint; Z86.73 Personal history of transient ischemic attack (TIA), and cerebral infarction without residual deficits; I10 Essential (primary) hypertension; G25.81 Restless legs syndrome; G20 Parkinson's disease; F32.9 Major depressive disorder, single episode, unspecified; E78.5 Hyperlipidemia, unspecified; E03.9 Hypothyroidism, unspecified; K21.9 Gastro-esophageal reflux disease without esophagitis; G47.33 Obstructive sleep apnea (adult) (pediatric); K59.09 Other constipation; D64.9 Anemia, unspecified; Z87.891 Personal history of nicotine dependence
CPT/HCPCS: 36415; 80048; 81001; 82040; 82274; 82607; 82728; 82746; 84436; 85014; 85018; 85025; 85027; 86850; 86900; 86901; 86920; 86922; 87086; 87088; 87186; 97110; 97116; 97162; 97166; 97530; 97535; 97802; J7030; P9016

== ENCOUNTER 2019-04-14 02:55 | Emergency (ER) | payer MEDICARE, OTHER, SELFPAY ==
[2019-04-06 15:51] VITALS: BMI 23.8
[2019-04-14 02:59] VITALS: BP 169/87; PULSE 88; RESP 16; TEMP 36.6; O2SAT 98; BMI 26.0
--- NOTE | 2019-04-14 03:29 | ED.VIS.GEN ---
History of Present Illness Chief Complaint: Lower Extremity Injury Detail of Chief Complaint: Restless legs Informant: Patient Onset: Yesterday Current Severity: Moderate Maximum Severity: Moderate Narrative: Patient has a history of restless leg syndrome. She states for the past 2 days she feels like she just cannot sit still. She denies any pain, but states she is been having leg spasms and cannot hold them still. She had a left hip replacement on April 04 and was just recently discharged from the rehab unit. Patient does not remember having significant problems with spasms while she was here in the hospital. On review of her medication list it does appear that she takes Requip. Patient states that she was not aware that she was taking this as her son manages her medications for her. On review of hospital records I do not see that it was given while she was an inpatient. - Past Medical History (1) S/P total hip arthroplasty Status: Chronic (2) Essential hypertension Status: Chronic (3) Parkinson disease Status: Chronic (4) Restless legs syndrome (RLS) Status: Chronic (5) TIA (transient ischemic attack) Status: Chronic Past Medical History - Allergies and Home Meds Allergies/Adverse Reactions: Allergies Penicillins [PCN] Allergy (Verified 04/14/19 02:56) Itching Sulfa (Sulfonamide Antibiotics) Allergy (Verified 04/14/19 02:56) Itching morphine Adverse Reaction (Verified 04/14/19 02:56) Other Primary Care Physician: Young Hubbard Chi, MD [Primary Care Provider] - Prior records reviewed: Yes Surgical History: hysterectomy, total knee arthroplasty - bilateral, - - 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 Smoking Status: Never smoker - Family History Maternal Family History: Reports: Cancer - of ovarian cancer Paternal Family History: Reports: Cancer - pancreatic cancer Review of Systems General: Denies: Chills, Fever Eyes: Denies: Visual changes - bilaterally ENT: Denies: Bilateral ear pain Cardiovascular: Denies: Chest pain Respiratory: Denies: Dyspnea, Cough Gastrointestinal: Denies: Abdominal pain, Nausea, Vomiting, Diarrhea Musculoskeletal: Reports: Myalgias Neurological: Denies: Parasthesia Allergy: Denies: Uticaria Physical Exam Vital Signs/Narrative: Vital Signs Temp Pulse Resp BP Pulse Ox 04/14/19 02:59 97.9 F 88 16 169/87 H 98 Inital Vital Signs reviewed: Yes General: Well nourished, Well developed Head: Normocephalic ENT: Moist mucous membranes Neck: Supple Cardiovascular: Regular rate, Regular rhythm Respiratory: No distress, CTA bilaterally Abdomen: Soft, Nontender Extremities: Nontender Skin: - - Ecchymosis noted to her left leg. No focal tenderness on palpation. Neurological: Alert, Oriented x3 Psychological: Normal affect Diagnostic/Tx/Re-eval Impressions Hip/Pelvis X-Ray 04/14/19 04:46 IMPRESSION: Degenerative arthrosis of the pelvis. There is a left hip arthroplasty in good position. There is no evidence of fracture. Electronically Signed: Herron Hallie, at 5:35 EST Tel , Service support , Brain CT 04/14/19 05:09 IMPRESSION: Chronic involutional changes of the brain. Electronically Signed: Gopal Sterling, at 5:45 EST Tel , Service support , 04/14/19 04:46 HIP, UNI W/ Pelvis 2-3 Views [RAD] Stat 04/14/19 05:09 CT Head [Brain/Head without Contrast] [CT] Stat - Medical Decision Making Patient was given 5 mg of p.o. Valium on arrival. On repeat evaluation she noted her legs were feeling improved. When I went back to recheck her in the room she was lying on the floor at the foot of her bed. She stated that she was trying to get up to get a glass of water and lowered herself to the ground. She had mild tenderness to the left proximal thigh. Equal leg lengths were noted and minimal pain with logroll. She has a small area of ecchymosis to the right elbow with full range of motion and no bony tenderness. She was sent for pelvis and left hip x-rays which are unremarkable with hardware in good position. Nursing staff noted the patient seemed somewhat confused, stating that she knows that we had drawn a bath for her and is wondering where she can take her bath. In light of the fact that she did have a fall and is on Eliquis she was sent for a CT scan of the head. This is unremarkable. When nursing staff went back to check the patient she again was lying on the floor. Patient is moved to a room with direct visualization. She is alert and oriented. Physical exam findings are unchanged. I did review her notes from her recent stay. Patient was having hallucinations in the rehab unit and was recently started on Seroquel. She had to be reminded multiple times to stay in bed and had been attempting to get up. I spoke with the patient's on the telephone. He will be coming into the hospital shortly. He states that she has had continued hallucinations, but they seem to be better than they were when she was in the hospital. He stated her acute symptoms with her leg really started yesterday after riding in the car for an hour. At this time patient does have difficulty getting up to bedside commode and back and this was noted prior to any falls while in the emergency room. We will check her urine at this time as there was recent concern for UTI causing some of her symptoms. We will also have physical therapy evaluate her in the emergency room. is on his way to the emergency room and will be here shortly. If patient is deemed to be stable to go home he is comfortable caring for her and feels that she does better at home. If physical therapy finds that she has had a significant decline and is not safe, we will broach the subject of placement. ED Disposition - Plan for ED Patient: Referrals: Young Hubbard Chi, MD [Primary Care Provider] -
[2019-04-14] MEDS: diazePAM 5 MG Tablet PO (03:31)
--- NOTE | 2019-04-14 04:46 | RAD_ITS ---
STUDY: X-RAY - PELVIS AND LEFT HIP REASON FOR EXAM: Female, 83 years old. Left hip pain TECHNIQUE: 3 views of the pelvis and hip. COMPARISON: None. FINDINGS: There is a non-specific bowel gas pattern. Normal visualized soft tissue structures. There is narrowing with cortical sclerosis and osteophyte formation of the sacroiliac joint consistent with degenerative osteoarthritic changes. Normal bilateral superior and inferior pubic rami. There are degenerative changes of the pubic symphysis with articular narrowing and sclerosis. Normal bilateral ischial tuberosities. There is a left hip arthroplasty in good position. There is no evidence of fracture. RAD/HIP, UNI W/ Pelvis 2-3 Views IMPRESSION: Degenerative arthrosis of the pelvis. There is a left hip arthroplasty in good position. There is no evidence of fracture. Electronically Signed: Gopal Sterling, at 5:35 EST Tel , Service support ,
--- NOTE | 2019-04-14 05:09 | CT_ITS ---
STUDY: CT BRAIN WITHOUT CONTRAST REASON FOR EXAM: Female, 83 years old. Fall. Confusion. TIA RADIATION DOSAGE (If Supplied By Facility): CTDIvol = ( 44.99 ) mGy, DLP = ( 812.98 ) mGycm TECHNIQUE: Transaxial CT imaging of the brain was performed without administration of intravenous contrast material. Individualized dose optimization techniques were used for this CT. COMPARISON: No relevant priors. FINDINGS: Normal soft tissue structures. Normal calvarium. Normal size ventricles and extra-axial spaces for the patient's age. There are areas of decreased attenuation within the white matter tracts of the supratentorial brain, consistent with microvascular disease changes. Normal basal ganglia and thalami. Normal brainstem. Normal cerebellum. There is no intracranial hemorrhage. There are no findings of an acute ischemic infarction. Normal visualized paranasal sinuses. CT/Brain/Head without Contrast IMPRESSION: Chronic involutional changes of the brain. Electronically Signed: Gopal Sterling, at 5:45 EST Tel , Service support ,
[2019-04-14 06:11] VITALS: BP 159/90; PULSE 93; O2SAT 97
--- NOTE | 2019-04-14 06:12 | ED.RN ---
I WAS STANDING AT THE NURSES' STATION AND PATIENT WAS IN ROOM 8 AND I HEARD MOANING AND HOLLERING. I WENT TO THE ROOM AND THE PATIENT WAS LAYING ON THE FLOOR BEHIND THE DOOR. SHE STATED SHE WAS TRYING TO GO HOME AND FELL. MIRTHA BATISTA AND I WAS ABLE TO GET THE PATIENT TO A STANDING POSITION BUT SHE WAS UNABLE TO WALK. LYNNE CANDELARIA CARRIED HER TO HER BED. SHE WAS MOVED UP TO BED 5 WHICH IS ACROSS FROM THE NURSES STATION. I REORIENTED HER TO HER SPACE, DR. SOLER WAS MADE AWARE AND WENT IN TO ACCESS THE PATIENT. NO NEW ORDERS AT THIS TIME.
[2019-04-14 06:50] LABS: Red Blood Cells-Urine 0 SEEN /hpf (0-5); Squamous Epithelial Cells - UA 0 SEEN /hpf (5-10)
[2019-04-14 06:52] LABS: Color, Urine Yellow (Yellow); Glucose, Dipstick Normal (Normal); Ketone-Dipstick Negative (Negative); Leukocyte Esterase-Dipstick 500 /ul (Negative); Nitrite-Dipstick Negative (Negative); Occult Blood-Urine Negative /ul (Negative); Protein-Dipstick Negative (Negative); Specific Gravity, Urine 1.015 (1.002-1.030); Urine Bilirubin Dipstick Negative (Negative); Urine Urobilinogen Normal (Normal)
[2019-04-14 06:57] LABS: Bacteria RARE /hpf (None Seen); Mucous, Urine 1+ /hpf (<or=2+); Urine Clarity Sl Cloudy (Clear); White Blood Cells 10-25 SEEN /hpf (0-5)
[2019-04-14 06:58] LABS: Amorphous Sediment 1+
--- NOTE | 2019-04-14 08:12 | VDLE_ITS ---
Reason For Study: Pain Procedure LEFT Exam performed portable in ED. GSV is normal. A preliminary report was called and/or faxed CFV is compressible, spontaneous, phasic, to Dr. Holt. competent, and demonstrates normal augmentation. FV is compressible, spontaneous, phasic, competent and demonstrates normal augmentation. POP V is compressible, spontaneous, phasic, competent and demonstrates normal augmentation. T/P Trunk is compressible. PTV is compressible. LT PerV is compressible. Interpretation Summary There is no evidence of left lower extremity deep vein thrombosis. Left great saphenous vein appears patent and compressible segmentally. Ordering Physician: Prateek Holt Referring Physician: Young Hubbard Chi Performed By: Berta Samaniego, LATRELL, RVT
[2019-04-14 08:44] VITALS: BP 154/87; PULSE 90; RESP 16; O2SAT 98
[2019-04-14] MEDS: Acetaminophen 325 MG Tablet 650 MG PO (09:16)
--- NOTE | 2019-04-14 09:20 | NURSING ---
CALLED TCU PT AGAIN FOR PATIENT TO BE ACCESSED.
[2019-04-14 10:38] VITALS: BP 153/87; PULSE 87; RESP 16; O2SAT 98
--- NOTE | 2019-04-14 10:48 | ED.RN ---
PT reports pt not safe to go home at this time. Social work notified to assist pt/family and Dr barriga with kelseyn
--- NOTE | 2019-04-14 11:33 | CM.ED ---
Social Work Consult: [facility] Placement Informant: Dr. Holt Per Dr. Holt and physical therapy, is recommending patient to admit to senior living home for continued therapy. Patient discharged from Inpatient Rehab Unit on 04/12/19 to home with family and outpatient physical therapy to follow up with. Met with patient and patient spouse, Don in room. Introduced self as well a mental health social worker role. This mental health social worker broached topic of alf placement for patient. Don and patient both stating to want patient to return to home and are not wanting to go to a alf. Don stating that patient has 24hr care at home from either Don or patient family members. Don stating to also be currently talking with a private duty home health care agency about the possibility of starting care in the home for patient. Patient stating to have a walker, wheelchair, and motorized scooter at home. Patient stating to have all needed DME. Patient advised on Dr. Holt's concerns of patient discharging to home and risk for falling. Patient stating to be aware of concerns and choosing to discharge to home. Patient declining alf stay multiple times throughout assessment. Explored option of home health therapy, patient declining stating that the outpatient program at [facility] is a good one. Active listening and support provided. Updated Dr. Holt and nursing staff on social work documentation. Plan is for patient to discharge to home with spouse per patient request. Wilmer Corral MSW, RODOLFO
--- NOTE | 2019-04-14 12:10 | ED.VISSUMM ---
- ER Visit Summary Date of Service: 04/14/19 Chief Complaint: [] History of Present Illness: The patient is a 83 F [] Physical Examination: [] Test Results: [] Emergency Department Course and Treatment: [] Treatment Plan: [] Disposition: [] Impression: [] This note was generated with [employer] dictation software. It may contain incorrect words, spelling, and punctuation that were not noted in review of the chart prior to signing ED Disposition - Plan for ED Patient: Disposition: Home or Assisted Living Diagnosis: Lower extremity pain, left, Multiple falls, Multiple contusions, Closed head injury, Anticoagulant long-term use Instructions: Fall Prevention, HEAD INJURY, No Wake-Up (Adult) Referrals: Young Hubbard Chi, MD [Primary Care Provider] - 3-5 Days if not improving
[2019-04-14 12:25] VITALS: BP 137/71; PULSE 96; RESP 16; O2SAT 96
== END 2019-04-14 12:25 | disposition home or self-care (01) ==
PROVIDERS: Emergency Provider Emergency Medicine; Family Provider Family Medicine Geriatric Medicine; PCP Family Medicine Geriatric Medicine
DX: G25.81 Restless legs syndrome (principal); M79.605 Pain in left leg; R60.0 Localized edema; W18.39XA Other fall on same level, initial encounter; Y93.89 Activity, other specified; Y92.538 Other ambulatory health services establishments as the place of occurrence of the external cause; G20 Parkinson's disease; I10 Essential (primary) hypertension; R44.3 Hallucinations, unspecified; Z96.642 Presence of left artificial hip joint; Z79.01 Long term (current) use of anticoagulants; Z79.82 Long term (current) use of aspirin; Z79.899 Other long term (current) drug therapy; Z86.73 Personal history of transient ischemic attack (TIA), and cerebral infarction without residual deficits
CPT/HCPCS: 70450; 73502; 81001; 93971; 97162; 99285; P9612

== ENCOUNTER → 2019-04-17 11:12 | Outpatient (CLI) | payer MEDICARE, OTHER, SELFPAY ==
[2019-04-17 10:55] VITALS: BMI 26.0
--- NOTE | 2019-04-17 11:13 | RAD_ITS ---
STUDY: X-RAY - LEFT KNEE REASON FOR EXAM: Female, 83 years old. CHRONIC PAIN. BEST FILMS POSSIBLE TO PTS PARKINSONS TECHNIQUE: 5 view(s) of the knee. COMPARISON: None. FINDINGS: The prosthetic components are present without demonstrated complications. No visualized acute fracture or displacement. No visualize aggressive process. Normal proximal tibiofibular articulation. The soft tissue structures are unremarkable. RAD/Knee 4 or More Views IMPRESSION: No visualized acute process Electronically Signed: Byron Edwards MD at 8:22 EST , Service support ,
== END ==
PROVIDERS: Family Provider Family Medicine Geriatric Medicine; PCP Family Medicine Geriatric Medicine; Referring Provider Orthopaedic Surgery; Visit Provider Orthopaedic Surgery
DX: Z96.652 Presence of left artificial knee joint (principal)
CPT/HCPCS: 73564

== ENCOUNTER → 2019-04-17 12:52 | Outpatient (CLI) | payer MEDICARE, OTHER, SELFPAY ==
[2019-04-17 10:55] VITALS: BMI 26.0
--- NOTE | 2019-04-17 12:54 | VDLE_ITS ---
Reason For Study: LLE PAIN RIGHT LEFT CFV is compressible, spontaneous, phasic, CFV is compressible, spontaneous, phasic, competent and demonstrates normal competent, and demonstrates normal augmentation. augmentation. Procedure FV is compressible, spontaneous, phasic, Exam performed in department. competent and demonstrates normal The exam was diagnostic. augmentation. A preliminary report was called and/or faxed POP V is compressible, spontaneous, phasic, to Dr. Villagomez @ [phone] @ 1:20 pm. competent and demonstrates normal augmentation. T/P Trunk is compressible. PTV is compressible. LT PerV is compressible. GSV appears to have thickened fountain; however it is patent and compressible. Interpretation Summary There is no evidence of left lower extremity deep vein thrombosis. Left great saphenous vein appears patent and compressible segmentally. Left great saphenous vein appears to have thickened fountain possibly suggestive of a more chronic superficial venous process. Clinical correlation would be appropriate. Normal flow patterns right common femoral vein Ordering Physician: Ghulam Villagomez Referring Physician: Young Hubbard Chi Performed By: Stephanie Caceres, LATRELL, RVT
== END ==
PROVIDERS: Family Provider Family Medicine Geriatric Medicine; PCP Family Medicine Geriatric Medicine; Referring Provider Orthopaedic Surgery; Visit Provider Orthopaedic Surgery
DX: M79.605 Pain in left leg (principal); Z96.649 Presence of unspecified artificial hip joint; Z96.652 Presence of left artificial knee joint
CPT/HCPCS: 73564; 93971

== ENCOUNTER → 2019-05-01 11:21 | Outpatient (CLI) | payer MEDICARE, OTHER, SELFPAY ==
[2019-05-01 09:47] VITALS: BMI 26.0
--- NOTE | 2019-05-01 11:22 | RAD_ITS ---
HISTORY: BILATERAL KNEE PAIN, NO TUNNEL VIEW DONE-PT COULD NOT TOLERATE EXAM:Right Knee COMPARISON: None FINDINGS: # of images incl. paperwork: 3 Subcutaneous edema. Tricompartment osteoarthritis. Severe calcific atherosclerotic disease. No acute fracture. Atrophy. RAD/Knee 4 or More Views IMPRESSION: Tricompartment osteoarthritis. Osteoporosis. Subcutaneous edema. Muscle atrophy. Atherosclerotic disease. at 2236 Reported and signed by: Beto Chiang MD Electronically Signed: Beto Chiang MD at 22:35 EST Tel , Service support ,
--- NOTE | 2019-05-01 11:22 | RAD_ITS ---
HISTORY: Left leg pain. 2 views of the left leg. Comparison imaging left knee x-rays from April 17, 2019. Findings: Left total knee arthroplasty is a tricompartment cemented arthroplasty. Alignment appears normal. Calcific ASCVD is severe. Subcutaneous edema is mild. The leg is atrophic. Ankle arthritis. RAD/Tibia & Fibula 2 Views IMPRESSION: Tricompartment cemented knee arthroplasty without evidence of loosening. Arthritis. Atrophy. Atherosclerotic disease. Edema. No acute fracture. at 2235 Reported and signed by: Beto Chiang MD Electronically Signed: Beto Chiang MD at 22:34 EST Tel , Service support ,
--- NOTE | 2019-05-01 11:22 | RAD_ITS ---
STUDY: X-RAY - LEFT KNEE REASON FOR EXAM: Female, 83 years old. Bilateral knee pain. TECHNIQUE: 3 view(s) of the knee. COMPARISON: None. FINDINGS: There is a total knee prosthesis in place with normal alignment. No lucency to suggest acute fracture. There is diffuse osteopenia. Postoperative changes of the posterior patella with wiring noted. Trace amount of joint effusion seen. No distinct bony lesion. Mild soft tissues calcification above the patella noted. RAD/Knee 4 or More Views IMPRESSION: Total knee prosthesis in place with normal alignment. No acute fracture. Electronically Signed: Flory Woodard MD at 0:18 EST , Service support ,
== END ==
PROVIDERS: Family Provider Family Medicine Geriatric Medicine; PCP Family Medicine Geriatric Medicine; Referring Provider Orthopaedic Surgery; Visit Provider Orthopaedic Surgery
DX: Z96.652 Presence of left artificial knee joint (principal); M17.11 Unilateral primary osteoarthritis, right knee; M81.0 Age-related osteoporosis without current pathological fracture; R29.6 Repeated falls
CPT/HCPCS: 73564; 73590

== ENCOUNTER → 2019-05-18 09:52 | Outpatient (CLI) | payer MEDICARE, OTHER, SELFPAY ==
[2019-05-01 09:47] VITALS: BMI 26.0
--- NOTE | 2019-05-18 09:53 | NM_ITS ---
CLINICAL: 83-year-old female with reported history of right knee pain. LIMITED 99m Tc MDP THREE PHASE BONE SCINTIGRAPHY COMPARISON: Plain film radiograph reports bilateral knees and left tibia-fibula 05/01/2019 FINDINGS: Following the intravenous administration of 27.0 mCi of 99m Tc MDP, three-phase bone acquisitions of the knee articulations reveal: 1. The flow and immediate static blood pool acquisitions demonstrate arterial and venous phase hyperemia manifest in the medial-lateral tibial and femoral compartments of the symptomatic right knee articulation. 2. Delayed images depict increased tracer concentration noted in the lateral tibial and to a lesser extent medial femoral and tibial compartments of the right knee. 3. The remaining limited skeletal structures are scintigraphically unremarkable. The left knee prosthesis demonstrates no significant increase in tracer concentration. NM/Bone Scan Three Phase IMPRESSION: 1. The increased radiopharmaceutical concentration identified in the femoral and tibial compartments of the right knee is most consistent with degenerative arthritis. Potential internal derangement is defined in the distribution of the lateral meniscus. 2. No other definitive scintigraphic abnormalities are delineated. Electronically Signed: Sandeep David DO at 22:47 EST Tel , Service support ,
== END ==
PROVIDERS: Family Provider Family Medicine Geriatric Medicine; PCP Family Medicine Geriatric Medicine; Referring Provider Orthopaedic Surgery; Visit Provider Orthopaedic Surgery
DX: Z96.652 Presence of left artificial knee joint (principal)
CPT/HCPCS: 78315

== ENCOUNTER → 2019-05-31 11:46 | Outpatient (CLI) | payer MEDICARE, MEDICAID, SELFPAY ==
[2019-05-31 11:38] VITALS: BMI 26.0
--- NOTE | 2019-05-31 11:47 | RAD_ITS ---
STUDY: X-RAY - PELVIS AND LEFT HIP REASON FOR EXAM: Female, 83 years old. Recent fall. Pain. TECHNIQUE: 3 views of the pelvis and hip. COMPARISON: 04/14/2019. FINDINGS: No acute fracture or dislocation. Stable appearance of left hip arthroplasty. Grossly normal right hip and pelvis. RAD/HIP, UNI W/ Pelvis 2-3 Views IMPRESSION: No acute fracture or dislocation. Satisfactory appearance of left hip arthroplasty. Electronically Signed: Sonny Aragon MD at 21:34 EST , Service support ,
== END ==
PROVIDERS: Family Provider Family Medicine Geriatric Medicine; PCP Family Medicine Geriatric Medicine; Referring Provider Orthopaedic Surgery; Visit Provider Orthopaedic Surgery
DX: M25.552 Pain in left hip (principal); Z96.642 Presence of left artificial hip joint
CPT/HCPCS: 73502

== ENCOUNTER → 2019-06-19 15:56 | Outpatient (CLI) | payer MEDICARE, MEDICAID, SELFPAY ==
[2019-06-16 10:05] VITALS: BMI 26.0
--- NOTE | 2019-06-19 16:05 | RAD_ITS ---
STUDY: X-RAY - ABDOMEN/PELVIS REASON FOR EXAM: Female, 83 years old. Fecal impaction. TECHNIQUE: AP supine and upright views of the abdomen and pelvis. COMPARISON: May 31, 2019 FINDINGS: Normal visualized lung bases. There is an unremarkable bowel gas pattern. Large amount of feces in the rectosigmoid. There is no demonstrated free abdominal air. The visualized liver, spleen and kidneys are grossly normal in size and morphology. Normal soft tissue structures. Osteopenia with left total hip arthroplasty. RAD/Abd Inc Decub and/or Erect IMPRESSION: Large amount of feces in the rectosigmoid. No acute finding. Electronically Signed: Daryn Fowler MD at 13:53 EST , Service support ,
== END ==
PROVIDERS: PCP Family Medicine Geriatric Medicine; Referring Provider Family Medicine Geriatric Medicine; Visit Provider Family Medicine Geriatric Medicine
DX: K56.41 Fecal impaction (principal)
CPT/HCPCS: 74019

== ENCOUNTER → 2019-06-20 | Outpatient (CLI) | payer MEDICARE, MEDICAID, SELFPAY ==
[2019-06-16 10:05] VITALS: BMI 26.0
== END | disposition home or self-care (01) ==
LOC: POLAB3 11:34 → LABSPEC 11:34
PROVIDERS: PCP Family Medicine Geriatric Medicine; Visit Provider Family Medicine Geriatric Medicine
DX: N39.0 Urinary tract infection, site not specified (principal)
CPT/HCPCS: 87086; 87088

== ENCOUNTER 2019-07-31 13:30 | Outpatient (RCR) | payer MEDICARE, MEDICAID, SELFPAY ==
[2019-07-07 10:13] VITALS: BMI 26.0
--- NOTE | 2019-07-24 14:20 | HP.PTEVAL ---
Patient's Visit Information TIFFANIE MOODY is a 84 year old F referred to Physical Therapy by Ghulam Villagomez DO with a diagnosis of R knee OA. Date of Evaluation: 07/24/19 Physical Therapist: Edinson Haas DPT, OCS, CSCS - Visit Plan Frequency: 2x /Week Duration: 4-6 Weeks Plan: 2x/week for 4 weeks to get ready for R TKA. Pt needs to ambulate with wh walker as she relies on WC at home. Needs to learn AROM and stretching adn strengthening of R LE and progress to I prior to pending R TKA. Avoid increases in pain. Give pics for HEP when able. Given 60 feet of walking with wh walker daily with supervsion adn LAQ throughout day to do at home today. - Subjective Subjective: R TKA will happen on 08/[address] Newton. H/o L hip hip and knee done yrs ago. Pain in R knee is bad at end of day. She spends much of day in wheelchair due to pain. Has not been able to get around on feet in the last year. has not walked into restaurant in over a year. Has WC. Has two walkers at home. Uses walker now and then. Uses to get to bathroom at home. Does not walk. Had aid to take shower today for first time. Could walk into walk in shower using bars prior but has fallen many times. No spinning, no neuropathy. No stairs at home inside or two enter. Has ramps at both entrances. makes meals and meals on wheels. Dresses self but needs Min A some days from . - Pain R knee Pain Intensity (Out of 10): 1 Pain Intensity Range: 7 - Objective R Knee OA, pushed back to eval room in , hasn't walked in a long time adn does not walk at home. Walked today with wh walker 60 feet SBA slow and R knee stay ent at about 25 degrees adn some varus. Trasnfer with UE I bed adn chair. SLR zhao but challenged R with knee bent to 30 degrees. HS and quads max tight. AROM hips to 0 degrees ext and 90 flexion, 25 abduction. Knee aROM L 0-120 and R -10 to 108. ankle AROM WFL B. Strength hip abd and ext 3+, flexion 4- B, knee ext R 3+ and L 4- and flexion 3+ R adn 4 on L. Ankle strength 4- B. Patellar mobility is poor on R and not alot of tenderness at joint line. Sensation WNL to gross light touch in LE. Steps not tested today. Overall pt is very weak and scared to ambulate and seems scaredd to have her walk due to frequent falls. Unable to walk more than 2 steps today wihtout AD and tends to reach for objects. Tremors noted UEL today with sitting. Stand balance is fair but R knee bent and hesitant to bear weight. - Goals Goal 1:: Patient ambulate consitently 100 feet daily with wh walker to improve strengtha dn mobility. Goal Time Frame: 4-6 Weeks Goal 2:: Pain R knee 0-3/10 at worst Goal Time Frame: 4-6 Weeks Goal 3:: Pt I in appropriate HEP for knee strengtha dn ROM running up to surgery 08/28 Goal Time Frame: 4-6 Weeks Goal 4:: Pt feel 50% better over all in mobiity. Goal Time Frame: 4-6 Weeks - Rehabilitation Potential Physical Therapy Diagnosis: R knee OA due for TKA next month Rehabilitation Potential: Fair - Anticipated Interventions Patient/Client Instruction: Educate patient on: Condition, Plan of Care For the Purpose of:: To decrease pain, To increase ROM, To improve muscle performance and motor function, To increase tolerance to activity/condition/position, To improve ability of physical actions for home/community/work/leisure, To improve gait and locomotor functions Therapeutic Exercise to Include: Strength training, Flexibilty training, Gait and locomotor training, Neuromotor development, Passive ROM, Active ROM For the Purpose of:: To decrease pain, To improve muscle performance and motor function, To increase tolerance to activity/condition/position, To improve performance and independence with ADL's, To improve ability of physical actions for home/community/work/leisure, To improve gait and locomotor functions Thank you for the opportunity to evaluate your patient. For Medicare and Medicare HMO plans, please review the plan of care and approve it. It will need to be FAXED BACK to us at [phone] for Medicare purposes. For Medicare only, by signing this I certify the plan of care. Please let me know if there are questions or concerns regarding this plan of care. Physician Signature: Date:
--- NOTE | 2019-11-29 13:50 | HP.PT.NRP ---
TIFFANIE MOODY was seen in my office for initial evaluation on 07/24/19. The following Plan of Care was established for this patient: Initial Frequency: 2x /Week Initial Duration: 4-6 Weeks Patient/Client Instruction: Educate patient on: Condition, Plan of Care For the Purpose of:: To decrease pain, To increase ROM, To improve muscle performance and motor function, To increase tolerance to activity/condition/position, To improve ability of physical actions for home/community/work/leisure, To improve gait and locomotor functions Therapeutic Exercise to Include: Strength training, Flexibilty training, Gait and locomotor training, Neuromotor development, Passive ROM, Active ROM For the Purpose of:: To decrease pain, To improve muscle performance and motor function, To increase tolerance to activity/condition/position, To improve performance and independence with ADL's, To improve ability of physical actions for home/community/work/leisure, To improve gait and locomotor functions This patient was last seen in our office 07/31/19. Pertinent comments regarding their Physical therapy will appear below: Pt seen 2 visits for knee OA. Cancelled the rest of her plan of care due to Covid. aT this point, it has been over 4 months asnd I will discontinue due to nonattendance. At this point I will be discontinuing this patient from physical therapy. I would be happy to see this patient again in the future if found appropriate by the physician. Thank you! Edinson Haas, DPT, OCS, CSCS
== END 2019-07-31 19:00 | disposition home or self-care (01) ==
LOC: PT 13:30
PROVIDERS: PCP Family Medicine Geriatric Medicine; Visit Provider Orthopaedic Surgery
DX: M17.11 Unilateral primary osteoarthritis, right knee (principal); Z98.890 Other specified postprocedural states; N39.0 Urinary tract infection, site not specified
CPT/HCPCS: 87077; 87086; 87088; 97110; 97162

== ENCOUNTER → 2019-08-10 11:28 | Outpatient (CLI) | payer MEDICARE, MEDICAID, SELFPAY ==
[2019-07-07 10:13] VITALS: BMI 26.0
[2019-08-10 11:55] LABS: Absolute Lymphocyte Count 1.16 X10^3/uL (0.83-4.51); Basophil# 0.02 X10^3/uL; Basophil% 0.3 % (0-1); Eosinophil# 0.06 X10^3/uL; Hematocrit 30.8 % (37-47); Hemoglobin 9.1 g/dL (12.0-15.0); Lymphocyte # 1.16 X10^3/ul (4.0); Lymphocyte % 19.4 % (19-41); Mean Corp Hgb Conc 29.5 g/dL (32-36); Mean Corpuscular Hgb 27.6 pg (27.0-32.0); Mean Corpuscular Volume 93.3 fL (81-99); Mean Platelet Vol. 10.4 fl (6.2-12.0); Monocyte# 0.73 X10^3/uL; Monocyte% 12.2 % (0-10); NRBC Flagged by Analyzer 0 % (0-5); Neutrophil % 66.9 % (47-70); Platelet Count 259 K/mm3 (150-450); RBC Distribution Width CV 14.2 % (11.6-14.6); RBC Distribution Width SD 48.1 fl (35.1-43.9)
[2019-08-10 12:45] LABS: Anion Gap 6 (5-15); BUN 25 mg/dL (7-18); BUN/Creat Ratio 47.8 RATIO (10-20); Calcium,Total 8.7 mg/dL (8.5-10.1); Chloride 109 mmol/L (98-107); Creatinine, Serum 0.52 mg/dL (0.55-1.02); EST Glomerular Filtration Rate 119 mL/min (>60); Est Glom Filt Rate - Afr Amer 144 mL/min (>60); Glucose 101 mg/dL (74-106); Potassium 3.7 mmol/L (3.5-5.1); Sodium Level 145 mmol/L (136-145)
== END ==
PROVIDERS: PCP Family Medicine Geriatric Medicine; Visit Provider Family Medicine Geriatric Medicine
DX: Z01.818 Encounter for other preprocedural examination (principal)
CPT/HCPCS: 36415; 80048; 85025

== ENCOUNTER → 2019-08-14 13:26 | Outpatient (CLI) | payer MEDICARE, MEDICAID, SELFPAY ==
[2019-07-07 10:13] VITALS: BMI 26.0
[2019-08-14 15:53] LABS: Platelet Count 282 K/mm3 (150-450); RET-HE 28.2 pg (30-35); Reticulocyte Count 1.01 % (0.5-1.5)
[2019-08-14 16:05] LABS: Vitamin B12 306 pg/mL (211-911)
[2019-08-14 16:20] LABS: Ferritin 99 ng/mL (8-252); Iron 25 ug/dL (50-170); Iron Binding Capacity,Total 231 ug/dL (250-450)
== END ==
PROVIDERS: PCP Family Medicine Geriatric Medicine; Visit Provider Family Medicine Geriatric Medicine
DX: D64.9 Anemia, unspecified (principal)
CPT/HCPCS: 36415; 82607; 82728; 82746; 83540; 83550; 85045

== ENCOUNTER → 2019-08-15 14:34 | Outpatient (CLI) | payer MEDICARE, MEDICAID, SELFPAY ==
[2019-07-07 10:13] VITALS: BMI 26.0
[2019-08-15 15:46] LABS: Homocysteine 12.9 umol/L (3.2-10.7)
== END ==
PROVIDERS: PCP Family Medicine Geriatric Medicine; Visit Provider Family Medicine Geriatric Medicine
DX: E53.8 Deficiency of other specified B group vitamins (principal); E56.9 Vitamin deficiency, unspecified; E72.11 Homocystinuria
CPT/HCPCS: 36415; 83090

== ENCOUNTER → 2019-09-12 14:45 | Outpatient (CLI) | payer MEDICARE, MEDICAID, SELFPAY ==
[2019-07-07 10:13] VITALS: BMI 26.0
[2019-09-12 15:12] LABS: Hematocrit 32.4 % (37-47); Hemoglobin 9.4 g/dL (12.0-15.0)
== END ==
PROVIDERS: PCP Family Medicine Geriatric Medicine; Referring Provider Family Medicine Geriatric Medicine; Visit Provider Family Medicine Geriatric Medicine
DX: D50.9 Iron deficiency anemia, unspecified (principal)
CPT/HCPCS: 36415; 85014; 85018

== ENCOUNTER 2019-09-26 09:19 | Observation (INO) | payer MEDICARE, OTHER, MEDICAID, SELFPAY ==
[2019-07-07 10:13] VITALS: BMI 26.0
[2019-09-20 14:40] VITALS: BMI 25.0
--- NOTE | 2019-09-21 13:58 | EKG12_ITS ---
Test Reason : PREOP Blood Pressure : / mmHG Vent. Rate : 074 BPM Atrial Rate : 074 BPM P-R Int : 182 ms QRS Dur : 104 ms QT Int : 408 ms P-R-T Axes : 048 -37 039 degrees QTc Int : 452 ms Sinus rhythm with occasional Premature ventricular complexes Left axis deviation Abnormal ECG Confirmed by CALVIN KELLY, MARY ([id number]), editor index GLORIA LUIS ([id number]) on 09/25/2019 2:44:33 PM Referred By: Ghulam Villagomez Confirmed By:AILEEN SIMPSON MD
[2019-09-22 11:05] LABS: White Blood Count 6.1 K/mm3 (4.4-11.0)
[2019-09-22 11:06] LABS: Hematocrit 32.8 % (37-47); Hemoglobin 9.7 g/dL (12.0-15.0); Mean Corp Hgb Conc 29.6 g/dL (32-36); Mean Corpuscular Hgb 27.1 pg (27.0-32.0); Mean Corpuscular Volume 91.6 fL (81-99); RBC Distribution Width CV 15.1 % (11.6-14.6); Red Blood Count 3.58 M/mm3 (4.2-5.4)
[2019-09-22 11:07] LABS: Mean Platelet Vol. 10.2 fl (6.2-12.0); Platelet Count 260 K/mm3 (150-450); RBC Distribution Width SD 50.6 fl (35.1-43.9)
[2019-09-22 11:09] LABS: International Normalized Ratio 1.1; Partial Thromboplast Time 34.6 Seconds (24.1-36.2); Prothrombin Time (Protime)PT. 13.3 SECONDS (11.7-14.9)
[2019-09-22 11:10] LABS: AST(SGOT) 10 U/L (15-37); Alanine Aminotransfer ALT/SGPT 8 U/L (13-56); Albumin, Serum 3.3 g/dL (3.2-5.0); Alkaline Phosphatase 133 U/L (45-117); Bilirubin, Direct 0.07 mg/dL (0.00-0.30); Globulin 3.4 g/dL (2.2-4.2); Protein, Total 6.7 g/dL (6.4-8.2); Thyroid Stim Hormone (TSH) 1.04 uIU/mL (0.358-3.74)
[2019-09-26] VITALS (35 sets, daily range): BP systolic 110–159; BP diastolic 57–87; PULSE 56–84; RESP 15–18; TEMP 36.2–37.1; O2SAT 94–100; BMI 26.0
[2019-09-26] MEDS: Gabapentin 600 MG Tablet PO (05:30)
[2019-09-26 05:49] LABS: Magnesium 2.2 mg/dL (1.6-2.6)
[2019-09-26] MEDS: Scopolamine 1mg/72hr Patch 1 PATCH TRANSDERM. (06:07)
[2019-09-26] MEDS: Celecoxib 200 MG Capsule 400 MG PO (06:09)
[2019-09-26] MEDS: Acetaminophen 500 MG Tablet 1000 MG PO ×2 (06:09→21:13)
[2019-09-26] MEDS: Lactated Ringers 1,000 ML 100 ML IV ×3 (06:13→21:13)
[2019-09-26 06:55] LABS: Bedside Glucose 135 mg/dL (70-110)
[2019-09-26] MEDS: Cefazolin 2 GM in 0.9% Normal Saline 100 ML IV (07:21)
--- NOTE | 2019-09-26 07:22 | HP.PCM_ITS ---
History and Physical Date of Admission: 09/26/19 Intake Intake Visit Reasons: right knee Chief Complaint: Fatigue, anemia Allergies Sulfa (Sulfonamide Antibiotics) Allergy (Mild, Verified 09/14/19 14:18) Itching Penicillins [PCN] Allergy (Verified 09/14/19 14:18) Itching morphine Adverse Reaction (Severe, Verified 09/14/19 14:18) Other [facility] Social History (Updated 09/15/19 @ 10:[address] Ghulam Villagomez DO) Smoking Status: Former smoker HPI right knee: Details: Parts of this documentation were recorded by a scribe, this documentation accurately reflects the service provided and the decisions made by meGhulam DO 09/15/19 [id number]. TIFFANIE MOODY is a 84 year old F here today for right knee pain that is so severe she is non ambulatory nearly the entire day. She complains of pain all the time. Patient is alert and oriented today. Denies numbness, tingling or other associated symptoms. ROS Musc Reports as per HPI, Reports abnormal walking, Reports joint pain Skin/Breast Reports as per HPI Neuro Yes as per HPI, Yes abnormal walking Ortho Exam Right Knee Skin/Wound: No erythema, No ecchymosis, No swelling Knee ROM: Yes ROM-Extension -20 to 0, No ROM-Flexion 0-140 KNEE: Right Knee Skin/Wound: No erythema, No ecchymosis, Yes swelling Homans Sign: No 1+: Effusion Knee ROM: No ROM-Extension -20 to 0 (lacking 15), No ROM-Flexion 0-140 (105) Examination: Yes Med jt line tenderness, Yes Lat jt line tenderness Stability: NML: Anterior Drawer, NML: Posterior Drawer, NML: Varus 30 Patella Grind: Yes Office Procedures Iovera Details:: Preoperative diagnosis : right knee pain Postoperative diagnosis: Same Procedure: Cryotherapy with Iovera device to anterior femoral cutaneous nerve and 2 branches of the infrapatellar saphenous nerve III nerves in total Description of procedure: Patient was brought back to the procedure room the operative extremity was identified by both patient and physician. The PIP flexion crease was measured to the midpoint of the patella and this distance was divided in 3 resulting in 10 cm location proximal to the midpoint of the patella. This line was extended medial and lateral to the extent of the edges of the patella. This was our treatment line for the anterior femoral cutaneous nerve. A second treatment line was made 5 cm medial to the inferior pole of the patella and 5 cm distally. The leg was prepped with alcohol and Betadine. Lidocaine with epi was used along the treatment lines. Using the Iovera device treatment lines were treated with 1 minute cycles. Reproduction of paresthesias was monitored in the area of nerve distribution. Once all 3 nerves were treated across the 2 treatment lines patient was cleaned and a light dressing with 4 x 4 and Laexandru wrap was applied. Patient tolerated the procedure without complication. Supplemental Info 05/01/2019 x-ray right knee severe tricompartmental DJD with valgus deformity osteopenia 05/31/2019 x-ray left hip: 05/18/2019 bone scan: No aseptic loosening of left knee replacement no stress fractures increased uptake right knee consistent with DJD Assessment & Plan Problems 1. Chronic pain of right knee M25.561; G89.29 2. Primary osteoarthritis of right knee M17.11 Plan Iovera treatment performed today Reviewed the risks and benefits of the Iovera injection and patient elects to proceed. Instructed to use tylenol if needed but no aspirin or nsaids for a we ek prior to surgery. Once again reviewed risk of COVID-19 infection which could result in catastrophic consequences including ventilator assistance and . However due to the severity and worsening progression of her symptoms and significant limitation in her activities of daily living including even standing patient and wish to proceed with surgery assuming risks patient is wishing for transitional care after surgery. Risks, benefits and alternatives of surgery reviewed including but not limited to bleeding, infection, nerve, artery and/or tissue damage, fracture, VTE, mechanical feel of the knee, continued pain, stiffness and expected post- operative course. Follow up post op or sooner if pain, swelling, numbness or associated symptoms, or concerns develop. All questions answered. Patient in agreement of plan. Orders Orders: Iovera Today M25.569 Coding Level of Care Code Attention Mc Diagnoses Chronic pain of right knee M25.561; G89.29 ??Chronicity: chronic Primary osteoarthritis of right knee M17.11 ??Osteoarthritis type: primary I have re-examined the patient. There are no clinical changes since date of exam Essential Procedure Criteria Risk to Patient if Procedure Delayed: Presence of severe symptoms causing an inability to perform ADL's - patient has become wheelchairbound because of knee and can not care for her because of it.
[2019-09-26] MEDS: dexAMETHasone 10 MG/ML Vial IV (07:45)
[2019-09-26] MEDS: Bupivacaine Mpf 0.5% 30 ML VIAL (08:41)
[2019-09-26] MEDS: Betamethasone/Betamethasone 30 MG/5 ML Vial (08:41)
[2019-09-26] MEDS: Epinephrine (1 mg/ml) 1 MG/ML VIAL (08:41)
[2019-09-26] MEDS: Lactated Ringers 1,000 ML 125 ML IV (08:45)
--- NOTE | 2019-09-26 09:25 | OP.PCM_ITS ---
Report of Operation Date of Procedure: 09/26/19 Description of Surgical Findings:: Preoperative diagnosis: Right knee DJD Postoperative diagnosis: Same Procedure: Right total knee arthroplasty Implant: [place] triathlon cemented femoral component size 3, cemented tibial baseplate size 4, cemented asymmetric patella size 32, polyethylene X3 size 9 CS Anesthesia: Spinal with adductor canal block Tourniquet time: 60 minutes at 250 mmHg Complications: None Condition: Stable to PACU Estimated blood loss: 75 cc Indication for procedure: This is a 84-year-old female] with long standing degenerative joint disease of the knee who has failed conservative treatment and wished to proceed with elective total knee arthroplasty. Advancing worsening progressive symptoms have caused the patient to become wheelchair-bound and patient family can no longer take care of her the attributed this all to her knee. risk benefits and alternatives were reviewed including; risk of bleeding, infection, nerve artery and tissue damage, continued pain, postoperative stiffness, venous thromboembolism, need for postoperative rehabilitation, mechanical feel to the knee, and expected postoperative course. Thorough discussion was had regarding risk of COVID-19 exposure and potential consequences of including . Procedure: The patient was met in the preoperative holding area. The operative extremity was identified by both patient and physician and was marked. Patient was met by anesthesia. An adductor canal block was placed by anesthesia postoperatively the patient was brought back to the operating room on a wheeled cart and transferred to the operating table in the supine position. Anesthesia was started. A well-padded tourniquet was placed on the operative extremity. The patient was prepped and draped in the usual sterile fashion. A timeout was called to ensure the proper patient procedure and extremity were being contemplated. An Esmarch was used to exsanguinate the extremity. The tourniquet was inflated. A 10 blade scalpel was used to make a midline incision down through the skin and subcutaneous tissue. Skin retractors placed. Bovie was used to perform meticulous hemostasis. full-thickness flaps were elevated medial and lateral along the joint capsule. A deep blade scalpel was used to perform a medial parapatellar arthrotomy. The knee was brought to full extension. A Bovie was used to release the soft tissues off the most proximal aspect of the medial tibial plateau a three-quarter inch curved osteotome was also used for this process. The infrapatellar fat pad was excised. The fat pad was excised partially anterior lateral portion the anterior medial was elevated from the femur. the patella was everted. The knee was brought into flexion. An intramedullary drill was used followed by flexible intramedullary guide kacie. The distal femoral cutting block was placed and set to remove 12 mm of bone secondary to flexion contracture and 5 degrees of valgus. The block was secured with pins and an oscillating saw was used to complete the distal femoral cut. During this, and all bony cuts retractors were used to protect the collateral ligaments. At this point a femoral sizer was used to measure the AP dimension of the femur. The sizer block was pinned parallel to the epicondylar access for external rotation. The sizing block was removed and the appropriately sized 4-in-1 cutting block was placed over the previously made pinholes. It was checked with an leila wing and the block was secured with pins. An oscillating saw was used to complete the anterior cut followed by the posterior cut followed by the posterior chamfer cut followed by the anterior chamfer cut. The block was removed as well as the fragments. A ronguer was used to remove excess osteophytes. The medial and lateral meniscus were excised as well as the ACL. At this point a PCL retractor was placed and an intramedullary drill was passed down the tibial canal followed by a solid intramedullary guide kacie. The tibial cutting block was attached and set to remove 9 mm of bone from the high side. This was checked with an external alignment drop kacie for slope and tilt. It was pinned into place. An oscillating saw was used to complete the tibial plateau cut and the block was removed. A large osteotome was used to elevate the fragment and a Janelle and a Bovie were used to free the fragment from the surrounding soft tissue. A rongeur was once again used to remove osteophytes a lamina stone spreader operator was used to evaluate the posterior capsular structures. A three-quarter inch curved osteotome was used to remove posterior osteophytes. A spacer block was inserted in both extension and flexion to ensure adequate spacing. Trials were inserted full extension and flexion were achieved in varus and valgus stability throughout range of motion were seen, balancing techniques were performed. At this point the attention was turned towards the patella. A caliper was used to ensure sufficient bone stock to remove 10 mm of bone. A reamer was used to perform this task. Lug holes were made for the appropriate- sized patella. The patella trial was inserted and there was good patellar tracking with knee range of motion. The tibial baseplate was allowed to float into rotation and was marked on the tibial plateau with a Bovie. Lug holes were made in the femur and trials were removed. The tibial baseplate was then sized and its preparation was completed with a fin punch. The knee was thoroughly irrigated. A posterior capsular injection was performed with our standard cocktail. The knee was brought into flexion and irrigated again. The tibial baseplate was cemented. Excess cement was removed with curettes. The polyethylene component was inserted. The femoral component was cemented. The knee was brought into full extension and placed on a bump. The patellar component was cemented. At this point a Betadine rinse was placed and thoroughly irrigated after a few minutes. This was followed by an Iricept rinse which was allowed to sit for 1 minute and then thoroughly irrigated.At this point all gloves were changed. The knee was thoroughly irrigated the joint capsule was closed with #1 Ethibond. Tourniquet was let down followed by 0 Vicryl and 2-0 Vicryl in the subcutaneous tissues. followed by delaney in the skin. Dressing was applied in the form of Mepilex silver dressing web roll and an Alexandru wrap from the foot to the groin. The patient tolerated the procedure well, all counts were correct patient was brought back to the PACU in stable condition.
--- NOTE | 2019-09-26 09:50 | RAD_ITS ---
STUDY: X-RAY - RIGHT KNEE REASON FOR EXAM: Female, 84 years old. POST OP TECHNIQUE: AP and lateral view(s) of the knee. COMPARISON: Comparison is made with prior examination dated May 01, 2019. FINDINGS: Normal visualized distal femur. Normal visualized proximal tibia and fibula. Normal proximal tibiofibular articulation. The patient is status post right total knee replacement. There is good alignment. Postoperative soft tissue changes. RAD/Knee 1 or 2 Views IMPRESSION: Status post total knee replacement. There is good alignment. Postoperative soft tissue changes. Electronically Signed: Joe Iglesias, at 10:03 EDT , Service support ,
[2019-09-26] MEDS: Cefazolin 1 GM/50 ML BAG IV ×2 (11:18→18:30)
[2019-09-26 11:31] LABS: Bedside Glucose 113 mg/dL (70-110)
--- NOTE | 2019-09-26 13:52 | SUR.PHASEI ---
Trans Scop patch removed.
[2019-09-26] MEDS: Senna/Docusate Sodium 1 Tablet 2 TABLET PO (21:13)
[2019-09-27] MEDS: Cefazolin 1 GM/50 ML BAG IV (02:04)
[2019-09-27 02:05] VITALS: BP 139/73; PULSE 86; RESP 16; TEMP 36.6; O2SAT 96
[2019-09-27] MEDS: Acetaminophen 500 MG Tablet 1000 MG PO ×2 (05:56→14:17)
[2019-09-27] MEDS: 0.9% Saline Lock 10 ML Syringe IV (05:56)
[2019-09-27] MEDS: APIXABAN 2.5 MG TABLET PO (06:00)
[2019-09-27 06:12] LABS: Hematocrit 27.7 % (37-47); Hemoglobin 8.1 g/dL (12.0-15.0); Mean Corp Hgb Conc 29.2 g/dL (32-36); Mean Corpuscular Hgb 26.7 pg (27.0-32.0); Mean Corpuscular Volume 91.4 fL (81-99); Platelet Count 224 K/mm3 (150-450); RBC Distribution Width CV 15.9 % (11.6-14.6); RBC Distribution Width SD 52.1 fl (35.1-43.9); Red Blood Count 3.03 M/mm3 (4.2-5.4); White Blood Count 12.1 K/mm3 (4.4-11.0)
[2019-09-27 06:41] LABS: Anion Gap 9 (5-15); BUN 19 mg/dL (7-18); BUN/Creat Ratio 28.7 RATIO (10-20); Calcium,Total 8.8 mg/dL (8.5-10.1); Chloride 105 mmol/L (98-107); Creatinine, Serum 0.66 mg/dL (0.55-1.02); EST Glomerular Filtration Rate 91 mL/min (>60); Est Glom Filt Rate - Afr Amer 110 mL/min (>60); Estimated Creatinine Clearance 37.45 ml/min; Glucose 136 mg/dL (74-106); Potassium 3.9 mmol/L (3.5-5.1); Sodium Level 141 mmol/L (136-145)
--- NOTE | 2019-09-27 07:40 | PN.ORTHO_ITS ---
Subjective: Doing well no pain no complaints reported hallucinations overnight by nursing but she is alert and oriented x3 this morning. - Physical Exam Vitals/I&O's: Vital Signs Temp Pulse Resp BP Pulse Ox 97.8 F 86 16 139/73 H 96 09/27/19 02:05 09/27/19 02:05 09/27/19 02:05 09/27/19 02:05 09/27/19 02:05 Oxygen Flow Rate (L/min) 6 Oxygen Delivery Method Room Air Weight: 151 lb 10.848 oz Body Mass Index (BMI) 26.0 Finger Stick Blood Glucose 101 Intake and Output for Last 24 Hours 09/25/19 09/26/19 09/27/19 23:59 23:59 23:59 Intake Total 3478.33 / 4278.33 2073.33 / 2073.33 Output Total 225 / 1225 1400 / 1400 Balance 3253.33 / 3053.33 673.33 / 673.33 General: Alert, Oriented x3, No apparent distress Extremities: - - Dressing clean dry and intact compartment soft neurovascular intact Laboratory Results 09/26/19 11:21: POC Glucose 113 H 09/27/19 05:22: WBC 12.1 H, RBC 3.03 L, Hgb 8.1 L, Hct 27.7 L, MCV 91.4, MCH 26.7 L, MCHC 29.2 L, RDW Std Deviation 52.1 H, RDW Coeff of Canyd 15.9 H, Plt Count 224, MPV 11.0 09/27/19 05:22: Sodium 141, Potassium 3.9, Chloride 105, Carbon Dioxide 27.0, Anion Gap 9, BUN 19 H, Creatinine 0.66, Estim Creat Clear Calc 37.45, Est GFR (MDRD) Af Amer 110, Est GFR (MDRD) Non-Af 91, BUN/Creatinine Ratio 28.7 H, Glucose 136 H, Calcium 8.8 Current Medications Acetaminophen (Tylenol) 1,000 mg PO Q8 [facility] Last Admin: 09/27/19 05:56 Dose: 1,000 mg Documented by: Apixaban (Eliquis) 2.5 mg PO BID [facility] Last Admin: 09/27/19 06:00 Dose: 2.5 mg Documented by: Ondansetron HCl (Zofran) 4 mg IV Q6H PRN PRN PRN Reason: NAUSEA Oxycodone HCl (Oxyir) 5 - 10 mg PO Q4H PRN PRN PRN Reason: Pain Score 4-10/10 Senna/Docusate Sodium (Senokot-S, Holly-Colace) 2 tablet PO BID [facility] Last Admin: 09/26/19 21:13 Dose: 2 tablet Documented by: Sodium Chloride () 10 - 40 ml IV UD PRN PRN Reason: SALINE FLUSH Last Admin: 09/27/19 05:56 Dose: 10 ml Documented by: Medical Necessity - Tobacco Use Smoking Status: Former smoker Tobacco Use: Non-smoker Assessment/Plan All Active Problems (Last Reviewed 09/20/19 @ 13:31 by Rosalinda Wilkins) Syncope and collapse (Acute) Postop day #1 right total knee arthroplasty doing well. DVT prophylaxis Eliquis 2.5 mg twice daily for 2 weeks DC to transitional care likely today Follow-up in the office 2 weeks PT OT Dressing to be changed 72 hours postoperatively and then begin showers daily at that point. Then dressing should be changed daily after showers
--- NOTE | 2019-09-27 07:43 | DCINST_ITS ---
Discharge Diet: No Restrictions Call your doctor if you observe: Fever of 101 or Higher, Shortness of breath, Chest pain Additional Instructions: Ice and elevate next week while not ambulating. Encourage ambulation weightbearing as tolerated. Encourage FULL knee extension and flexion 1 time EVERY time you get up and down and MULTIPLE times per day. Begin showering postop day #3. Remove the dressing prior to shower gently wash with warm water and antibacterial soap then pat dry place ABD pad and SAKINA hose over top. This is to be done daily. do not submerge for 3 weeks. If not showering daily must clean incision and change dressing daily. Do not allow animals near incision keep clean. Follow anticoagulation recommendations. Start physical therapy as directed in the hospital. call Dr. Villagomez with any concerns. Allergies/Adverse Reactions: Allergies Penicillins [PCN] Allergy (Mild, Verified 09/21/19 08:11) Itching Sulfa (Sulfonamide Antibiotics) Allergy (Mild, Verified 09/21/19 08:11) Itching morphine Adverse Reaction (Severe, Verified 09/21/19 08:11) Other Medications to take at Discharge Carbidopa/Levodopa [Carbidopa-Levo ER 50-200 Tab] 50 mg PO QHS 06/29/18 Carbidopa/Levodopa [Carbidopa-Levodopa 25-100 Tab] 25 mg PO TID 06/29/18 Levothyroxine Sodium 75 mcg PO DAILY 06/29/18 Ropinirole HCl 1 mg PO QHS 06/29/18 Atorvastatin Calcium [Lipitor] 40 mg PO QHS 03/28/19 Calcium Carb/Vitamin D [Os-Elan 500MG + D] 1 tab PO BIDCM tab 04/12/19 Iron Polysaccharide Complex [Ferrex 150] 150 mg PO DAILY 09/14/19 Mirtazapine [Remeron] 5 mg PO QHS 09/14/19 Oxybutynin Chloride [Ditropan Xl] 5 mg PO BID 09/14/19 Ropinirole HCl [Requip] 1 mg PO TID 09/14/19 Primary Care Physician: Young Hubbard Chi, MD [Primary Care Provider] - Test Results: Test results from this visit will be discussed in further detail at your follow- up appointment, if applicable. Please Follow Up With: Ghulam Villagomez DO - 2 weeks
--- NOTE | 2019-09-27 07:48 | DS.PCM_ITS ---
Discharge Date and Diagnosis Date of Admission: 09/26/19 Date of Discharge: 09/27/19 - Secondary Discharge Diagnosis Chronic Problems (Last Reviewed 09/20/19 @ 13:32 by Rosalinda Wilkins) Anemia (Chronic) B12 deficiency anemia (Chronic) Iron deficiency anemia due to chronic blood loss (Chronic) Recurrent falls (Chronic) Essential hypertension (Chronic) Restless legs syndrome (RLS) (Chronic) Parkinson disease (Chronic) TIA (transient ischemic attack) (Chronic) S/P total hip arthroplasty (Chronic) Hospital Course and Treatment Operations: total knee replacement Summary of Care Provided: The patient is a 84 year old F who has long history of degenerative joint disease to the knee who has failed conservative treatment and wished to undergo elective total knee arthroplasty. Patient underwent the aformentioned procedure on the admission date without any intraoperative complications. Patient did receive pre-and postoperative antibiotics which were discontinued within 23 hours postoperatively. Patient did receive [spinal anesthesia as well as an adductor canal block postoperatively]. pain was controlled with IV and transition to p.o. pain medication Patient will be discharged home with oxycodon e and will continue Tylenol as well. Patient had minimal intraoperative blood loss and 2gm tranexamic acid was administered there was no need for postoperative blood transfusion Patients vital signs remained stable. Patient was started on both mechanical and chemical DVT per prophylaxis postoperatively in the form of SCDs SAKINA hose and [Eliquis 2.5 mg twice daily for which she will continue for 2 additional weeks post hospital discharge]. Alexandru removed post op day number one and thigh high sakina hose placed over top of the meplix silver dressing. This should be removed 72 hrs post operatively and showering begun daily at that time with warm water and antibacterial soap. not to submerge for 3 weeks. To change dressing daily after first dressing change. Patient will follow-up in the office in 2 weeks. No intrahospital complications. Patient will be transferred to the transitional care unit. - Physical Exam Vitals/I&O's: Vital Signs Temp Pulse Resp BP Pulse Ox 97.8 F 86 16 139/73 H 96 09/27/19 02:05 09/27/19 02:05 09/27/19 02:05 09/27/19 02:05 09/27/19 02:05 Oxygen Flow Rate (L/min) 6 Oxygen Delivery Method Room Air Weight: 151 lb 10.848 oz Body Mass Index (BMI) 26.0 Finger Stick Blood Glucose 101 Intake and Output for Last 24 Hours 09/25/19 09/26/19 09/27/19 23:59 23:59 23:59 Intake Total 3478.33 / 4278.33 2073.33 / 2073.33 Output Total 225 / 1225 1400 / 1400 Balance 3253.33 / 3053.33 673.33 / 673.33 Laboratory Results 09/26/19 11:21: POC Glucose 113 H 09/27/19 05:22: WBC 12.1 H, RBC 3.03 L, Hgb 8.1 L, Hct 27.7 L, MCV 91.4, MCH 26.7 L, MCHC 29.2 L, RDW Std Deviation 52.1 H, RDW Coeff of Candy 15.9 H, Plt Count 224, MPV 11.0 09/27/19 05:22: Sodium 141, Potassium 3.9, Chloride 105, Carbon Dioxide 27.0, Anion Gap 9, BUN 19 H, Creatinine 0.66, Estim Creat Clear Calc 37.45, Est GFR (MDRD) Af Amer 110, Est GFR (MDRD) Non-Af 91, BUN/Creatinine Ratio 28.7 H, Glucose 136 H, Calcium 8.8 Current Medications Acetaminophen (Tylenol) 1,000 mg PO Q8 [facility] Last Admin: 09/27/19 05:56 Dose: 1,000 mg Documented by: Apixaban (Eliquis) 2.5 mg PO BID [facility] Last Admin: 09/27/19 06:00 Dose: 2.5 mg Documented by: Ondansetron HCl (Zofran) 4 mg IV Q6H PRN PRN PRN Reason: NAUSEA Oxycodone HCl (Oxyir) 5 - 10 mg PO Q4H PRN PRN PRN Reason: Pain Score 4-10/10 Senna/Docusate Sodium (Senokot-S, Holly-Colace) 2 tablet PO BID [facility] Last Admin: 09/26/19 21:13 Dose: 2 tablet Documented by: Sodium Chloride () 10 - 40 ml IV UD PRN PRN Reason: SALINE FLUSH Last Admin: 09/27/19 05:56 Dose: 10 ml Documented by: Discharge Diet: No Restrictions Call your doctor if you observe: Fever of 101 or Higher, Shortness of breath, Chest pain Home Medications: Medications to take at Discharge Carbidopa/Levodopa [Carbidopa-Levo ER 50-200 Tab] 50 mg PO QHS 06/29/18 Carbidopa/Levodopa [Carbidopa-Levodopa 25-100 Tab] 25 mg PO TID 06/29/18 Levothyroxine Sodium 75 mcg PO DAILY 06/29/18 Ropinirole HCl 1 mg PO QHS 06/29/18 Atorvastatin Calcium [Lipitor] 40 mg PO QHS 03/28/19 Calcium Carb/Vitamin D [Os-Elan 500MG + D] 1 tab PO BIDCM tab 04/12/19 Iron Polysaccharide Complex [Ferrex 150] 150 mg PO DAILY 09/14/19 Mirtazapine [Remeron] 5 mg PO QHS 09/14/19 Oxybutynin Chloride [Ditropan Xl] 5 mg PO BID 09/14/19 Ropinirole HCl [Requip] 1 mg PO TID 09/14/19 Acetaminophen [Tylenol] 1,000 mg PO Q8 #100 tab 09/27/19 Apixaban [Eliquis] 2.5 mg PO BID #28 tab 09/27/19 Oxycodone [Oxyir] 5 - 10 mg PO Q4H PRN PRN #60 tab 09/27/19 Following Prescrptions Were Given to Patient: Apixaban [Eliquis] 2.5 mg PO BID #28 tab Transmission Status: Pending to [facility] Oxycodone [Oxyir] 5 - 10 mg PO Q4H PRN PRN #60 tab PRN Reason: Pain Score 4-10/10 Transmission Status: Sent to [facility] Acetaminophen [Tylenol] 1,000 mg PO Q8 #100 tab Transmission Status: Pending to [facility] Primary Care Physician: Young Hubbard Chi, MD [Primary Care Provider] - Please Follow Up With: Ghulam Villagomez DO - 2 weeks Additional Instructions: Ice and elevate next week while not ambulating. Encourage ambulation weightbearing as tolerated. Encourage FULL knee extension and flexion 1 time EVERY time you get up and down and MULTIPLE times per day. Begin showering postop day #3. Remove the dressing prior to shower gently wash with warm water and antibacterial soap then pat dry place ABD pad and SAKINA hose over top. This is to be done daily. do not submerge for 3 weeks. If not showering daily must clean incision and change dressing daily. Do not allow animals near incision keep clean. Follow anticoagulation recommendations. Start physical therapy as directed in the hospital. call Dr. Villagomez with any concerns. Medical Necessity - Tobacco Use Smoking Status: Former smoker Tobacco Use: Non-smoker Meaningful Use Info Meaningful Use Diagnoses (Choose all that apply): None applicable
--- NOTE | 2019-09-27 08:20 | CASEMGMT ---
Social Work Note SEN reviewed chart, it appears pt is wanting to discharge to TCU. Pt has straight Medicare, was just admitted yesterday in observation status. SEN placed a call to Mia in TCU. Mia states that there is still the rule that pt can admit to SNF without needing three midnights so TCU is able to accept pt today. SEN attempted twice to meet with pt to confirm discharge plans but both times pt was working with therapy. SW to attempt again to meet with pt. Debra Luciano CARTON STENCILER, CALCULUS TEACHER
[2019-09-27 09:28] VITALS: BP 111/56; PULSE 82; RESP 18; TEMP 36.6; O2SAT 98
[2019-09-27] MEDS: Senna/Docusate Sodium 1 Tablet 2 TABLET PO (09:32)
[2019-09-27] MEDS: Iron Polysaccharide Complex 150 MG CAPSULE PO (09:35)
[2019-09-27] MEDS: Oxybutynin 5 MG Tablet PO (09:35)
[2019-09-27] MEDS: Levothyroxine 75 MCG Tablet PO (09:37)
--- NOTE | 2019-09-27 09:41 | CASEMGMT ---
Social Work Assessment Referral Date: 09/27/2019 Date of Assessment: 09/27/2019 Reason for consult: TCU placement Informant: Personal Status: SW met with pt to complete initial assessment. Pt is alert and orientated x3. SW introduced self and role at [facility]. Pt states that she lives with her of 65 years in a one story home with a ramp to enter the home. Pt states that she was previously independent with ALDs but states that her and son assist with ADLs when needed. Pt states it is difficult to do dishes though as the sink is low. SW reviewed pt's chart and chart states pt has been nonambulatory for five years and utilizes a wheelchair to get around at home. DME include cane, walker, wheelchair, raised toilet seat and hand rails in the shower and toilet. Pt states that today with PT/OT she was able to walk to the bathroom and back to the chair. Pt states that her son comes to her home 3x a week and will assist with ADLs/ chores around the house if pt's needs assistance. Pt states that she also has [facility] and CM is Emili at [facility]. Pt states she was also getting aides 3x a week through [employer] and that service just started. Pt states that that she has completed HCPOA and LW and just recently got approved for Medicaid. Pt states she has had HHC before, states through [facility] and has been to [facility] before. Pt states that her or son transports pt. Substance Abuse Hx: Pt denied any current use, states that she used to smoke cigarettes but quit about 50 years ago. Mental Health Hx: Pt states she has some depression but then states I don't know if its a mental health history though. SW spoke with pt about going to TCU as physician is recommending TCU for pt. Pt states I prefer to go home and complete outpatient therapy at [facility]. SW again reiterated that the recommendation from physician is TCU. Pt states I was at your [facility] before and didn't like it, so I want to go home. SW asked pt if this worker could call her to discuss discharge plans. Pt gave this worker permission to call her Don. SW placed a call to pt's Don, introduced self and role at [facility]. SW updated Don that pt prefers to return home with outpatient therapy at [facility]. Don states I don't think that's a safe plan, the physician is stating she needs to go to TCU. SEN explained that this worker spoke with pt about going to TCU and pt is stating she wants to go home with outpatient therapy. Naeem states you need to go back in and talk to her and see if she would be agreeable to going for a few days. SEN informed Don that this worker can go back in to speak to pt and relay his concerns to pt but pt is own person, is alert and orientated x3 and is able to make own decisions. Naeem states understanding. SW back in to speak with pt and updated pt on her Naeem's concerns and wishes and again stated the physician did put in notes that pt would go to TCU at discharge. Pt states well I guess I will go then, I really wanted to go home and see my dogs. SEN informed pt that it is her choice and she can go to TCU and leave whenever she would like to. SEN informed pt that she is going to TCU for rehabilitation and then will be able to return home. SEN explained Medicare rules, guidelines and coverage days at [facility] and that pt is still able to discharge to TCU today. Pt states understanding. SEN updated Charge Nurse that pt will need COVID test to admit to TCU. SEN spoke with physician that pt needs signed transfer to extended care and medication list. Signed Scripts are not needed for TCU. SEN faxed documents to physician to complete and then fax back to this worker. SEN placed a call back to pt's Naeem and updated him that pt is agreeable to TCU and will be discharged there today. Naeem states understanding. Plan: TCU today, will need negative COVID test. Debra Luciano TOBACCO PRIMER MACHINE OPERATOR, WELT POCKET MACHINE OPERATOR
--- NOTE | 2019-09-27 09:51 | CASEMGMT ---
MIRTHA GO NOTE: Call received from DONAVAN Mock. She states pt has [employer] services. She has personal care/aide services 3 days/week and received Home delivered meals, 14 meals every 2 weeks. Emili was made aware plans are for pt to discharge to TCU today. Gianfranco AVILAN MIRTHA CM
--- NOTE | 2019-09-27 10:50 | CASEMGMT ---
Addendum entered by Debra Luciano 09/27/19 14:16: Pt's COVID test is negative. Pt is able to admit to TCU today. SW placed a call to Mia in TCU and updated her. Original Note: Social Work Note SW received transfer to extended care facility and signed medication list from physician. SW placed original in SNF folder and copy on pt's chart. One pt's COVID test returns negative, pt is able to discharge to TCU. Plan: TCU today Debra Luciano INSTRUMENT TECHNICIAN HELPER, ANGLE FURNACEMAN
[2019-09-27] MEDS: Carbidopa/Levodopa 25/100 Tablet PO ×2 (12:06→15:59)
[2019-09-27] MEDS: Pramipexole Di-HCl 0.5 MG Tablet PO (14:17)
[2019-09-27] MEDS: oxyCODONE 5 MG Tablet PO (14:37)
== END 2019-09-27 18:06 | disposition skilled nursing facility (03) ==
LOC: SDC 12:20 → MS3 12:20
PROVIDERS: Anesthesiology; Admitting Provider Orthopaedic Surgery; PCP Family Medicine Geriatric Medicine; Referring Provider Orthopaedic Surgery; Visit Provider Orthopaedic Surgery
PROC: (CPT 27447; principal; 2019-09-26 07:05)
DX: M17.11 Unilateral primary osteoarthritis, right knee (principal); D50.0 Iron deficiency anemia secondary to blood loss (chronic); G20 Parkinson's disease; G25.81 Restless legs syndrome; G89.29 Other chronic pain; I10 Essential (primary) hypertension; E78.00 Pure hypercholesterolemia, unspecified; R32 Unspecified urinary incontinence; E07.9 Disorder of thyroid, unspecified; F32.9 Major depressive disorder, single episode, unspecified; R94.31 Abnormal electrocardiogram [ECG] [EKG]; D51.9 Vitamin B12 deficiency anemia, unspecified; R29.6 Repeated falls; K59.00 Constipation, unspecified; Z87.891 Personal history of nicotine dependence; Z79.899 Other long term (current) drug therapy; Z86.73 Personal history of transient ischemic attack (TIA), and cerebral infarction without residual deficits; Z86.2 Personal history of diseases of the blood and blood-forming organs and certain disorders involving the immune mechanism
CPT/HCPCS: 01400; 27447; 64447; 36415; 73560; 80048; 80076; 82962; 83735; 84443; 85027; 85610; 85730; 86850; 86900; 86901; 87081; 87635; 93005; 96361; 96365; 96366; 97110; 97116; 97162; 97166; 97530; 97535; 99218; 99251; C1776; G2023; J7120; A4216; G0378; G0379; G0463; J0702; U0002

== ENCOUNTER 2019-09-27 18:22 | Inpatient (IN) | payer MEDICARE, OTHER, MEDICAID, SELFPAY ==
[2019-09-26 16:53] VITALS: BMI 26.0
[2019-09-27 18:42] VITALS: BP 147/71; PULSE 71; RESP 19; TEMP 36.6; O2SAT 98
--- NOTE | 2019-09-27 22:28 | PCM.HP.STD ---
Problem List (1) Debility Status: Acute (2) Osteoarthritis of right knee Status: Chronic (3) Hypertension Status: Chronic (4) Hyperlipidemia Status: Chronic (5) Hypothyroidism Status: Chronic (6) Restless legs syndrome (RLS) Status: Chronic (7) Parkinson disease Status: Chronic (8) TIA (transient ischemic attack) Status: Chronic History of Present Illness Date of Admission: 09/27/19 Chief Complaint: Here for rehabilitation, strengthening, prior to discharge home with . The patient is a 84 year old Female with below past medical history with followin09/26/2019 Dr. Villagomez performed right total knee arthroplasty. No postoperative complications. Pain controlled with oxycodone, tylenol. Postoperative transfusion unnecessary. Eliquis for DVT prophylaxis. 09/27/2019 Admit to TCU with debility, here for rehabilitation, strengthening, prior to discharge home with . Past Medical History Past Medical History (Chronic Problems): Chronic Problems (Last Reviewed 09/20/19 @ 13:32 by Rosalinda Wilkins) Osteoarthritis of right knee (Chronic) Hypertension (Chronic) Hyperlipidemia (Chronic) Hypothyroidism (Chronic) Anemia (Chronic) B12 deficiency anemia (Chronic) Iron deficiency anemia due to chronic blood loss (Chronic) Recurrent falls (Chronic) Essential hypertension (Chronic) Restless legs syndrome (RLS) (Chronic) Parkinson disease (Chronic) TIA (transient ischemic attack) (Chronic) S/P total hip arthroplasty (Chronic) Medical History: Medical History (Last Reviewed 09/20/19 @ 13:31 by Rosalinda Wilkins) BIOTIN DEFICIENCY Cataract H26.9 Depression F32.9 Hyperlipidemia E78.5 Iron deficiency anemia D50.9 Parkinson disease G20 Restless leg syndrome G25.81 Vitamin B12 deficiency E53.8 Allergies Penicillins [PCN] Allergy (Mild, Verified 09/21/19 08:11) Itching Sulfa (Sulfonamide Antibiotics) Allergy (Mild, Verified 09/21/19 08:11) Itching morphine Adverse Reaction (Severe, Verified 09/21/19 08:11) Other Home Medications: Ambulatory Orders Medication Instructions Recorded Carbidopa/Levodopa [Carbidopa-Levo 50 mg PO QHS 06/29/18 ER 50-200 Tab] Carbidopa/Levodopa 25 mg PO TID 06/29/18 [Carbidopa-Levodopa 25-100 Tab] Levothyroxine Sodium 75 mcg PO DAILY 06/29/18 Ropinirole HCl 1 mg PO QHS 06/29/18 Atorvastatin Calcium [Lipitor] 40 mg PO QHS 03/28/19 Iron Polysaccharide Complex 150 mg PO DAILY 09/14/19 [Ferrex 150] Mirtazapine [Remeron] 5 mg PO QHS 09/14/19 Oxybutynin Chloride [Ditropan Xl] 5 mg PO BID 09/14/19 Acetaminophen [Tylenol] 1,000 mg PO Q8 09/27/19 Apixaban [Eliquis] 2.5 mg PO BID 09/27/19 Calcium Carb/Vitamin D [Os-Elan 1 tab PO BIDCM 09/27/19 500MG + D] Oxycodone [Oxyir] 5 - 10 mg PO Q4H PRN PRN #60 tab 09/27/19 Ropinirole HCl [Requip] 1 mg PO TID 09/27/19 Surgical History: Surgical History (Last Reviewed 09/20/19 @ 13:32 by Rosalinda Wilkins) H/O: hysterectomy Z90.710 History of appendectomy Z90.49 History of knee replacement Z96.659 History of left hip replacement Z96.642 History of tooth extraction K08.409 [place] teeth removed K08.409 Surgical History: hysterectomy, total knee arthroplasty - bilateral, - - 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 Psychiatric History: No pertinent psych hx CAREER DEVELOPMENT ASSOCIATE History: No pertinent CAREER DEVELOPMENT ASSOCIATE history Lives: Spouse/ Significant Other Smoking Status: Former smoker Tobacco Use: Non-smoker Alcohol: None Drugs: None - *Family History Maternal Family History: Family History (Last Reviewed 09/20/19 @ 13:32 by Rosalinda Wilkins) Mother Parkinson disease CVA (cerebral vascular accident) Father Pancreatic cancer Diabetes Daughter Ovarian cancer Brother Lung cancer Son Lung cancer History Items: Cancer - of ovarian cancer Paternal Family History: Family History (Last Reviewed 09/20/19 @ 13:32 by Rosalinda Wilkins) Mother Parkinson disease CVA (cerebral vascular accident) Father Pancreatic cancer Diabetes Daughter Ovarian cancer Brother Lung cancer Son Lung cancer History Items: Cancer - pancreatic cancer Review of Systems Constitutional: Denies: Chills, Fever, Weight Change HEENT: Denies: Head Aches, Sinus Congestion, Sinus Drainage Cardiovascular: Denies: Chest Pain, Palpitations Respiratory: Denies: Cough, Shortness of breath at rest, Sputum production Gastrointestinal: Denies: Abdominal Pain, Nausea, Vomiting Genitourinary: Denies: Dysuria Musculoskeletal: Denies: Joint Pain, Joint Tenderness Skin: Denies: Rash, Wounds Neurological: Denies: Numbness, Tingling, Focal weakness Psychiatric: Denies: Anxiety, Depression, Homicidal Ideations, Suicidal Ideations Hematologic/ Lymphatic: Denies: Easy Bruising, Easy Bleeding VTE Information - Inpt Only VTE Present on Admission: No VTE Mechan Device Prophylaxis: Knee High SAKINA Hose VTE Pharm Prophylaxis ordered?: Yes Patient Problems: Active and Suspected Problems (Last Reviewed 09/20/19 @ 13:31 by Rosalinda Wilkins) Debility (Acute) - Physical Exam Vitals/I&O's: Body Mass Index (BMI) 26.0 Finger Stick Blood Glucose 101 General: Alert, Oriented x3, Cooperative HEENT: Atraumatic, PERRLA, EOMI, Normocephalic Neck: Supple, No JVD, Negative Carotid Bruits Lungs: Clear to auscultation, Normal air movement Cardiovascular: Regular rate, No murmurs Abdomen: Bowel Sounds Present, Soft, Non Tender Extremities: No edema, Capillary Refill Less than 3 Seconds Skin: No rashes, No breakdown, Incision - Right knee clean, dry, intact. Musculoskeletal: No Tenderness to Palpation of Joints or Extremities Neurological: Cranial nerves II-XII grossly intact Psych/Mental Status: Normal Affect, Appropriate Current Medications Acetaminophen (Tylenol) 1,000 mg PO Q8 [facility] Apixaban (Eliquis) 2.5 mg PO BID [facility] Atorvastatin Calcium (Lipitor) 40 mg PO QHS [facility] Calcium/Vitamin D (Os-Elan 500mg + D) 1 tablet PO BIDCM [facility] Carbidopa/Levodopa (Sinemet Cr) 1 tablet PO QHS [facility] Carbidopa/Levodopa (Sinemet) 1 tablet PO TIDAC [facility] Levothyroxine Sodium (Synthroid) 75 mcg PO DAILY [facility] Mirtazapine (Remeron) 5 mg PO QHS [facility] Non-Formulary Medication (Ropinirole Hcl [Requip]) 1 mg PO TID [facility] Non-Formulary Medication (Ropinirole Hcl) 1 mg PO QHS [facility] Oxybutynin Chloride (Ditropan) 5 mg PO BID [facility] Oxycodone HCl (Oxyir) 5 - 10 mg PO Q4H PRN PRN PRN Reason: Pain Score 4-10/10 Polysaccharide Iron Complex (Ferrex 150) 150 mg PO DAILY [facility] Tuberculin PPD (Tubersol, Aplisol, Ppd) 5 tu ID X1 ONE Stop: 09/28/19 10:01 Tuberculin PPD (Tubersol, Aplisol, Ppd) 5 tu ID X1 ONE Stop: 10/05/19 10:01 Assessment/Plan All Active Problems (Last Reviewed 09/20/19 @ 13:31 by Rosalinda Wilkins) Debility (Acute) Syncope and collapse (Acute) 84 year old female with below past medical history hospitalized for right total knee replacement 09/26/[address] Villagomez, postoperative course uncomplicated, admitted to TCU with debility, here for rehabilitation, strengthening, prior to discharge home with . Debility - PT/OT. Pain - Tylenol 1000MG Q8H, Oxycodone 5MG Q4H PRN pain (6-10). Bowel - Miralax 17GM daily, Senna/colace 2 tablets BID, Dulcolax 10MG daily PRN. Adult immunization - Administer Prevnar 13, Pneumovax 23, Fluzone as appropriate. DVT prophylaxis - Eliquis 2.5MG BID thru 10/09/2019. TIA - Aspirin 81MG starting 10/10/2019. Hyperlipidemia - Atorvastatin 40MG QHS. Calcium deficiency - Calcium D 1 tablet BID. Parkinson Disease - Sinemet 25/100MG TIDAC, Sinemet CR 50/200MG QHS. Iron deficiency anemia - Ferrex 150MG daily, Hemoglobin 7.3, Type & Cross 2 units PRBC, transfuse tomorrow. Hypothyroidism - Levothyroxine 75MCG daily. Appetite loss/depression/insomnia - Mirtazapine 7.5MG QHS, stable chronic intermediate school teacher use, GDR not recommended. Overactive bladder - Oxybutynin 5MG BID. Restless Leg syndrome - Pramipexole 1MG TID, 1MG QHS.
[2019-09-27 23:08] VITALS: BMI 25.7
[2019-09-27 23:20] VITALS: BMI 25.8
[2019-09-27 23:27] VITALS: PULSE 74; O2SAT 96
[2019-09-27] MEDS: Acetaminophen 500 MG Tablet 1000 MG PO (23:44)
[2019-09-27] MEDS: CARBIDOPA/LEVODOPA CR 50/200 Tablet PO (23:47)
[2019-09-27] MEDS: Atorvastatin Calcium 40 MG Tablet PO (23:48)
[2019-09-28 04:52] VITALS: BP 144/73; PULSE 68; RESP 16; TEMP 36.4; O2SAT 95
[2019-09-28 06:03] LABS: Absolute Lymphocyte Count 1.53 X10^3/uL (0.83-4.51); Absolute Neutrophil Count 4.7 X10^3/uL (2.0-7.7); Basophil# 0.01 X10^3/uL; Basophil% 0.1 % (0-1); Eosinophil# 0.04 X10^3/uL; Eosinophils% 0.5 % (0-5); Hematocrit 24.5 % (37-47); Hemoglobin 7.3 g/dL (12.0-15.0); Lymphocyte # 1.53 X10^3/ul (4.0); Mean Corp Hgb Conc 29.8 g/dL (32-36); Mean Corpuscular Hgb 27.4 pg (27.0-32.0); Mean Corpuscular Volume 92.1 fL (81-99); Monocyte# 0.98 X10^3/uL; Monocyte% 13.5 % (0-10); NRBC Flagged by Analyzer 0 % (0-5); Neutrophil # 4.71 X10^3/uL (2.7-7.7); Neutrophil % 64.8 % (47-70); Platelet Count 178 K/mm3 (150-450); RBC Distribution Width CV 16.2 % (11.6-14.6); RBC Distribution Width SD 53.4 fl (35.1-43.9); Red Blood Count 2.66 M/mm3 (4.2-5.4); White Blood Count 7.3 K/mm3 (4.4-11.0)
[2019-09-28] MEDS: Oxybutynin 5 MG Tablet PO ×2 (06:12→18:01)
[2019-09-28] MEDS: Senna/Docusate Sodium 1 Tablet 2 TABLET PO ×2 (06:12→18:02)
[2019-09-28] MEDS: Levothyroxine 75 MCG Tablet PO (06:12)
[2019-09-28] MEDS: Acetaminophen 500 MG Tablet 1000 MG PO ×3 (06:12→21:28)
[2019-09-28] MEDS: Carbidopa/Levodopa 25/100 Tablet PO ×3 (06:12→18:00)
[2019-09-28] MEDS: Polyethylene Glycol 3350 17 GM PACKET PO (06:13)
[2019-09-28] MEDS: APIXABAN 2.5 MG TABLET PO ×2 (06:13→17:59)
[2019-09-28] MEDS: Iron Polysaccharide Complex 150 MG CAPSULE PO (06:13)
[2019-09-28] MEDS: Menthol/Lanolin/Calamine/Znox 113 GM Tube 1 APPLIC TOPICAL ×2 (06:21→21:33)
[2019-09-28 06:27] LABS: Anion Gap 5 (5-15); BUN 21 mg/dL (7-18); BUN/Creat Ratio 37.4 RATIO (10-20); Calcium,Total 8.4 mg/dL (8.5-10.1); Chloride 107 mmol/L (98-107); Creatinine, Serum 0.56 mg/dL (0.55-1.02); EST Glomerular Filtration Rate 110 mL/min (>60); Est Glom Filt Rate - Afr Amer 133 mL/min (>60); Estimated Creatinine Clearance 39.03 ml/min; Glucose 95 mg/dL (74-106); Potassium 3.5 mmol/L (3.5-5.1); Sodium Level 142 mmol/L (136-145)
[2019-09-28] MEDS: Calcium Carb/Vitamin D 1 TABLET Tablet PO ×2 (09:09→17:59)
[2019-09-28 10:00] VITALS: PULSE 72; RESP 16; O2SAT 96
[2019-09-28] MEDS: Tuberculin,Purif.prot.deriv. 50 TU/ML Vial 5 ML ID (10:58)
[2019-09-28] MEDS: Pramipexole Di-HCl 0.5 MG Tablet PO ×2 (14:50→21:29)
--- NOTE | 2019-09-28 15:15 | NURSING ---
Spoke with Dr. Ortega's office, received orders for delaney to be removed 2 weeks after surgery. Will add order.
--- NOTE | 2019-09-28 15:19 | CASEMGMT ---
Social Work SW met with pt and completed psychosocial assessment. SW discussed code status with pt and explained DNR and Full Code. Pt clearly stating that she prefers to be DNR-CCA. RN updated on pt wishes. ANDRE Almonte
[2019-09-28 15:46] VITALS: BP 128/70; PULSE 80; RESP 18; TEMP 36.6; O2SAT 100
[2019-09-28] MEDS: Atorvastatin Calcium 40 MG Tablet PO (21:29)
[2019-09-28] MEDS: CARBIDOPA/LEVODOPA CR 50/200 Tablet PO (21:29)
[2019-09-28] MEDS: Mirtazapine 15 MG Tablet 7.5 MG PO (21:29)
[2019-09-28] MEDS: Nystatin Powder 15gm Bottle 1 APPLIC TOPICAL (21:30)
[2019-09-29] MEDS: Polyethylene Glycol 3350 17 GM PACKET PO (05:28)
[2019-09-29] MEDS: Acetaminophen 500 MG Tablet 1000 MG PO ×2 (05:28→22:00)
[2019-09-29] MEDS: APIXABAN 2.5 MG TABLET PO ×2 (05:28→17:49)
[2019-09-29] MEDS: Pramipexole Di-HCl 0.5 MG Tablet PO ×2 (05:28→21:59)
[2019-09-29] MEDS: Iron Polysaccharide Complex 150 MG CAPSULE PO (05:28)
[2019-09-29] MEDS: Senna/Docusate Sodium 1 Tablet 2 TABLET PO ×2 (05:28→17:49)
[2019-09-29] MEDS: Carbidopa/Levodopa 25/100 Tablet PO ×2 (05:28→16:09)
[2019-09-29] MEDS: Oxybutynin 5 MG Tablet PO ×2 (05:29→17:49)
[2019-09-29] MEDS: Menthol/Lanolin/Calamine/Znox 113 GM Tube 1 APPLIC TOPICAL ×2 (05:29→21:58)
[2019-09-29] MEDS: Levothyroxine 75 MCG Tablet PO (05:29)
[2019-09-29] MEDS: Nystatin Powder 15gm Bottle 1 APPLIC TOPICAL ×2 (05:31→22:00)
[2019-09-29] MEDS: Calcium Carb/Vitamin D 1 TABLET Tablet PO ×2 (07:58→16:10)
[2019-09-29 09:54] LABS: Bacteria 0 SEEN /hpf (None Seen); Mucous, Urine 0 SEEN /hpf (<or=2+); Red Blood Cells-Urine 0 SEEN /hpf (0-5); White Blood Cells 0 SEEN /hpf (0-5)
[2019-09-29 09:56] LABS: Color, Urine Yellow (Yellow); Glucose, Dipstick Normal (Normal); Ketone-Dipstick Negative (Negative); Leukocyte Esterase-Dipstick Negative /ul (Negative); Nitrite-Dipstick Negative (Negative); Occult Blood-Urine Negative /ul (Negative); Protein-Dipstick Negative (Negative); Urine Bilirubin Dipstick Negative (Negative); Urine Clarity Clear (Clear); Urine Urobilinogen Normal (Normal)
--- NOTE | 2019-09-29 10:27 | PCM.PN.RX ---
<ReeseBerta M - Last Filed: 09/29/19 10:27> Progress Note - Pharmacy Subjective: TCU ADMISSION Objective: Allergies Penicillins [PCN] Allergy (Mild, Verified 09/21/19 08:11) Itching Sulfa (Sulfonamide Antibiotics) Allergy (Mild, Verified 09/21/19 08:11) Itching morphine Adverse Reaction (Severe, Verified 09/21/19 08:11) Other Current Medications Generic Name Dose Route Start Last Admin Trade Name Rene PRN Reason Stop Dose Admin Acetaminophen 1,000 mg 09/27/19 22:00 09/29/19 05:28 Tylenol PO 1,000 mg Q8 MUNA Administration Apixaban 2.5 mg 09/28/19 06:00 09/29/19 05:28 Eliquis PO 10/09/19 23:59 2.5 mg BID MUNA Administration Aspirin 81 mg 10/10/19 08:00 Aspirin, Baby PO DAILY@0800 REPLACED BY [facility] Atorvastatin Calcium 40 mg 09/27/19 22:00 09/28/19 21:29 Lipitor PO 40 mg QHS MUNA Administration Bisacodyl 10 mg 09/27/19 22:43 Dulcolax PO DAILY PRN Constipation Calamine/Phenol 1 applic 09/28/19 06:00 09/29/19 05:29 Calmoseptine Ointment TOPICAL 1 applicatio 06,2200 REPLACED BY [facility] Administration Protocol Calcium/Vitamin D 1 tablet 09/28/19 08:00 09/29/19 07:58 Os-Elan 500mg + D PO 1 tablet BIDCM MUNA Administration Carbidopa/Levodopa 1 tablet 09/27/19 22:00 09/28/19 21:29 Sinemet Cr PO 1 tablet QHS MUNA Administration Carbidopa/Levodopa 1 tablet 09/28/19 06:45 09/29/19 05:28 Sinemet PO 1 tablet TIDAC MUNA Administration Levothyroxine Sodium 75 mcg 09/28/19 06:00 09/29/19 05:29 Synthroid PO 75 mcg DAILY MUNA Administration Mirtazapine 7.5 mg 09/28/19 22:00 09/28/19 21:29 Remeron PO 7.5 mg QHS MUNA Administration Nystatin 1 applic 09/28/19 06:00 09/29/19 05:31 Mycostatin Powder TOPICAL 1 applicatio 0600,2200 MUNA Administration Protocol Oxybutynin Chloride 5 mg 09/28/19 06:00 09/29/19 05:29 Ditropan PO 5 mg BID MUNA Administration Oxycodone HCl 5 mg 09/27/19 22:43 Oxyir PO Q4H PRN PRN Pain Score 4-1010 Polyethylene Glycol 17 gm 09/28/19 06:00 09/29/19 05:28 Miralax PO 17 gm DAILY MUNA Administration Polysaccharide Iron Complex 150 mg 09/28/19 06:00 09/29/19 05:28 Ferrex 150 PO 150 mg DAILY MUNA Administration Pramipexole Dihydrochloride 0.5 mg 09/28/19 14:00 09/29/19 05:28 Mirapex PO 0.5 mg TID MUNA Administration Senna/Docusate Sodium 2 tablet 09/28/19 06:00 09/29/19 05:28 Senokot-S, Holly-Colace PO 2 tablet BID MUNA Administration Tuberculin PPD 5 tu 10/05/19 10:00 Tubersol, Aplisol, Ppd ID 10/05/19 10:01 X1 ONE Problem List (Last Reviewed 09/20/19 @ 13:31 by Rosalinda Wilkins) Debility (Acute) Osteoarthritis of right knee (Chronic) Hypertension (Chronic) Hyperlipidemia (Chronic) Hypothyroidism (Chronic) Vital Signs Temp Pulse Resp BP Pulse Ox 97.9 F 80 18 128/70 H 100 09/28/19 15:46 09/28/19 15:46 09/28/19 15:46 09/28/19 15:46 09/28/19 15:46 Oxygen Delivery Method Room Air Weight: 70.307 kg Body Mass Index (BMI) 25.7 Finger Stick Blood Glucose 101 Sodium 142 mmol/L (136-145) 09/28/19 05:20 Potassium 3.5 mmol/L (3.5-5.1) 09/28/19 05:20 Chloride 107 mmol/L (98-107) 09/28/19 05:20 Carbon Dioxide 30.0 mmol/L (21.0-32.0) 09/28/19 05:20 Anion Gap 5 (5-15) 09/28/19 05:20 BUN 21 mg/dL (7-18) H 09/28/19 05:20 Creatinine 0.56 mg/dL (0.55-1.02) 09/28/19 05:20 Est GFR (MDRD) Af Amer 133 mL/min (>60) 09/28/19 05:20 Est GFR (MDRD) Non-Af 110 mL/min (>60) 09/28/19 05:20 BUN/Creatinine Ratio 37.4 RATIO (10-20) H 09/28/19 05:20 Glucose 95 mg/dL (74-106) 09/28/19 05:20 Assessment/Plan: 1. Pain: Tylenol 1000mg PO Q8hr, Oxycodone 5mg PO Q4h PRN pain (6-10). Please continue to monitor for S/S of increased/decreased pain, PRN medication usage. 2. TIA: Aspirin 81mg PO starting 10/10/2019, Atorvastatin 40mg PO QHS. Please monitor for S/S bleeding/bruising, obtain lipid panel at least annually or sooner if clinically indicated. 3. DVT prophylaxis: Eliquis 2.5MG BID thru 10/09/2019. Please continue to monitor for S/S bleeding and bruising. *4. Parkinson Disease: Sinemet 25/100mg PO TID, Sinemet CR 50/200mg PO QHS. Please continue to monitor for symptom progression. Make sure to separate administration of iron products by at least 2 hours to avoid drug reaction with Sinemet. 5. Hypothyroidism: Levothyroxine 75mcg PO daily. Please continue to monitor for S/S hypo/hyperthyroidism, lab studies as clinically indicated. 6. Restless Leg syndrome: Pramipexole 1mg PO TID. Please continue to monitor for symptoms resolution. 7. Overactive bladder: Oxybutynin 5mg PO BID. Please continue to monitor for improvement in symptoms. 8. Iron deficiency anemia: Ferrex 150mg PO daily. Please continue to monitor H/H, iron studies as clinically indicated. 9.Calcium deficiency: Calcium + D 1 tab PO BID. Please continue to monitor. Psychotropic Medications: 10. Appetite loss/depression/insomnia: Mirtazapine 7.5mg PO QHS. Please consider a GDR by 03/2020 if clinically indicated. Unnecessary Medications: None Bowel Regimen: Miralax 17g PO daily, Senna/Docusate 2 tabs PO BID, Bisacodyl 10mg PO daily PRN. Please continue to monitor for increased/decreased constipation and/or diarrhea. Date of Note:: 09/29/19 - Provider Comments Provider responsibility: Provider responsible to enter orders to implement recommendations <Young Hubbard Chi - Last Filed: 09/29/19 13:00> Progress Note - Pharmacy Subjective: [] Objective: Allergies Penicillins [PCN] Allergy (Mild, Verified 09/21/19 08:11) Itching Sulfa (Sulfonamide Antibiotics) Allergy (Mild, Verified 09/21/19 08:11) Itching morphine Adverse Reaction (Severe, Verified 09/21/19 08:11) Other Current Medications Generic Name Dose Route Start Last Admin Trade Name Freq PRN Reason Stop Dose Admin Acetaminophen 1,000 mg 09/27/19 22:00 09/29/19 05:28 Tylenol PO 1,000 mg Q8 MUNA Administration Apixaban 2.5 mg 09/28/19 06:00 09/29/19 05:28 Eliquis PO 10/09/19 23:59 2.5 mg BID MUNA Administration Aspirin 81 mg 10/10/19 08:00 Aspirin, Baby PO DAILY@0800 REPLACED BY [facility] Atorvastatin Calcium 40 mg 09/27/19 22:00 09/28/19 21:29 Lipitor PO 40 mg QHS MUNA Administration Bisacodyl 10 mg 09/27/19 22:43 Dulcolax PO DAILY PRN Constipation Calamine/Phenol 1 applic 09/28/19 06:00 09/29/19 05:29 Calmoseptine Ointment TOPICAL 1 applicatio 0600,2200 REPLACED BY [facility] Administration Protocol Calcium/Vitamin D 1 tablet 09/28/19 08:00 09/29/19 07:58 Os-Elan 500mg + D PO 1 tablet BIDCM MUNA Administration Carbidopa/Levodopa 1 tablet 09/27/19 22:00 09/28/19 21:29 Sinemet Cr PO 1 tablet QHS MUNA Administration Carbidopa/Levodopa 1 tablet 09/28/19 06:45 09/29/19 11:25 Sinemet PO Not Given TIDAC REPLACED BY [facility] Levothyroxine Sodium 75 mcg 09/28/19 06:00 09/29/19 05:29 Synthroid PO 75 mcg DAILY MUNA Administration Mirtazapine 7.5 mg 09/28/19 22:00 09/28/19 21:29 Remeron PO 7.5 mg QHS MUAN Administration Nystatin 1 applic 09/28/19 06:00 09/29/19 05:31 Mycostatin Powder TOPICAL 1 applicatio 0600,2200 MUNA Administration Protocol Oxybutynin Chloride 5 mg 09/28/19 06:00 09/29/19 05:29 Ditropan PO 5 mg BID MUNA Administration Oxycodone HCl 5 mg 09/27/19 22:43 Oxyir PO Q4H PRN PRN Pain Score 4-10/10 Polyethylene Glycol 17 gm 09/28/19 06:00 09/29/19 05:28 Miralax PO 17 gm DAILY MUNA Administration Polysaccharide Iron Complex 150 mg 09/28/19 06:00 09/29/19 05:28 Ferrex 150 PO 150 mg DAILY MUNA Administration Pramipexole Dihydrochloride 0.5 mg 09/28/19 14:00 09/29/19 05:28 Mirapex PO 0.5 mg TID MUNA Administration Senna/Docusate Sodium 2 tablet 09/28/19 06:00 09/29/19 05:28 Senokot-S, Holly-Colace PO 2 tablet BID MUNA Administration Tuberculin PPD 5 tu 10/05/19 10:00 Tubersol, Aplisol, Ppd ID 10/05/19 10:01 X1 ONE Problem List (Last Reviewed 09/20/19 @ 13:31 by Rosalinda Wilkins) Debility (Acute) Osteoarthritis of right knee (Chronic) Hypertension (Chronic) Hyperlipidemia (Chronic) Hypothyroidism (Chronic) Vital Signs Temp Pulse Resp BP Pulse Ox 97.9 F 80 18 128/70 H 100 09/28/19 15:46 09/28/19 15:46 09/28/19 15:46 09/28/19 15:46 09/28/19 15:46 Oxygen Delivery Method Room Air Weight: 70.307 kg Body Mass Index (BMI) 25.7 Finger Stick Blood Glucose 101 Sodium 142 mmol/L (136-145) 09/28/19 05:20 Potassium 3.5 mmol/L (3.5-5.1) 09/28/19 05:20 Chloride 107 mmol/L (98-107) 09/28/19 05:20 Carbon Dioxide 30.0 mmol/L (21.0-32.0) 09/28/19 05:20 Anion Gap 5 (5-15) 05/14/20 05:20 BUN 21 mg/dL (7-18) H 09/28/19 05:20 Creatinine 0.56 mg/dL (0.55-1.02) 09/28/19 05:20 Est GFR (MDRD) Af Amer 133 mL/min (>60) 09/28/19 05:20 Est GFR (MDRD) Non-Af 110 mL/min (>60) 09/28/19 05:20 BUN/Creatinine Ratio 37.4 RATIO (10-20) H 09/28/19 05:20 Glucose 95 mg/dL (74-106) 09/28/19 05:20 Assessment/Plan: Psychotropic Medications: Unnecessary Medications: Bowel Regimen: - Provider Comments Provider responsibility: Provider responsible to enter orders to implement recommendations Provider Comments to Recommendations by Pharmacy: Agree
[2019-09-29 10:34] LABS: Squamous Epithelial Cells - UA 0-5 SEEN /hpf (5-10)
[2019-09-29 16:00] VITALS: BP 154/75; PULSE 70; RESP 14; TEMP 36.7; O2SAT 97
[2019-09-29] MEDS: oxyCODONE 5 MG Tablet PO (16:08)
[2019-09-29] MEDS: Atorvastatin Calcium 40 MG Tablet PO (21:59)
[2019-09-29] MEDS: CARBIDOPA/LEVODOPA CR 50/200 Tablet PO (22:01)
[2019-09-29] MEDS: Mirtazapine 15 MG Tablet 7.5 MG PO (22:01)
[2019-09-30 06:28] VITALS: BP 156/90; PULSE 84; RESP 14; TEMP 36.6; O2SAT 94
[2019-09-30] MEDS: Menthol/Lanolin/Calamine/Znox 113 GM Tube 1 APPLIC TOPICAL ×2 (06:30→21:42)
[2019-09-30] MEDS: Carbidopa/Levodopa 25/100 Tablet PO ×3 (06:31→16:50)
[2019-09-30] MEDS: Polyethylene Glycol 3350 17 GM PACKET PO (06:31)
[2019-09-30] MEDS: Levothyroxine 75 MCG Tablet PO (06:31)
[2019-09-30] MEDS: APIXABAN 2.5 MG TABLET PO ×2 (06:32→17:56)
[2019-09-30] MEDS: Acetaminophen 500 MG Tablet 1000 MG PO ×3 (06:32→21:46)
[2019-09-30] MEDS: Nystatin Powder 15gm Bottle 1 APPLIC TOPICAL ×2 (06:32→21:42)
[2019-09-30] MEDS: Oxybutynin 5 MG Tablet PO ×2 (06:32→17:56)
[2019-09-30] MEDS: Senna/Docusate Sodium 1 Tablet 2 TABLET PO ×2 (06:32→17:56)
[2019-09-30] MEDS: Iron Polysaccharide Complex 150 MG CAPSULE PO (06:32)
[2019-09-30] MEDS: Pramipexole Di-HCl 0.5 MG Tablet PO ×3 (06:34→21:46)
[2019-09-30 06:44] LABS: Hematocrit 32.9 % (37-47)
[2019-09-30] MEDS: Calcium Carb/Vitamin D 1 TABLET Tablet PO ×2 (08:32→17:56)
[2019-09-30 12:45] VITALS: PULSE 82; RESP 18; O2SAT 96
[2019-09-30 16:09] VITALS: BP 144/82; PULSE 73; RESP 18; TEMP 36.7; O2SAT 96
[2019-09-30] MEDS: 0.9% Saline Lock 10 ML Syringe IV (16:50)
--- NOTE | 2019-09-30 17:05 | NURSING ---
NO ANSWER, LEFT MESSAGE.
[2019-09-30] MEDS: CARBIDOPA/LEVODOPA CR 50/200 Tablet PO (21:46)
[2019-09-30] MEDS: Atorvastatin Calcium 40 MG Tablet PO (21:46)
[2019-09-30] MEDS: Mirtazapine 15 MG Tablet 7.5 MG PO (23:04)
[2019-10-01] MEDS: Menthol/Lanolin/Calamine/Znox 113 GM Tube 1 APPLIC TOPICAL ×2 (05:31→22:01)
[2019-10-01] MEDS: Polyethylene Glycol 3350 17 GM PACKET PO (05:31)
[2019-10-01] MEDS: Oxybutynin 5 MG Tablet PO ×2 (05:33→17:33)
[2019-10-01] MEDS: APIXABAN 2.5 MG TABLET PO ×2 (05:34→17:33)
[2019-10-01] MEDS: Carbidopa/Levodopa 25/100 Tablet PO ×3 (05:34→16:34)
[2019-10-01] MEDS: Pramipexole Di-HCl 0.5 MG Tablet PO ×3 (05:34→22:05)
[2019-10-01] MEDS: Levothyroxine 75 MCG Tablet PO (05:34)
[2019-10-01] MEDS: Iron Polysaccharide Complex 150 MG CAPSULE PO (05:34)
[2019-10-01] MEDS: Senna/Docusate Sodium 1 Tablet 2 TABLET PO ×2 (05:34→17:33)
[2019-10-01] MEDS: Nystatin Powder 15gm Bottle 1 APPLIC TOPICAL ×2 (05:34→22:01)
[2019-10-01] MEDS: Acetaminophen 500 MG Tablet 1000 MG PO ×3 (05:34→22:05)
[2019-10-01 05:45] VITALS: BP 160/82; PULSE 70; RESP 12; TEMP 36.6; O2SAT 94
[2019-10-01] MEDS: Calcium Carb/Vitamin D 1 TABLET Tablet PO ×2 (08:21→17:33)
--- NOTE | 2019-10-01 08:28 | NURSING ---
SALINE LOCK PULLED OUT BY THIS NURSE,PER RN.
--- NOTE | 2019-10-01 11:16 | NURSING ---
PT CONTINUES TO SEE A GREEN CAR WITH A PERSON IN IT ON THE ROOF. PT STATED YESTERDAY THE CAR WAS BLACK. THIS NURSE EXPLAINED TO PT THAT THERE WAS NO CAR. PT STATED OK,YOU PROBABLY THINK PAMELA CRAZY. REASSURED PT THAT THIS NURSE DID NOT THINK SHE WAS CRAZY.
[2019-10-01 15:17] VITALS: BP 121/66; PULSE 80; RESP 16; TEMP 36.6; O2SAT 96
--- NOTE | 2019-10-01 16:08 | NURSING ---
talked to and updated him on his .
[2019-10-01] MEDS: Atorvastatin Calcium 40 MG Tablet PO (22:04)
[2019-10-01] MEDS: CARBIDOPA/LEVODOPA CR 50/200 Tablet PO (22:04)
[2019-10-01] MEDS: Mirtazapine 15 MG Tablet 7.5 MG PO (22:05)
[2019-10-02] MEDS: Oxybutynin 5 MG Tablet PO ×2 (05:57→17:52)
[2019-10-02] MEDS: Carbidopa/Levodopa 25/100 Tablet PO ×3 (05:57→17:50)
[2019-10-02] MEDS: APIXABAN 2.5 MG TABLET PO ×2 (05:57→17:51)
[2019-10-02] MEDS: Acetaminophen 500 MG Tablet 1000 MG PO ×3 (05:57→21:01)
[2019-10-02] MEDS: Polyethylene Glycol 3350 17 GM PACKET PO (05:57)
[2019-10-02] MEDS: Iron Polysaccharide Complex 150 MG CAPSULE PO (05:57)
[2019-10-02] MEDS: Levothyroxine 75 MCG Tablet PO (05:57)
[2019-10-02] MEDS: Senna/Docusate Sodium 1 Tablet 2 TABLET PO ×2 (05:57→17:52)
[2019-10-02] MEDS: Pramipexole Di-HCl 0.5 MG Tablet PO ×3 (05:58→21:02)
[2019-10-02] MEDS: Menthol/Lanolin/Calamine/Znox 113 GM Tube 1 APPLIC TOPICAL ×2 (05:58→21:04)
[2019-10-02] MEDS: Nystatin Powder 15gm Bottle 1 APPLIC TOPICAL ×2 (05:59→21:04)
[2019-10-02 06:01] VITALS: BP 150/84; PULSE 69; RESP 16; TEMP 36.7; O2SAT 96
[2019-10-02] MEDS: Calcium Carb/Vitamin D 1 TABLET Tablet PO ×2 (07:41→17:50)
[2019-10-02 10:00] VITALS: PULSE 64; RESP 16; O2SAT 97
--- NOTE | 2019-10-02 10:31 | VDLE_ITS ---
Reason For Study: Right total knee, Pain RIGHT GSV is normal. CFV is compressible, spontaneous, phasic, competent and demonstrates normal augmentation. FV is compressible, spontaneous, phasic, competent and demonstrates normal augmentation. POP V is compressible, spontaneous, phasic, competent and demonstrates normal augmentation. T/P Trunk is compressible. PTV is compressible. RT PerV is compressible. Large nonvascularized structure noted in the popliteal fossa. Procedure Exam performed portable in patient room. A preliminary report was called and/or faxed to RN. Interpretation Summary There is no evidence of right lower extremity deep vein thrombosis. Right great saphenous vein appears patent and compressible segmentally. Large solid cystic structure right popliteal fossa with no vascular flow, clinical correlation indicated. Ordering Physician: Young Hubbard Referring Physician: Young Hubbard Chi Performed By: Debra Arriaga RVT
--- NOTE | 2019-10-02 10:45 | NURSING ---
Notified Dr. Hubbard of patient having redness to R leg and warm to touch. Received order for Doxycycline 100mg BID and Ceftin 300mg BID for 7 days. Doppler of right leg. Order repeated back and added.
[2019-10-02] MEDS: Cefdinir 300 MG Capsule PO ×2 (11:57→21:02)
[2019-10-02 15:21] VITALS: BP 149/73; PULSE 71; RESP 16; TEMP 36.3; O2SAT 96
[2019-10-02] MEDS: Doxycycline 100 MG CAPSULE PO (17:51)
[2019-10-02] MEDS: CARBIDOPA/LEVODOPA CR 50/200 Tablet PO (21:02)
[2019-10-02] MEDS: Atorvastatin Calcium 40 MG Tablet PO (21:02)
[2019-10-02] MEDS: Mirtazapine 15 MG Tablet 7.5 MG PO (21:03)
[2019-10-03] MEDS: oxyCODONE 5 MG Tablet PO (00:53)
--- NOTE | 2019-10-03 06:02 | NURSING ---
$10.00 found on patients bedside table. Money is locked up in patients med-box.
[2019-10-03] MEDS: Polyethylene Glycol 3350 17 GM PACKET PO (06:03)
[2019-10-03] MEDS: Cefdinir 300 MG Capsule PO ×2 (06:08→18:33)
[2019-10-03] MEDS: Oxybutynin 5 MG Tablet PO ×2 (06:08→18:34)
[2019-10-03] MEDS: Doxycycline 100 MG CAPSULE PO ×2 (06:08→18:34)
[2019-10-03] MEDS: Levothyroxine 75 MCG Tablet PO (06:08)
[2019-10-03] MEDS: Senna/Docusate Sodium 1 Tablet 2 TABLET PO ×2 (06:08→18:33)
[2019-10-03] MEDS: APIXABAN 2.5 MG TABLET PO ×2 (06:08→18:34)
[2019-10-03] MEDS: Acetaminophen 500 MG Tablet 1000 MG PO ×3 (06:08→20:21)
[2019-10-03] MEDS: Carbidopa/Levodopa 25/100 Tablet PO ×3 (06:08→16:44)
[2019-10-03] MEDS: Pramipexole Di-HCl 0.5 MG Tablet PO ×3 (06:08→20:21)
[2019-10-03] MEDS: Nystatin Powder 15gm Bottle 1 APPLIC TOPICAL ×2 (06:11→20:16)
[2019-10-03 06:12] VITALS: BP 157/87; PULSE 67; RESP 18; TEMP 36.6; O2SAT 98
[2019-10-03] MEDS: Menthol/Lanolin/Calamine/Znox 113 GM Tube 1 APPLIC TOPICAL ×2 (06:13→20:15)
[2019-10-03] MEDS: Iron Polysaccharide Complex 150 MG CAPSULE PO (08:56)
[2019-10-03] MEDS: Calcium Carb/Vitamin D 1 TABLET Tablet PO ×2 (08:56→18:34)
[2019-10-03 10:41] LABS: Mucous, Urine 0 SEEN /hpf (<or=2+); Red Blood Cells-Urine 0 SEEN /hpf (0-5); White Blood Cells 0 SEEN /hpf (0-5)
[2019-10-03 10:43] LABS: Color, Urine Yellow (Yellow); Glucose, Dipstick Normal (Normal); Ketone-Dipstick Negative (Negative); Leukocyte Esterase-Dipstick Negative /ul (Negative); Nitrite-Dipstick Negative (Negative); Occult Blood-Urine Negative /ul (Negative); Protein-Dipstick Negative (Negative); Specific Gravity, Urine 1.015 (1.002-1.030); Urine Bilirubin Dipstick Negative (Negative); Urine Clarity Sl. Cloudy (Clear); Urine Urobilinogen Normal (Normal); Urine pH 6.5 (5.0 - 8.0)
[2019-10-03 10:51] LABS: Bacteria 1+ /hpf (None Seen); Squamous Epithelial Cells - UA 0-5 SEEN /hpf (5-10)
[2019-10-03 14:22] VITALS: BP 135/84; PULSE 82; RESP 14; TEMP 36.4; O2SAT 96
--- NOTE | 2019-10-03 16:11 | NURSING ---
called and updated him on his .
[2019-10-03] MEDS: Bisacodyl 5 MG Tablet 10 MG PO (18:33)
[2019-10-03] MEDS: CARBIDOPA/LEVODOPA CR 50/200 Tablet PO (20:21)
[2019-10-03] MEDS: Mirtazapine 15 MG Tablet 7.5 MG PO (20:21)
[2019-10-03] MEDS: Atorvastatin Calcium 40 MG Tablet PO (20:21)
[2019-10-03] MEDS: MELATONIN 10 MG TABLET PO (23:09)
--- NOTE | 2019-10-04 01:05 | NURSING ---
pt hallucinations much worse tonight, pt non-compliant with pa system and reaching for things not there, pt called in to ask to take phone away for the night and give her something to help calm her through the night. rn aware, melatonin ordered. pt resting in bed with call light in reach, will continue to monitor.
[2019-10-04 04:00] VITALS: BP 151/84; PULSE 73; RESP 16; TEMP 36.7; O2SAT 95
[2019-10-04] MEDS: Carbidopa/Levodopa 25/100 Tablet PO ×3 (05:18→16:54)
[2019-10-04] MEDS: Acetaminophen 500 MG Tablet 1000 MG PO ×3 (05:18→21:26)
[2019-10-04] MEDS: APIXABAN 2.5 MG TABLET PO ×2 (05:18→17:39)
[2019-10-04] MEDS: Polyethylene Glycol 3350 17 GM PACKET PO (05:18)
[2019-10-04] MEDS: Doxycycline 100 MG CAPSULE PO ×2 (05:18→17:40)
[2019-10-04] MEDS: Cefdinir 300 MG Capsule PO ×2 (05:18→17:39)
[2019-10-04] MEDS: Oxybutynin 5 MG Tablet PO ×2 (05:18→17:39)
[2019-10-04] MEDS: Senna/Docusate Sodium 1 Tablet 2 TABLET PO ×2 (05:18→17:40)
[2019-10-04] MEDS: Levothyroxine 75 MCG Tablet PO (05:18)
[2019-10-04] MEDS: Menthol/Lanolin/Calamine/Znox 113 GM Tube 1 APPLIC TOPICAL ×2 (05:19→21:30)
[2019-10-04] MEDS: Nystatin Powder 15gm Bottle 1 APPLIC TOPICAL ×2 (05:19→21:31)
[2019-10-04] MEDS: Pramipexole Di-HCl 0.5 MG Tablet PO ×3 (05:20→21:26)
[2019-10-04] MEDS: Calcium Carb/Vitamin D 1 TABLET Tablet PO ×2 (08:11→17:39)
[2019-10-04] MEDS: Iron Polysaccharide Complex 150 MG CAPSULE PO (08:11)
[2019-10-04] MEDS: Bisacodyl 5 MG Tablet 10 MG PO (08:14)
[2019-10-04 10:40] VITALS: PULSE 66; RESP 18; O2SAT 96
--- NOTE | 2019-10-04 10:53 | CASEMGMT ---
Social Work IDT met with patient and via conference call for care plan meeting. Discussed patient's progress in therapy. Pt is SBA for bed mobility, SBA to CGA for transfers with FWW, ambulating 80 ft with FWW at SBA to CGA. Pt is min assist for UE ADLs and LE ADLs for mod assist, min to mod assist for transfers, min to mod assist for toileting tasks. ST to eval for concentration and word finding. Activities providing 1:1 visits, will give a manicure, books and magazines available. Pt is on a regular diet, receiving ensure clear, weight is 150.3 lbs and 50-100% intake. Pt is out of room isolation 10/09. Pt has hallucinations at times, but easily redirectable and recognizes when she has them. Explained Medicare benefit. [facility] 3x[facility] and son assists and assist at DC. Will continue to follow. Michaela Lazcano, NATE ROPE WALKER
[2019-10-04 14:08] VITALS: BP 118/62; PULSE 79; RESP 16; TEMP 36; O2SAT 96
--- NOTE | 2019-10-04 14:47 | NURSING ---
pt complained of pain. gave scheduled pain meds earlier. offered prn pain med pt refused. pt also is having more tremors/shakiness today. asked pt if she is upset about any thing or nervous pt stated no i dont think so. rn aware
--- NOTE | 2019-10-04 16:25 | NURSING ---
PT ASKED FOR K-PAD FOR HER NECK DUE TO PAIN. REPORTED TO RN.
[2019-10-04] MEDS: MELATONIN 10 MG TABLET PO (21:26)
[2019-10-04] MEDS: CARBIDOPA/LEVODOPA CR 50/200 Tablet PO (21:27)
[2019-10-04] MEDS: Atorvastatin Calcium 40 MG Tablet PO (21:27)
[2019-10-04] MEDS: Mirtazapine 15 MG Tablet 7.5 MG PO (21:27)
[2019-10-05 03:15] VITALS: BP 148/78; PULSE 68; RESP 16; TEMP 36.7; O2SAT 96
[2019-10-05] MEDS: Acetaminophen 500 MG Tablet 1000 MG PO ×3 (07:00→21:24)
[2019-10-05] MEDS: Doxycycline 100 MG CAPSULE PO ×2 (07:00→17:02)
[2019-10-05] MEDS: Polyethylene Glycol 3350 17 GM PACKET PO (07:00)
[2019-10-05] MEDS: Levothyroxine 75 MCG Tablet PO (07:01)
[2019-10-05] MEDS: Cefdinir 300 MG Capsule PO ×2 (07:01→17:01)
[2019-10-05] MEDS: Oxybutynin 5 MG Tablet PO ×2 (07:01→17:03)
[2019-10-05] MEDS: APIXABAN 2.5 MG TABLET PO ×2 (07:01→17:02)
[2019-10-05] MEDS: Pramipexole Di-HCl 0.5 MG Tablet PO ×3 (07:02→21:24)
[2019-10-05] MEDS: Menthol/Lanolin/Calamine/Znox 113 GM Tube 1 APPLIC TOPICAL ×2 (07:09→21:33)
[2019-10-05] MEDS: Nystatin Powder 15gm Bottle 1 APPLIC TOPICAL ×2 (07:10→21:33)
[2019-10-05] MEDS: Senna/Docusate Sodium 1 Tablet 2 TABLET PO ×2 (07:11→17:02)
[2019-10-05] MEDS: Carbidopa/Levodopa 25/100 Tablet PO ×3 (07:11→17:01)
[2019-10-05 08:00] LABS: Absolute Lymphocyte Count 1.14 X10^3/uL (0.83-4.51); Absolute Neutrophil Count 3.7 X10^3/uL (2.0-7.7); Basophil# 0.03 X10^3/uL; Basophil% 0.5 % (0-1); Eosinophil# 0.17 X10^3/uL; Hematocrit 34.6 % (37-47); Hemoglobin 10.5 g/dL (12.0-15.0); Lymphocyte # 1.14 X10^3/ul (4.0); Lymphocyte % 20.1 % (19-41); Mean Corp Hgb Conc 30.3 g/dL (32-36); Mean Corpuscular Hgb 28.3 pg (27.0-32.0); Mean Corpuscular Volume 93.3 fL (81-99); Mean Platelet Vol. 9.9 fl (6.2-12.0); Monocyte# 0.58 X10^3/uL; Monocyte% 10.2 % (0-10); NRBC Flagged by Analyzer 0 % (0-5); Neutrophil # 3.72 X10^3/uL (2.7-7.7); Neutrophil % 65.8 % (47-70); Platelet Count 323 K/mm3 (150-450); RBC Distribution Width CV 15.9 % (11.6-14.6); Red Blood Count 3.71 M/mm3 (4.2-5.4); White Blood Count 5.7 K/mm3 (4.4-11.0)
[2019-10-05] MEDS: Iron Polysaccharide Complex 150 MG CAPSULE PO (08:10)
[2019-10-05] MEDS: Calcium Carb/Vitamin D 1 TABLET Tablet PO ×2 (08:10→17:03)
[2019-10-05 08:14] LABS: Anion Gap 4 (5-15); BUN 19 mg/dL (7-18); BUN/Creat Ratio 31.2 RATIO (10-20); Calcium,Total 9.2 mg/dL (8.5-10.1); Chloride 106 mmol/L (98-107); Creatinine, Serum 0.61 mg/dL (0.55-1.02); EST Glomerular Filtration Rate 100 mL/min (>60); Est Glom Filt Rate - Afr Amer 121 mL/min (>60); Estimated Creatinine Clearance 39.03 ml/min; Glucose 113 mg/dL (74-106); Potassium 4.1 mmol/L (3.5-5.1); Sodium Level 140 mmol/L (136-145)
[2019-10-05] MEDS: Tuberculin,Purif.prot.deriv. 50 TU/ML Vial 5 ML ID (11:44)
[2019-10-05 14:44] VITALS: BP 129/77; PULSE 76; RESP 18; TEMP 36.7; O2SAT 93
--- NOTE | 2019-10-05 15:20 | NURSING ---
Called pt to give daily update, did not answer and recording states his voicemail has not been setup.
[2019-10-05] MEDS: Magnesium Citrate 300 ML PO (17:35)
[2019-10-05] MEDS: Atorvastatin Calcium 40 MG Tablet PO (21:23)
[2019-10-05] MEDS: MELATONIN 10 MG TABLET PO (21:24)
[2019-10-05] MEDS: Mirtazapine 15 MG Tablet 7.5 MG PO (21:24)
[2019-10-05] MEDS: CARBIDOPA/LEVODOPA CR 50/200 Tablet PO (21:29)
[2019-10-05 22:40] VITALS: PULSE 70; RESP 16; O2SAT 97
[2019-10-06 01:39] VITALS: BP 134/77; PULSE 68; RESP 16; TEMP 36.8; O2SAT 99
[2019-10-06] MEDS: oxyCODONE 5 MG Tablet PO ×2 (01:41→22:08)
[2019-10-06] MEDS: Carbidopa/Levodopa 25/100 Tablet PO ×3 (06:21→17:13)
[2019-10-06] MEDS: Acetaminophen 500 MG Tablet 1000 MG PO ×3 (06:21→22:12)
[2019-10-06] MEDS: Cefdinir 300 MG Capsule PO ×2 (06:21→17:14)
[2019-10-06] MEDS: Levothyroxine 75 MCG Tablet PO (06:22)
[2019-10-06] MEDS: Oxybutynin 5 MG Tablet PO ×2 (06:22→17:13)
[2019-10-06] MEDS: Senna/Docusate Sodium 1 Tablet 2 TABLET PO ×2 (06:22→17:14)
[2019-10-06] MEDS: Doxycycline 100 MG CAPSULE PO ×2 (06:22→17:13)
[2019-10-06] MEDS: APIXABAN 2.5 MG TABLET PO ×2 (06:22→17:14)
[2019-10-06] MEDS: Pramipexole Di-HCl 0.5 MG Tablet PO ×3 (06:22→22:11)
[2019-10-06] MEDS: Polyethylene Glycol 3350 17 GM PACKET PO (06:22)
[2019-10-06] MEDS: Menthol/Lanolin/Calamine/Znox 113 GM Tube 1 APPLIC TOPICAL ×2 (06:24→22:16)
[2019-10-06] MEDS: Nystatin Powder 15gm Bottle 1 APPLIC TOPICAL ×2 (06:24→22:15)
[2019-10-06] MEDS: Calcium Carb/Vitamin D 1 TABLET Tablet PO ×2 (07:54→17:13)
[2019-10-06] MEDS: Iron Polysaccharide Complex 150 MG CAPSULE PO (07:54)
--- NOTE | 2019-10-06 09:51 | NURSING ---
Addendum entered by Christi Blackwell 10/06/19 11:04: PT had large liquid bowel movement with bulging noted around rectum, pt stated she feels pressure but is unable to successfully pass stool, warm prune juice with butter given at this time, will monitor effect Original Note: soap suds enema given per order, pt tolerated well took whole 1000cc bag, is able to retain it, will monitor effectiveness.
[2019-10-06 09:52] VITALS: PULSE 89; RESP 18; O2SAT 97
[2019-10-06 14:25] VITALS: BP 136/75; PULSE 81; RESP 18; TEMP 36.7; O2SAT 97
[2019-10-06] MEDS: MELATONIN 10 MG TABLET PO (22:09)
[2019-10-06] MEDS: CARBIDOPA/LEVODOPA CR 50/200 Tablet PO (22:11)
[2019-10-06] MEDS: Atorvastatin Calcium 40 MG Tablet PO (22:12)
[2019-10-06] MEDS: Mirtazapine 15 MG Tablet 7.5 MG PO (22:12)
[2019-10-07 04:00] VITALS: BP 135/64; PULSE 60; RESP 16; TEMP 36.8; O2SAT 96
[2019-10-07] MEDS: Levothyroxine 75 MCG Tablet PO (05:16)
[2019-10-07] MEDS: Doxycycline 100 MG CAPSULE PO ×2 (05:16→17:05)
[2019-10-07] MEDS: Oxybutynin 5 MG Tablet PO ×2 (05:16)
[2019-10-07] MEDS: Acetaminophen 500 MG Tablet 1000 MG PO ×3 (05:16→19:55)
[2019-10-07] MEDS: Polyethylene Glycol 3350 17 GM PACKET PO (05:16)
[2019-10-07] MEDS: Senna/Docusate Sodium 1 Tablet 2 TABLET PO ×2 (05:16→17:05)
[2019-10-07] MEDS: Carbidopa/Levodopa 25/100 Tablet PO ×3 (05:16→17:04)
[2019-10-07] MEDS: Cefdinir 300 MG Capsule PO ×2 (05:17→17:05)
[2019-10-07] MEDS: Menthol/Lanolin/Calamine/Znox 113 GM Tube 1 APPLIC TOPICAL ×2 (05:17→19:56)
[2019-10-07] MEDS: APIXABAN 2.5 MG TABLET PO ×2 (05:17→17:05)
[2019-10-07] MEDS: Nystatin Powder 15gm Bottle 1 APPLIC TOPICAL ×2 (05:19→19:58)
[2019-10-07] MEDS: Pramipexole Di-HCl 0.5 MG Tablet PO ×3 (05:20→19:56)
[2019-10-07] MEDS: Calcium Carb/Vitamin D 1 TABLET Tablet PO ×2 (07:52→17:04)
[2019-10-07] MEDS: Iron Polysaccharide Complex 150 MG CAPSULE PO (07:53)
[2019-10-07 13:52] VITALS: BP 132/76; PULSE 67; RESP 18; TEMP 36.9; O2SAT 97
[2019-10-07 19:45] VITALS: PULSE 75; O2SAT 97
[2019-10-07] MEDS: Atorvastatin Calcium 40 MG Tablet PO (19:56)
[2019-10-07] MEDS: Mirtazapine 15 MG Tablet 7.5 MG PO (19:56)
[2019-10-07] MEDS: MELATONIN 10 MG TABLET PO (19:56)
[2019-10-07] MEDS: CARBIDOPA/LEVODOPA CR 50/200 Tablet PO (19:56)
--- NOTE | 2019-10-07 20:03 | NURSING ---
Patient observed ambulating in room. When approached patient asked where are my damn shoes? Sdvised patient I would look for them. Patient said she was leaving. Explained to patient why she was here and that we were making her stronger to go home. Patient sat back in recliner. Patient showing anger and attempting to hit this nurse.
[2019-10-08 04:00] VITALS: BP 148/67; PULSE 66; RESP 16; TEMP 36.6; O2SAT 94
[2019-10-08] MEDS: Polyethylene Glycol 3350 17 GM PACKET PO (05:01)
[2019-10-08] MEDS: Carbidopa/Levodopa 25/100 Tablet PO ×3 (05:01→17:39)
[2019-10-08] MEDS: Oxybutynin 5 MG Tablet PO ×2 (05:01→17:39)
[2019-10-08] MEDS: Senna/Docusate Sodium 1 Tablet 2 TABLET PO ×2 (05:01→17:40)
[2019-10-08] MEDS: Doxycycline 100 MG CAPSULE PO ×2 (05:01→17:40)
[2019-10-08] MEDS: Pramipexole Di-HCl 0.5 MG Tablet PO ×3 (05:01→20:01)
[2019-10-08] MEDS: APIXABAN 2.5 MG TABLET PO ×2 (05:01→17:40)
[2019-10-08] MEDS: Levothyroxine 75 MCG Tablet PO (05:01)
[2019-10-08] MEDS: Acetaminophen 500 MG Tablet 1000 MG PO ×3 (05:01→19:59)
[2019-10-08] MEDS: Cefdinir 300 MG Capsule PO ×2 (05:01→17:41)
[2019-10-08] MEDS: Nystatin Powder 15gm Bottle 1 APPLIC TOPICAL ×2 (05:04→19:59)
[2019-10-08] MEDS: Menthol/Lanolin/Calamine/Znox 113 GM Tube 1 APPLIC TOPICAL ×2 (05:04→19:58)
[2019-10-08] MEDS: Iron Polysaccharide Complex 150 MG CAPSULE PO (08:10)
[2019-10-08] MEDS: Calcium Carb/Vitamin D 1 TABLET Tablet PO ×2 (08:10→17:39)
[2019-10-08 08:14] VITALS: PULSE 83; RESP 16; O2SAT 97
--- NOTE | 2019-10-08 12:02 | RAD_ITS ---
STUDY: RADIOGRAPH- ABDOMEN/PELVIS REASON FOR EXAM: Female, 84 years old. Dysuria. TECHNIQUE: KUB COMPARISON: 06/19/2019 at the abdominal radiographs FINDINGS: No evidence of free air or bowel obstruction. No suspicious mass effect. No acute osseous abnormality. Degenerative changes lumbar spine with mild right scoliosis upper lumbar spine. Left total hip arthroplasty partially visible. Calcific atherosclerosis. Calcified mitral annulus. RAD/Abdomen Single View (Portable) IMPRESSION: No acute findings. Electronically Signed: Guero Gneao, at 5:27 EDT Tel , Service support ,
--- NOTE | 2019-10-08 12:04 | NURSING ---
Spoke with Dr. Hubbard regarding patient and her restlessness and hallucinations. She will not stay in chair or bed. Continues to get oob/chair without assistance. He ordered KUB, urinalysis and ativan prn for patient.
[2019-10-08 12:57] LABS: Bacteria 0 SEEN /hpf (None Seen); Mucous, Urine 0 SEEN /hpf (<or=2+); Red Blood Cells-Urine 0 SEEN /hpf (0-5); White Blood Cells 0 SEEN /hpf (0-5)
[2019-10-08 13:01] LABS: Color, Urine Yellow (Yellow); Glucose, Dipstick Normal (Normal); Ketone-Dipstick Negative (Negative); Leukocyte Esterase-Dipstick Negative /ul (Negative); Nitrite-Dipstick Negative (Negative); Occult Blood-Urine Negative /ul (Negative); Protein-Dipstick Negative (Negative); Urine Bilirubin Dipstick Negative (Negative); Urine Clarity Clear (Clear); Urine Urobilinogen Normal (Normal)
[2019-10-08] MEDS: LORazepam 0.5 MG Tablet PO (13:01)
[2019-10-08 13:07] LABS: Squamous Epithelial Cells - UA 0-5 SEEN /hpf (5-10)
[2019-10-08 14:26] VITALS: BP 135/76; PULSE 72; RESP 16; TEMP 36.7; O2SAT 98
[2019-10-08] MEDS: Atorvastatin Calcium 40 MG Tablet PO (20:00)
[2019-10-08] MEDS: Mirtazapine 15 MG Tablet 7.5 MG PO (20:01)
[2019-10-08] MEDS: MELATONIN 10 MG TABLET PO (20:01)
[2019-10-08] MEDS: CARBIDOPA/LEVODOPA CR 50/200 Tablet PO (20:02)
[2019-10-09 04:00] VITALS: BP 166/97; PULSE 70; RESP 14; TEMP 36.5; O2SAT 98
[2019-10-09] MEDS: Oxybutynin 5 MG Tablet PO ×2 (05:08→17:07)
[2019-10-09] MEDS: Levothyroxine 75 MCG Tablet PO (05:08)
[2019-10-09] MEDS: APIXABAN 2.5 MG TABLET PO ×2 (05:08→17:07)
[2019-10-09] MEDS: Carbidopa/Levodopa 25/100 Tablet PO ×3 (05:08→17:06)
[2019-10-09] MEDS: Pramipexole Di-HCl 0.5 MG Tablet PO ×3 (05:08→21:24)
[2019-10-09] MEDS: Acetaminophen 500 MG Tablet 1000 MG PO ×3 (05:08→21:23)
[2019-10-09] MEDS: Polyethylene Glycol 3350 17 GM PACKET PO (05:08)
[2019-10-09] MEDS: Doxycycline 100 MG CAPSULE PO ×2 (05:08→17:07)
[2019-10-09] MEDS: Senna/Docusate Sodium 1 Tablet 2 TABLET PO ×2 (05:08→17:07)
[2019-10-09] MEDS: Nystatin Powder 15gm Bottle 1 APPLIC TOPICAL ×2 (05:11→21:38)
[2019-10-09] MEDS: Menthol/Lanolin/Calamine/Znox 113 GM Tube 1 APPLIC TOPICAL ×2 (05:11→21:38)
[2019-10-09] MEDS: Iron Polysaccharide Complex 150 MG CAPSULE PO (07:31)
[2019-10-09] MEDS: Calcium Carb/Vitamin D 1 TABLET Tablet PO ×2 (07:31→17:06)
--- NOTE | 2019-10-09 08:15 | NURSING ---
Pt found walking in room without walker. Pt asked where the little girl outside her window went. Pt asked who my friend was with me, there was no one with me. Pt stated she had pain in her knee. Pt medicated with OXyir.
[2019-10-09] MEDS: oxyCODONE 5 MG Tablet PO ×2 (08:49→18:12)
[2019-10-09] MEDS: LORazepam 0.5 MG Tablet PO (11:26)
--- NOTE | 2019-10-09 12:30 | NURSING ---
Called patients to update him. stated his only concern was when she would be able to come home. asked to be transferred to social work voiceinil.
[2019-10-09 15:42] VITALS: BP 152/80; PULSE 64; RESP 16; TEMP 36.8; O2SAT 97
--- NOTE | 2019-10-09 16:46 | NURSING ---
Took patient to the bathroom and she had a large bowel movement. After wiping her I noticed a large almost golf ball sized, hard lump. Charge nurse notified.
--- NOTE | 2019-10-09 17:11 | NURSING ---
DR MAIN UPDATED ON PT CONFUSION AND HALLUCINATIONS. REPORTED TO ANATOMY TEACHER THAT WHEN PATIENT GETS THAT WAY AT HOME HE ADMINISTERS 2 TABS OF HER CARBIDOPA/LEVIDOPA MEDICATION AND THAT SEEMED TO HELP. NEW ORDER TO ADMINISTER 2 TABS IF PT DISPLAYS DELIRIUM.
[2019-10-09] MEDS: Mirtazapine 15 MG Tablet 7.5 MG PO (21:23)
[2019-10-09] MEDS: Atorvastatin Calcium 40 MG Tablet PO (21:24)
[2019-10-09] MEDS: MELATONIN 10 MG TABLET PO (21:25)
[2019-10-09] MEDS: CARBIDOPA/LEVODOPA CR 50/200 Tablet PO (21:30)
[2019-10-09 21:40] VITALS: PULSE 74; RESP 16; O2SAT 95
[2019-10-10 06:55] VITALS: BP 133/68; PULSE 74; RESP 14; TEMP 36.7; O2SAT 94
[2019-10-10] MEDS: Menthol/Lanolin/Calamine/Znox 113 GM Tube 1 APPLIC TOPICAL ×2 (06:59→21:33)
[2019-10-10] MEDS: Nystatin Powder 15gm Bottle 1 APPLIC TOPICAL ×2 (06:59→21:33)
[2019-10-10] MEDS: Acetaminophen 500 MG Tablet 1000 MG PO ×3 (07:00→21:23)
[2019-10-10] MEDS: Senna/Docusate Sodium 1 Tablet 2 TABLET PO ×2 (07:00→17:23)
[2019-10-10] MEDS: Carbidopa/Levodopa 25/100 Tablet PO ×3 (07:00→17:24)
[2019-10-10] MEDS: Levothyroxine 75 MCG Tablet PO (07:00)
[2019-10-10] MEDS: Polyethylene Glycol 3350 17 GM PACKET PO (07:00)
[2019-10-10] MEDS: Oxybutynin 5 MG Tablet PO ×2 (07:01→17:23)
[2019-10-10] MEDS: Pramipexole Di-HCl 0.5 MG Tablet PO ×3 (07:02→21:23)
--- NOTE | 2019-10-10 08:20 | MDS.RN ---
Information for the mds was obtained from review of the clinical record, interview of resident, staff, and direct observation of resident's care.
[2019-10-10] MEDS: Iron Polysaccharide Complex 150 MG CAPSULE PO (08:53)
[2019-10-10] MEDS: Calcium Carb/Vitamin D 1 TABLET Tablet PO ×2 (08:53→17:23)
[2019-10-10] MEDS: Aspirin 81 MG TAB.CHEW PO (08:53)
[2019-10-10 09:00] VITALS: PULSE 91; RESP 18; O2SAT 98
--- NOTE | 2019-10-10 09:04 | NURSING ---
ENEIDA REMOVED PER ORDER. PT TOLERATED WELL. CLEANED AND NEW DRESSING APPLIED.
--- NOTE | 2019-10-10 15:03 | NURSING ---
CALLED IN AND GAVE UPDATE AT THAT TIME.
--- NOTE | 2019-10-10 15:04 | NURSING ---
IN TO SEE PT AT 1500.
[2019-10-10 15:51] VITALS: BP 128/81; PULSE 77; RESP 16; TEMP 36.4; O2SAT 100
--- NOTE | 2019-10-10 17:16 | CASEMGMT ---
Social Work Spoke with patient's about DC plans. requesting pt DC home 10/13 with [facility]. Referral made for PT/OT/ST. No DME needs. IDt agreeable. NATE HardingW
--- NOTE | 2019-10-10 20:51 | DCINST_ITS ---
- Discharge Diagnoses Current Active Problems: Current Active and Chronic Problems (Last Reviewed 09/20/19 @ 13:31 by Rosalinda Wilkins) Debility (Acute) Osteoarthritis of right knee (Chronic) Hypertension (Chronic) Hyperlipidemia (Chronic) Hypothyroidism (Chronic) You will use the following diet at home:: No restrictions, Regular Your food should be the consistency of: Regular Your liquids should be the consistency of: Regular/Thin Discharge Activity: Return to Normal Activity, May Shower, Use Walker Weight Bearing Status: Weight bearing as tolerated Call your doctor if you observe: Fever of 101 or Higher, Inability to urinate, Inability to have a bowel movement, Shortness of breath, Chest pain, Uncontrolled pain Allergies/Adverse Reactions: Allergies Penicillins [PCN] Allergy (Mild, Verified 09/21/19 08:11) Itching Sulfa (Sulfonamide Antibiotics) Allergy (Mild, Verified 09/21/19 08:11) Itching morphine Adverse Reaction (Severe, Verified 09/21/19 08:11) Other Medications to take at Discharge Carbidopa/Levodopa [Carbidopa-Levo ER 50-200 Tab] 50 mg PO QHS 06/29/18 Carbidopa/Levodopa [Carbidopa-Levodopa 25-100 Tab] 25 mg PO TID 06/29/18 Levothyroxine Sodium 75 mcg PO DAILY 06/29/18 Ropinirole HCl 1 mg PO QHS 06/29/18 Atorvastatin Calcium [Lipitor] 40 mg PO QHS 03/28/19 Mirtazapine [Remeron] 5 mg PO QHS 09/14/19 Oxybutynin Chloride [Ditropan Xl] 5 mg PO BID 09/14/19 Acetaminophen [Tylenol] 1,000 mg PO Q8 09/27/19 Calcium Carb/Vitamin D [Os-Elan 500MG + D] 1 tab PO BIDCM 09/27/19 Ropinirole HCl [Requip] 1 mg PO TID 09/27/19 Aspirin [Aspirin, Baby] 81 mg PO DAILY@0800 tab.chew 10/10/19 Iron Polysaccharide Complex [Ferrex 150] 150 mg PO DAILY #30 cap 10/10/19 Melatonin 10 mg PO QHS tablet 10/10/19 Menthol/Lanolin/Calamine/Znox [Calmoseptine Ointment] 1 applic TOPICAL 0600,2200 tube 05/26/20 Nystatin Powder [Mycostatin Powder] 1 applic TOPICAL 0600,2200 bottle 10/10/19 Oxycodone [Oxyir] 5 mg PO Q4H PRN PRN 7 Days #42 tablet 10/10/19 Polyethylene Glycol 3350 [Miralax] 17 gm PO DAILY #30 packet 10/10/19 Senna/Docusate Sodium [Senokot-S] 2 tab PO BID #120 tab 10/10/19 The following prescriptions were given: Iron Polysaccharide Complex [Ferrex 150] 150 mg PO DAILY #30 cap Transmission Status: Pending to [facility] Polyethylene Glycol 3350 [Miralax] 17 gm PO DAILY #30 packet Transmission Status: Pending to [facility] Oxycodone [Oxyir] 5 mg PO Q4H PRN PRN 7 Days #42 tablet PRN Reason: Pain Score 4-10/10 Transmission Status: Sent to [facility] Senna/Docusate Sodium [Senokot-S] 2 tab PO BID #120 tab Transmission Status: Pending to [facility] Primary Care Physician: Young Hubbard Chi, MD [Primary Care Provider] - Please follow up with your Primary Care Physician in: 1 week. Test Results: Test results from this visit will be discussed in further detail at your follow- up appointment, if applicable. Please Follow Up With: Dr. Villagomez When: 2 weeks Proposed Discharge Date: 10/14/19
--- NOTE | 2019-10-10 20:53 | PCM.DC.SUM ---
Discharge Date and Diagnosis - Problem List Patient Problems: Active and Suspected Problems (Last Reviewed 09/20/19 @ 13:31 by Rosalinda Wilkins) Debility (Acute) Date of Admission: 09/27/19 Date of Discharge: 10/14/19 - Primary Discharge Diagnosis Acute Problems: Active Problems (Last Reviewed 09/20/19 @ 13:31 by Rosalinda Wilkins) Debility (Acute) - Secondary Discharge Diagnosis Chronic Problems: Chronic Problems (Last Reviewed 09/20/19 @ 13:32 by Rosalinda Wilkins) Osteoarthritis of right knee (Chronic) Hypertension (Chronic) Hyperlipidemia (Chronic) Hypothyroidism (Chronic) Anemia (Chronic) B12 deficiency anemia (Chronic) Iron deficiency anemia due to chronic blood loss (Chronic) Recurrent falls (Chronic) Essential hypertension (Chronic) Restless legs syndrome (RLS) (Chronic) Parkinson disease (Chronic) TIA (transient ischemic attack) (Chronic) S/P total hip arthroplasty (Chronic) Hospital Course and Treatment Imaging Results: 09/28/19 02:08 Diet: Regular Diet Type of Dietary Supplement:: Ensure Clear Is pt able to select menu?: Yes Clinical Impression(s) from Imaging Studies KUB X-Ray 10/08/19 12:02 IMPRESSION: No acute findings. Electronically Signed: Kgteddy Birgit, at 5:27 EDT Tel , Service support , Microbiology 10/08/19 12:50 Urine Catheter - Catheter Urine Culture - Final Culture exhibits no growth. Operations: total knee replacement Procedures: None Summary of Care Provided: The patient is a 84 year old Female with below past medical history hospitalized for right total knee replacement 09/26/[address] Villagomez, postoperative course uncomplicated, admitted to TCU with debility, here for rehabilitation, strengthening, prior to discharge home with . On TCU, resident transfused 2 units PRBC for acute blood loss anemia. She also developed delusions, hallucinations related to her Parkinson Disease which improved over time. Cannot rule out Parkinson Disease Dementia. Discharge home with , [facility] PT/OT/ST. Patient Problems: Active and Suspected Problems (Last Reviewed 09/20/19 @ 13:31 by Rosalinda Wilkins) Debility (Acute) - Physical Exam Vitals/I&O's: Vital Signs Temp Pulse Resp BP Pulse Ox 97.6 F L 77 16 128/81 H 100 10/10/19 15:51 10/10/19 15:51 10/10/19 15:51 10/10/19 15:51 10/10/19 15:51 Oxygen Delivery Method Room Air Weight: 68.181 kg Body Mass Index (BMI) 25.7 Finger Stick Blood Glucose 101 Intake and Output for Last 24 Hours 10/08/19 10/09/19 10/10/19 23:59 23:59 23:59 Intake Total 660 / 660 960 / 960 600 / 600 Balance 660 / 660 960 / 960 600 / 600 Microbiology Past 72 Hours 10/08/19 12:50 Urine Catheter - Catheter Urine Culture - Final Culture exhibits no growth. Current Medications Acetaminophen (Tylenol) 1,000 mg PO Q8 [facility] Last Admin: 10/10/19 13:39 Dose: 1,000 mg Documented by: Aspirin (Aspirin, Baby) 81 mg PO DAILY@0800 [facility] Last Admin: 10/10/19 08:53 Dose: 81 mg Documented by: Atorvastatin Calcium (Lipitor) 40 mg PO QHS [facility] Last Admin: 10/09/19 21:24 Dose: 40 mg Documented by: Bisacodyl (Dulcolax) 10 mg PO DAILY PRN PRN Reason: Constipation Last Admin: 10/04/19 08:14 Dose: 10 mg Documented by: Calamine/Phenol (Calmoseptine Ointment) 1 applic TOPICAL 0600,2200 [facility]; Protocol Last Admin: 10/10/19 06:59 Dose: 1 applicatio Documented by: Calcium/Vitamin D (Os-Elan 500mg + D) 1 tablet PO BIDCM [facility] Last Admin: 10/10/19 17:23 Dose: 1 tablet Documented by: Carbidopa/Levodopa (Sinemet Cr) 1 tablet PO QHS [facility] Last Admin: 10/09/19 21:30 Dose: 1 tablet Documented by: Carbidopa/Levodopa (Sinemet) 1 tablet PO TIDAC [facility] Last Admin: 10/10/19 17:24 Dose: 1 tablet Documented by: Levothyroxine Sodium (Synthroid) 75 mcg PO DAILY [facility] Last Admin: 10/10/19 07:00 Dose: 75 mcg Documented by: Lorazepam (Ativan) 0.5 mg PO Q6H PRN PRN PRN Reason: AGITATION Last Admin: 10/09/19 11:26 Dose: 0.5 mg Documented by: Melatonin (Melatonin) 10 mg PO QHS [facility] Last Admin: 10/09/19 21:25 Dose: 10 mg Documented by: Mirtazapine (Remeron) 7.5 mg PO QHS [facility] Last Admin: 10/09/19 21:23 Dose: 7.5 mg Documented by: Nystatin (Mycostatin Powder) 1 applic TOPICAL 0600,2200 [facility]; Protocol Last Admin: 10/10/19 06:59 Dose: 1 applicatio Documented by: Oxybutynin Chloride (Ditropan) 5 mg PO BID [facility] Last Admin: 10/10/19 17:23 Dose: 5 mg Documented by: Oxycodone HCl (Oxyir) 5 mg PO Q4H PRN PRN PRN Reason: Pain Score 4-10/10 Last Admin: 10/09/19 18:12 Dose: 5 mg Documented by: Polyethylene Glycol (Miralax) 17 gm PO DAILY [facility] Last Admin: 10/10/19 07:00 Dose: 17 gm Documented by: Polysaccharide Iron Complex (Ferrex 150) 150 mg PO DAILYCM [facility] Last Admin: 10/10/19 08:53 Dose: 150 mg Documented by: Pramipexole Dihydrochloride (Mirapex) 0.5 mg PO TID [facility] Last Admin: 10/10/19 13:39 Dose: 0.5 mg Documented by: Senna/Docusate Sodium (Senokot-S, Holly-Colace) 2 tablet PO BID [facility] Last Admin: 10/10/19 17:23 Dose: 2 tablet Documented by: Sodium Chloride () 10 - 40 ml IV UD PRN PRN Reason: SALINE FLUSH Last Admin: 09/30/19 16:50 Dose: 10 ml Documented by: Discharge Diet: No Restrictions Discharge Activity: Return to Normal Activity, May Shower, Use Walker Weight Bearing Status: Weight bearing as tolerated Call your doctor if you observe: Fever of 101 or Higher, Inability to urinate, Inability to have a bowel movement, Shortness of breath, Chest pain, Uncontrolled pain Home Medications: Medications to take at Discharge Carbidopa/Levodopa [Carbidopa-Levo ER 50-200 Tab] 50 mg PO QHS 06/29/18 Carbidopa/Levodopa [Carbidopa-Levodopa 25-100 Tab] 25 mg PO TID 06/29/18 Levothyroxine Sodium 75 mcg PO DAILY 06/29/18 Ropinirole HCl 1 mg PO QHS 06/29/18 Atorvastatin Calcium [Lipitor] 40 mg PO QHS 03/28/19 Mirtazapine [Remeron] 5 mg PO QHS 09/14/19 Oxybutynin Chloride [Ditropan Xl] 5 mg PO BID 09/14/19 Acetaminophen [Tylenol] 1,000 mg PO Q8 09/27/19 Calcium Carb/Vitamin D [Os-Elan 500MG + D] 1 tab PO BIDCM 09/27/19 Ropinirole HCl [Requip] 1 mg PO TID 09/27/19 Aspirin [Aspirin, Baby] 81 mg PO DAILY@0800 tab.chew 10/10/19 Iron Polysaccharide Complex [Ferrex 150] 150 mg PO DAILY #30 cap 10/10/19 Melatonin 10 mg PO QHS tablet 10/10/19 Menthol/Lanolin/Calamine/Znox [Calmoseptine Ointment] 1 applic TOPICAL 0600,2200 tube 10/10/19 Nystatin Powder [Mycostatin Powder] 1 applic TOPICAL 0600,2200 bottle 10/10/19 Oxycodone [Oxyir] 5 mg PO Q4H PRN PRN 7 Days #42 tablet 10/10/19 Polyethylene Glycol 3350 [Miralax] 17 gm PO DAILY #30 packet 10/10/19 Senna/Docusate Sodium [Senokot-S] 2 tab PO BID #120 tab 10/10/19 Following Prescrptions Were Given to Patient: Iron Polysaccharide Complex [Ferrex 150] 150 mg PO DAILY #30 cap Transmission Status: Pending to [facility] Polyethylene Glycol 3350 [Miralax] 17 gm PO DAILY #30 packet Transmission Status: Pending to [facility] Oxycodone [Oxyir] 5 mg PO Q4H PRN PRN 7 Days #42 tablet PRN Reason: Pain Score 4-10/10 Transmission Status: Sent to [facility] Senna/Docusate Sodium [Senokot-S] 2 tab PO BID #120 tab Transmission Status: Pending to [facility] Primary Care Physician: Young Hubbard Chi, MD [Primary Care Provider] - Please follow up with your Primary Care Physician in: 1 week. Please Follow Up With: Dr. Villagomez When: 2 weeks Disposition: Home with Home Health Minutes spent on discharge:: 35 Patient Condition:: Stable Medical Necessity - Tobacco Use Smoking Status: Former smoker Tobacco Use: Non-smoker Meaningful Use Info Meaningful Use Diagnoses (Choose all that apply): None applicable
[2019-10-10] MEDS: MELATONIN 10 MG TABLET PO (21:23)
[2019-10-10] MEDS: CARBIDOPA/LEVODOPA CR 50/200 Tablet PO (21:23)
[2019-10-10] MEDS: Atorvastatin Calcium 40 MG Tablet PO (21:24)
[2019-10-10] MEDS: Mirtazapine 15 MG Tablet 7.5 MG PO (21:31)
[2019-10-10] MEDS: LORazepam 0.5 MG Tablet PO (23:41)
[2019-10-11 04:00] VITALS: BP 130/66; PULSE 80; RESP 16; TEMP 36.8; O2SAT 95
[2019-10-11] MEDS: Levothyroxine 75 MCG Tablet PO (04:53)
[2019-10-11] MEDS: Polyethylene Glycol 3350 17 GM PACKET PO (04:53)
[2019-10-11] MEDS: Oxybutynin 5 MG Tablet PO ×2 (04:53→16:59)
[2019-10-11] MEDS: Carbidopa/Levodopa 25/100 Tablet PO ×3 (04:53→16:58)
[2019-10-11] MEDS: Pramipexole Di-HCl 0.5 MG Tablet PO ×3 (04:53→20:38)
[2019-10-11] MEDS: Menthol/Lanolin/Calamine/Znox 113 GM Tube 1 APPLIC TOPICAL ×2 (05:00→20:39)
[2019-10-11] MEDS: Senna/Docusate Sodium 1 Tablet 2 TABLET PO ×2 (05:01→16:59)
[2019-10-11] MEDS: Acetaminophen 500 MG Tablet 1000 MG PO ×3 (05:01→20:38)
[2019-10-11] MEDS: Nystatin Powder 15gm Bottle 1 APPLIC TOPICAL ×2 (05:02→20:43)
[2019-10-11] MEDS: Aspirin 81 MG TAB.CHEW PO (07:59)
[2019-10-11] MEDS: Calcium Carb/Vitamin D 1 TABLET Tablet PO ×2 (07:59→16:58)
[2019-10-11] MEDS: Iron Polysaccharide Complex 150 MG CAPSULE PO (08:00)
[2019-10-11 13:14] VITALS: BP 118/71; PULSE 79; RESP 14; TEMP 36.3; O2SAT 96
[2019-10-11] MEDS: CARBIDOPA/LEVODOPA CR 50/200 Tablet PO (20:37)
[2019-10-11] MEDS: Mirtazapine 15 MG Tablet 7.5 MG PO (20:38)
[2019-10-11] MEDS: MELATONIN 10 MG TABLET PO (20:38)
[2019-10-11] MEDS: Atorvastatin Calcium 40 MG Tablet PO (20:38)
[2019-10-11 22:08] VITALS: PULSE 65; O2SAT 100
[2019-10-12 04:56] VITALS: BP 139/76; PULSE 71; RESP 16; TEMP 36.9; O2SAT 95
[2019-10-12] MEDS: Senna/Docusate Sodium 1 Tablet 2 TABLET PO ×2 (05:00→17:34)
[2019-10-12] MEDS: Acetaminophen 500 MG Tablet 1000 MG PO ×3 (05:01→20:50)
[2019-10-12] MEDS: Polyethylene Glycol 3350 17 GM PACKET PO (05:02)
[2019-10-12] MEDS: Levothyroxine 75 MCG Tablet PO (05:02)
[2019-10-12] MEDS: Oxybutynin 5 MG Tablet PO ×2 (05:02→17:34)
[2019-10-12] MEDS: Pramipexole Di-HCl 0.5 MG Tablet PO ×3 (05:02→20:50)
[2019-10-12] MEDS: Carbidopa/Levodopa 25/100 Tablet PO ×5 (05:02→17:33)
[2019-10-12] MEDS: Menthol/Lanolin/Calamine/Znox 113 GM Tube 1 APPLIC TOPICAL ×2 (05:06→20:53)
[2019-10-12] MEDS: Nystatin Powder 15gm Bottle 1 APPLIC TOPICAL ×2 (05:07→20:53)
[2019-10-12 06:06] LABS: Absolute Lymphocyte Count 1.57 X10^3/uL (0.83-4.51); Absolute Neutrophil Count 3.2 X10^3/uL (2.0-7.7); Basophil# 0.02 X10^3/uL; Basophil% 0.4 % (0-1); Eosinophil# 0.09 X10^3/uL; Eosinophils% 1.6 % (0-5); Hematocrit 34.3 % (37-47); Hemoglobin 10.1 g/dL (12.0-15.0); Lymphocyte # 1.57 X10^3/ul (4.0); Lymphocyte % 28.6 % (19-41); Mean Corp Hgb Conc 29.4 g/dL (32-36); Mean Corpuscular Hgb 28.1 pg (27.0-32.0); Mean Corpuscular Volume 95.3 fL (81-99); Mean Platelet Vol. 10.3 fl (6.2-12.0); Monocyte# 0.59 X10^3/uL; Monocyte% 10.7 % (0-10); NRBC Flagged by Analyzer 0 % (0-5); Neutrophil # 3.21 X10^3/uL (2.7-7.7); Neutrophil % 58.5 % (47-70); Platelet Count 326 K/mm3 (150-450); RBC Distribution Width CV 16.3 % (11.6-14.6); RBC Distribution Width SD 57.4 fl (35.1-43.9); White Blood Count 5.5 K/mm3 (4.4-11.0)
[2019-10-12 06:19] LABS: Anion Gap 4 (5-15); BUN 21 mg/dL (7-18); BUN/Creat Ratio 38.7 RATIO (10-20); Chloride 105 mmol/L (98-107); Creatinine, Serum 0.54 mg/dL (0.55-1.02); EST Glomerular Filtration Rate 114 mL/min (>60); Est Glom Filt Rate - Afr Amer 138 mL/min (>60); Estimated Creatinine Clearance 39.03 ml/min; Glucose 94 mg/dL (74-106); Potassium 3.7 mmol/L (3.5-5.1); Sodium Level 139 mmol/L (136-145)
[2019-10-12] MEDS: Iron Polysaccharide Complex 150 MG CAPSULE PO (08:15)
[2019-10-12] MEDS: Aspirin 81 MG TAB.CHEW PO (08:15)
[2019-10-12] MEDS: Calcium Carb/Vitamin D 1 TABLET Tablet PO ×2 (08:15→17:33)
[2019-10-12] MEDS: LORazepam 0.5 MG Tablet PO ×2 (08:53→20:50)
[2019-10-12 10:09] VITALS: PULSE 71; RESP 16; O2SAT 96
[2019-10-12 12:30] VITALS: BP 147/79; PULSE 82; RESP 16; TEMP 36.6; O2SAT 98
[2019-10-12 14:50] VITALS: BP 159/70; PULSE 90; RESP 18; TEMP 36.3; O2SAT 92
[2019-10-12 15:00] VITALS: BP 137/94; PULSE 93; RESP 16; TEMP 36.7; O2SAT 97
[2019-10-12] MEDS: BACITRACIN 15 GM Tube 1 APPLIC TOPICAL (17:32)
[2019-10-12] MEDS: oxyCODONE 5 MG Tablet PO (19:55)
[2019-10-12] MEDS: CARBIDOPA/LEVODOPA CR 50/200 Tablet PO (20:49)
[2019-10-12] MEDS: Atorvastatin Calcium 40 MG Tablet PO (20:50)
[2019-10-12] MEDS: MELATONIN 10 MG TABLET PO (20:50)
[2019-10-12] MEDS: Mirtazapine 15 MG Tablet 7.5 MG PO (20:50)
--- NOTE | 2019-10-13 08:47 | CASEMGMT ---
Social Work BIMS and PHQ-9 completed for MDS assessment. Michaela Lazcano, OIL DERRICK OPERATOR GLYCERINE PLANT OPERATOR
--- NOTE | 2019-10-13 08:48 | CASEMGMT ---
Social Work BIMS and PHQ-9 completed for MDS assessment. Michaela Lazcano, CARDIAC EXERCISE SPECIALIST FORMATION FRACTURING OPERATOR
[2019-10-13] MEDS: Menthol/Lanolin/Calamine/Znox 113 GM Tube 1 APPLIC TOPICAL ×2 (09:17→20:27)
[2019-10-13] MEDS: BACITRACIN 15 GM Tube 1 APPLIC TOPICAL ×2 (09:18→17:19)
[2019-10-13] MEDS: Senna/Docusate Sodium 1 Tablet 2 TABLET PO ×2 (09:19→17:16)
[2019-10-13] MEDS: Calcium Carb/Vitamin D 1 TABLET Tablet PO ×2 (09:19→17:16)
[2019-10-13] MEDS: Acetaminophen 500 MG Tablet 1000 MG PO ×3 (09:19→20:37)
[2019-10-13] MEDS: Iron Polysaccharide Complex 150 MG CAPSULE PO (09:19)
[2019-10-13] MEDS: Pramipexole Di-HCl 0.5 MG Tablet PO ×3 (09:19→20:38)
[2019-10-13] MEDS: Aspirin 81 MG TAB.CHEW PO (09:19)
[2019-10-13] MEDS: Levothyroxine 75 MCG Tablet PO (09:20)
[2019-10-13] MEDS: Oxybutynin 5 MG Tablet PO ×2 (09:20→17:16)
[2019-10-13] MEDS: Polyethylene Glycol 3350 17 GM PACKET PO (09:21)
[2019-10-13] MEDS: Nystatin Powder 15gm Bottle 1 APPLIC TOPICAL ×2 (09:21→20:26)
[2019-10-13] MEDS: Carbidopa/Levodopa 25/100 Tablet PO ×3 (09:23→17:16)
[2019-10-13 10:00] VITALS: RESP 16; O2SAT 95
--- NOTE | 2019-10-13 13:09 | MDS.RN ---
Pain interview for CYNDY 10/14/19 completed.
[2019-10-13 14:07] VITALS: BP 117/64; PULSE 73; RESP 14; TEMP 36.1; O2SAT 98
[2019-10-13] MEDS: oxyCODONE 5 MG Tablet PO (17:16)
[2019-10-13] MEDS: Mirtazapine 15 MG Tablet 7.5 MG PO (20:38)
[2019-10-13] MEDS: CARBIDOPA/LEVODOPA CR 50/200 Tablet PO (20:39)
[2019-10-13] MEDS: Atorvastatin Calcium 40 MG Tablet PO (20:40)
[2019-10-13] MEDS: MELATONIN 10 MG TABLET PO (20:40)
[2019-10-14 04:00] VITALS: BP 126/64; PULSE 66; RESP 14; TEMP 36.7; O2SAT 98
[2019-10-14] MEDS: BACITRACIN 15 GM Tube 1 APPLIC TOPICAL (07:19)
[2019-10-14] MEDS: Senna/Docusate Sodium 1 Tablet 2 TABLET PO (07:20)
[2019-10-14] MEDS: Menthol/Lanolin/Calamine/Znox 113 GM Tube 1 APPLIC TOPICAL (07:20)
[2019-10-14] MEDS: Oxybutynin 5 MG Tablet PO (07:21)
[2019-10-14] MEDS: Acetaminophen 500 MG Tablet 1000 MG PO (07:21)
[2019-10-14] MEDS: Carbidopa/Levodopa 25/100 Tablet PO (07:21)
[2019-10-14] MEDS: Nystatin Powder 15gm Bottle 1 APPLIC TOPICAL (07:22)
[2019-10-14] MEDS: Levothyroxine 75 MCG Tablet PO (07:22)
[2019-10-14] MEDS: Pramipexole Di-HCl 0.5 MG Tablet PO (07:23)
[2019-10-14] MEDS: Calcium Carb/Vitamin D 1 TABLET Tablet PO (08:25)
[2019-10-14] MEDS: Aspirin 81 MG TAB.CHEW PO (08:25)
[2019-10-14] MEDS: Iron Polysaccharide Complex 150 MG CAPSULE PO (08:25)
[2019-10-14 09:30] VITALS: PULSE 78; RESP 16; O2SAT 94
--- NOTE | 2019-10-14 11:15 | NURSING ---
$10 returned to pt that was locked up in patient's room. RUBÉN Adorno. witnessed
[2019-10-14 11:39] VITALS: BP 110/66; PULSE 63; RESP 16; TEMP 36.8; O2SAT 97
== END 2019-10-14 11:16 | disposition home health service (06) | DRG 561 ==
PROVIDERS: Admitting Provider Family Medicine Geriatric Medicine; PCP Family Medicine Geriatric Medicine; Visit Provider Family Medicine Geriatric Medicine
DX: Z47.1 Aftercare following joint replacement surgery (principal); Z96.651 Presence of right artificial knee joint; E78.5 Hyperlipidemia, unspecified; I10 Essential (primary) hypertension; G20 Parkinson's disease; G25.81 Restless legs syndrome; E03.9 Hypothyroidism, unspecified; F32.9 Major depressive disorder, single episode, unspecified; Z87.891 Personal history of nicotine dependence; N32.81 Overactive bladder; R29.6 Repeated falls; D50.0 Iron deficiency anemia secondary to blood loss (chronic)
CPT/HCPCS: 36415; 36430; 74018; 80048; 81001; 85014; 85018; 85025; 86850; 86900; 86901; 86920; 87086; 87635; 92507; 92523; 93971; 97110; 97116; 97162; 97166; 97530; 97535; G2023; J7040; P9016; A4216; U0002

== ENCOUNTER → 2019-09-29 09:52 | Outpatient (CLI) | payer MEDICARE, OTHER, MEDICAID, SELFPAY ==
[2019-09-27 23:08] VITALS: BMI 25.7
[2019-09-29 10:20] VITALS: BP 135/69; PULSE 83; RESP 22; TEMP 36.7; O2SAT 97; BMI 25.7
[2019-09-29 11:15] VITALS: BP 146/76; PULSE 75; RESP 20; TEMP 36.3
[2019-09-29 12:20] VITALS: BP 138/56; PULSE 74; RESP 16; TEMP 36.9; O2SAT 99
[2019-09-29 13:14] VITALS: BP 146/80; PULSE 72; RESP 16; TEMP 36.7; O2SAT 97
[2019-09-29] MEDS: Furosemide 20 MG/2 ML VIAL IV (13:17)
[2019-09-29 13:52] VITALS: BP 147/69; PULSE 77; RESP 20; TEMP 36.8
[2019-09-29 15:21] VITALS: BP 149/87; PULSE 86; RESP 18; TEMP 36.6; O2SAT 99
== END ==
PROVIDERS: PCP Family Medicine Geriatric Medicine; Referring Provider Family Medicine Geriatric Medicine; Visit Provider Family Medicine Geriatric Medicine
DX: D64.9 Anemia, unspecified (principal)
CPT/HCPCS: 36430; 86850; 86900; 86901; 86920; J7040; P9016; A4216; J1940

== ENCOUNTER → 2019-10-20 10:46 | Outpatient (CLI) | payer MEDICARE, OTHER, MEDICAID, SELFPAY ==
[2019-10-20 10:46] VITALS: BMI 25.7
--- NOTE | 2019-10-20 10:48 | RAD_ITS ---
STUDY: X-RAY - RIGHT KNEE REASON FOR EXAM: Female, 84 years old. POST OP TECHNIQUE: AP and lateral view(s) of the knee. COMPARISON: Comparison is made with prior study of September 26, 2019. FINDINGS: Normal visualized distal femur. Normal visualized proximal tibia and fibula. Normal proximal tibiofibular articulation. The patient is status post total knee replacement. There is good alignment. Diffuse soft tissue swelling with joint effusion. RAD/Knee 1 or 2 Views IMPRESSION: Status post total knee replacement with persistent joint effusion and soft tissue swelling. Good alignment. Electronically Signed: Joe Iglesias, at 12:24 EDT , Service support ,
== END ==
PROVIDERS: PCP Family Medicine Geriatric Medicine; Referring Provider Orthopaedic Surgery; Visit Provider Orthopaedic Surgery
DX: M25.561 Pain in right knee (principal)
CPT/HCPCS: 73560

== ENCOUNTER → 2019-10-24 17:17 | Outpatient (CLI) | payer MEDICARE, OTHER, MEDICAID, SELFPAY ==
[2019-10-20 10:46] VITALS: BMI 25.7
[2019-10-24 17:44] LABS: Absolute Lymphocyte Count 1.44 X10^3/uL (0.83-4.51); Basophil# 0.04 X10^3/uL; Basophil% 0.8 % (0-1); Eosinophil# 0.15 X10^3/uL; Eosinophils% 2.8 % (0-5); Hematocrit 37.8 % (37-47); Hemoglobin 11.1 g/dL (12.0-15.0); Lymphocyte # 1.44 X10^3/ul (4.0); Lymphocyte % 27.1 % (19-41); Mean Corp Hgb Conc 29.4 g/dL (32-36); Mean Corpuscular Hgb 28.8 pg (27.0-32.0); Mean Corpuscular Volume 98.2 fL (81-99); Mean Platelet Vol. 10.1 fl (6.2-12.0); Monocyte# 0.66 X10^3/uL; Monocyte% 12.4 % (0-10); NRBC Flagged by Analyzer 0 % (0-5); Neutrophil # 3.01 X10^3/uL (2.7-7.7); Neutrophil % 56.7 % (47-70); Platelet Count 243 K/mm3 (150-450); RBC Distribution Width CV 16.4 % (11.6-14.6); RBC Distribution Width SD 58.7 fl (35.1-43.9); Red Blood Count 3.85 M/mm3 (4.2-5.4); White Blood Count 5.3 K/mm3 (4.4-11.0)
== END ==
PROVIDERS: PCP Family Medicine Geriatric Medicine; Visit Provider Family Medicine Geriatric Medicine
DX: D64.9 Anemia, unspecified (principal)
CPT/HCPCS: 36415; 85025

== ENCOUNTER → 2020-01-18 12:44 | Outpatient (CLI) | payer MEDICARE, OTHER, MEDICAID, SELFPAY ==
[2020-01-15 13:09] VITALS: BMI 25.4
--- NOTE | 2020-01-18 12:45 | CDU_ITS ---
Reason For Study: TIA Rt. Velocities/BP Lt. Velocities/BP Prox CCA 63/10 cm/sec. Prox CCA 71/12 cm/sec. Mid CCA 71/11 cm/sec. Mid CCA 68/14 cm/sec. Dist CCA 58/11 cm/sec. Dist CCA 62/16 cm/sec. Prox ICA 99/23 cm/sec. Prox ICA 71/22 cm/sec. Mid ICA 159/34 cm/sec. Mid ICA 43/14 cm/sec. Dist ICA 54/20 cm/sec. Dist ICA 64/23 cm/sec. Rt. ICA/CCA = 2.2. Lt. ICA/CCA = 1.0. Prox ECA 58/0 cm/sec. Prox ECA 63/5 cm/sec. Rt. Vert. 27/8 cm/sec. Lt. Vert. 38/9 cm/sec. Right Extracranial There is homogeneous, smooth atherosclerotic plaque noted in the right common carotid artery. The right internal carotid artery is not adequately visualized to characterize plaque. There is heterogeneous, irregular atherosclerotic plaque noted in the right external carotid artery. Antegrade flow is noted in the right vertebral artery. There is heterogeneous, irregular atherosclerotic plaque noted in the right bulb. Left Extracranial There is homogeneous, smooth atherosclerotic plaque noted in the left common carotid artery. There is heterogeneous, irregular atherosclerotic plaque noted in the left internal carotid artery. The left external carotid artery is tortuous. The left external carotid artery is not well visualized. Antegrade flow is noted in the left vertebral artery. There is intimal thickening but no significant atherosclerotic plaque noted in the left bulb. Procedure Carotid Duplex 62802. Technically difficult due to high bifurcation. Exam performed in department. Interpretation Summary Minimal smooth plaque of the proximal right internal carotid with 50 to 69% stenosis. Visualization of the internal carotid was noted to be technically difficult. <50% stenosis right external carotid Minimal irregular calcific plaque in the proximal left internal carotid artery with less than 50% stenosis <50% stenosis left external carotid Patent and antegrade vertebrals bilaterally Please note the technical difficulty bilaterally secondary to high bifurcations Ordering Physician: Ramírez Kohli Referring Physician: GURMEET MAIN Performed By: Marely Katz, LATRELL, RVT
== END ==
PROVIDERS: PCP Family Medicine Geriatric Medicine; Referring Provider Psychiatry & Neurology Neurology; Visit Provider Psychiatry & Neurology Neurology
DX: R55 Syncope and collapse (principal); Z86.73 Personal history of transient ischemic attack (TIA), and cerebral infarction without residual deficits
CPT/HCPCS: 93880

== ENCOUNTER 2020-02-13 07:10 | Day surgery (SDC) | payer MEDICARE, OTHER, MEDICAID, SELFPAY ==
[2020-01-15 13:09] VITALS: BMI 25.4
[2020-02-13] VITALS (7 sets, daily range): BP systolic 105–140; BP diastolic 69–99; PULSE 63–80; RESP 16; TEMP 36.2–36.3; O2SAT 97–100; BMI 25.9
--- NOTE | 2020-02-13 08:22 | HP.PCM_ITS ---
Problem List (1) Anemia Status: Chronic Qualifiers: Anemia type: iron deficiency (2) Iron deficiency anemia due to chronic blood loss Status: Chronic History and Physical Date of Admission: 02/13/20 Intake Visit Reasons: CSCOPE Chief Complaint: Parkinson's Disease Allergies Penicillins [PCN] Allergy (Mild, Verified 01/15/20 13:10) Itching Sulfa (Sulfonamide Antibiotics) Allergy (Mild, Verified 01/15/20 13:10) Itching morphine Adverse Reaction (Severe, Verified 01/15/20 13:10) Disorientation Medications Levothyroxine Sodium 75 mcg PO DAILY 06/29/18 [History Confirmed 01/15/20] Acetaminophen [Tylenol] 1,000 mg PO Q8 09/27/19 [History Confirmed 01/15/20] Iron Polysaccharide Complex [Ferrex 150] 150 mg PO DAILY #30 cap 10/10/19 [Rx Confirmed 01/15/20] oxycodone 5 mg tablet 5 mg PO BID PRN #56 tab 10/20/19 [Rx Confirmed 01/15/20] clonazepam 0.5 mg tablet ea PO 12/25/19 [History Confirmed 01/15/20] ropinirole 1 mg tablet mg PO TID tab 12/25/19 [History Confirmed 01/15/20] apixaban 2.5 mg tablet 2.5 mg PO ONCE tab 12/28/19 [History Confirmed 01/15/20] aspirin 81 mg tablet,delayed release 81 mg PO DAILY 12/28/19 [History Confirmed 01/15/20] atorvastatin 40 mg tablet 40 mg PO DAILY tab 12/28/19 [History Confirmed 01/15/20] carbidopa 25 mg-levodopa 100 mg tablet 1 tab PO QPM #30 tab 12/28/19 [Rx Confirmed 01/15/20] carbidopa ER 50 mg-levodopa 200 mg tablet,extended release 1 tab PO QAM #30 tab 12/28/19 [Rx Confirmed 01/15/20] famotidine 20 mg tablet 20 mg PO QHS 12/28/19 [History Confirmed 01/15/20] mirtazapine 15 mg tablet 15 mg PO DAILY tab 12/28/19 [History Confirmed 01/15/20] [facility] Medical History (Updated 12/28/19 @ 10:18 by Berta Ford) BIOTIN DEFICIENCY (Acute) Cataract (Acute) Delusional disorder (Acute) Dementia associated with Parkinson's disease (Acute) Depression (Acute) Frequent UTI (Acute) Hallucinations (Acute) Hyperlipidemia (Acute) Insomnia (Acute) Iron deficiency anemia (Acute) Osteoarthritis (Acute) Parkinson disease (Acute) Restless leg syndrome (Acute) Vitamin B12 deficiency (Acute) Surgical History (Updated 12/25/19 @ 10:38 by Berta Collazo) H/O: hysterectomy (Acute) History of appendectomy (Acute) History of cataract surgery (Acute) History of knee replacement (Acute) History of left hip replacement (Acute) History of tooth extraction (Acute) History of total right knee replacement (Acute) [place] teeth removed (Acute) Family History Mother Parkinson disease CVA (cerebral vascular accident) Ovarian cancer Father Pancreatic cancer Diabetes Daughter Ovarian cancer Brother Lung cancer Son Lung cancer Uncle Parkinson disease Social History (Updated 01/15/20 @ 13:[address] Guy Dove MD) Smoking Status: Former smoker Tobacco: How many years used: 10 how long ago did patient quit smokin+ years alcohol intake: current alcohol intake frequency: holidays/special occasions only substance use type: does not use HPI HPI HPI: TIFFANIE MOODY, is a 84 F who presents to the office today for surgical consultation. She was referred by Dr. Jaime Lyon for chronic iron deficiency anemia and a written copy of my surgical consult recommendations will be returned to him. The patient states that she is aware of her chronic anemia. She is required iron replacement. She claims that she has had transfusion. She thinks her last colonoscopy was 10 years ago. She is additionally had some weight loss. She is unclear as to the etiology. She is treated with Eliquis therapy and was seemingly unaware that she is on anticoagulation. In addition she is on aspirin therapy. She has noted some darker stools but she is very nonspecific. She denies any abdominal pain. She denies any family history of colon cancer. She did have a right knee replacement September 2019. By report that procedure went without complication. RUN DATE: 01/15/20 [facility], DEPARTMENT OF LABORATORIES PAGE 1 RUN TIME: 1326 Specimen Inquiry [address] [place], [address] PATIENT: TIFFANIE MOODY LOC: ONC U #: [id number] : 1935 AGE/SX: 84/F FACILITY: [facility] ROOM: RE11/30/[address]: Beau Velasquez STATUS:REG RCR BED: DIS: ~ SPEC #: [id number] GINO: 11/22/19 STATUS: COMP REQ #: [id number] RECD: 11/22/[address]: Dr. Jaime Lyon MD ENTERED: 11/22/19-[address]: Dr. Young Hubbard MD ~ Test Result Flag Adult Reference Range CBCD WBC 5.6 4.4-11.0 K/mm3 RBC 3.84 L 4.2-5.4 M/mm3 HGB 11.1 L 12.0-15.0 g/dL HCT 36.9 L 37-47 % MCV 96.1 81-99 fL MCH 28.9 27.0-32.0 pg MCHC 30.1 L 32-36 g/dL RDW CV 15.3 H 11.6-14.6 % RDW SD 54.0 H 35.1-43.9 fl PLT 198 150-450 K/mm3 MPV 10.0 6.2-12.0 fl NEUT% 61.2 47-70 % LY% 25.1 19-41 % MONO% 11.2 H 0-10 % EO% 1.8 0-5 % BASO% 0.5 0-1 % IG% 0.200 0.0-0.9 % IG% - Immature Granulocytes (promyelocytes, myelocytes and metamyelocytes) > 1% indicates that a LEFT SHIFT is Present. Absolute Neut 3.4 2.0-7.7 X10^3/uL Absolute Lymph 1.41 0.83-4.51 X10^3/uL NUCLEATED RBC 0 0-5 % Laboratory Tests 03/08/17 03/10/18 04/12/19 14:00 11:54 05:50 Hgb 11.7 L 11.0 L 8.2 L Hct 37.0 35.9 L 26.6 L Iron TIBC Iron Saturation Ferritin 08/10/19 08/14/19 09/12/19 11:31 13:28 14:52 Hgb 9.1 L 9.4 L Hct 30.8 L 32.4 L Iron 25 L TIBC 231 L Iron Saturation Ferritin 99 09/14/19 09/28/19 11/22/19 14:55 05:20 13:42 Hgb 7.3 L 11.1 L Hct 24.5 L 36.9 L Iron 33 L TIBC 259 Iron Saturation 12.7 L Ferritin 100 11/22/19 13:42 Hgb Hct Iron 46 L TIBC 239 L Iron Saturation 19.2 Ferritin 146 HPI HPI HPI: TIFFANIE MOODY, is a 84 F who presents to the office today for Exam Const General: cooperative, comfortable, no acute distress, frail appearing Nutritional Appearance: average body habitus Orientation: alert HENMT Head: normal to inspection Eyes General: appearance normal, both eyes and all related structures Resp Effort & Inspection: normal respiratory effort Auscultation: clear to auscultation bilaterally Cardio Rate: regular rate Rhythm: regular rhythm GI Palpation: soft Auscultation: normal bowel sounds Musc Cervical Spine: normal cervical lordosis Neuro Cognition: normal cognition Extrem General: no calf tenderness Psych Affect: normal affect Assessment & Plan Problems 1. Iron deficiency anemia due to chronic blood loss D50.0 Plan I have offered the patient a combined esophagogastroduodenoscopy with possible biopsy and colonoscopy possible biopsy or polypectomy is indicated. She is aware that at age 84 there is increased risk with this diagnostic intervention. She is aware of the technique, benefit, risk, alternatives. We will have her hold her Eliquis for 48 hours preintervention. We will utilized monitored anesthesia care. We will try to schedule and expedite her management. She is on famotidine therapy but she is on anticoagulation in the form of Eliquis and aspirin. I appreciate the opportunity of assisting with her surgical care. Copy: Dr. Hubbard and Dr. Sonali Dove M.D., F.A.C.S. Coding Level of Care Code 17136 Diagnoses Iron deficiency anemia due to chronic blood loss D50.0 [facility] [address] [place] [address] Carotid Duplex Ultrasound 01/18/20 1254 MR#: [id number] Acct: [id number] Name: TIFFANIE MOODY Rep #:[id number] : 1935 84 From: Guy aaron MD Attending Dr: Dr. Ramírez Kohli MD Status: REG CLI Ordering Dr: Ramírez Kohli MD Date: 01/18/20 Location: [facility] Sex: F C Admitted: Reason For Study: TIA Rt. Velocities/BP Lt. Velocities/BP Prox CCA 63/10 cm/sec. Prox CCA 71/12 cm/sec. Mid CCA 71/11 cm/sec. Mid CCA 68/14 cm/sec. Dist CCA 58/11 cm/sec. Dist CCA 62/16 cm/sec. Prox ICA 99/23 cm/sec. Prox ICA 71/22 cm/sec. Mid ICA 159/34 cm/sec. Mid ICA 43/14 cm/sec. Dist ICA 54/20 cm/sec. Dist ICA 64/23 cm/sec. Rt. ICA/CCA = 2.2. Lt. ICA/CCA = 1.0. Prox ECA 58/0 cm/sec. Prox ECA 63/5 cm/sec. Rt. Vert. 27/8 cm/sec. Lt. Vert. 38/9 cm/sec. Right Extracranial There is homogeneous, smooth atherosclerotic plaque noted in the right common carotid artery. The right internal carotid artery is not adequately visualized to characterize plaque. There is heterogeneous, irregular atherosclerotic plaque noted in the right external carotid artery. Antegrade flow is noted in the right vertebral artery. There is heterogeneous, irregular atherosclerotic plaque noted in the right bulb. Left Extracranial There is homogeneous, smooth atherosclerotic plaque noted in the left common carotid artery. There is heterogeneous, irregular atherosclerotic plaque noted in the left internal carotid artery. The left external carotid artery is tortuous. The left external carotid artery is n ot well visualized. Antegrade flow is noted in the left vertebral artery. There is intimal thickening but no significant atherosclerotic plaque noted in the left bulb. Procedure Carotid Duplex 17350. Technically difficult due to high bifurcation. Exam performed in department. Interpretation Summary Minimal smooth plaque of the proximal right internal carotid with 50 to 69% stenosis. Visualization of the internal carotid was noted to be technically difficult. <50% stenosis right external carotid Minimal irregular calcific plaque in the proximal left internal carotid artery with less than 50% stenosis <50% stenosis left external carotid Patent and antegrade vertebrals bilaterally Please note the technical difficulty bilaterally secondary to high bifurcations Ordering Physician: Ramírez Kohli Referring Physician: YOUNG HUBBARD Performed By: Marely Katz, THANHCS, RVT 01/18/20 1510 Date _ Guy Dove MD I have re-examined the patient. There are no clinical changes since date of exam. Procedure Criteria Procedure Type: Elective COVID Risk Discussion: The surgeon/proceduralist and patient have discussed in detail the risk of exposure to and/or potential harm posed by the COVID-19 virus with having a surgery/procedure at this time versus the risk of delaying the surgery/procedure. It is not possible to know either the risk of delaying the surgery or procedure or chance of getting an infection with perfect accuracy, but a joint decision was made between the patient and the surgeon/proceduralist to proceed at this time with the scheduled surgery/procedure as indicated on the consent form.
[2020-02-13] MEDS: Lactated Ringers 1,000 ML 100 ML IV (08:35)
--- NOTE | 2020-02-13 08:45 | IMM_PTH ---
PATIENT: TIFFANIE MOODY LOC: EN U#:[id number] AGE/SX: 84/F ROOM: RE02/13/[address]: Dr. Guy Dove MD : 1935 BED: DIS: 02/13/2020 SPEC #: [id number] RECD: 02/13/20 14:50 STATUS: YANIRA REQ #: [id number] GINO: 02/13/20 08:[address]: Guy Dove DEPT: IMMUNOHISTOCHEMISTRY RECD BY: Carly Gómez ENTERED: 02/13/20 14:50 SP TYPE: IMMUNO OTHR DR: Dr. Young Hubbard MD Tissues: A - Stomach, NOS Procedures: H Pylori (initial) PHYSICIAN & INSTITUTION [place] [address] SPECIMEN INFORMATION: Tissue Source: A - Antrum biopsy Clinical Info: Iron deficiency anemia Specimen Number: [id number] CPT code: 86407 METHODOLOGY: Deparaffinized sections of prefer/formalin-fixed tissue or PAP/DQ stained slides are incubated with monoclonal/polyclonal antibodies/oligonucleotide probes. Localization is made via biotin free immunoperoxidase method. Appropriate controls are performed and reacted as expected. Results on target cell population are indicated in the following table: RESULTS: ANTIBODY / CLONE RESULT Block A H Pylori (polyclonal) negative These tests were developed and their performance characteristics determined by [facility]. They may not have been cleared or approved by the U.S. Food and Drug Administration. The FDA has determined that such clearance or approval is not necessary. INTERPRETATION: A. Gastric antrum, biopsy: Negative for Helicobacter pylori organisms. AM:debby 02/14/20
--- NOTE | 2020-02-13 08:45 | COLBX_PTH ---
PATIENT: TIFFANIE MOODY LOC: EN U#:[id number] AGE/SX: 84/F ROOM: RE02/13/[address]: Dr. Guy Dove MD : 1935 BED: DIS: 02/13/2020 SPEC #: [id number] RECD: 02/13/20 10:29 STATUS: YANIRA ZACK #: [id number] GINO: 02/13/20 08:[address]: Guy Dove DEPT: SURGICAL PATHOLOGY RECD BY: Rah Harden ENTERED: 02/13/20 12:23 SP TYPE: COLON BX OTHR DR: Dr. Young Hubbard MD Tissues: A - Gastric mucous membrane B - Esophagus, NOS Procedures: Special Stain Group II Surgery Specimen Level IV Alcian Blue/PAS (control) HEADER OPERATION: Colonoscopy, EGD ([facility]) PRE-OP DIAGNOSIS: Iron deficiency anemia TISSUE SUBMITTED: A - Antrum biopsy for histo and H. pylori, B - Distal esophagus biopsy MICROSCOPIC DIAGNOSIS A. Gastric antrum, biopsy: Minimal chronic inflammation. B. Distal esophagus, biopsy: Benign squamous mucosa. Junctional mucosa with mild chronic inflammation. No evidence of goblet cell metaplasia. See comment. AM:debby 02/14/20 COMMENT A. The results of immunohistochemistry for Helicobacter pylori will be reported separately ([id number]). B. Alcian blue/PAS stain with matched control supports the above diagnosis. MICROSCOPIC DESCRIPTION Slides are reviewed. GROSS DESCRIPTION A - Received in fixative is one container labeled with the patient's name and designated antrum biopsy. The specimen consists of one irregular fragment of light king soft tissue that measures 0.3 x 0.3 x 0.1 cm. The specimen is totally submitted in one cassette. B - Received in fixative is one container labeled with the patient's name and designated distal esophagus biopsy. The specimen consists of one irregular fragment of light king soft tissue that measures 0.3 x 0.3 x 0.1 cm. The specimen is totally submitted in one cassette. / AM:debby 02/13/20 TC:3 CPT: 06307 x2
--- NOTE | 2020-02-13 09:26 | OP.CCLET_ITS ---
02/13/2020 Young Hubbard MD [address] [place] [address] Re : Upper GI endoscopy procedure for Sonya Lucas Dear Dr. Hubbard This procedure was performed on Thursday, February 13, 2020. My impressions and recommendations are as follows: Impressions : - LA Grade A reflux esophagitis. - Medium-sized hiatal hernia. Biopsied. - Normal stomach. Biopsied. - Normal examined duodenum. Recommendations : - Discharge patient to home. - Clear liquid diet. - Continue present medications. - Telephone my office for pathology results in 1 week. My findings are described in the full procedure note, which is enclosed. If I can be of further assistance, please feel free to contact me at Doctor phone number(s): Work: . Sincerely, Guy Dove MD 02/13/2020 9:25:43 AM This report has been signed electronically.
--- NOTE | 2020-02-13 09:26 | OP.EGD_ITS ---
Patient Name: Sonya Lucas Procedure Date: 02/13/2020 8:57 AM Date of : 1935 Age: 84 Procedure: Upper GI endoscopy Indications: Iron deficiency anemia Providers: Guy Dove MD Referring MD: Young Hubbard MD Medicines: General Anesthesia Complications: No immediate complications. Procedure: Pre-Anesthesia Assessment: - Prior to the procedure, a History and Physical was performed, and patient medications and allergies were reviewed. The patient's tolerance of previous anesthesia was also reviewed. The risks and benefits of the procedure and the sedation options and risks were discussed with the patient. All questions were answered, and informed consent was obtained. Prior Anticoagulants: The patient has taken Eliquis (apixaban), last dose was 2 days prior to procedure. ASA Grade Assessment: II - A patient with mild systemic disease. After reviewing the risks and benefits, the patient was deemed in satisfactory condition to undergo the procedure. After obtaining informed consent, the endoscope was passed under direct vision. Throughout the procedure, the patient's blood pressure, pulse, and oxygen saturations were monitored continuously. The gastroscope was introduced through the mouth, and advanced to the second part of duodenum. The upper GI endoscopy was accomplished without difficulty. The patient tolerated the procedure well. Scope In: 9:03:58 AM Scope Out: 9:11:11 AM Total Procedure Duration Time 0 hours 7 minutes 13 seconds Findings: Distal esophagitis with no bleeding was found 38 cm from the incisors. A medium-sized hiatal hernia was present. Biopsies were taken with a cold forceps for histology of the distal esophagus The entire examined stomach was normal. Biopsies were taken with a cold forceps for histology of the antrum The examined duodenum was normal. Impression: - LA Grade A reflux esophagitis. - Medium-sized hiatal hernia. Biopsied. - Normal stomach. Biopsied. - Normal examined duodenum. Recommendation: - Discharge patient to home. - Clear liquid diet. - Continue present medications. - Telephone my office for pathology results in 1 week. Procedure Code(s): --- Professional --- 95219, Esophagogastroduodenoscopy, flexible, transoral; with biopsy, single or multiple Diagnosis Code(s): --- Professional --- K21.0, Gastro-esophageal reflux disease with esophagitis K44.9, Diaphragmatic hernia without obstruction or gangrene D50.9, Iron deficiency anemia, unspecified CPT copyright 2017 [employer]. All rights reserved. The codes documented in this report are preliminary and upon compressor house operator review may be revised to meet current compliance requirements. Guy Dove MD 02/13/2020 9:25:43 AM This report has been signed electronically. Number of Addenda: 0 Note Initiated On: 02/13/2020 8:57 AM
--- NOTE | 2020-02-13 09:31 | OP.CCLET_ITS ---
02/13/2020 Young Hubbard MD [address] [place] [address] Re : Colonoscopy procedure for Sonya Lucas Dear Dr. Hubbard This procedure was performed on Thursday, February 13, 2020. My impressions and recommendations are as follows: Impressions : - The procedure was aborted due to inadequate bowel prep. - Hemorrhoids found on perianal exam. - No specimens collected. Recommendations : - Discharge patient to home. - Clear liquid diet. - Repeat colonoscopy in 1 day because the bowel preparation was poor. - Continue present medications. My findings are described in the full procedure note, which is enclosed. If I can be of further assistance, please feel free to contact me at Doctor phone number(s): Work: . Sincerely, Guy Dove MD 02/13/2020 9:30:34 AM This report has been signed electronically.
--- NOTE | 2020-02-13 09:31 | OP.COLON_ITS ---
Patient Name: Sonya Lucas Procedure Date: 02/13/2020 9:12 AM Date of : 1935 Age: 84 Procedure: Colonoscopy Indications: Iron deficiency anemia Providers: Guy Dove MD Referring MD: Young Hubbard MD Medicines: See the Anesthesia note for documentation of the administered medications Patient Profile: Last Colonoscopy: more than 10 years ago. Complications: No immediate complications. Procedure: Pre-Anesthesia Assessment: - Prior to the procedure, a History and Physical was performed, and patient medications and allergies were reviewed. The patient's tolerance of previous anesthesia was also reviewed. The risks and benefits of the procedure and the sedation options and risks were discussed with the patient. All questions were answered, and informed consent was obtained. Prior Anticoagulants: The patient has taken Eliquis (apixaban), last dose was 2 days prior to procedure. ASA Grade Assessment: II - A patient with mild systemic disease. After reviewing the risks and benefits, the patient was deemed in satisfactory condition to undergo the procedure. After I obtained informed consent, the scope was passed under direct vision. Throughout the procedure, the patient's blood pressure, pulse, and oxygen saturations were monitored continuously. The pediatric colonoscope was introduced through the anus with the intention of advancing to the cecum. The scope was advanced to the anus before the procedure was aborted. Medications were given. The colonoscopy was aborted due to inadequate bowel prep. Scope In: 9:14:15 AM Scope Out: 9:14:56 AM Total Procedure Duration Time 0 hours 0 minutes 41 seconds Findings: Hemorrhoids were found on perianal exam. Impression: - The procedure was aborted due to inadequate bowel prep. - Hemorrhoids found on perianal exam. - No specimens collected. Recommendation: - Discharge patient to home. - Clear liquid diet. - Repeat colonoscopy in 1 day because the bowel preparation was poor. - Continue present medications. Procedure Code(s): --- Professional --- 07873, 53, Colonoscopy, flexible; diagnostic, including collection of specimen(s) by brushing or washing, when performed (separate procedure) CPT copyright 2017 [employer]. All rights reserved. The codes documented in this report are preliminary and upon milling general superintendent review may be revised to meet current compliance requirements. Guy Dove MD 02/13/2020 9:30:34 AM This report has been signed electronically. Number of Addenda: 0 Note Initiated On: 02/13/2020 9:12 AM
== END 2020-02-13 10:25 | disposition home or self-care (01) ==
LOC: AC 09:57 → EN 12:12 → AC 12:13
PROVIDERS: Anesthesiology; PCP Family Medicine Geriatric Medicine; Referring Provider Family Medicine Geriatric Medicine; Visit Provider Surgery
PROC: 0DJD8ZZ Inspection of Lower Intestinal Tract, Via Natural or Artificial Opening Endoscopic (ICD-10-PCS; CPT 45378; principal; 2020-02-13 08:40)
DX: K64.9 Unspecified hemorrhoids (principal); K21.0 Gastro-esophageal reflux disease with esophagitis; K44.9 Diaphragmatic hernia without obstruction or gangrene; K29.50 Unspecified chronic gastritis without bleeding; D50.9 Iron deficiency anemia, unspecified; I10 Essential (primary) hypertension; G20 Parkinson's disease; F02.80 Dementia in other diseases classified elsewhere, unspecified severity, without behavioral disturbance, psychotic disturbance, mood disturbance, and anxiety; E78.5 Hyperlipidemia, unspecified; G47.00 Insomnia, unspecified; F32.9 Major depressive disorder, single episode, unspecified; G25.81 Restless legs syndrome; M19.90 Unspecified osteoarthritis, unspecified site; Z79.899 Other long term (current) drug therapy; Z87.891 Personal history of nicotine dependence; Z79.82 Long term (current) use of aspirin
CPT/HCPCS: 43239; 45378; 87635; 88305; 88313; 88342; C9803; J7120; U0003

== ENCOUNTER 2020-02-15 05:14 | Day surgery (SDC) | payer MEDICARE, OTHER, MEDICAID, SELFPAY ==
[2020-02-13 08:17] VITALS: BMI 25.9
[2020-02-15] VITALS (7 sets, daily range): BP systolic 148–192; BP diastolic 80–106; PULSE 68–84; RESP 16–18; TEMP 36.1–36.4; O2SAT 99–100; BMI 25.7
--- NOTE | 2020-02-15 | COLBX_PTH ---
PATIENT: TIFFANIE MOODY LOC: EN U#:[id number] AGE/SX: 84/F ROOM: RE02/15/[address]: Dr. Guy Dove MD : 1935 BED: DIS: 02/15/2020 SPEC #: [id number] RECD: 02/15/20 09:42 STATUS: YANIRA REBreanna #: [id number] GINO: 02/15/20 00:[address]: Guy Dove DEPT: SURGICAL PATHOLOGY RECD BY: Jesse Ferrara ENTERED: 02/15/20 10:13 SP TYPE: COLON BX OTHR DR: Dr. 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 SJ:debby 02/16/20 COMMENT Case has been reviewed in consultation with Dr. Lorenzana who concurs with the above diagnosis. IDC:AM MICROSCOPIC DESCRIPTION Slides are reviewed. GROSS DESCRIPTION Received in fixative is one container labeled with the patient's name and designated rectum polyp biopsy. The specimen consists of one irregular fragment of light king soft tissue that measures 0.3 x 0.2 x 0.1 cm. The specimen is totally submitted in one cassette. / SJ:rg 02/15/20 TC:1 CPT: 91274
--- NOTE | 2020-02-15 05:31 | HP.PCM_ITS ---
Problem List (1) Anemia Status: Chronic Qualifiers: Anemia type: unspecified type Qualified Code(s): D64.9 - Anemia, unspecified History and Physical Date of Admission: 02/15/20 Problem List (1) Anemia Status: Chronic Qualifiers: Anemia type: iron deficiency (2) Iron deficiency anemia due to chronic blood loss Status: Chronic History and Physical Date of Admission: 02/13/20 Intake Visit Reasons: CSCOPE Chief Complaint: Parkinson's Disease Allergies Penicillins [PCN] Allergy (Mild, Verified 01/15/20 13:10) Itching Sulfa (Sulfonamide Antibiotics) Allergy (Mild, Verified 01/15/20 13:10) Itching morphine Adverse Reaction (Severe, Verified 01/15/20 13:10) Disorientation Medications Levothyroxine Sodium 75 mcg PO DAILY 06/29/18 [History Confirmed 01/15/20] Acetaminophen [Tylenol] 1,000 mg PO Q8 09/27/19 [History Confirmed 01/15/20] Iron Polysaccharide Complex [Ferrex 150] 150 mg PO DAILY #30 cap 10/10/19 [Rx Confirmed 01/15/20] oxycodone 5 mg tablet 5 mg PO BID PRN #56 tab 10/20/19 [Rx Confirmed 01/15/20] clonazepam 0.5 mg tablet ea PO 12/25/19 [History Confirmed 01/15/20] ropinirole 1 mg tablet mg PO TID tab 12/25/19 [History Confirmed 01/15/20] apixaban 2.5 mg tablet 2.5 mg PO ONCE tab 12/28/19 [History Confirmed 01/15/20] aspirin 81 mg tablet,delayed release 81 mg PO DAILY 12/28/19 [History Confirmed 01/15/20] atorvastatin 40 mg tablet 40 mg PO DAILY tab 12/28/19 [History Confirmed 01/15/20] carbidopa 25 mg-levodopa 100 mg tablet 1 tab PO QPM #30 tab 12/28/19 [Rx Confirmed 01/15/20] carbidopa ER 50 mg-levodopa 200 mg tablet,extended release 1 tab PO QAM #30 tab 12/28/19 [Rx Confirmed 01/15/20] famotidine 20 mg tablet 20 mg PO QHS 12/28/19 [History Confirmed 01/15/20] mirtazapine 15 mg tablet 15 mg PO DAILY tab 12/28/19 [History Confirmed 01/15/20] [facility] Medical History (Updated 12/28/19 @ 10:18 by Berta Ford) BIOTIN DEFICIENCY (Acute) Cataract (Acute) Delusional disorder (Acute) Dementia associated with Parkinson's disease (Acute) Depression (Acute) Frequent UTI (Acute) Hallucinations (Acute) Hyperlipidemia (Acute) Insomnia (Acute) Iron deficiency anemia (Acute) Osteoarthritis (Acute) Parkinson disease (Acute) Restless leg syndrome (Acute) Vitamin B12 deficiency (Acute) Surgical History (Updated 12/25/19 @ 10:38 by Berta Collazo) H/O: hysterectomy (Acute) History of appendectomy (Acute) History of cataract surgery (Acute) History of knee replacement (Acute) History of left hip replacement (Acute) History of tooth extraction (Acute) History of total right knee replacement (Acute) [place] teeth removed (Acute) Family History Mother Parkinson disease CVA (cerebral vascular accident) Ovarian cancer Father Pancreatic cancer Diabetes Daughter Ovarian cancer Brother Lung cancer Son Lung cancer Uncle Parkinson disease Social History (Updated 01/15/20 @ 13:[address] Guy Dove MD) Smoking Status: Former smoker Tobacco: How many years used: 10 how long ago did patient quit smokin+ years alcohol intake: current alcohol intake frequency: holidays/special occasions only substance use type: does not use HPI HPI HPI: TIFFANIE MOODY, is a 84 F who presents to the office today for surgical consultation. She was referred by Dr. Jaime Lyon for chronic iron deficiency anemia and a written copy of my surgical consult recommendations will be returned to him. The patient states that she is aware of her chronic anemia. She is required iron replacement. She claims that she has had transfusion. She thinks her last colonoscopy was 10 years ago. She is additionally had some weight loss. She is unclear as to the etiology. She is treated with Eliquis therapy and was seemingly unaware that she is on anticoagulation. In addition she is on aspirin therapy. She has noted some darker stools but she is very nonspecific. She denies any abdominal pain. She denies any family history of colon cancer. She did have a right knee replacement September 2019. By report that procedure went without complication. RUN DATE: 01/15/20 [facility], DEPARTMENT OF LABORATORIES PAGE 1 RUN TIME: 1326 Specimen Inquiry [address], [place], [address] PATIENT: TIFFANIE MOODY LOC: ONC U #: [id number] : 1935 AGE/SX: 84/F FACILITY: [facility] ROOM: RE11/30/[address]: Dr. Jaime Lyon M STATUS:REG RCR BED: DIS: ~ SPEC #: [id number] GINO: 11/22/19 STATUS: COMP REQ #: [id number] RECD: 11/22/[address]: Dr. Jaime Lyon MD ENTERED: 11/22/[address]: Dr. Young Hubbard MD ~ Test Result Flag Adult Reference Range CBCD WBC 5.6 4.4-11.0 K/mm3 RBC 3.84 L 4.2-5.4 M/mm3 HGB 11.1 L 12.0-15.0 g/dL HCT 36.9 L 37-47 % MCV 96.1 81-99 fL MCH 28.9 27.0-32.0 pg MCHC 30.1 L 32-36 g/dL RDW CV 15.3 H 11.6-14.6 % RDW SD 54.0 H 35.1-43.9 fl PLT 198 150-450 K/mm3 MPV 10.0 6.2-12.0 fl NEUT% 61.2 47-70 % LY% 25.1 19-41 % MONO% 11.2 H 0-10 % EO% 1.8 0-5 % BASO% 0.5 0-1 % IG% 0.200 0.0-0.9 % IG% - Immature Granulocytes (promyelocytes, myelocytes and metamyelocytes) > 1% indicates that a LEFT SHIFT is Present. Absolute Neut 3.4 2.0-7.7 X10^3/uL Absolute Lymph 1.41 0.83-4.51 X10^3/uL NUCLEATED RBC 0 0-5 % Laboratory Tests 03/08/17 03/10/18 04/12/19 14:00 11:54 05:50 Hgb 11.7 L 11.0 L 8.2 L Hct 37.0 35.9 L 26.6 L Iron TIBC Iron Saturation Ferritin 08/10/19 08/14/19 09/12/19 11:31 13:28 14:52 Hgb 9.1 L 9.4 L Hct 30.8 L 32.4 L Iron 25 L TIBC 231 L Iron Saturation Ferritin 99 09/14/19 09/28/19 11/22/19 14:55 05: 13:42 Hgb 7.3 L 11.1 L Hct 24.5 L 36.9 L Iron 33 L TIBC 259 Iron Saturation 12.7 L Ferritin 100 11/22/19 13:42 Hgb Hct Iron 46 L TIBC 239 L Iron Saturation 19.2 Ferritin 146 HPI HPI HPI: TIFFANIE MOODY, is a 84 F who presents to the office today for Exam Const General: cooperative, comfortable, no acute distress, frail appearing Nutritional Appearance: average body habitus Orientation: alert HENMT Head: normal to inspection Eyes General: appearance normal, both eyes and all related structures Resp Effort & Inspection: normal respiratory effort Auscultation: clear to auscultation bilaterally Cardio Rate: regular rate Rhythm: regular rhythm GI Palpation: soft Auscultation: normal bowel sounds Musc Cervical Spine: normal cervical lordosis Neuro Cognition: normal cognition Extrem General: no calf tenderness Psych Affect: normal affect Assessment & Plan Problems 1. Iron deficiency anemia due to chronic blood loss D50.0 Plan I have offered the patient a combined esophagogastroduodenoscopy with possible biopsy and colonoscopy possible biopsy or polypectomy is indicated. She is aware that at age 84 there is increased risk with this diagnostic intervention. She is aware of the technique, benefit, risk, alternatives. We will have her hold her Eliquis for 48 hours preintervention. We will utilized monitored anesthesia care. We will try to schedule and expedite her management. She is on famotidine therapy but she is on anticoagulation in the form of Eliquis and aspirin. I appreciate the opportunity of assisting with her surgical care. Copy: Dr. Hubbard and Dr. Sonali Dove M.D., F.A.C.S. Coding Level of Care Code 29381 Diagnoses Iron deficiency anemia due to chronic blood loss D50.0 [facility] [address] [place] [address] Carotid Duplex Ultrasound 01/18/20 1254 MR#: [id number] Acct: [id number] Name: TIFFANIE MOODY Rep #:[id number] : 1935 84 From: Guy aaron MD Attending Dr: Dr. Ramírez Kohli MD Status: REG CLI Ordering Dr: Ramírez Kohli MD Date: 01/18/20 Location: [facility] Sex: F C Admitted: Reason For Study: TIA Rt. Velocities/BP Lt. Velocities/BP Prox CCA 63/10 cm/sec. Prox CCA 71/12 cm/sec. Mid CCA 71/11 cm/sec. Mid CCA 68/14 cm/sec. Dist CCA 58/11 cm/sec. Dist CCA 62/16 cm/sec. Prox ICA 99/23 cm/sec. Prox ICA 71/22 cm/sec. Mid ICA 159/34 cm/sec. Mid ICA 43/14 cm/sec. Dist ICA 54/20 cm/sec. Dist ICA 64/23 cm/sec. Rt. ICA/CCA = 2.2. Lt. ICA/CCA = 1.0. Prox ECA 58/0 cm/sec. Prox ECA 63/5 cm/sec. Rt. Vert. 27/8 cm/sec. Lt. Vert. 38/9 cm/sec. Right Extracranial There is homogeneous, smooth atherosclerotic plaque noted in the right common carotid artery. The right internal carotid artery is not adequately visualized to characterize plaque. There is heterogeneous, irregular atherosclerotic plaque noted in the right external carotid artery. Antegrade flow is noted in the right vertebral artery. There is heterogeneous, irregular atherosclerotic plaque noted in the right bulb. Left Extracranial There is homogeneous, smooth atherosclerotic plaque noted in the left common carotid artery. There is heterogeneous, irregular atherosclerotic plaque noted in the left internal carotid artery. The left external carotid artery is tortuous. The left external carotid artery is not well visualized. Antegrade flow is noted in the left vertebral artery. There is intimal thickening but no significant atherosclerotic plaque noted in the left bulb. Procedure Carotid Duplex 95153. Technically difficult due to high bifurcation. Exam performed in department. Interpretation Summary Minimal smooth plaque of the proximal right internal carotid with 50 to 69% stenosis. Visualization of the internal carotid was noted to be technically difficult. <50% stenosis right external carotid Minimal irregular calcific plaque in the proximal left internal carotid artery with less than 50% stenosis <50% stenosis left external carotid Patent and antegrade vertebrals bilaterally Please note the technical difficulty bilaterally secondary to high bifurcations Ordering Physician: Ramírez Kohli Referring Physician: YOUNG HUBBARD Performed By: Marely Katz, LATRELL, RVT 01/18/20 1510 Date _ Guy Dove MD I have re-examined the patient. There are no clinical changes since date of exam. Procedure Criteria Procedure Type: Elective COVID Risk Discussion: The surgeon/proceduralist and patient have discussed in detail the risk of exposure to and/or potential harm posed by the COVID-19 virus with having a surgery/procedure at this time versus the risk of delaying the surgery/procedure. It is not possible to know either the risk of delaying the surgery or procedure or chance of getting an infection with perfect accuracy, but a joint decision was made between the patient and the surgeon/proceduralist to proceed at this time with the scheduled surgery/procedure as indicated on the consent form. The patient returns today. On February 13, 2020 she was to have a combined upper and lower endoscopy. The upper endoscopy was successfully performed however the colonoscopy could not be performed as the patient had a completely unsuccessful bowel prep. She is been retreated with an additional GoLYTELY bowel prep. She presents today for planned repeat attempt at colonoscopy with possible biopsy or polypectomy is indicated. She is aware of the technique, benefit, risk, alternatives. We will proceed as noted. Guy Dove M.D., F.A.C.S.
[2020-02-15] MEDS: Lactated Ringers 1,000 ML 100 ML IV (06:25)
--- NOTE | 2020-02-15 07:17 | OP.COLON_ITS ---
Patient Name: Sonya Lucas Procedure Date: 02/15/2020 6:31 AM Date of : 1935 Age: 84 Procedure: Colonoscopy Indications: Iron deficiency anemia Providers: Guy Dove MD Referring MD: Young Hubbard MD Medicines: See the Anesthesia note for documentation of the administered medications Patient Profile: Last Colonoscopy: more than 10 years ago. Complications: No immediate complications. Procedure: Pre-Anesthesia Assessment: - Prior to the procedure, a History and Physical was performed, and patient medications and allergies were reviewed. The patient's tolerance of previous anesthesia was also reviewed. The risks and benefits of the procedure and the sedation options and risks were discussed with the patient. All questions were answered, and informed consent was obtained. Prior Anticoagulants: The patient has taken no previous anticoagulant or antiplatelet agents. ASA Grade Assessment: III - A patient with severe systemic disease. After reviewing the risks and benefits, the patient was deemed in satisfactory condition to undergo the procedure. After I obtained informed consent, the scope was passed under direct vision. Throughout the procedure, the patient's blood pressure, pulse, and oxygen saturations were monitored continuously. The colonoscope was introduced through the anus and advanced to the cecum, identified by appendiceal orifice and ileocecal valve. The adult colonoscope was introduced through the and advanced to. The colonoscopy was unusually difficult due to a tortuous colon. Successful completion of the procedure was aided by changing to an adult colonoscope The quality of the bowel preparation was good. The ileocecal valve was photographed. Scope In: 6:37:17 AM Scope Withdrawal Time 0 hours 6 minutes 18 seconds Scope Out: 7:10:59 AM Total Procedure Duration Time 0 hours 33 minutes 42 seconds Findings: Hemorrhoids were found on perianal exam. The colon (entire examined portion) was significantly tortuous. Advancing the scope required changing the patient to a supine position and using manual pressure. A few diverticula were found in the sigmoid colon. A 5 mm polyp was found in the rectum. The polyp was sessile. The polyp was removed with a cold biopsy forceps. Resection and retrieval were complete. Impression: - Hemorrhoids found on perianal exam. - Tortuous colon. - Diverticulosis in the sigmoid colon. - One 5 mm polyp in the rectum, removed with a cold biopsy forceps. Resected and retrieved. Recommendation: - Telephone my office for pathology results in 1 week. - Resume previous diet. - Continue present medications. - Repeat colonoscopy is not recommended due to current age (66 years or older) for screening purposes. Procedure Code(s): --- Professional --- 50052, Colonoscopy, flexible; with biopsy, single or multiple Diagnosis Code(s): --- Professional --- K64.9, Unspecified hemorrhoids K62.1, Rectal polyp D50.9, Iron deficiency anemia, unspecified K57.30, Diverticulosis of large intestine without perforation or abscess without bleeding Q43.8, Other specified congenital malformations of intestine CPT copyright 2017 [employer]. All rights reserved. The codes documented in this report are preliminary and upon meter mechanic review may be revised to meet current compliance requirements. Guy Dove MD 02/15/2020 7:16:54 AM This report has been signed electronically. Number of Addenda: 0 Note Initiated On: 02/15/2020 6:31 AM
--- NOTE | 2020-02-15 07:17 | OP.CCLET_ITS ---
02/15/2020 Young Hubbard MD [address] [place] [address] Re : Colonoscopy procedure for Sonya Lucas Dear Dr. Hubbard This procedure was performed on February. My impressions and recommendations are as follows: Impressions : - Hemorrhoids found on perianal exam. - Tortuous colon. - Diverticulosis in the sigmoid colon. - One 5 mm polyp in the rectum, removed with a cold biopsy forceps. Resected and retrieved. Recommendations : - Telephone my office for pathology results in 1 week. - Resume previous diet. - Continue present medications. - Repeat colonoscopy is not recommended due to current age (66 years or older) for screening purposes. My findings are described in the full procedure note, which is enclosed. If I can be of further assistance, please feel free to contact me at Doctor phone number(s): Work: . Sincerely, Guy Dove MD 02/15/2020 7:16:54 AM This report has been signed electronically.
== END 2020-02-15 08:22 | disposition home or self-care (01) ==
LOC: EN 05:14 → AC 05:21
PROVIDERS: PCP Family Medicine Geriatric Medicine; Referring Provider Family Medicine Geriatric Medicine; Visit Provider Surgery
PROC: 0DJD8ZZ Inspection of Lower Intestinal Tract, Via Natural or Artificial Opening Endoscopic (ICD-10-PCS; CPT 45378; principal; 2020-02-15 06:25)
DX: D12.8 Benign neoplasm of rectum (principal); D50.0 Iron deficiency anemia secondary to blood loss (chronic); K57.30 Diverticulosis of large intestine without perforation or abscess without bleeding; Q43.8 Other specified congenital malformations of intestine; K64.9 Unspecified hemorrhoids; G20 Parkinson's disease; F02.80 Dementia in other diseases classified elsewhere, unspecified severity, without behavioral disturbance, psychotic disturbance, mood disturbance, and anxiety; I10 Essential (primary) hypertension; G25.81 Restless legs syndrome; E78.00 Pure hypercholesterolemia, unspecified; F32.9 Major depressive disorder, single episode, unspecified; E03.9 Hypothyroidism, unspecified; G47.00 Insomnia, unspecified; M19.90 Unspecified osteoarthritis, unspecified site; Z79.82 Long term (current) use of aspirin; Z79.01 Long term (current) use of anticoagulants; Z87.891 Personal history of nicotine dependence; Z79.899 Other long term (current) drug therapy; Z96.651 Presence of right artificial knee joint
CPT/HCPCS: 45380; 88305; J7120

== ENCOUNTER → 2020-03-14 14:39 | Outpatient (CLI) | payer MEDICARE, OTHER, MEDICAID, SELFPAY ==
[2020-03-05 13:34] VITALS: BMI 25.4
[2020-03-14 16:02] LABS: Absolute Lymphocyte Count 1.43 X10^3/uL (0.83-4.51); Absolute Neutrophil Count 3.4 X10^3/uL (2.0-7.7); Basophil# 0.03 X10^3/uL; Basophil% 0.5 % (0-1); Eosinophil# 0.09 X10^3/uL; Eosinophils% 1.6 % (0-5); Hematocrit 35.9 % (37-47); Lymphocyte # 1.43 X10^3/ul (4.0); Mean Corp Hgb Conc 30.6 g/dL (32-36); Mean Corpuscular Hgb 29.6 pg (27.0-32.0); Mean Corpuscular Volume 96.8 fL (81-99); Mean Platelet Vol. 11.4 fl (6.2-12.0); Monocyte# 0.57 X10^3/uL; Monocyte% 10.4 % (0-10); NRBC Flagged by Analyzer 0 % (0-5); Neutrophil # 3.35 X10^3/uL (2.7-7.7); Neutrophil % 61.1 % (47-70); Platelet Count 191 K/mm3 (150-450); RBC Distribution Width CV 13.5 % (11.6-14.6); RBC Distribution Width SD 48.3 fl (35.1-43.9); Red Blood Count 3.71 M/mm3 (4.2-5.4); White Blood Count 5.5 K/mm3 (4.4-11.0)
[2020-03-14 16:26] LABS: AST(SGOT) 13 U/L (15-37); Alanine Aminotransfer ALT/SGPT 13 U/L (13-56); Albumin, Serum 3.5 g/dL (3.2-5.0); Alkaline Phosphatase 118 U/L (45-117); Anion Gap 9 (5-15); BUN 26 mg/dL (7-18); BUN/Creat Ratio 31.5 RATIO (10-20); Calcium,Total 8.9 mg/dL (8.5-10.1); Chloride 105 mmol/L (98-107); Creatinine, Serum 0.83 mg/dL (0.55-1.02); EST Glomerular Filtration Rate 70 mL/min (>60); Est Glom Filt Rate - Afr Amer 85 mL/min (>60); Globulin 3.4 g/dL (2.2-4.2); Glucose 116 mg/dL (74-106); Potassium 4.3 mmol/L (3.5-5.1); Protein, Total 6.9 g/dL (6.4-8.2); Sodium Level 140 mmol/L (136-145); Thyroid Stim Hormone (TSH) 0.85 uIU/mL (0.358-3.74)
== END ==
PROVIDERS: PCP Family Medicine Geriatric Medicine; Visit Provider Family Medicine Geriatric Medicine
DX: I10 Essential (primary) hypertension (principal); E55.9 Vitamin D deficiency, unspecified
CPT/HCPCS: 36415; 80053; 82306; 84443; 85025

== ENCOUNTER → 2020-05-14 13:51 | Outpatient (CLI) | payer MEDICARE, OTHER, MEDICAID, SELFPAY ==
[2020-03-05 13:34] VITALS: BMI 25.4
--- NOTE | 2020-05-14 14:00 | RAD_ITS ---
STUDY: X-RAY - CERVICAL SPINE REASON FOR EXAM: Female, 84 years old. Pain TECHNIQUE: 4 view(s) of the cervical spine were obtained. COMPARISON: None FINDINGS: Normal anterior atlantoaxial articulation. Normal odontoid process. Normal cervical lordosis. Normal vertebral bodies and endplates. Mild disc space height narrowing at C4-C5 and C5-C6 disc space levels. Normal remaining cervical disc space heights. Minimal degenerative anterolisthesis of C3 on C4. Asymmetric degenerative facet arthropathy of the C3-C4, C4-C5 and C5-C6 facet joints. The soft tissue structures are unremarkable. RAD/Cerv Spine 2 or 3 Views IMPRESSION: 1. Mild degenerative anterolisthesis of C3 on C4. 2. Mild disc space height narrowing at C4-C5 and C5-C6 disc space levels. 3. Asymmetric degenerative facet arthropathy of the C3-C4, C4-C5 and C5-C6 facet joints. Electronically Signed: Jayce Acuna MD at 15:14 EST , Service support ,
== END ==
PROVIDERS: PCP Family Medicine Geriatric Medicine; Referring Provider Family Medicine Geriatric Medicine; Visit Provider Family Medicine Geriatric Medicine
DX: M46.92 Unspecified inflammatory spondylopathy, cervical region (principal)
CPT/HCPCS: 72040

== ENCOUNTER → 2020-05-22 13:04 | Outpatient (CLI) | payer MEDICARE, OTHER, MEDICAID, SELFPAY ==
[2020-03-05 13:34] VITALS: BMI 25.4
--- NOTE | 2020-05-22 13:11 | MRI_ITS ---
STUDY: MRI ABDOMEN WITH AND WITHOUT CONTRAST REASON FOR EXAM: Female, 84 years old. liver, kidney mass -- patient can''t give any history as to why we are doing mri, known renal cyst, no abd pain TECHNIQUE: Standardized fat and water weighted pulse sequences were obtained in all 3 orthogonal planes post contrast administration. IV Yes yes was administered for the contrast portion of the examination. COMPARISON: None. FINDINGS: The visualized lung bases are unremarkable. The visualized portions of the heart are within normal limits. 4.5 cm septated cyst within the medial segment left lobe liver adjacent to the falciform ligament. Multiple subcentimeter cysts within the inferior aspect of the the right lobe of the liver. Multiple small stones in the dependent portion the gallbladder. Normal spleen. Normal pancreas. Normal bilateral adrenal glands. 3.5 cm parapelvic cyst of the midsection the right kidney. This is slightly hypointense on the T2-weighted images consistent with some the hemorrhage or protein but does not demonstrate any septal or a solid contrast enhancement. Normal left kidney. Normal visualized stomach. Normal small intestine. Normal colon. There is non-visualization of the appendix. Normal abdominal aorta. Normal inferior vena cava. Normal retroperitoneum. Normal abdominal wall. Normal osseous structures. MRI/MRI Abd WITH and W/O Contrast IMPRESSION: 1. MRI confirms a 3.5 cm parapelvic cyst of the right kidney without solid or septal contrast enhancement. 2. 4.5 cm septated cyst in the medial segment left lobe liver adjacent to the falciform ligament with other smaller hepatic cysts. Electronically Signed: Sandeep Cuellar MD at 16:09 EST Tel , Service support ,
== END ==
PROVIDERS: PCP Family Medicine Geriatric Medicine; Referring Provider Family Medicine Geriatric Medicine; Visit Provider Family Medicine Geriatric Medicine
DX: N28.9 Disorder of kidney and ureter, unspecified (principal); K76.89 Other specified diseases of liver
CPT/HCPCS: 74183; A9575

== ENCOUNTER → 2020-06-06 | Outpatient (CLI) | payer MEDICARE, OTHER, MEDICAID, SELFPAY ==
[2020-03-05 13:34] VITALS: BMI 25.4
== END | disposition home or self-care (01) ==
LOC: POLAB3 15:39 → LABSPEC 15:41
PROVIDERS: PCP Family Medicine Geriatric Medicine; Visit Provider Family Medicine Geriatric Medicine
DX: N39.0 Urinary tract infection, site not specified (principal)
CPT/HCPCS: 87086; 87088